=== PATIENT | female | born 1940 | race Caucasian/White ===

== ENCOUNTER 2019-02-03 13:54 | Outpatient (RCR) | payer OTHER, SELFPAY | END 2019-05-04 23:59 | disposition home or self-care (01) | LOC: ANHLAB 13:54 | PROVIDERS: PCP Family Medicine; Visit Provider Internal Medicine Hematology & Oncology | DX: C50.412 Malignant neoplasm of upper-outer quadrant of left female breast (principal); Z17.0 Estrogen receptor positive status [ER+]; E83.119 Hemochromatosis, unspecified | CPT/HCPCS: 99199 ==

== ENCOUNTER 2019-04-26 08:05 | Outpatient (CLI) | payer OTHER, SELFPAY ==
[2019-04-26 09:12] LABS: Basophils Percent Auto 0.5 % (0.2-1.2); Eosinophils Absolute Auto 0.2 K/mm3 (0-0.3); Hematocrit 37.1 % (37.0-47.0); Hemoglobin 12.3 g/dL (12.0-15.0); Immature Granulocyte Absolute 0.03 K/mm3 (0.00-0.031); Immature Granulocyte Percent A 0.5 % (0-0.5); Lymphocytes Absolute Auto 1.18 K/mm3 (0.9-3.2); Lymphocytes Percent Auto 19.7 % (18.3-44.2); Mean Corpuscular HGB Conc 33.2 g/dl (32-36); Mean Corpuscular Hemoglobin 31.5 pg (26-34); Mean Corpuscular Volume 95.1 fl (80-100); Monocytes Absolute Auto 0.6 K/mm3 (0.1-0.6); Neutrophils Percent Auto 66.3 % (45.5-73.1); Platelet Count Result 202 k/mm3 (150-375); Red Cell Distribution Width 12.5 % (11.5-14.5)
[2019-04-26 09:19] LABS: Add Urine Microscopic? YES; Appearance Urine Cloudy (Clear); Bacteria Urine Trace /hpf; Bilirubin Urine Negative (Negative); Blood Urine 1+ (Negative); Color Urine Yellow (Yellow); Glucose Urine UA Negative (Negative); Ketones Urine Negative (Negative); Leukocyte Esterase Ur 3+ LEU/UL (NEGATIVE); Mucus Urine Rare /lpf; Nitrate Urine Negative (Negative); Protein Urine 1+ mg/dL (Negative); Specific Grav Ur 1.015 (1.001-1.035); Squamous Epithelial Cell Urine Few /hpf (Few); Urobilinogen Urine Negative mg/dL (<2.0); WBC Urine 31-50 /hpf (0-3)
[2019-04-26 09:30] LABS: Alanine Aminotransferase 18 U/L (4-35); Albumin Level 3.9 g/dL (3.5-5.1); Alkaline Phosphatase 76 U/L (38-126); Aspartate Amino Transferase 25 U/L (14-36); Bilirubin,Total 0.2 mg/dL (0.2-1.3); Blood Urea Nitrogen 31 mg/dL (7-17); Calcium 9.4 mg/dL (8.4-10.2); Carbon Dioxide 26 mmol/L (22-30); Chloride 106 mmol/L (98-107); Estimated Glomerular Filt Rate 31; Glucose 100 mg/dL (65-105); Phosphorus 3.3 mg/dL (2.5-4.5); Potassium 4.2 mmol/L (3.4-5.0); Sodium 140 mmol/L (137-145); Uric Acid 7.5 mg/dL (2.5-7.5)
[2019-04-26 09:34] LABS: Creatinine Urine 106.2 mg/dL; Total Protein Urine Random 22 mg/dL
[2019-04-26 09:38] LABS: Parathyroid Intact 87.7 pg/mL (7.5-53.5)
[2019-04-26 10:09] LABS: Vitamin D 25 Hydroxy 40.6 ng/mL
== END 2019-04-26 08:06 | disposition home or self-care (01) ==
PROVIDERS: PCP Family Medicine; Visit Provider Internal Medicine Nephrology
DX: N18.3 Chronic kidney disease, stage 3 (moderate) (principal); N20.0 Calculus of kidney; I12.9 Hypertensive chronic kidney disease with stage 1 through stage 4 chronic kidney disease, or unspecified chronic kidney disease; M31.6 Other giant cell arteritis; M81.0 Age-related osteoporosis without current pathological fracture; E83.119 Hemochromatosis, unspecified
CPT/HCPCS: 36415; 80053; 81001; 82306; 82570; 83970; 84100; 84156; 84550; 85025; 87086; 87088

== ENCOUNTER 2019-07-23 08:25 | Outpatient (CLI) | payer OTHER, SELFPAY ==
[2019-07-23 09:08] LABS: Add Urine Microscopic? YES; Appearance Urine Clear (Clear); Bilirubin Urine Negative (Negative); Blood Urine Negative (Negative); Color Urine Yellow (Yellow); Glucose Urine UA Negative (Negative); Ketones Urine Negative (Negative); Leukocyte Esterase Ur 2+ LEU/UL (NEGATIVE); Mucus Urine Rare /lpf; Nitrate Urine Negative (Negative); Protein Urine Negative (Negative); Specific Grav Ur 1.013 (1.001-1.035); Squamous Epithelial Cell Urine Few /hpf (Few); Urobilinogen Urine Negative mg/dL (<2.0)
== END 2019-07-23 08:26 | disposition home or self-care (01) ==
PROVIDERS: PCP Family Medicine; Visit Provider Internal Medicine Nephrology
DX: N18.3 Chronic kidney disease, stage 3 (moderate) (principal); N20.0 Calculus of kidney; M31.6 Other giant cell arteritis; E83.119 Hemochromatosis, unspecified; I10 Essential (primary) hypertension; M81.0 Age-related osteoporosis without current pathological fracture; N25.81 Secondary hyperparathyroidism of renal origin
CPT/HCPCS: 81001; 88108

== ENCOUNTER 2019-08-03 07:53 | Outpatient (CLI) | payer OTHER, SELFPAY ==
--- NOTE | ~2019-08-03 | MM_ITS ---
EXAMINATION: MM screening litzy BI w waqas HISTORY: Screening mammogram, history of left breast cancer TECHNIQUE: Craniocaudal and mediolateral oblique 3-D tomosynthesis images were obtained and synthetic 2-D images were generated. CAD analysis was submitted and interpreted. COMPARISON: 07/31/2018, 07/28/2017, 07/25/2016 BREAST PARENCHYMAL COMPOSITION: There are scattered areas of fibroglandular density. FINDINGS: There are stable lumpectomy changes of the left breast. There is no evidence of suspicious mass, calcification, or architectural distortion to suggest malignancy in either breast. There has be en no suspicious interval change. IMPRESSION: 1. No mammographic evidence of malignancy. 2. Recommend routine screening mammography in one year. BI-RADS Category 2: Benign finding(s). Reviewed, dictated and finalized at location A.
--- NOTE | ~2019-08-03 | DEXA_ITS ---
Bone Density Report Name: Pippa Mota Age: 79 Sex: Female Ethnicity: White Date of : 1940 Indication: osteopenia; height loss; cancer; Referring Provider: Payton Ferguson Study: Bone densitometry was performed. Exam Date: August 03, 2019 Accession number: [id number] Bone Density: Region BMD T-score Z-score Classification AP Spine (L1-L4) 0.989 -0.5 2.2 Normal Femoral Neck (Left) 0.493 -3.2 -0.9 Osteoporosis Total Hip (Left) 0.745 -1.6 0.4 Osteopenia Total Hip Bilateral Avg 0.776 -1.4 0.7 Osteopenia Femoral Neck (Right) 0.570 -2.5 -0.2 Osteoporosis Total Hip (Right) 0.807 -1.1 1.0 Osteopenia World Health Organization criteria for BMD impression classify patients as: Normal (T-score at or above -1.0), Osteopenia (T-score between -1.0 and -2.5), or Osteoporosis (T-score at or below -2.5). 10-year Fracture Risk: FRAX not reported because: Some T-score for Spine Total or Hip Total or Femoral Neck at or below -2.5 Previous Exams: Region Exam Age BMD T-score BMD Change BMD Change Date g/cm2 vs Baseline vs Previous AP Spine(L1-L4) 08/03/2019 79 0.989 -0.5 0.079(8.7%)# 0.029(3.0%)* 05/20/2017 76 0.960 -0.8 0.050(5.5%)# -0.026(-2.7%)* 05/18/2015 74 0.987 -0.5 0.077(8.4%)# 0.043(4.6%)# 05/03/2013 72 0.944 -0.9 0.034(3.7%)# 0.020(2.2%) 04/19/2011 70 0.923 -1.1 0.013(1.5%)# -0.024(-2.5%)# 03/01/2009 68 0.947 -0.9 0.037(4.1%)* 0.004(0.5%) 02/26/2007 66 0.943 -0.9 0.033(3.6%)* 0.033(3.6%)* 01/15/2005 64 0.910 -1.2 Total Hip(Left) 08/03/2019 79 0.745 -1.6 -0.114(-13.3%) -0.051(-6.4%)* 05/20/2017 76 0.796 -1.2 -0.063(-7.3%)# 0.037(4.9%)* 05/18/2015 74 0.759 -1.5 -0.100(-11.7%) -0.040(-5.0%)# 05/03/2013 72 0.799 -1.2 -0.060(-7.0%)# 0.011(1.4%) 04/19/2011 70 0.788 -1.3 -0.072(-8.3%)# 0.002(0.3%)# 03/01/2009 68 0.786 -1.3 -0.074(-8.6%)* -0.033(-4.0%)* 02/26/2007 66 0.819 -1.0 -0.041(-4.7%)* -0.041(-4.7%)* 01/15/2005 64 0.860 -0.7 Total Hip(Right) 08/03/2019 79 0.807 -1.1 -0.019(-2.3%)# 0.020(2.5%) 05/20/2017 76 0.788 -1.3 -0.039(-4.7%)# -0.061(-7.2%)* 05/18/2015 74 0.849 -0.8 0.022(2.7%)# -0.021(-2.4%)# 05/03/2013 72 0.870 -0.6 0.043(5.2%)# 0.016(1.9%) 04/19/2011 70 0.853 -0.7 0.027(3.2%)# 0.038(4.7%)# 03/01/2009 68 0.815 -1.0 -0.012(-1.4%) -0.035(-4.1%)* 02/26/2007 66 0.850 -0.8 0.023(2.8%) 0.023(2.8%) 01/15/2005 64 0.827 -0.9 *Denotes significance at 95% confidence level,
== END 2019-08-03 07:54 | disposition home or self-care (01) ==
PROVIDERS: Visit Provider Family Medicine
DX: Z12.31 Encounter for screening mammogram for malignant neoplasm of breast (principal); Z78.0 Asymptomatic menopausal state; M85.89 Other specified disorders of bone density and structure, multiple sites; M81.0 Age-related osteoporosis without current pathological fracture
CPT/HCPCS: 36415; 77063; 77067; 77080; 80053; 82728; 83540; 83550; 85025; 86300

== ENCOUNTER 2019-08-03 09:02 | Outpatient (CLI) | payer OTHER, SELFPAY ==
[2019-08-03 09:20] LABS: Basophils Percent Auto 0.6 % (0.2-1.2); Eosinophils Absolute Auto 0.2 K/mm3 (0-0.3); Eosinophils Percent Auto 2.5 % (0-4.4); Hematocrit 36.6 % (37.0-47.0); Hemoglobin 11.9 g/dL (12.0-15.0); Immature Granulocyte Absolute 0.03 K/mm3 (0.00-0.031); Immature Granulocyte Percent A 0.4 % (0-0.5); Lymphocytes Absolute Auto 1.09 K/mm3 (0.9-3.2); Lymphocytes Percent Auto 15.4 % (18.3-44.2); Mean Corpuscular HGB Conc 32.5 g/dl (32-36); Mean Corpuscular Hemoglobin 30.9 pg (26-34); Mean Corpuscular Volume 95.1 fl (80-100); Mean Platelet Volume 10.1 fl (7.4-10.4); Monocytes Absolute Auto 0.7 K/mm3 (0.1-0.6); Monocytes Percent Auto 9.2 % (2.6-8.5); Neutrophils Absolute Auto 5.1 K/mm3 (1.3-6.7); Neutrophils Percent Auto 71.9 % (45.5-73.1); Platelet Count Result 200 k/mm3 (150-375); Red Blood Count 3.85 M/mm3 (4.2-5.4); White Blood Count 7.1 K/mm3 (4.5-10.0)
[2019-08-03 10:14] LABS: Iron 157 ug/dL (37-170)
[2019-08-03 10:19] LABS: Alanine Aminotransferase 13 U/L (4-35); Alkaline Phosphatase 84 U/L (38-126); Aspartate Amino Transferase 21 U/L (14-36); Bilirubin,Total 0.6 mg/dL (0.2-1.3); Blood Urea Nitrogen 45 mg/dL (7-17); Calcium 9.1 mg/dL (8.4-10.2); Carbon Dioxide 24 mmol/L (22-30); Chloride 107 mmol/L (98-107); Estimated Glomerular Filt Rate 29; Glucose 104 mg/dL (65-105); Potassium 4.7 mmol/L (3.4-5.0); Sodium 141 mmol/L (137-145)
[2019-08-03 10:57] LABS: Percent Iron Saturation 56 % (20-50)
[2019-08-05 05:18] LABS: CA 27.29 17 U/mL (<38)
== END 2019-08-03 09:03 | disposition home or self-care (01) ==
LOC: ANHLAB 09:05
PROVIDERS: Visit Provider Internal Medicine Hematology & Oncology
DX: E83.119 Hemochromatosis, unspecified (principal); C50.412 Malignant neoplasm of upper-outer quadrant of left female breast; Z17.0 Estrogen receptor positive status [ER+]
CPT/HCPCS: 36415; 80053; 82728; 83540; 83550; 85025; 86300

== ENCOUNTER 2019-09-07 07:24 | Outpatient (CLI) | payer OTHER, SELFPAY ==
[2019-09-07 08:51] LABS: Cholesterol 151 mg/dL (0-200); HDL Direct 43 mg/dL; Triglycerides 130 mg/dL (<150)
[2019-09-07 09:02] LABS: LDL Cholesterol Direct 80 mg/dL
[2019-09-07 09:04] LABS: Hemoglobin A1C 5.4 % (<5.7)
== END 2019-09-07 07:25 | disposition home or self-care (01) ==
PROVIDERS: Visit Provider Family Medicine
DX: I10 Essential (primary) hypertension (principal); Z13.1 Encounter for screening for diabetes mellitus
CPT/HCPCS: 36415; 80061; 83036

== ENCOUNTER 2019-10-26 07:43 | Outpatient (CLI) | payer OTHER, SELFPAY ==
[2019-10-26 08:35] LABS: Basophils Percent Auto 0.5 % (0.2-1.2); Eosinophils Absolute Auto 0.2 K/mm3 (0-0.3); Eosinophils Percent Auto 3.1 % (0-4.4); Hemoglobin 11.5 g/dL (12.0-15.0); Immature Granulocyte Absolute 0.03 K/mm3 (0.00-0.031); Immature Granulocyte Percent A 0.5 % (0-0.5); Lymphocytes Absolute Auto 1.01 K/mm3 (0.9-3.2); Lymphocytes Percent Auto 17.6 % (18.3-44.2); Mean Corpuscular HGB Conc 32.9 g/dl (32-36); Mean Corpuscular Hemoglobin 31.3 pg (26-34); Mean Corpuscular Volume 95.4 fl (80-100); Mean Platelet Volume 10.5 fl (7.4-10.4); Monocytes Absolute Auto 0.6 K/mm3 (0.1-0.6); Monocytes Percent Auto 10.4 % (2.6-8.5); Neutrophils Absolute Auto 3.9 K/mm3 (1.3-6.7); Neutrophils Percent Auto 67.9 % (45.5-73.1); Platelet Count Result 183 k/mm3 (150-375); Red Blood Count 3.67 M/mm3 (4.2-5.4); Red Cell Distribution Width 12.5 % (11.5-14.5); White Blood Count 5.8 K/mm3 (4.5-10.0)
[2019-10-26 08:42] LABS: Creatinine Urine 84.3 mg/dL; Total Protein Urine Random 64 mg/dL
[2019-10-26 08:49] LABS: Alanine Aminotransferase 19 U/L (4-35); Albumin Level 3.6 g/dL (3.5-5.1); Alkaline Phosphatase 74 U/L (38-126); Anion Gap 10.2 mmol/L (7-16); Aspartate Amino Transferase 23 U/L (14-36); Bilirubin,Total 0.6 mg/dL (0.2-1.3); Blood Urea Nitrogen 27 mg/dL (7-17); Carbon Dioxide 27 mmol/L (22-30); Chloride 105 mmol/L (98-107); Estimated Glomerular Filt Rate 31; Glucose 92 mg/dL (65-105); Phosphorus 3.4 mg/dL (2.5-4.5); Potassium 4.2 mmol/L (3.4-5.0); Sodium 138 mmol/L (137-145); Uric Acid 7.7 mg/dL (2.5-7.5)
[2019-10-26 08:59] LABS: Add Urine Microscopic? YES; Appearance Urine Clear (Clear); Bilirubin Urine Negative (Negative); Blood Urine Negative (Negative); Color Urine Straw (Yellow); Glucose Urine UA Negative (Negative); Ketones Urine Negative (Negative); Leukocyte Esterase Ur Negative LEU/UL (Negative); Mucus Urine Rare /lpf; Nitrate Urine Negative (Negative); Protein Urine 2+ mg/dL (Negative); RBC Urine 0-2 /hpf (0-2); Specific Grav Ur 1.013 (1.001-1.035); Squamous Epithelial Cell Urine Rare /hpf (Few); Urobilinogen Urine Negative mg/dL (<2.0); WBC Urine 0-3 /hpf
[2019-10-26 09:00] LABS: Parathyroid Intact 85.6 pg/mL (7.5-53.5)
[2019-10-26 10:48] LABS: Vitamin D 25 Hydroxy 42.2 ng/mL
== END 2019-10-26 07:44 | disposition home or self-care (01) ==
LOC: ANHLAB 07:47
PROVIDERS: PCP Family Medicine; Visit Provider Internal Medicine Nephrology
DX: I12.9 Hypertensive chronic kidney disease with stage 1 through stage 4 chronic kidney disease, or unspecified chronic kidney disease (principal); N18.3 Chronic kidney disease, stage 3 (moderate); N20.0 Calculus of kidney; M31.6 Other giant cell arteritis; E83.119 Hemochromatosis, unspecified; M81.0 Age-related osteoporosis without current pathological fracture; N25.81 Secondary hyperparathyroidism of renal origin
CPT/HCPCS: 36415; 80053; 81001; 82306; 82570; 83970; 84100; 84156; 84550; 85025

== ENCOUNTER 2019-11-13 12:52 | Inpatient (IN) | payer OTHER, SELFPAY ==
[2019-11-13] VITALS (10 sets, daily range): BP systolic 148–204; BP diastolic 52–87; PULSE 62–84; RESP 14–22; TEMP 36.3–37.2; O2SAT 93–100; BMI 34.2
--- NOTE | ~2019-11-13 | XR_ITS ---
EXAMINATION: XR chest 1V portable INDICATION: Chest pain and irregular heartbeat TECHNIQUE: Portable AP chest at 1344 hours COMPARISON: 02/02/2016 FINDINGS: The lungs are free of acute opacities. There is no pleural effusion or pneumothorax. The ca rdiomediastinal silhouette is normal for technique. Changes of left partial mastectomy and left axill julieth lymph node dissection are noted. IMPRESSION: 1. No acute cardiopulmonary abnormality. Reviewed, dictated and finalized at location A.
--- NOTE | ~2019-11-13 | US_ITS ---
EXAMINATION: US venous doppler [facility] DATE: 11/14/2019 10:15 INDICATION: Lower limb pain TECHNIQUE: Coley scale images without and with compression and Doppler images of the bilateral lower e xtremity veins were obtained. COMPARISON: None FINDINGS: The right common femoral vein, profunda femoral vein, femoral vein, popliteal vein, peroneal trunk, p osterior tibial veins, and greater saphenous vein are patent. The left common femoral vein, profunda femoral vein, femoral vein, popliteal vein, peroneal trunk, po sterior tibial veins, and greater saphenous vein are patent. IMPRESSION: 1. Patent bilateral lower extremity veins. No evidence of deep venous thrombosis. Reviewed, dictated and finalized at location A. IMPRESSION: 1. Patent bilateral lower extremity veins. No evidence of deep venous thrombosi s.
--- NOTE | 2019-11-13 13:02 | ECG_ITS ---
Measurements Intervals [place] Rate: 83 P: 35 VA: 123 QRS: 27 QRSD: 86 T: 30 QT: 332 QTc: 392 Interpretive Statements SINUS RHYTHM ATRIAL TRIPLETS AND ATRIAL PREMATURE COMPLEX BASELINE ARTIFACT- III ABNORMAL ECG Electronically Signed On 11-13-2019 16:53:45 CDT by Yosvany Aguilera D.O.
[2019-11-13 13:53] LABS: Basophils Percent Auto 0.5 % (0.2-1.2); Eosinophils Absolute Auto 0.2 K/mm3 (0-0.3); Eosinophils Percent Auto 2.6 % (0-4.4); Hematocrit 33.6 % (37.0-47.0); Hemoglobin 11.3 g/dL (12.0-15.0); Immature Granulocyte Absolute 0.03 K/mm3 (0.00-0.031); Immature Granulocyte Percent A 0.5 % (0-0.5); Lymphocytes Absolute Auto 1.09 K/mm3 (0.9-3.2); Lymphocytes Percent Auto 17.6 % (18.3-44.2); Mean Corpuscular HGB Conc 33.6 g/dl (32-36); Mean Corpuscular Hemoglobin 31.7 pg (26-34); Mean Corpuscular Volume 94.4 fl (80-100); Mean Platelet Volume 10.9 fl (7.4-10.4); Monocytes Absolute Auto 0.6 K/mm3 (0.1-0.6); Monocytes Percent Auto 9.5 % (2.6-8.5); Neutrophils Absolute Auto 4.3 K/mm3 (1.3-6.7); Neutrophils Percent Auto 69.3 % (45.5-73.1); Platelet Count Result 203 k/mm3 (150-375); Red Blood Count 3.56 M/mm3 (4.2-5.4); Red Cell Distribution Width 12.4 % (11.5-14.5); White Blood Count 6.2 K/mm3 (4.5-10.0)
[2019-11-13 14:06] LABS: INR 1.1; Prothrombin Time 13.8 Seconds (11.1-14.7)
[2019-11-13 14:08] LABS: Alanine Aminotransferase 16 U/L (4-35); Albumin Level 3.5 g/dL (3.5-5.1); Alkaline Phosphatase 77 U/L (38-126); Anion Gap 7 mmol/L (8-16); Aspartate Amino Transferase 23 U/L (14-36); Bilirubin,Total 0.2 mg/dL (0.2-1.3); Blood Urea Nitrogen 29 mg/dL (7-17); Calcium 9.1 mg/dL (8.4-10.2); Carbon Dioxide 24 mmol/L (22-30); Chloride 110 mmol/L (98-107); Estimated CRCL calculation 27 ml/min; Estimated Glomerular Filt Rate 33; Glucose 132 mg/dL (65-105); Potassium 3.9 mmol/L (3.4-5.0); Sodium 141 mmol/L (137-145)
[2019-11-13 14:17] LABS: NT Pro B Type Natriuretic Pept 2750 PG/ML (5-100)
[2019-11-13] MEDS: hydrALAZINE HCL 20 MG/ML VIAL 10 MG IV PUSH (14:23)
[2019-11-13 14:35] LABS: Troponin I < 0.012 ng/mL (0.000-0.034)
--- NOTE | 2019-11-13 16:11 | ED.ARRPALP ---
HPI - Arrhythmia/Palpitations General Chief Complaint: Arrhythmia/Palpitations Stated Complaint: irregular heartbeat , high bp Time Seen by Provider: 11/13/19 12:56 Source: patient Mode of arrival: ambulatory Limitations: no limitations History of Present Illness HPI narrative: 79-year-old with a history of hypertension, CKD, here with complaints of having palpitations since last 2 weeks. Patient states since this morning she has been having more symptoms also felt lightheaded and dizzy. She denies any chest pain but has some chest discomfort. She denies any nausea vomiting. She states her primary doctor moved out of town and she is presently scheduled to see Dr. Pizarro next month. complaint: skipped beats and palpitations Duration: constant Severity: moderate Associated symptoms: denies other symptoms Related Data Allergies Allergy/AdvReac Type Severity Reaction Status Date / Time povidone Allergy Mild Unknown Verified 11/13/19 13:03 alendronate sodium Allergy Unknown Heartburn Verified 11/13/19 13:03 epinephrine Allergy Unknown tachycardia Verified 11/13/19 13:03 iodine Allergy Unknown Unknown Verified 11/13/19 13:03 prednisone Allergy Unknown Unknown Verified 11/13/19 13:03 Review of Systems Review of Systems: All systems reviewed & are unremarkable except as noted in HPI and below Constitutional: Constitutional: Reports no additional constitutional complaints Eyes: Eyes: Reports as per HPI ENT: Reports system reviewed and no additional complaints, except as documented Cardiovascular: Cardiovascular: Reports as per HPI Respiratory: Respiratory: Reports no additional respiratory complaints Gastrointestinal: Gastrointestinal: Reports as per HPI Musculoskeletal: Musculoskeletal: Reports no additional musculoskeletal complaints [facility] Past Medical History Medical History Anemia Breast cancer (~2007) HTN (hypertension) (~1991) IBS (irritable bowel syndrome) Osteoporosis Stage 3 chronic kidney disease Temporal arteritis syndrome (~2000) Vitamin D deficiency Family History Family History Mother Family history of dementia Father Family history of congestive heart failure Social History Social History Smoking status: Former smoker Smoking end date: 03/24/88 Alcohol intake: current Gender identity (if verbalized by the patient): Female Exam Narrative: Exam Narrative: GENERAL: Well-appearing, well-nourished, and in no acute distress. HEAD: Normocephalic, atraumatic. EYES: PERRLA and EOMI. ENT: Nares clear, no rhinorrhea or epistaxis. Mucous membranes moist. NECK: Supple. CHEST: Clear to auscultation. No respiratory distress. HEART: Regular rate and rhythm. No murmur heard. Normal peripheral pulses. ABDOMEN: Soft, nontender, nondistended, normal active bowel sounds. EXTREMITIES: Normal range of motion. No edema. SKIN: Warm, dry, no rash. NEURO: No focal deficits. Alert and oriented x3. PSYCH: Normal mood and affect. Course Vital Signs Vital signs: Vital Signs Temperature 37.2 C 11/13/19 12:57 Pulse Rate 72 11/13/19 12:57 Respiratory Rate 19 11/13/19 12:57 Blood Pressure 200/87 H 11/13/19 12:57 Pulse Oximetry 96 11/13/19 12:57 Temperature 37.2 C 11/13/19 12:57 Pulse Rate 68 11/13/19 15:46 Respiratory Rate 22 H 11/13/19 15:46 Blood Pressure 153/53 H 11/13/19 15:46 Pulse Oximetry 100 11/13/19 15:46 MDM - Arrhythmia/Palpitations MDM Narrative Medical decision making narrative: With a history of palpitations and ordered a CBC chemistry EKG. The EKG shows multiple PVCs but no evidence of A. fib or SVT. Also noticed to have high blood pressure have given 10 of hydralazine soon after patient became more anxious I did give her 0.25 Ativan she felt much comfortable. I informed her about her lab wo
--- NOTE | 2019-11-13 17:41 | ADMGEN ---
This patient, Pippa Mota, was admitted to IMU Room 201-01 on 11/13/2019 at 1729. Patient/family oriented to hospital policies and general routines including ID bracelet, bed and alarms, visiting hours, pain management, procedures, bathroom and other care routines, personal items, smoking policy, room service/diet, and visiting hours. Valuables list has been completed. Information on how to activate the Rapid Response Team has been discussed. Patient/Family are encouraged to report perceived risks to care and to ask questions if they do not understand what they are told or what they should do.
[2019-11-13 19:37] LABS: Magnesium 1.7 mg/dL (1.6-2.3)
[2019-11-13 19:48] LABS: Troponin I < 0.012 ng/mL (0.000-0.034)
--- NOTE | 2019-11-13 20:00 | PM.IMHP ---
H&P: HPI History of Present Illness Date/Time: 11/13/19 20:00 Chief complaint: Palpitations. Narrative: Pippa Mota is an 79-year-old female with hypertension, chronic kidney disease stage 3, hemochromatosis, and history of breast cancer who presented to the emergency department earlier today from home for evaluation of palpitations. on October 24 she began feeling extremely fatigued and around that same time she began having frequent palpitations. The palpitations made her anxious, which in turn seems to have made her blood pressure higher than what it typically runs. At night, typically if she is lying on her right side, her heart will feel like it is beating hard, and more recently she has been feeling the pulse on her wrist and noticed that it was irregular and thus she came in for evaluation. She has not had chest pain with the palpitations, and denies lightheadedness and dizziness however reported those symptoms to the emergency department physician. She also denies pleuritic pain, shortness of breath, nausea, and sweats. She has no history of sleep apnea however she has been told that she snores, has daytime somnolence on occasion, and a friend has told her that she suspect she may have sleep apnea after seeing her sleep in the emergency department. She denies orthopnea, PND, and lower extremity edema however she does mention some calf discomfort bilaterally, right greater than left. She has no known history of thyroid disease, atrial fibrillation, and denies any significant caffeine or alcohol intake. Review of Systems Review of Systems: Narrative: Twelve systems were reviewed with pertinent positives and negatives as per HPI. No fever, chills, or sweats. No recent cold or flu symptoms. She denies nausea, vomiting, diarrhea. No dysuria. She has not required therapeutic phlebotomy for some time as she is now anemic. Except as documented, all other systems were reviewed and are negative. [facility]LY [facility], [facility] Past Medical History Medical History Anemia Cancer of left breast (~2007) Status post lumpectomy, chemotherapy, and radiation. Chronic kidney disease, stage 3 She is a patient of Dr. Devi Kohli. Elevated parathyroid hormone Being monitored by her thread grinder, Dr. Kohli. Essential hypertension Hemochromatosis Diagnosed in 1991. She is a patient of Dr. Samson. No recent therapeutic phlebotomy due to presence of anemia. Irritable bowel syndrome Osteoporosis Temporal arteritis syndrome (~2000) Vitamin D deficiency Surgical History Surgical History (Updated 11/13/19 @ 22:01 by Skye Felix PA-C) History of liver biopsy History of lumpectomy of both breasts Including left breast lumpectomy for breast cancer in 2007. History of tonsillectomy Family History Family History (Updated 11/13/19 @ 22:03 by Skye Felix PA-C) Mother Family history of dementia Father Family history of congestive heart failure Other Adopted Social History Social History (Updated 11/13/19 @ 22:02 by Skye Felix PA-C) Social History: Surrogate decision maker: Hollie Costello, friend. Code status: Full code. Smoking packs per day: 1.5 Smoking cigarettes per day: 30.0 Years smoked: 30 Smoking pack-years: 45.00 Smoking status: Former smoker Tobacco type: cigarettes Smoking end date: 03/24/88 Alcohol intake: never Substance use: never Additional living arrangements comments: Lives in [place] with her 2 toy poodles. She never and has no children. 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 She studied for 2 years at [employer]. Gender identity (if verbalized by the patient): Female Spiritual care concerns: No Meds Home Medications and Allergies Home Medications Medication Instructions Recorded Confirmed Type chlorthalidone 25 mg tablet 12.5 mg PO 3XW 90 Days tablet 08/30/19
--- NOTE | 2019-11-13 20:01 | PM.CNCAR ---
Assessment and Plan Assessment and plan (1) Palpitations: Code(s): R00.2 - Palpitations Status: Acute Assessment and Plan: Monitor on telemetry. Could be related to undiagnosed sleep apnea. Will need formal sleep study as an outpatient. Check TSH and Mag. Will need echo. Increase Atenolol 100 mg daily. (2) Stage 4 chronic kidney disease due to benign hypertension: Code(s): I12.9 - Hypertensive chronic kidney disease with stage 1 through stage 4 chronic kidney disease, or unspecified chronic kidney disease; N18.4 - Chronic kidney disease, stage 4 (severe) Status: Acute (3) HTN (hypertension): Onset Date: ~1991 Code(s): I10 - Essential (primary) hypertension Status: Chronic Assessment and Plan: High. Increase Atenolol 100 mg daily. (4) Hypersomnia: Code(s): G47.10 - Hypersomnia, unspecified Status: Acute Assessment and Plan: Sleep study as outpatient. History of Present Illness History of Present Illness Consult date/time: 11/13/19 20:01 Reason for consult: Palpitations 79 yr old woman who presented to ED for evaluation of palpitations. She has a history of hypertension and CKD stage III-IV, history of hemachromatosis, parathyroid abnormality that is being assessed. Reports that she noted palpitations about 3 weeks ago and it has become more frequent especially while lying down. No associated symptoms. She can walk at least 1 block or around [employer] without any problems. Admits to snoring, waking up a twice a night and daytime sleepiness/fatigue. Denies chest pain, sob, orthopnea, PND, edema. On Telemetry she has significant number of PAC's and PVC's. EKG shows sinus rhythm with atrial triplets and PAC. Hb 11.3. Cr 1.5 with CrCl 27. NTproBNP 2,750. CXR is normal. Reason For Visit: chf,palpitations Review of Systems Review of Systems: All systems reviewed & are unremarkable except as noted in HPI and below Constitutional: Constitutional: Reports as per HPI, Denies chills and Reports fatigue Cardiovascular: Cardiovascular: Reports as per HPI, Denies chest pain and Reports palpitations Respiratory: Respiratory: Reports as per HPI and Denies dyspnea Gastrointestinal: Gastrointestinal: Reports as per HPI and Denies abdominal pain Genitourinary: Genitourinary: Reports as per HPI and Denies dysuria Musculoskeletal: Musculoskeletal: Reports as per HPI Neurologic: Reports as per HPI, Denies Abnormal speech present and Denies confusion [facility] Past Medical History Medical History Anemia Breast cancer (~2007) HTN (hypertension) (~1991) IBS (irritable bowel syndrome) Osteoporosis Stage 3 chronic kidney disease Temporal arteritis syndrome (~2000) Vitamin D deficiency Family History Family History Mother Family history of dementia Father Family history of congestive heart failure Social History Social History Smoking packs per day: 1.5 Smoking cigarettes per day: 30.0 Years smoked: 30 Smoking pack-years: 45.00 Smoking status: Former smoker Tobacco type: cigarettes Smoking end date: 03/24/88 Alcohol intake: never Substance use: never Gender identity (if verbalized by the patient): Female Spiritual care concerns: No Meds Home Medications and Allergies Home Medications Medication Instructions Recorded Confirmed Type chlorthalidone 25 mg tablet 12.5 mg PO 3XW 90 Days tablet 08/30/19 11/13/19 Rx losartan 50 mg tablet 50 mg PO DAILY #90 tablet 08/30/19 11/13/19 Rx atenolol 50 mg PO HS 11/13/19 11/13/19 History Allergies Allergy/AdvReac Type Severity Reaction Status Date / Time povidone Allergy Mild Unknown Verified 11/13/19 13:03 alendronate sodium Allergy Unknown Heartburn Verified 11/13/19 13:03 epinephrine Allergy Unknown tach
[2019-11-13 20:30] LABS: Thyroid Stimulating Hormone Reflex 0.806 uIU/mL (0.465-4.68)
[2019-11-13] MEDS: atenoloL 50 MG TABLET 100 MG PO (21:51)
[2019-11-13] MEDS: FUROSEMIDE INJ 40 MG/4 ML VIAL IV PUSH (21:52)
[2019-11-13] MEDS: MAGNESIUM SULF 2 GM/WATER 50ML 2 GM/50 ML BAG IVPB (21:53)
[2019-11-13 22:55] LABS: Troponin I 0.018 ng/mL (0.000-0.034)
[2019-11-14] VITALS (17 sets, daily range): BP systolic 107–183; BP diastolic 49–67; PULSE 43–62; RESP 12–20; TEMP 36.1–36.4; O2SAT 94–100
[2019-11-14] MEDS: ACETAMINOPHEN 325 MG TABLET 650 MG PO (02:30)
[2019-11-14 06:56] LABS: Hematocrit 36.8 % (37.0-47.0); Hemoglobin 12.3 g/dL (12.0-15.0); Mean Corpuscular HGB Conc 33.4 g/dl (32-36); Mean Corpuscular Hemoglobin 31.1 pg (26-34); Mean Corpuscular Volume 92.9 fl (80-100); Mean Platelet Volume 10.7 fl (7.4-10.4); Platelet Count Result 219 k/mm3 (150-375); Red Blood Count 3.96 M/mm3 (4.2-5.4); Red Cell Distribution Width 12.3 % (11.5-14.5); White Blood Count 6.6 K/mm3 (4.5-10.0)
[2019-11-14 07:19] LABS: Anion Gap 8 mmol/L (8-16); Blood Urea Nitrogen 27 mg/dL (7-17); Calcium 9.5 mg/dL (8.4-10.2); Carbon Dioxide 27 mmol/L (22-30); Chloride 103 mmol/L (98-107); Estimated CRCL calculation 26 ml/min; Estimated Glomerular Filt Rate 33; Glucose 120 mg/dL (65-105); Magnesium 2.1 mg/dL (1.6-2.3); Phosphorus 3.8 mg/dL (2.5-4.5); Potassium 3.8 mmol/L (3.4-5.0); Sodium 138 mmol/L (137-145)
[2019-11-14 07:26] LABS: Parathyroid Intact 63.1 pg/mL (7.5-53.5)
--- NOTE | 2019-11-14 08:27 | ECG_ITS ---
Measurements Intervals [place] Rate: 50 P: -47 RI: 108 QRS: 18 QRSD: 96 T: 26 QT: 430 QTc: 393 Interpretive Statements SINUS BRADYCARDIA WITH SHORT RI INTERVAL ATRIAL PREMATURE COMPLEX BASELINE ARTIFACT- V1 BORDERLINE ECG Electronically Signed On 11-14-2019 13:37:11 CDT by Yosvany Aguilera D.O.
--- NOTE | 2019-11-14 08:29 | PM.PNCARD ---
Progress Note: A&P Assessment and Plan (1) Essential hypertension: Code(s): I10 - Essential (primary) hypertension Status: Acute Assessment and Plan: High. Was going to change Atenolol to Coreg given that Atenolol is renally cleared. However, will not start Coreg since will start Sotalol for arrhythmia. Start Clonidine 0.1 mg BID. Stop Lasix. (2) Suspected sleep apnea: Code(s): R29.818 - Other symptoms and signs involving the nervous system Status: Acute Assessment and Plan: Will need formal sleep study as outpatient. In meantime would benefit from auto- CPAP? (3) Palpitations: Code(s): R00.2 - Palpitations Status: Acute Assessment and Plan: Frequent PAC's and some PVC's. Probably due to undiagnosed/untreated AVANI. Had 2 bouts of atrial tachycardia lassting 10-15 beats last night. Obtain echo tomorrow. (4) Stage 4 chronic kidney disease due to benign hypertension: Code(s): I12.9 - Hypertensive chronic kidney disease with stage 1 through stage 4 chronic kidney disease, or unspecified chronic kidney disease; N18.4 - Chronic kidney disease, stage 4 (severe) Status: Acute (5) PAT (paroxysmal atrial tachycardia): Code(s): I47.1 - Supraventricular tachycardia Status: Acute Assessment and Plan: Start Sotalol 80 mg BID. Check EKG 1-2 hours post dose to check QT interval. May have breakthrough arrhythmia with untreated underlying problem such as AVANI. Subjective Date/time seen: 11/14/19 08:29 Reports having frequent palpitations. Apnea link shows severe sleep apnea. Exam Const: General: comfortable and no acute distress Neck: Neck: no JVD Carotids: no bruits Resp: Auscultation: clear to auscultation bilaterally, no crackles, no rales, no rhonchi and no wheezes Cardio: Rate: regular rate Rhythm: abnormal rhythm GI: Inspection: non-distended Neuro: Speech: normal speech Extrem: Right lower extremity: no edema Left lower extremity: no edema Objective Data Vital Signs Vital Signs: Vital Signs - 24 hr 11/13/19 12:57 11/13/19 14:26 11/13/19 15:46 Temperature 99.0 F Pulse Rate 72 62 68 Respiratory Rate 19 14 22 H Blood Pressure 200/87 H 204/52 H 153/53 H Pulse Oximetry 96 97 100 11/13/19 17:19 11/13/19 17:38 11/13/19 18:00 Temperature 97.6 F Pulse Rate 73 72 79 Respiratory Rate 17 16 Blood Pressure 162/76 H 163/63 H Pulse Oximetry 97 98 11/13/19 20:00 11/13/19 21:51 11/13/19 22:00 Temperature 97.6 F Pulse Rate 84 82 82 Respiratory Rate 16 Blood Pressure 165/75 H Pulse Oximetry 93 11/13/19 23:39 11/14/19 00:00 11/14/19 02:00 Temperature 97.4 F L Pulse Rate 62 62 56 L Respiratory Rate 15 15 Blood Pressure 148/56 H Pulse Oximetry 97 97 11/14/19 04:00 11/14/19 06:00 11/14/19 07:46 Temperature 97.1 F L 97.6 F Pulse Rate 54 L 56 L 62 Respiratory Rate 20 12 Blood Pressure 147/57 H 165/67 H Pulse Oximetry 98 98 Intake/Output Intake/Output: Intake & Output 11/11/19 11/12/19 11/13/19 11/14/19 23:59 23:59 23:59 23:59 Intake Total 50 550 Output Total 1700 1700 Balance -1650 -1150 Meds/Results Medications: Active Medications Generic Name Dose Route Start Last Admin Trade Name Freq PRN Reason Stop Dose Admin Acetaminophen 650 mg 11/13/19 16:19 11/14/19 02:30 Tylenol Tablet PO 650 mg Q4H PRN Administration Mild Pain (1-3) or Fever Aspirin 81 mg 11/14/19 08:00 Aspirin Chewable PO DAILY@0800 [facility] Chlorthalidone 12.5 mg 11/15/19 09:00 [place] PO MoWeFr@0900 [facility] Clonidine HCl 0.1 mg 11/14/19 09:00 Catapres PO Q12HR [facility] Enoxaparin Sodium 40 mg 11/14/19 09:00 Lovenox SUB-Q DAILY [facility] Losartan Potassium 50 mg 11/14/19 09:00 Cozaar PO DAILY [facility] Sotalol HCl 80 mg 11/14/19 09:00 Betapace PO Q12HR [facility] Radiology Results: ITS Impressions Chest X-Ray 11/13/19 13:46
[2019-11-14] MEDS: SOTALOL HCL 80 MG TABLET PO ×2 (09:16→20:33)
[2019-11-14] MEDS: cloNIDine HCL 0.1 MG TABLET PO (09:17)
[2019-11-14] MEDS: ENOXAPARIN 40 MG/0.4 ML SYRINGE SUB-Q (09:18)
[2019-11-14] MEDS: ASPIRIN 81 MG CHEWABLE TABLET PO (09:18)
[2019-11-14] MEDS: LOSARTAN POTASSIUM 50 MG TABLET PO (09:18)
[2019-11-14 09:43] LABS: Vitamin D 25 Hydroxy 37.7 ng/mL
--- NOTE | 2019-11-14 10:16 | PM.IMPN ---
Progress Note: A&P Assessment and Plan (1) Palpitations: Code(s): R00.2 - Palpitations Status: Acute Assessment and Plan: -----telemetry demonstrates multiple PACs and some SVTs. Dr. parrish saw her this morning it appears that he is going to start sotalol. We will keep from the IMU and monitor her telemetry. Echo planned for tomorrow. Atenolol stopped (2) Suspected sleep apnea: Code(s): R29.818 - Other symptoms and signs involving the nervous system Status: Acute Assessment and Plan: -----apnea link demonstrates significant risk for sleep apnea. She will need to follow-up with sleep study. She understands that this can affect her lungs and her heart (3) Essential hypertension: Code(s): I10 - Essential (primary) hypertension Status: Acute Assessment and Plan: -----last blood pressure 165/67. Continue losartan, sotalol and clonidine. Consider changing clonidine to a patch as there is less risk for rebound hypertension. Pts bp was 200/87 on admission. We don't want her to drop too low. Consider assessing for SILVIO with u/s d/t kidney disease. (4) Chronic kidney disease, stage 3: Code(s): N18.3 - Chronic kidney disease, stage 3 (moderate) Status: Acute Assessment and Plan: -----Kidney function at baseline. She sees Dr. Devi Kohli, and was recently told that her parathyroid hormone was elevated and this was confirmed today. This could be playing a factor with regards to fatigue and perhaps even the palpitations. Calcium level and vit d normal. From kidney disease? f/u with manager lpn (5) Muscle cramp: Code(s): R25.2 - Cramp and spasm Status: Acute Assessment and Plan: -----acute on chronic. The patient does not want anything that will make her more tired but let her know if she changes her mind. We could do a muscle relaxer or Valium but these may cause her to become tired. She says at home she drinks pickle juice and this helps it immensely. I have called down to dietary and they're bringing her some. I told her to let me know if it does not improve. Time Spent With Patient Time with patient: 25 - 35 minutes Subjective Date/time seen: 11/14/19 10:16 Interval history: Pt is a 79-year-old female here for heart palpitations and was seen today. Patient states that her heart palpitations have improved but they typically do during the day. She mostly notices them at night when she is laying on her right side. She has no chest pain, dizziness, weakness, or shortness of breath with this. She has not noticed any swelling in her legs. She understands that she has severe sleep apnea and needs to have an official sleep study and that this can affect her heart. Her main concern today is muscle cramp in her left thigh. She says she has these couple times every 6 months. She does not want a muscle relaxer as she gets very tired with these. She request pickle juice. She denies nausea, vomiting, fevers, chills, diarrhea or constipation. Review of Systems Review of Systems: All systems reviewed & are unremarkable except as noted in HPI and below Exam Narrative: Exam Narrative: General: Well developed well nourished patient resting comfortably in bed in no acute distress HEENT: normocephalic Neck: supple Neuro: Alert and oriented x4 CV: Regular at baseline with multiple PACs. Telemetry reviewed which showed some SVT and multiple PACs. Resp:CTA Abd: Soft, non distended. No pain to palpation. Positive bowel sounds Extremities: No swelling, erythema, or pain to palpation. Pain To the left thigh, no abnormality noted Objective Data Vital Signs Vital Signs: Vital Signs - 24 hr 11/13/19 12:57 11/13/19 14:26 11/13/19 15:46 Temperature 99.0 F Pulse Rate 72 62 68 Respiratory Rate 19 14 22 H Blood Pressure 200/87 H 204/52 H 153/53 H Pulse Oximetry 96 97 100 11/13/19 17:19 11/13/19 17:38 11/13/19
[2019-11-15] VITALS (11 sets, daily range): BP systolic 150–178; BP diastolic 41–56; PULSE 43–68; RESP 16; TEMP 36.1–36.3; O2SAT 94–98
--- NOTE | 2019-11-15 | ECHO_ITS ---
Patient Info Name: Pippa Mota Age: 79 years : 1940 Gender: Female Ht: 61 in Wt: 181 lbs BSA: 1.92 m2 HR: 43 bpm BP: 158 / 45 mmHg Technical Quality: Good Exam Date: 11/15/2019 8:27 AM Exam Location: [facility] Patient Status: Inpatient Admit Date: 11/14/2019 Staff Ordering Physician: Skye Felix PA-C Inspector Air Carrier: Alexandra Wise RDCS Attending Provider: Maricruz العلي PA-C Referring Physician: Elvira IGLESIAS; Exam Type: CA echo doppler color flow Study Info Indications R00.2 - Palpitations I27.0 - Primary pulmonary hypertension Complete two-dimensional, color flow and Doppler transthoracic echocardiogram is performed. Summary 1. Left ventricular chamber dimension is normal. 2. Left ventricular systolic function is normal, estimated at 60-65%. 3. The left ventricular diastolic function is grade III diastolic dysfunction. 4. E/e' 19 is elevated. 5. Global longitudinal strain is normal at -19.8%. 6. Left atrial chamber dimension is moderately enlarged. 7. There is mild aortic valve sclerosis. 8. The mitral valve has mildly thickened leaflets. 9. There is mild mitral valve regurgitation. 10. There is mild tricuspid valve regurgitation. 11. Mild pulmonary hypertension, estimated pulmonary arterial systolic pressure is 44 mmHg. 12. There is trace pulmonic regurgitation. Left Ventricle E/e' 19 is elevated. Global longitudinal strain is normal at -19.8%. Left ventricular chamber dimension is normal. Left ventricular systolic function is normal, estimated at 60-65%. The left ventricular diastolic function is grade III diastolic dysfunction. Right Ventricle Right ventricular chamber dimension is normal. Right ventricular systolic function is normal. Left Atria Left atrial chamber dimension is moderately enlarged. Right Atria Right atrial chamber dimension is normal. Aortic Valve The aortic valve is trileaflet. There is mild aortic valve sclerosis. There is no aortic valve stenosis. There is no aortic valve regurgitation. Pulmonic Valve There is trace pulmonic regurgitation. Mitral Valve The mitral valve has mildly thickened leaflets. There is no mitral valve stenosis. There is mild mitral valve regurgitation. Tricuspid Valve There is mild tricuspid valve regurgitation. Mild pulmonary hypertension, estimated pulmonary arterial systolic pressure is 44 mmHg. Pericardium/Pleural There is no pericardial effusion. Inferior Vena Cava Normal inferior vena cava with >50% collapse upon inspiration consistent with normal right atrial pressure, 10 mmHg. Aorta The aortic root size at the sinus of Valsalva is normal. Left Ventricular Outflow Tract Name Value Normal LVOT 2D LVOT Diameter 1.9 cm LVOT Doppler LVOT Peak Gradient 4 mmHg LVOT Mean Gradient 2 mmHg LVOT VTI 29 cm LVOT VTI/AV VTI Ratio 0.7 LVOT Stroke Volume 79 ml LVOT CO 3.7 l/min LVOT
--- NOTE | 2019-11-15 06:11 | ECG_ITS ---
Measurements Intervals [place] Rate: 46 P: 32 RI: 133 QRS: 25 QRSD: 85 T: 17 QT: 455 QTc: 402 Interpretive Statements SINUS BRADYCARDIA DELAYED PRECORDIAL R/S TRANSITION BASELINE ARTIFACT- I, II, III, AVR, AVL, AVF ABNORMAL ECG Electronically Signed On 11-15-2019 10:46:42 CDT by Yosvany Aguilera D.O.
--- NOTE | 2019-11-15 06:51 | PM.PNCARD ---
Progress Note: A&P Assessment and Plan (1) Essential hypertension: Code(s): I10 - Essential (primary) hypertension Status: Acute Assessment and Plan: High. Was going to change Atenolol to Coreg given that Atenolol is renally cleared. However, will not start Coreg since will start Sotalol for arrhythmia. Start Amlodipine 5 mg daily. (2) Suspected sleep apnea: Code(s): R29.818 - Other symptoms and signs involving the nervous system Status: Acute Assessment and Plan: Will need formal sleep study as outpatient. In meantime would benefit from auto- CPAP? (3) Palpitations: Code(s): R00.2 - Palpitations Status: Acute Assessment and Plan: Frequent PAC's and some PVC's that signifiantly improved on 2 doses of Sotalol. Probably due to undiagnosed/untreated AVANI. Had 2 bouts of atrial tachycardia lassting 8-15 beats last night. Obtain echo. (4) Stage 4 chronic kidney disease due to benign hypertension: Code(s): I12.9 - Hypertensive chronic kidney disease with stage 1 through stage 4 chronic kidney disease, or unspecified chronic kidney disease; N18.4 - Chronic kidney disease, stage 4 (severe) Status: Acute (5) PAT (paroxysmal atrial tachycardia): Code(s): I47.1 - Supraventricular tachycardia Status: Acute Assessment and Plan: On Sotalol 80 mg BID. Check EKG 1-2 hours post dose to check QT interval. May have breakthrough arrhythmia with untreated underlying problem such as AVANI. If EKG is OK, may d/c home from cardiology standpoint and f/u with me in 1 week. Subjective Date/time seen: 11/15/19 06:51 Reports very minimal palpitations now. Denies chest pain or sob. Exam Const: General: comfortable and no acute distress Neck: Neck: no JVD Carotids: no bruits Resp: Auscultation: clear to auscultation bilaterally, no crackles, no rales, no rhonchi and no wheezes Cardio: Rate: bradycardic Rhythm: regular rhythm Heart sounds: no murmurs GI: Inspection: non-distended Neuro: Speech: normal speech Extrem: Right lower extremity: no edema Left lower extremity: no edema Objective Data Vital Signs Vital Signs: Vital Signs - 24 hr 11/14/19 07:46 11/14/19 08:00 11/14/19 09:16 Temperature 97.6 F Pulse Rate 62 57 L 58 L Respiratory Rate 12 Blood Pressure 165/67 H Pulse Oximetry 98 11/14/19 10:00 11/14/19 11:50 11/14/19 12:00 Temperature 97.0 F L Pulse Rate 59 L 47 L 43 L Respiratory Rate 16 Blood Pressure 107/59 L Pulse Oximetry 97 11/14/19 14:00 11/14/19 16:00 11/14/19 18:00 Temperature 97.3 F L Pulse Rate 56 L 48 L 50 L Respiratory Rate 16 Blood Pressure 183/49 H Pulse Oximetry 100 11/14/19 20:00 11/14/19 20:33 11/14/19 22:00 Temperature 97 F L Pulse Rate 44 L 54 L 58 L Respiratory Rate 16 Blood Pressure 156/52 H Pulse Oximetry 100 11/14/19 23:44 11/15/19 00:00 11/15/19 02:00 Temperature 97.6 F Pulse Rate 49 L 47 L 54 L Respiratory Rate 16 16 Blood Pressure 149/49 H Pulse Oximetry 94 94 11/15/19 04:00 11/15/19 06:00 Temperature 97.3 F L Pulse Rate 68 43 L Respiratory Rate 16 Blood Pressure 158/45 H Pulse Oximetry 98 Intake/Output Intake/Output: Intake & Output 11/12/19 11/13/19 11/14/19 11/15/19 23:59 23:59 23:59 23:59 Intake Total 50 1670 Output Total 1700 2250 400 Balance -1650 -580 -400 Meds/Results Medications: Active Medications Generic Name Dose Route Start Last Admin Trade Name Freq PRN Reason Stop Dose Admin Acetaminophen 650 mg 11/13/19 16:19 11/14/19 02:30 Tylenol Tablet PO 650 mg Q4H PRN Administration Mild Pain (1-3) or Fever Amlodipine Besylate 5 mg 11/15/19 09:00 Norvasc PO QAM [facility] Aspirin 81 mg 11/14/19 08:00 11/14/19 09:18 Aspirin Chewable PO 81 mg DAILY@0800 [facility] Administration Capsaicin 1 applic 11/14/19 10:27 Zostrix TOPICAL Q6H PRN Muscle/Joint Pain
--- NOTE | 2019-11-15 09:23 | PM.DS ---
DS: Admitting Diagnosis Admitting Diagnosis Admitting Diagnosis: Palpitations. DS: Discharge Diagnosis Discharge Diagnosis (1) Palpitations: Code(s): R00.2 - Palpitations Status: Acute Assessment and Plan: -----telemetry demonstrates multiple PACs and some SVTs. She saw Dr. Aguilera and was started on sotolol. This has improved her palpitations and pt was feeling much better day of discharge. Echo reviewed, normal EF with grade 3 diastolic dysfunction. No significant valve abnormalities. She has mild pulmonary htn. (2) Suspected sleep apnea: Code(s): R29.818 - Other symptoms and signs involving the nervous system Status: Acute Assessment and Plan: -----apnea link demonstrates significant risk for sleep apnea. She will need to follow-up with sleep study. She understands that this can affect her lungs and her heart (3) Essential hypertension: Code(s): I10 - Essential (primary) hypertension Status: Acute Assessment and Plan: -----blood pressure runs high. Continue losartan, chlorthalidone, and amlodipine started. Likely will need to increase these outpatient. She is to follow-up with . If she continues to be high, may benefit from renal ultrasound to assess for SILVIO outpatient (4) Chronic kidney disease, stage 3: Code(s): N18.3 - Chronic kidney disease, stage 3 (moderate) Status: Acute Assessment and Plan: -----Kidney function at baseline. She sees Dr. Devi Kohli, and was recently told that her parathyroid hormone was elevated and this was confirmed today. This could be playing a factor with regards to fatigue and perhaps even the palpitations. Calcium level and vit d normal. From kidney disease? f/u with analytical technician (5) Muscle cramp: Code(s): R25.2 - Cramp and spasm Status: Acute Assessment and Plan: -----acute on chronic. Improved pickle juice DS: Summary Hospital Course Reason for hospitalization: Palpitations Hospital Course: A 79-year-old female who presented emergency room for palpitations for the last couple weeks. She states these palpitations occur mostly at night and occasionally she feels lightheaded and dizzy. She has no chest pain with this. In the ER her temperature was 37.2? C, pulse 72, respiratory rate 19, blood pressure 200/87, pulse ox 96 on room air. Initial white blood cell count 6.2, hemoglobin 11.3, hematocrit 33.6, platelets 203. Sodium 141, potassium 3.9, chloride 110, carbon dioxide 24, BUN 29, creatinine 1.5, platelets 132. Chest x-ray was normal. EKG revealed a normal sinus rhythm with nonspecific ST changes, no concern for ACS. On review of telemetry, the patient had multiple PACs. She was admitted to the hospitalist service and observed. She saw Cardiology who started sotalol. She did have some bradycardia in the sotalol was decreased. Telemetry continued to show PACs with occasional SVT. This decreased in frequency with the sotalol. She had no chest pain throughout her stay. Please see above for occult findings. Overall, the patient has improved. She struggled with high blood pressure and Norvasc was added. She will likely need further adjustments outpatient. She is to follow-up with cardiology for this. She was educated about the worrisome signs and symptoms come back to emergency room for and was discharged stable condition. Of note, she does not have a PCP currently but has an appointment with on November 24. Status at Discharge Functional status at discharge: independent ambulation Overall status at discharge: patient is back to baseline Time Spent with Patient Time attestation: Total time spent providing and/or coordinating discharge services:36 min Time spent: Greater than 30 minutes Exam Narrative: Exam Narrative: General: Well developed well nourished patient resting comfortably in bed in no acute distress HEENT: normocephalic Neck: s
[2019-11-15] MEDS: amLODIPine BESYLATE 5 MG TABLET PO (09:29)
[2019-11-15] MEDS: ASPIRIN 81 MG CHEWABLE TABLET PO (09:29)
[2019-11-15] MEDS: LOSARTAN POTASSIUM 50 MG TABLET PO (09:30)
[2019-11-15] MEDS: CHLORTHALIDONE 12.5 MG TAB PO (09:30)
[2019-11-15] MEDS: ENOXAPARIN 40 MG/0.4 ML SYRINGE SUB-Q (09:30)
[2019-11-15] MEDS: SOTALOL HCL 40 MG TABLET PO (09:57)
== END 2019-11-15 13:30 | disposition home or self-care (01) | DRG 309 ==
LOC: ANHED 16:19 → ANHIMU 16:43
PROVIDERS: Internal Medicine Cardiovascular Disease; Physician Assistant; Admitting Provider Family Medicine; Emergency Provider Family Medicine; PCP Family Medicine; Visit Provider Family Medicine
DX: I47.1 Supraventricular tachycardia (principal); N18.4 Chronic kidney disease, stage 4 (severe); I12.9 Hypertensive chronic kidney disease with stage 1 through stage 4 chronic kidney disease, or unspecified chronic kidney disease; G47.10 Hypersomnia, unspecified; G47.30 Sleep apnea, unspecified; R25.2 Cramp and spasm
CPT/HCPCS: 36415; 71045; 80048; 80053; 82306; 82607; 83519; 83735; 83880; 83970; 84100; 84443; 84484; 85025; 85027; 85610; 93005; 93306; 93970; 94762; 96365; 96372; 96375; 99285; A9270; G0378; J0360; J1650; J1940; J2060; J3475

== ENCOUNTER 2019-12-30 08:39 | Outpatient (CLI) | payer OTHER, SELFPAY ==
--- NOTE | 2020-01-12 21:00 | SLEEP_ITS ---
HOME SLEEP TEST DATE OF STUDY: 12/30/2019 ORDERING PHYSICIAN: Yosvany Aguilera D.O. REASON FOR THE STUDY: Occasional fatigue and palpitations. HISTORY: This patient is an 79-year-old, 5 feet 1 inch tall, weighing 177 pounds with a body mass index of 33.4. She has complaints of fatigue and palpitations, which started in September of this year. She noticed an irregular heart beat on waking. This was followed by extreme fatigue. She had fatigue when she was diagnosed with a blood disorder in February of 1992. Her ferritin was normal and she had anemia attributed to chronic kidney disease stage 3. She went to the emergency department and was admitted to the hospital. Her medications were changed. She was tested for sleep apnea in the hospital when she received a diagnosis of congestive heart failure. She does not awaken from sleep feeling short of breath and she does not awaken at night with heartburn, belching, or coughing. She does not think she snores. She lives alone. She does not have trouble sleeping with a cold, does not gasp for breath at night, does not have breathing problems at night observed by others, and she does not sweat excessively at night. She rarely notices her heart beating irregularly at night, occasionally falls asleep during the day, occasionally involuntarily, but never while driving. She does not fall asleep during physical effort, does not have loss of muscle tone with strong emotion, and does not have daytime difficulties due to excessive sleepiness. She does not feel paralyzed on waking or falling asleep, does not have vivid dreamlike scenes upon awakening or falling asleep, and is not afraid to go to sleep. She does not have nightmares. She rarely remembers her dreams. She does not have racing thoughts, feelings of sadness, depression, anxiety, does not have muscular tension or notices parts of her body jerking. She does not kick at night. She does not have crawly achy sensations in her legs or leg pain at night. She does not have morning jaw pain, does not grind her teeth during sleep, is not bothered by pain during the day or awakened by pain at night. She does not wake up feeling stiff in the morning with sore achy muscles or pain in her neck and spine. Normal bedtime is between 10:00 and 11:00 p.m., falling asleep in 5 minutes, rarely waking at night and on average if she does wake, it is only for 5 or 10 minutes. She will go to the bathroom and return to sleep. She usually awakens at 6:00 a.m. She does not usually take naps. She feels good most of the time in the morning. She feels better in the morning than other times a day. MEDICAL COMORBIDITIES: 1. Paroxysmal atrial tachycardia. 2. Stage 4 chronic kidney disease due to benign hypertension. 3. Hypersomnia. 4. Diastolic dysfunction. 5. Anemia. MEDICATIONS: 1. Amlodipine 5 mg a day. 2. Chlorthalidone 12.5 mg Friday, Friday, Friday. 3. Losartan 50 mg a day. 4. Sotalol 40 mg daily. 5. Baby aspirin 81 mg a day. 6. Vitamin B12 of 500 mcg daily. 7. Vitamin D3 of 2000 units daily. HABITS: Tobacco, one and half packs per day, quit 31 years ago. Caffeine, 1 per day. No alcohol or recreational drugs. DESCRIPTION OF THE STUDY: On the [place] Sleepiness Scale, the score is 4. This was conducted as an unattended type 3 portable home sleep test using 4-channel monitoring including respiratory effort channel, snoring channel, oxygen saturation channel, and heart rate channel. The study was scored using CMS guidelines. Duration of the study was 6 hours 45 minutes. The apnea-hypopnea index is 3. Oxygen desaturation index is 2. Lowest desaturation is 72%. Average saturation is 95%. She had 10 apneas. An 80% or 8 apneas were obstructive, 1 apnea, 10% was central and 1
== END 2019-12-30 08:40 | disposition home or self-care (01) ==
LOC: ANHCSM 08:40
PROVIDERS: PCP Family Medicine; Visit Provider Internal Medicine Cardiovascular Disease
DX: G47.10 Hypersomnia, unspecified (principal)
CPT/HCPCS: 95806

== ENCOUNTER 2020-02-07 02:14 | Outpatient (CLI) | payer OTHER, SELFPAY ==
[2020-02-07 21:22] LABS: SARS-CoV-2 RNA PCR Negative
== END 2020-02-07 02:15 | disposition home or self-care (01) ==
LOC: ANHCOVIDDT 02:14
PROVIDERS: Visit Provider Internal Medicine Critical Care Medicine
DX: U07.1 COVID-19 (principal)
CPT/HCPCS: 87635; C9803; U0003

== ENCOUNTER 2020-02-09 07:43 | Outpatient (CLI) | payer OTHER, SELFPAY ==
--- NOTE | 2020-03-08 12:51 | P.SLEEP_ITS ---
Sleep Study Date of Study: 02/09/20 Ordering Provider: Interpreting Physician: Sleep Study Type: Split Polysomnogram Height: 1.55 m Weight: 78.018 kg Body Mass Index: 32.5 Neck Circumference: 38.1 cm Stephen: 3 PMFSH Past Medical History Medical History Anemia Cancer of left breast (~2007) Status post lumpectomy, chemotherapy, and radiation. Chronic kidney disease, stage 3 She is a patient of Dr. Devi Kohli. Elevated parathyroid hormone Being monitored by her woodworker helper, Dr. Kohli. Essential hypertension Hemochromatosis Diagnosed in 1991. She is a patient of Dr. Samson. No recent therapeutic phlebotomy due to presence of anemia. Irritable bowel syndrome Osteoporosis Temporal arteritis syndrome (~2000) Vitamin D deficiency Surgical History Surgical History History of liver biopsy History of lumpectomy of both breasts Including left breast lumpectomy for breast cancer in 2007. History of tonsillectomy Family History Family History Mother Family history of dementia Father Family history of congestive heart failure Other Adopted Social History Social History Social History: Surrogate decision maker: Hollie Costello, friend. Code status: Full code. Smoking packs per day: 1.5 Smoking cigarettes per day: 30.0 Years smoked: 30 Smoking pack-years: 45.00 Smoking status: Never smoker Tobacco type: cigarettes Smoking end date: 03/24/88 Alcohol intake: never Substance use: never Additional living arrangements comments: Lives in [place] with her 2 toy poodles. She never and has no children. 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 Gender identity (if verbalized by the patient): Female Spiritual care concerns: No Medications Home Medications Medication Instructions Recorded Confirmed Type aspirin [Children's Aspirin] 81 mg PO DAILY@0800 #30 tablet 11/15/19 01/17/20 Rx losartan 50 mg tablet 50 mg PO DAILY #90 tablet 11/25/19 01/17/20 Rx sotalol 80 mg tablet 40 mg PO BID #30 tablet 12/01/19 01/17/20 Rx amlodipine 5 mg tablet 5 mg PO QAM #30 tablet 01/05/20 01/17/20 Rx cholecalciferol (vitamin D3) 10 10 mcg PO DAILY 01/17/20 01/17/20 History mcg (400 unit) capsule vitamin B complex 1 tablet PO DAILY 01/17/20 01/17/20 History chlorthalidone 25 mg tablet 12.5 mg PO DAILY #15 tablet 01/25/20 Rx
--- NOTE | 2020-03-08 12:55 | WPDSLEEPSTUD ---
Sleep Study Height: 1.55 m Weight: 78.018 kg Body Mass Index: 32.5 Reason for Sleep Study prior home study showed mild AVANI but had significant desaturation.Patient has cardiac arrhythmias. Sleep History Lives alone.Does not endorse typical symptoms. [facility] Past Medical History Medical History Anemia Cancer of left breast (~2007) Status post lumpectomy, chemotherapy, and radiation. Chronic kidney disease, stage 3 She is a patient of Dr. Devi Kohli. Elevated parathyroid hormone Being monitored by her flexographic printing press operator, Dr. Kohli. Essential hypertension Hemochromatosis Diagnosed in 1991. She is a patient of Dr. Samson. No recent therapeutic phlebotomy due to presence of anemia. Irritable bowel syndrome Osteoporosis Temporal arteritis syndrome (~2000) Vitamin D deficiency Surgical History Surgical History History of liver biopsy History of lumpectomy of both breasts Including left breast lumpectomy for breast cancer in 2007. History of tonsillectomy Family History Family History Mother Family history of dementia Father Family history of congestive heart failure Other Adopted Social History Social History Social History: Surrogate decision maker: Hollie Costello, friend. Code status: Full code. Smoking packs per day: 1.5 Smoking cigarettes per day: 30.0 Years smoked: 30 Smoking pack-years: 45.00 Smoking status: Never smoker Tobacco type: cigarettes Smoking end date: 03/24/88 Alcohol intake: never Substance use: never Additional living arrangements comments: Lives in [place] with her 2 toy poodles. She never and has no children. 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 Gender identity (if verbalized by the patient): Female Spiritual care concerns: No Medications Home Medications Medication Instructions Recorded Confirmed Type aspirin [Children's Aspirin] 81 mg PO DAILY@0800 #30 tablet 11/15/19 01/17/20 Rx losartan 50 mg tablet 50 mg PO DAILY #90 tablet 11/25/19 01/17/20 Rx sotalol 80 mg tablet 40 mg PO BID #30 tablet 12/01/19 01/17/20 Rx amlodipine 5 mg tablet 5 mg PO QAM #30 tablet 01/05/20 01/17/20 Rx cholecalciferol (vitamin D3) 10 10 mcg PO DAILY 01/17/20 01/17/20 History mcg (400 unit) capsule vitamin B complex 1 tablet PO DAILY 01/17/20 01/17/20 History chlorthalidone 25 mg tablet 12.5 mg PO DAILY #15 tablet 01/25/20 Rx Sleep Procedure Split night study. Sleep Architecture Diagnostic study--Recording time-242 min,Sleep time-179 min,Sleep efficiency-74%.Supine sleep 0%. Sleep latency-41 min,R latency-110 min.WASO-22 min. Stage N1-3.9%,N2-80.2%,N3-0%,R-15.9%. Treatment study--Recording time-199 min,Sleep time-174 min,Sleep efficiency-63.8%,Supine sleep-0%. Sleep latency-25 min,R latency-104 min.WASO-47 min. StageN1-10.6%,N2-61.6%,N3-0%,R-27.8% Respiratory Analysis Diagnostic-no apneas,12 hypopneas,AHI-4.0, NREM index-0.4,REM index-23.2. Voynwngtz-[id number]-1 obstructive,1central.,3hypopneas.AHI-2.4, NREM index-1.3,REM index-5.1 All events non supine. Arousals Diagnostic-total arousals-34,index-8.4 Spontaneous-17(4.2),limb mov-13(3.2),snores-4(1.0). Treatment--total arousals-39 index-11.7,all spontaneous. . Periodic Limb Movements Diagnostic-187,index 62.7-No PLMs. Treatment-no limb movements. Oximetry Data Zejhnnfeeo-Cime-84,Min-85 SaO2<90-6min 0.8%, SaO2<88%-3.1min,0.3%. Treatment-Mean 92,Min-89 SaO2<90-0.7 min 0.3%. Snoring Profile Rare. Cardiac Profile Mean 60 beats/min,--?sinus pauses noted. EEG Profile unremarkable. Assessment and Plan Additional Plan Baseline study showed mild AVANI mostly RE
[2020-03-08 13:46] VITALS: BMI 32.5
== END 2020-02-09 07:44 | disposition home or self-care (01) ==
LOC: ANHCSM 07:43
PROVIDERS: Visit Provider Internal Medicine Cardiovascular Disease
DX: G47.10 Hypersomnia, unspecified (principal)
CPT/HCPCS: 95811

== ENCOUNTER 2020-02-28 11:09 | Outpatient (CLI) | payer OTHER, SELFPAY ==
--- NOTE | 2020-02-28 11:18 | ECG_ITS ---
Measurements Intervals [place] Rate: 46 P: [place]: 0 QRS: 23 QRSD: 93 T: 12 QT: 463 QTc: 408 Interpretive Statements SINUS BRADYCARDIA BASELINE ARTIFACT- I, II, III, AVR, AVL, AVF, V2-V4 ABNORMAL ECG Electronically Signed On 02-28-2020 11:33:25 [facility] by Yosvany Aguilera D.O.
== END 2020-02-28 11:10 | disposition home or self-care (01) ==
PROVIDERS: PCP Family Medicine; Visit Provider Internal Medicine Cardiovascular Disease
DX: I47.1 Supraventricular tachycardia (principal); I48.91 Unspecified atrial fibrillation; R00.1 Bradycardia, unspecified
CPT/HCPCS: 93005

== ENCOUNTER 2020-03-06 08:58 | Outpatient (CLI) | payer OTHER, SELFPAY ==
--- NOTE | ~2020-03-06 | NM_ITS ---
EXAMINATION: NM edward stress w perfusion DATE: 03/06/2020 12:32 SPRAY PAINTER INDICATION: Ventricular tachycardia TECHNIQUE: Rest images were obtained following intravenous administration of 9.2 mCi Tc99m tetrofosmi n (Myoview). The patient was infused intravenously with Lexiscan (regadenoson). Then, 27.2 mCi Tc99m tetrofosmin (Myoview) was administered intravenously, and stress images were obtained. Data was recon structed into short axis and horizontal and vertical long axis SPECT images. Gated SPECT images were also obtained. COMPARISON: None. FINDINGS: There is no definite reversible or fixed perfusion abnormality to suggest ischemia or infar ction. There is no segmental wall motion abnormality. Left ventricular ejection fraction measures 7 5%. IMPRESSION: 1. No definite ischemia or infarct. 2. Normal left ventricular ejection fraction measuring 75%. Reviewed, dictated and finalized at location A. Y PAINTER
--- NOTE | 2020-03-06 09:11 | EST_ITS ---
Patient Info Name: Pippa Mota Age: 79 years : 1940 Gender: Female Ht: 61 in Wt: 169 lbs BSA: 1.85 m2 Exam Date: 03/06/2020 10:28 AM Exam Location: [facility] Stress Patient Status: Outpatient Admit Date: 03/06/2020 Staff Ordering Physician: Yosvany Aguilera DO Attending Provider: Yosvany Aguilera DO Exercise Technologist: Alexandra Wise RDCS Exercise Physician: Yosvany Aguilera DO Exam Type: CA stress edward w NM Study Info Indications I47.2 - Ventricular tachycardia A regadenoson stress test was performed. Summary 1. 1. Negative lexiscan stress test for ischemic ST changes by ECG criteria. 2. 2. Baseline hypertension. 3. 3. Nuclear scan to follow and will be reported separately. Please correlate with it. 4. 4. Patient informed of the above results. Protocol: Lexiscan Stress ECG Details Stage: REST Duration (min): 7 min : 46 sec HR (bpm): 57 SBP (mmHg): 194 DBP (mmHg): 61 Stage: REST Duration (min): 13 min : 35 sec HR (bpm): 54 SBP (mmHg): 194 DBP (mmHg): 61 Stage: STAGE 1 Duration (min): 1 min : 0 sec HR (bpm): 91 SBP (mmHg): 194 DBP (mmHg): 61 Stage: RECOVERY Duration (min): 1 min : 0 sec HR (bpm): 95 SBP (mmHg): 160 DBP (mmHg): 58 Stage: RECOVERY Duration (min): 2 min : 0 sec HR (bpm): 84 SBP (mmHg): 159 DBP (mmHg): 60 Stage: RECOVERY Duration (min): 3 min : 0 sec HR (bpm): 84 SBP (mmHg): 161 DBP (mmHg): 63 Stage: RECOVERY Duration (min): 3 min : 42 sec HR (bpm): 83 SBP (mmHg): 161 DBP (mmHg): 63 Rest HR: 54 bpm Peak HR: 96 bpm Rest Sys BP: 194 mmHg Peak Sys BP: 161 mmHg Max Pred HR: 140 bpm % Max Pred HR: 69 % Target HR: 119 bpm Max RPP: 15,456 bpm*mmHg Termination Reason: Completed protocol Cardiac Symptoms: Shortness of breath, Indigestion Total Time: 1 min : 0 sec [place] BP: 61 mmHg [place] BP: 63 mmHg Total Dose: 0.4 mg Resting ECG Sinus or ectopic atrial bradycardia. Stress ECG No ST changes. Arrhythmias None. Report Signatures
== END 2020-03-06 08:59 | disposition home or self-care (01) ==
PROVIDERS: PCP Family Medicine; Visit Provider Internal Medicine Cardiovascular Disease
DX: I47.2 Ventricular tachycardia (principal)
CPT/HCPCS: 78452; 93017; A9502; J2785

== ENCOUNTER 2020-05-26 13:14 | Outpatient (CLI) | payer OTHER, SELFPAY | END 2020-05-26 13:15 | disposition home or self-care (01) | LOC: ANHCOVIDVC 13:14 | PROVIDERS: PCP Family Medicine | DX: Z23 Encounter for immunization (principal) | CPT/HCPCS: 0001A; 91300 ==

== ENCOUNTER 2020-06-16 13:10 | Outpatient (CLI) | payer OTHER, SELFPAY | END 2020-06-16 13:11 | disposition home or self-care (01) | LOC: ANHCOVIDVC 13:10 | PROVIDERS: PCP Family Medicine | DX: Z23 Encounter for immunization (principal) | CPT/HCPCS: 0002A; 91300 ==

== ENCOUNTER 2020-06-28 09:15 | Outpatient (CLI) | payer OTHER, SELFPAY ==
[2020-06-28 09:50] LABS: Basophils Absolute Auto 0.1 K/mm3 (0.0-0.1); Basophils Percent Auto 0.7 % (0.2-1.2); Eosinophils Absolute Auto 0.2 K/mm3 (0-0.3); Eosinophils Percent Auto 3.3 % (0-4.4); Hematocrit 33.6 % (37.0-47.0); Immature Granulocyte Absolute 0.02 K/mm3 (0.00-0.031); Immature Granulocyte Percent A 0.3 % (0-0.5); Lymphocytes Absolute Auto 1.29 K/mm3 (0.9-3.2); Lymphocytes Percent Auto 18.7 % (18.3-44.2); Mean Corpuscular HGB Conc 32.7 g/dl (32-36); Mean Corpuscular Hemoglobin 31.2 pg (26-34); Mean Corpuscular Volume 95.2 fl (80-100); Mean Platelet Volume 10.1 fl (7.4-10.4); Monocytes Absolute Auto 0.6 K/mm3 (0.1-0.6); Monocytes Percent Auto 8.4 % (2.6-8.5); Neutrophils Absolute Auto 4.7 K/mm3 (1.3-6.7); Neutrophils Percent Auto 68.6 % (45.5-73.1); Platelet Count Result 214 k/mm3 (150-375); Red Blood Count 3.53 M/mm3 (4.2-5.4); Red Cell Distribution Width 12.9 % (11.5-14.5); White Blood Count 6.9 K/mm3 (4.5-10.0)
[2020-06-28 09:55] LABS: Add Urine Microscopic? YES; Appearance Urine Clear (Clear); Bilirubin Urine Negative (Negative); Blood Urine Negative (Negative); Color Urine Yellow (Yellow); Glucose Urine UA Negative (Negative); Ketones Urine Negative (Negative); Leukocyte Esterase Ur 1+ LEU/UL (Negative); Mucus Urine Rare /lpf; Nitrate Urine Negative (Negative); Protein Urine Negative (Negative); Specific Grav Ur 1.015 (1.001-1.035); Squamous Epithelial Cell Urine Rare /hpf (Few); Urobilinogen Urine Negative mg/dL (<2.0)
[2020-06-28 10:01] LABS: Alanine Aminotransferase 15 U/L (4-35); Albumin Level 3.8 g/dL (3.5-5.1); Alkaline Phosphatase 75 U/L (38-126); Anion Gap 8 mmol/L (8-16); Aspartate Amino Transferase 21 U/L (14-36); Bilirubin,Total 0.4 mg/dL (0.2-1.3); Blood Urea Nitrogen 41 mg/dL (7-17); Calcium 9.1 mg/dL (8.4-10.2); Carbon Dioxide 24 mmol/L (22-30); Chloride 110 mmol/L (98-107); Estimated Glomerular Filt Rate 31; Glucose 94 mg/dL (65-105); Potassium 4.3 mmol/L (3.4-5.0); Sodium 142 mmol/L (137-145); Uric Acid 7.4 mg/dL (2.5-7.5)
[2020-06-28 10:12] LABS: Parathyroid Intact 68.5 pg/mL (7.5-53.5)
[2020-06-28 10:18] LABS: Vitamin D 25 Hydroxy 45.3 ng/mL
[2020-06-28 12:21] LABS: Creatinine Urine 84.6 mg/dL; Total Protein Urine Random 15 mg/dL; Ur Ttl Prot Creatinine Ratio 0.18 mg/mg (0-0.20)
== END 2020-06-28 09:16 | disposition home or self-care (01) ==
PROVIDERS: PCP Family Medicine; Visit Provider Internal Medicine Nephrology
DX: N18.30 Chronic kidney disease, stage 3 unspecified (principal); N20.0 Calculus of kidney; M31.6 Other giant cell arteritis; E83.119 Hemochromatosis, unspecified; I12.9 Hypertensive chronic kidney disease with stage 1 through stage 4 chronic kidney disease, or unspecified chronic kidney disease; M81.0 Age-related osteoporosis without current pathological fracture
CPT/HCPCS: 36415; 80053; 81001; 82306; 82570; 83970; 84100; 84156; 84550; 85025; 87086

== ENCOUNTER 2020-08-10 09:15 | Outpatient (CLI) | payer OTHER, SELFPAY ==
--- NOTE | ~2020-08-10 | MM_ITS ---
EXAMINATION: MM screening litzy BI w waqas HISTORY: Screening TECHNIQUE: Craniocaudal and mediolateral oblique 3-D tomosynthesis images were obtained and synthetic 2-D images were generated. CAD analysis was submitted and interpreted. COMPARISON: Comparison to multiple prior studies sequentially, with oldest reviewed study dated 06/2016. BREAST PARENCHYMAL COMPOSITION: There are scattered areas of fibroglandular density. FINDINGS: There are surgical changes in the left breast, consistent with previous lumpectomy. There a re developing clustered indeterminate calcifications in the upper outer quadrant of the right breast, middle third. IMPRESSION: 1. Developing right breast calcifications. 2. Magnification views are recommended. BI-RADS Category 0: Incomplete: Needs additional imaging evaluation. Reviewed, dictated and finalized at location A.
== END 2020-08-10 09:16 | disposition home or self-care (01) ==
PROVIDERS: PCP Family Medicine; Visit Provider Internal Medicine Hematology & Oncology
DX: Z12.31 Encounter for screening mammogram for malignant neoplasm of breast (principal); R92.8 Other abnormal and inconclusive findings on diagnostic imaging of breast
CPT/HCPCS: 77063; 77067

== ENCOUNTER 2020-08-30 21:15 | Inpatient (IN) | payer OTHER, SELFPAY ==
[2020-08-30 21:13] VITALS: BP 201/92; PULSE 76; RESP 13; TEMP 36.9; O2SAT 99
[2020-08-30 21:24] VITALS: PULSE 68
--- NOTE | 2020-08-30 21:24 | ECG_ITS ---
Measurements Intervals [place] Rate: 71 P: 112 AL: 122 QRS: 30 QRSD: 90 T: 31 QT: 390 QTc: 426 Interpretive Statements SINUS RHYTHM ATRIAL PREMATURE COMPLEX INFERIOR ST ELEVATION MYOCARDIAL INFARCT- ACUTE BASELINE ARTIFACT- I, II, III, AVR, AVL, AVF, V1-V6 ABNORMAL ECG Electronically Signed On 08-31-2020 6:25:19 CDT by Yosvany Aguilera D.O.
--- NOTE | 2020-08-30 21:26 | ED.CHESTPAIN ---
HPI - Chest Pain General Chief Complaint: Chest Pain Stated Complaint: stemi-cp 24 hours Time Seen by Provider: 08/30/20 21:15 Source: patient, EMS and RN notes reviewed Mode of arrival: EMS Limitations: no limitations History of Present Illness HPI narrative: This is an 80 year old female with history of hypertension, chronic renal disease who presents via EMS for evaluation of a STEMI. EMS states patient has been having intermittent chest pain since 5 pm yesterday. Her pain has gradually worsened through out the day so patient stopped with family to fire station. EMS performed an EKG that shows ST elevation in inferior leads, so they gave her aspirin 324 mg PO and placed 1 inch nitro paste. PAtient on arrival states this episode of pain started 45 minutes ago. She describes midsternal pressure that radiates to her shoulder and left back. She denies associated nausea, vomiting, sob, dizziness or diaphoresis. On arrival to ER, she states her pain was 8/10. Within a couple minutes of being in ED she states her pain has resolved. She denies any bleeding issues. She denies history of CAD or stents. She follows with DR. Aguilera for evaluation of possible arrhythmia. Dr. Rosales, cardiology interventionalist, was informed of patient presenting with stemi at 2100. He is on his way. MD complaint: chest pain Related Data Home Medications Medication Instructions Recorded Confirmed cholecalciferol (vitamin D3) 10 25 mcg PO DAILY cap 05/29/20 08/30/20 mcg (400 unit) capsule amlodipine 5 mg PO DAILY 08/30/20 08/30/20 chlorthalidone 12.5 mg PO DAILY 08/30/20 08/30/20 losartan 50 mg PO DAILY 08/30/20 08/30/20 vitamins [id number] 1 tablet PO DAILY 08/30/20 08/30/20 [B-Complex With B-12] Allergies Allergy/AdvReac Type Severity Reaction Status Date / Time povidone Allergy Mild Unknown Verified 08/30/20 21:41 alendronate sodium Allergy Unknown Heartburn Verified 08/30/20 21:41 epinephrine Allergy Unknown tachycardia Verified 08/30/20 21:41 iodine Allergy Unknown Unknown Verified 08/30/20 21:41 prednisone Allergy Unknown Unknown Verified 08/30/20 21:41 Review of Systems Review of Systems: All systems reviewed & are unremarkable except as noted in HPI and below PMFSH Past Medical History Medical History (Updated 08/31/20 @ 07:48 by Ynes Padron MD) Anemia Cancer of left breast (~2007) Status post lumpectomy, chemotherapy, and radiation. Chronic kidney disease, stage 3 She is a patient of Dr. Devi Kohli. Elevated parathyroid hormone Being monitored by her airbrush artist, Dr. Kohli. Essential hypertension Hemochromatosis Diagnosed in 1991. She is a patient of Dr. Samson. No recent therapeutic phlebotomy due to presence of anemia. Irritable bowel syndrome Osteoporosis Temporal arteritis syndrome (~2000) Vitamin D deficiency Surgical History Surgical History History of liver biopsy History of lumpectomy of both breasts Including left breast lumpectomy for breast cancer in 2007. History of tonsillectomy Family History Family History Mother Family history of dementia Father Family history of congestive heart failure Other Adopted Social History Social History Social History: Surrogate decision maker: Hollie Costello, friend. Code status: Full code. Smoking packs per day: 1.5 Smoking cigarettes per day: 30.0 Years smoked: 30 Smoking pack-years: 45.00 Smoking status: Former smoker Tobacco type: cigarettes Smoking end date: 03/24/88 Alcohol intake: never Substance use: never Additional living arrangements comments: Lives in [place] with her 2 toy poodles. She never and has no children. 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 She studie
--- NOTE | 2020-08-30 21:37 | PC.NURSE ---
2129 25 mg metoprolol administered po VORB ERP Padron 2131 4000 units heparin administered IVP VORB ERP Padron verified by ANGELA Patiño and ANGELA Castellano
[2020-08-30 21:40] VITALS: BP 169/68; PULSE 75; RESP 21; O2SAT 98
[2020-08-30 21:50] LABS: Basophils Percent Auto 0.6 % (0.2-1.2); Eosinophils Absolute Auto 0.2 K/mm3 (0-0.3); Eosinophils Percent Auto 2.6 % (0-4.4); Hematocrit 36.5 % (37.0-47.0); Hemoglobin 12.1 g/dL (12.0-15.0); Immature Granulocyte Absolute 0.02 K/mm3 (0.00-0.031); Immature Granulocyte Percent A 0.3 % (0-0.5); Lymphocytes Absolute Auto 1.55 K/mm3 (0.9-3.2); Lymphocytes Percent Auto 21.3 % (18.3-44.2); Mean Corpuscular HGB Conc 33.2 g/dl (32-36); Mean Corpuscular Hemoglobin 31.3 pg (26-34); Mean Corpuscular Volume 94.3 fl (80-100); Mean Platelet Volume 10.7 fl (7.4-10.4); Monocytes Absolute Auto 0.8 K/mm3 (0.1-0.6); Monocytes Percent Auto 11.6 % (2.6-8.5); Neutrophils Absolute Auto 4.6 K/mm3 (1.3-6.7); Neutrophils Percent Auto 63.6 % (45.5-73.1); Platelet Count Result 196 k/mm3 (150-375); Red Blood Count 3.87 M/mm3 (4.2-5.4); Red Cell Distribution Width 12.5 % (11.5-14.5); White Blood Count 7.3 K/mm3 (4.5-10.0)
[2020-08-30 22:00] LABS: Prothrombin Time 13.8 Seconds (11.1-14.7)
[2020-08-30 22:01] LABS: Alanine Aminotransferase 13 U/L (4-35); Alkaline Phosphatase 85 U/L (38-126); Anion Gap 11 mmol/L (8-16); Aspartate Amino Transferase 27 U/L (14-36); Bilirubin,Total 0.4 mg/dL (0.2-1.3); Blood Urea Nitrogen 37 mg/dL (7-17); Calcium 10.1 mg/dL (8.4-10.2); Carbon Dioxide 21 mmol/L (22-30); Chloride 110 mmol/L (98-107); Cholesterol 163 mg/dL (0-200); Estimated CRCL calculation 29 ml/min; Estimated Glomerular Filt Rate 39; Glucose 131 mg/dL (65-105); HDL Direct 65 mg/dL; Potassium 4.3 mmol/L (3.4-5.0); Sodium 142 mmol/L (137-145); Triglycerides 81 mg/dL (<150)
--- NOTE | 2020-08-30 22:01 | PM.CNCAR ---
Assessment and Plan Additional Plan INF wall STEMI, plan emergency LHC, heparin, DAPT , TTE, statin History of Present Illness History of Present Illness Consult date/time: 08/30/20 22:01 Consult reason: chest pain Reason For Visit: stemi-cp 24 hours Narrative: Patient presented with acute chest pain started yesterday at 5 PM and was intermittent and today has been persistent and sever since 8 PM, Pain is pressure like in middle of chest and radiates to shoulders and back. No prior similar episodes and no precipitating or relieving factors. Review of Systems Review of Systems: All systems reviewed & are unremarkable except as noted in HPI and below PMFSH Past Medical History Medical History Anemia Cancer of left breast (~2007) Status post lumpectomy, chemotherapy, and radiation. Chronic kidney disease, stage 3 She is a patient of Dr. Devi Kohli. Elevated parathyroid hormone Being monitored by her train starter, Dr. Kohli. Essential hypertension Hemochromatosis Diagnosed in 1991. She is a patient of Dr. Samson. No recent therapeutic phlebotomy due to presence of anemia. Irritable bowel syndrome Osteoporosis Temporal arteritis syndrome (~2000) Vitamin D deficiency Surgical History Surgical History History of liver biopsy History of lumpectomy of both breasts Including left breast lumpectomy for breast cancer in 2007. History of tonsillectomy Family History Family History Mother Family history of dementia Father Family history of congestive heart failure Other Adopted Social History Social History Social History: Surrogate decision maker: Hollie Pravin, friend. Code status: Full code. Smoking packs per day: 1.5 Smoking cigarettes per day: 30.0 Years smoked: 30 Smoking pack-years: 45.00 Smoking status: Former smoker Tobacco type: cigarettes Smoking end date: 03/24/88 Alcohol intake: never Substance use: never Additional living arrangements comments: Lives in [place] with her 2 toy poodles. She never and has no children. 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 Gender identity (if verbalized by the patient): Female Spiritual care concerns: No Meds Home Medications and Allergies Home Medications Medication Instructions Recorded Confirmed Type aspirin [Children's Aspirin] 81 mg PO DAILY@0800 #30 tablet 11/15/19 05/29/20 Rx sotalol 80 mg tablet 40 mg PO BID #30 tablet 12/01/19 05/29/20 Rx vitamin B complex 1 tablet PO DAILY 01/17/20 05/29/20 History losartan 50 mg tablet See Rx Instructions .ROUTE 05/24/20 05/29/20 Rx .COMPLEX #90 tablet cholecalciferol (vitamin D3) 10 25 mcg PO DAILY cap 05/29/20 05/29/20 History mcg (400 unit) capsule chlorthalidone 25 mg tablet See Rx Instructions .ROUTE 07/14/20 Rx .COMPLEX #45 tablet amlodipine 5 mg tablet See Rx Instructions .ROUTE 08/20/20 Rx .COMPLEX #90 tablet Allergies Allergy/AdvReac Type Severity Reaction Status Date / Time povidone Allergy Mild Unknown Verified 08/30/20 21:41 alendronate sodium Allergy Unknown Heartburn Verified 08/30/20 21:41 epinephrine Allergy Unknown tachycardia Verified 08/30/20 21:41 iodine Allergy Unknown Unknown Verified 08/30/20 21:41 prednisone Allergy Unknown Unknown Verified 08/30/20 21:41 Vital Signs Vital Signs - 24 hr 08/30/20 21:13 08/30/20 21:24 08/30/20 21:40 Temperature 36.9 C Pulse Rate 76 68 75 Respiratory Rate 13 21 H Blood Pressure 201/92 H 169/68 H Pulse Oximetry 99 98 Exam Const: General: comfortable and no acute distress Other: Able to lie flat HENMT: General nose exam: Normal nares present and no epistaxis Mouth
[2020-08-30 22:12] LABS: LDL Cholesterol Direct 72 mg/dL
[2020-08-30 22:16] LABS: Partial Thromboplastin Time > 200.0 SECONDS (22.3-36.8)
--- NOTE | 2020-08-30 22:38 | PM.CNCAR ---
Assessment and Plan Additional Plan INF wall STEMI, Iodine allergy, plan Solumedrol 100 mg now LHC, Heparin, DAPT, TTE S/P PCI to RCA * 2 Distal RCA XIENCE Cyndee 2.5 * 15 and proximal RCA with Xience Cyndee 3.0 * 15 History of Present Illness History of Present Illness Consult date/time: 08/30/20 22:38 Consult reason: chest pain Reason For Visit: stemi-cp 24 hours Narrative: acute chest pain that started yesterday at 5 PM, intermittent, until today at 8 PM when became persistent and severe 12/31. Pain is retrosternal, pressure like, radiates to shoulder, no prior similar episodes and no precipitating or relieving factors. Review of Systems Review of Systems: All systems reviewed & are unremarkable except as noted in HPI and below PMFSH Past Medical History Medical History Anemia Cancer of left breast (~2007) Status post lumpectomy, chemotherapy, and radiation. Chronic kidney disease, stage 3 She is a patient of Dr. Devi Kohli. Elevated parathyroid hormone Being monitored by her supervisor prep, Dr. Kohli. Essential hypertension Hemochromatosis Diagnosed in 1991. She is a patient of Dr. Samson. No recent therapeutic phlebotomy due to presence of anemia. Irritable bowel syndrome Osteoporosis Temporal arteritis syndrome (~2000) Vitamin D deficiency Surgical History Surgical History History of liver biopsy History of lumpectomy of both breasts Including left breast lumpectomy for breast cancer in 2007. History of tonsillectomy Family History Family History Mother Family history of dementia Father Family history of congestive heart failure Other Adopted Social History Social History Social History: Surrogate decision maker: Hollie Costello, friend. Code status: Full code. Smoking packs per day: 1.5 Smoking cigarettes per day: 30.0 Years smoked: 30 Smoking pack-years: 45.00 Smoking status: Former smoker Tobacco type: cigarettes Smoking end date: 03/24/88 Alcohol intake: never Substance use: never Additional living arrangements comments: Lives in [place] with her 2 toy poodles. She never and has no children. 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 Gender identity (if verbalized by the patient): Female Spiritual care concerns: No Meds Home Medications and Allergies Home Medications Medication Instructions Recorded Confirmed Type aspirin [Children's Aspirin] 81 mg PO DAILY@0800 #30 tablet 11/15/19 05/29/20 Rx sotalol 80 mg tablet 40 mg PO BID #30 tablet 12/01/19 05/29/20 Rx vitamin B complex 1 tablet PO DAILY 01/17/20 05/29/20 History losartan 50 mg tablet See Rx Instructions .ROUTE 05/24/20 05/29/20 Rx .COMPLEX #90 tablet cholecalciferol (vitamin D3) 10 25 mcg PO DAILY cap 05/29/20 05/29/20 History mcg (400 unit) capsule chlorthalidone 25 mg tablet See Rx Instructions .ROUTE 07/14/20 Rx .COMPLEX #45 tablet amlodipine 5 mg tablet See Rx Instructions .ROUTE 08/20/20 Rx .COMPLEX #90 tablet Allergies Allergy/AdvReac Type Severity Reaction Status Date / Time povidone Allergy Mild Unknown Verified 08/30/20 21:41 alendronate sodium Allergy Unknown Heartburn Verified 08/30/20 21:41 epinephrine Allergy Unknown tachycardia Verified 08/30/20 21:41 iodine Allergy Unknown Unknown Verified 08/30/20 21:41 prednisone Allergy Unknown Unknown Verified 08/30/20 21:41 Vital Signs Vital Signs - 24 hr 08/30/20 21:13 08/30/20 21:24 08/30/20 21:40 Temperature 36.9 C Pulse Rate 76 68 75 Respiratory Rate 13 21 H Blood Pressure 201/92 H 169/68 H Pulse Oximetry 99 98 Exam Const: General: comfortable and no acute distress Other: Able
--- NOTE | 2020-08-30 22:41 | WPDCARDPROC ---
Cardiac Cath Procedure Note Date of procedure:: 08/30/20 Performing physician:: Dioni Rosales MD Assessment and Plan Additional Plan PROCEDURES 1. LHC and Coronary angiogram 2. PCI to Culprit vessel of STEMI - INf wall, PCI to Proximal and distal RCA with ANGIE INDICATION STEMI inf wall HISTORY 80 Yrs old female presented with acute chest pain and found to have STEMI, She has Hx of HTN and iodine allergy. Solumedrol given before start of procedure. PROCEDURE DETAILS Sedation: Moderate sedation was given under my supervision and RN, 1 mg of versed and 50 mcg of fentanyl. Patient tolerated procedure well and was awake at end of procedure. Start 22:00 and end 22:34 Access site: Rt VALIDATION TECHNICIAN access with modified Seldinger technique under fluoroscopy guidance and 6 F sheath was inserted Coronary angiogram was done with JL4 and JR4 and AV crossed with JR4 HEMODYNAMIC FINDINSG Aorta: 180/100 LV 180/30 ANGIOGRAPHIC FINDINGS 1. Left main: normal and gives LAD and LCX 2. LAD: Normal anatomy, large vessel and no significant disease, gives large D1 that has ostial 60% stenosis 3. LCX: large non dominant vessel gives large OM2 and OM3 and no significant disease. 4. RCA: Large dominant vessel that gives intermediate size PDA and rPL, proximal RCA with 99% occlusion and CHRISTIAN 2 flow culprit lesion of STEMI and distal RCA has 80% stenosis before bifurcation PCI DETAILS Guide catheter: JR4 Anticoagulation with heparin Antiplatelet Ticagrelor 180 mg and ASA 325 mg Guide wire: Samurai wire Balloon angioplasty was done with Emerge 2.5 * 12 mm balloon Stent: proximal RCA XIENCE Cyndee 3.0 * 15 in proximal RCA and 2.5 * 15 in distal RCA Pre-intervention: class A lesion, 99% stenosis, culprit lesion of STEMI, not previously treated, CHRISTIAN 2 flow Post-intervention: 0% residual stenosis, CHRISTIAN 3 flow COMPLICATIONS None At end of procedure catheter wires removed and angiogram revealed normal VALIDATION TECHNICIAN and closure done with angiseal with adequate hemostasis and intact distal pulses. CONCLUSION Successful PCI to Proximal RCA subtotal occlusion with one ANGIE XIENCE Cyndee 3.0 * 15 mm Successful PCI to distal RCA with one ANGIE XIENCE Cyndee 2.5 * 15 mm RECOMMENDATIONS DAPT TTE BP control with B-tanya and ACEI Cardiac rehab
[2020-08-30 23:05] VITALS: BP 161/64; PULSE 100; RESP 16; TEMP 36.4; O2SAT 96
--- NOTE | 2020-08-30 23:05 | ADMGEN ---
This patient, Pippa Mota, was admitted to Intensive Care Unit-7. Patient/family oriented to hospital policies and general routines including ID bracelet, bed and alarms, visiting hours, pain management, procedures, bathroom and other care routines, personal items, smoking policy, room service/diet, and visiting hours. Information on how to activate the Rapid Response Team has been discussed. Patient/Family are encouraged to report perceived risks to care and to ask questions if they do not understand what they are told or what they should do.
--- NOTE | 2020-08-30 23:10 | ECG_ITS ---
Measurements Intervals [place] Rate: 95 P: 33 NM: 110 QRS: 51 QRSD: 85 T: 32 QT: 356 QTc: 448 Interpretive Statements SINUS RHYTHM WITH SINUS ARRHYTHMIA WITH SHORT NM INTERVAL ATRIAL PREMATURE COMPLEXES INFERIOR ST ELEVATION MYOCARDIAL INFARCT- ACUTE BASELINE ARTIFACT- I, II, III, AVR, AVL, AVF, V1 ABNORMAL ECG Electronically Signed On 08-31-2020 9:42:00 CDT by Yosvany DUQUE
[2020-08-30 23:26] VITALS: BMI 33.6
[2020-08-31] VITALS (25 sets, daily range): BP systolic 113–170; BP diastolic 53–100; PULSE 59–92; RESP 12–21; TEMP 36.6–36.9; O2SAT 93–100
--- NOTE | 2020-08-31 | ECHO_ITS ---
Patient Info Name: Pippa Mota Age: 80 years : 1940 Gender: Female Ht: 61 in Wt: 179 lbs BSA: 1.91 m2 HR: 77 bpm BP: 135 / 82 mmHg Heart Rhythm: Sinus Rhythm Technical Quality: Good Exam Date: 08/31/2020 7:37 AM Exam Location: [facility] Patient Status: Inpatient Admit Date: 08/30/2020 Staff Ordering Physician: Dioni Rosales MD Metal Riveter: Hiram Grey, TRISH, RT Attending Provider: Dioni Rosales MD Exam Type: CA echo doppler color flow Study Info Indications I50.9 - Heart failure, unspecified Complete two-dimensional, color flow and Doppler transthoracic echocardiogram is performed. Strain analysis performed. Summary 1. Complete two-dimensional, color flow and Doppler transthoracic echocardiogram is performed. 2. Technically difficult study with limited views. Regional wall motion assessment limited due to poor endomyocardial border definition. 3. Left ventricular systolic function is normal, estimated at 55-60%. 4. Left ventricular chamber dimension is normal. 5. There is mild aortic valve stenosis with a peak velocity of 160 cm/s, mean gradient of 6 mmHg, and aortic valve area of 1.9 cm2. 6. There is trace mitral valve regurgitation. 7. Unable to estimate PA systolic pressure due to poor spectral resolution of tricuspid regurgitant jet velocity. Left Ventricle Left ventricular chamber dimension is normal. Left ventricular systolic function is normal, estimated at 55-60%. There is no increased left ventricular wall thickness. The left ventricular diastolic function is grade I diastolic dysfunction. Global longitudinal strain is mildly elevated at -14 %. Technically difficult study with limited views. Regional wall motion assessment limited due to poor endomyocardial border definition. Right Ventricle Right ventricular chamber dimension is normal. Right ventricular systolic function is normal. Left Atria Left atrial chamber dimension is normal. Right Atria Right atrial chamber dimension is normal. Aortic Valve The aortic valve is not well visualized. There is mild aortic valve sclerosis. There is mild aortic valve stenosis with a peak velocity of 160 cm/s, mean gradient of 6 mmHg, and aortic valve area of 1.9 cm2. There is no aortic valve regurgitation. Pulmonic Valve The pulmonic valve is not well visualized. There is mild pulmonic regurgitation. Mitral Valve The mitral valve has normal leaflets. There is trace mitral valve regurgitation. The mitral valve annulus is mildly calcified. Tricuspid Valve The tricuspid valve leaflets are normal. There is trace tricuspid valve regurgitation. Unable to estimate PA systolic pressure due to poor spectral resolution of tricuspid regurgitant jet velocity. Pericardium/Pleural The pericardium appears epicardial fat pad. There is small pericardial effusion. Inferior Vena Cava Normal inferior vena cava with >50% collapse upon inspiration consistent with normal right atrial pressure, 5 mmHg. Aorta The aortic root size at the sinus of Valsalva is normal. There is mild aortic atherosclerosis. Left Ventricular Outflow Tract Name Value Normal LVOT 2D LVOT Diameter 1.9 cm LVOT Dop
[2020-08-31 01:30] LABS: Troponin I 0.867 ng/mL (0.000-0.034)
--- NOTE | 2020-08-31 07:00 | ECG_ITS ---
SINUS RHYTHM VENTRICULAR PREMATURE COMPLEX BORDERLINE T WAVE ABNORMALITY- ANT/INF LEADS BORDERLINE ECG Electronically Signed On 09-19-2020 8:40:50 CDT by Yosvany DUQUE
--- NOTE | 2020-08-31 08:36 | PC.NURSE ---
Cardiopulmonary Rehab Services flyer was given to patient in her cardiac admissions folder.
--- NOTE | 2020-08-31 08:48 | WPDCNINT ---
Assessment and Plan Assessment and plan (1) ST elevation (STEMI) myocardial infarction: Code(s): I21.3 - ST elevation (STEMI) myocardial infarction of unspecified site Status: Acute Assessment and Plan: Status post PCI and drug-eluting stent placement in RCA Hemodynamically stable and asymptomatic at this time Echo today Continue dual platelet therapy in the form of aspirin and Brilinta Beta-tanya statin and ARB (2) Obstructive sleep apnea: Code(s): G47.33 - Obstructive sleep apnea (adult) (pediatric) Status: Acute Assessment and Plan: CPAP at night (3) PAT (paroxysmal atrial tachycardia): Code(s): I47.1 - Supraventricular tachycardia Status: Acute Assessment and Plan: Continue sotalol (4) Chronic kidney disease, stage 3: Code(s): N18.3 - Chronic kidney disease, stage 3 (moderate) Status: Acute Assessment and Plan: Creatinine appears to be at baseline Continue IV fluids for another 12 hours (5) Essential hypertension: Code(s): I10 - Essential (primary) hypertension Status: Acute Assessment and Plan: Continue amlodipine, chlorthalidone, p.r.n. hydralazine, sotalol and losartan Additional Plan DVT prophylaxis -Lovenox subcu Nutrition -heart healthy diet Code Status - Full Code Transfer out of ICU today Nuclear Reactor Operator Consult Note Consult date: 08/31/20 Time Seen: 08:00 HPI: Pippa Mota is a 80 year old female female with history of hypertension, CKD, AVANI who presented yesterday via EMS for evaluation chest pain. Patient started having some pain in her shoulders the day before which was intermittent. Yesterday pain returned and she stated that pain was in her shoulders and in her anterior chest and radiated to her left arm. Pain was 5 to 6/10 severe, achy and dull, no other radiation, no aggravating or relieving factor. She had no other associated symptoms in the form of shortness of breath palpitations dizziness or lightheadedness. Patient continued to have pain until she call EMS. EMS performed an EKG that shows ST elevation in inferior leads, so they gave her aspirin 324 mg PO and placed 1 inch nitro paste and brought to ER. Code STEMI was called and patient was urgently taken to cardiac warehouse general laborer where she had a PCI and drug eluting stents x 2 placed in RCA. Patient's pain resolved after procedure and she has been asymptomatic since then. This morning patient denies any complaints and feels better she denies any pain shortness of breath nausea vomiting lightheadedness or dizziness. All the systems were reviewed and were negative Review of Systems Review of Systems: All systems reviewed & are unremarkable except as noted in HPI and below (HPI) [facility] Past Medical History Medical History Anemia Cancer of left breast (~2007) Status post lumpectomy, chemotherapy, and radiation. Chronic kidney disease, stage 3 She is a patient of Dr. Devi Kohli. Elevated parathyroid hormone Being monitored by her fiber optic central office installer, Dr. Kohli. Essential hypertension Hemochromatosis Diagnosed in 1991. She is a patient of Dr. Samson. No recent therapeutic phlebotomy due to presence of anemia. Irritable bowel syndrome Osteoporosis Temporal arteritis syndrome (~2000) Vitamin D deficiency Surgical History Surgical History History of liver biopsy History of lumpectomy of both breasts Including left breast lumpectomy for breast cancer in 2007. History of tonsillectomy Family History Family History Mother Family history of dementia Father Family history of congestive heart failure Other Adopted Social History Social History Social History: Surrogate decision maker: Hollie Costello, friend. Code status: Ful
--- NOTE | 2020-08-31 09:46 | PM.PNCARD ---
Progress Note: A&P Additional Plan 1-acute inferior STEMI status post 2 drug-eluting stents 3 x 15 to proximal RCA and 2.5 x 15 to distal RCA. 2-history of hypertension. 3-history of ventricular tachycardia on sotalol. 4-CKD stage 3. Continue aspirin and Brilinta. Reduce chlorthalidone from 25 mg daily to 12.5 mg daily because she takes at home 12.5 mg daily. Reduce losartan from 100 mg daily to 50 mg daily because at home she takes 50 mg daily. Continue sotalol at 40 mg b.i.d.. Follow-up on the echocardiogram. Subjective Date/time seen: Date of service 08/31/20 09:46 She feels well today. No episodes of chest pain. She had some episodes of atrial tachycardia noticed on telemetry. Denies shortness of breath Review of Systems Constitutional: Constitutional: Denies chills, Denies fever(s) and Denies poor appetite Eyes: Eyes: Denies eye discharge, Denies loss of vision, Denies eye pain and Denies photophobia ENT: Denies dizziness, Denies epistaxis, Denies nasal congestion and Denies sore throat Cardiovascular: Cardiovascular: Denies chest pain, Denies syncope, Denies pedal edema, Denies leg edema, Denies palpitations, Denies dyspnea, Denies dyspnea on exertion and Denies orthopnea Respiratory: Respiratory: Denies cough, Denies dyspnea, Denies dyspnea on exertion and Denies wheezing Gastrointestinal: Gastrointestinal: Denies abdominal pain, Denies diarrhea, Denies nausea and Denies vomiting Genitourinary: Genitourinary: Denies hematuria, Denies genital lesions and Denies dysuria Musculoskeletal: Musculoskeletal: Denies arthralgias, Denies joint swelling and Denies numbness Integumentary/Breasts: Skin/Breast: Denies pruritus and Denies rash Neurologic: Denies dizziness, Denies syncope, Denies loss of vision and Denies numbness Psychiatric: Psychiatric: Denies anxiety and Denies depression Endocrine: Endocrine: Denies cold intolerance, Denies heat intolerance and Denies palpitations Hematologic/Lymphatic: Hematologic/Lymphatic: Denies easy bleeding and Denies easy bruising Allergic/Immunologic: Allergic/Immunologic: Denies urticaria and Denies wheezing Exam Const: General: cooperative, comfortable, no acute distress, alert and awake Nutritional Appearance: well nourished Orientation/consciousness: patient oriented x3 HENMT: Head: normal to inspection, normocephalic and atraumatic Ears: hearing grossly normal bilaterally General nose exam: Normal external nose present, Normal nares present and no nasal discharge noted Face and sinus: normal facial exam and no erythema Mouth: No drooling and No restricted motion Throat: uvula midline Eyes: General: appearance normal, both eyes and all related structures Alignment and Position: position normal Conjunctivae: conjunctivae normal Sclera: sclerae normal Direct Ophthalmoscopy: No photophobia Neck: Neck: normal visual inspection and no JVD Thyroid: thyroid normal Carotids: no bruits Lymphatic: lymphedema not noted Chest: Chest palpation & inspection: normal inspection of the chest and no tenderness Resp: Effort & Inspection: normal respiratory effort and no nasal flaring Auscultation: clear to auscultation bilaterally, no crackles, no rales and no wheezes Cardio: Jugular venous distension: no JVD Rate: regular rate Rhythm: regular rhythm Heart sounds: S1 normal heart sound present, S2 normal heart sound present, no gallops, no murmurs and no rubs GI: Inspection: non-distended GI Palp: No abdominal tenderness and No Soft to palpation Auscultation: normal bowel sounds Rectal Exam: deferred : General: No no CVA tenderness Back/Spine/Pelvis: Back: No no CVA tenderness Cervical Spine: cervical ROM normal Skin: General skin exam: normal color and rashes and/or lesions noted Neuro: General: patient oriented x3 Cranial nerves: No CN's II-XII intact bilaterally Speech: normal speech Motor exam (neuro): no tremors Extrem: General: normal to inspection and pedal
[2020-08-31] MEDS: SOTALOL HCL 40 MG TABLET PO ×2 (10:02→20:32)
[2020-08-31] MEDS: ASPIRIN 81 MG ENTERIC TABLET PO (10:03)
[2020-08-31] MEDS: ATORVASTATIN 40 MG TABLET 80 MG PO (10:03)
[2020-08-31] MEDS: TICAGRELOR 90 MG TABLET PO ×2 (10:03→20:32)
[2020-08-31] MEDS: amLODIPine BESYLATE 5 MG TABLET PO (10:03)
[2020-08-31] MEDS: ENOXAPARIN 30 MG/0.3 ML SYRINGE SUB-Q (10:06)
[2020-08-31] MEDS: CHLORTHALIDONE 12.5 MG TAB PO (10:25)
[2020-08-31] MEDS: LOSARTAN POTASSIUM 50 MG TABLET PO (10:25)
[2020-09-01] VITALS (15 sets, daily range): BP systolic 111–133; BP diastolic 42–97; PULSE 53–76; RESP 15–27; TEMP 36.1–36.6; O2SAT 97–99
[2020-09-01 04:39] LABS: Hematocrit 27.8 % (37.0-47.0); Hemoglobin 9.3 g/dL (12.0-15.0); Mean Corpuscular HGB Conc 33.5 g/dl (32-36); Mean Corpuscular Hemoglobin 31.3 pg (26-34); Mean Corpuscular Volume 93.6 fl (80-100); Mean Platelet Volume 10.9 fl (7.4-10.4); Platelet Count Result 185 k/mm3 (150-375); Red Blood Count 2.97 M/mm3 (4.2-5.4); Red Cell Distribution Width 12.7 % (11.5-14.5)
[2020-09-01 04:55] LABS: Anion Gap 7 mmol/L (8-16); Blood Urea Nitrogen 40 mg/dL (7-17); Calcium 8.6 mg/dL (8.4-10.2); Carbon Dioxide 23 mmol/L (22-30); Chloride 109 mmol/L (98-107); Estimated CRCL calculation 24 ml/min; Estimated Glomerular Filt Rate 31; Glucose 104 mg/dL (65-105); Magnesium 1.6 mg/dL (1.6-2.3); Potassium 3.8 mmol/L (3.4-5.0); Sodium 139 mmol/L (137-145)
--- NOTE | 2020-09-01 07:58 | PM.DS ---
DS: Admitting Diagnosis Admitting Diagnosis Admitting Diagnosis: Chest pain <ANITA Zepeda - Last Filed: 09/01/20 15:18> DS: Discharge Diagnosis Discharge Diagnosis (1) ST elevation (STEMI) myocardial infarction: Code(s): I21.3 - ST elevation (STEMI) myocardial infarction of unspecified site <ANITA Zepeda - Last Filed: 09/01/20 15:18> Status: Acute <ANITA Zepeda - Last Filed: 09/01/20 15:18> Assessment and Plan: Acute inferior STEMI s/p 2 drug eluting stents to the RCA with mandaeism of flow. She has been started on: -ASA -Brilinta Continue: -Atorvastatin -Sotalol -Losartan -Chlorthalidone She will follow up with her reactor technician, Dr. Aguilera in 2 weeks. <ANITA Zepeda - Last Filed: 09/01/20 15:18> DS: Summary Hospital Course Reason for hospitalization: Chest pain <ANITA Zepeda - Last Filed: 09/01/20 15:18> Hospital Course: 08/30/20: Presented to emergency department via EMS with chest pain that had been persisting intermittently for 24 hours. EKG in the field showed ST elevation in inferior leads. She was taken to the mine laborer emergently for left heart catheterization and coronary angiogram. The RCA was found to be 99% occluded and was intervened upon. Proximal RCA stented with 3.0 x 15mm drug eluting stent and 2.5 x 15mm drug eluting stent to distal RCA. Confucianist of flow was achieved. 08/31/20: s/p PCI x2 to the RCA. She remained in the ICU in stable condition. She had no post-procedural complications. ASA and Brilinta were continued and her home medications of losartan, sotalol, and chlorthalidone were adjusted to her home doses. 09/01/20: Remains in stable condition free from complications s/p PCI x2. She is free from chest pain. Echocardiogram was performed and unremarkable. EF normal 55-60%. She is appropriate for discharge home today and will follow up with Dr. Aguilera. <ANITA Zepeda - Last Filed: 09/01/20 15:18> Attending addendum: Due to documentation of hematoma, declining hemoglobin patient was observed overnight to trend CBC, monitor status if hematoma prior to discharge. <Joel Emerson MD - Last Filed: 09/16/20 11:28> Status at Discharge Cognitive/behavioral status at discharge: Competent <Joel Emerson MD - Last Filed: 09/16/20 11:28> Functional status at discharge: independent ambulation <ANITA Zepeda - Last Filed: 09/01/20 15:18> Overall status at discharge: patient is back to baseline <ANITA Zepeda - Last Filed: 09/01/20 15:18> Time Spent with Patient Time attestation: Total time spent providing and/or coordinating discharge services: <ANITA Zepeda - Last Filed: 09/01/20 15:18> Time spent: Greater than 30 minutes <ANITA Zepeda - Last Filed: 09/01/20 15:18> Exam Const: General: comfortable and no acute distress <ANITA Zepeda - Last Filed: 09/01/20 15:18> HENMT: Head: normal to inspection <ANITA Zepeda - Last Filed: 09/01/20 15:18> Eyes: General: appearance normal, both eyes and all related structures <ANITA Zepeda - Last Filed: 09/01/20 15:18> Neck: Neck: supple and no JVD <ANITA Zepeda - Last Filed: 09/01/20 15:18> Carotids: no bruits <ANITA Zepeda - Last Filed: 09/01/20 15:18> Resp: Effort & Inspection: normal respiratory effort <ANITA Zepeda - Last Filed: 09/01/20 15:18> Auscultation: clear to auscultation bilaterally, no crackles, no rales and no wheezes <ANITA Zepeda - Last Filed: 09/01/20 15:18> Cardio: Rate: regular rate <ANITA Zepeda - Last Filed: 09/01/20 15:18> Rhythm: regular rhythm <ANITA Zepeda - Last Filed: 09/01/20 15:18> Heart sounds: no murmurs <ANITA Zepeda - Last Filed: 09/01/20 15:18> GI: GI Palp: Yes Soft to palpation <ANITA Zepeda - Last Filed: 09/01/20 15:18> Ski
[2020-09-01] MEDS: CHLORTHALIDONE 12.5 MG TAB PO (09:05)
[2020-09-01] MEDS: TICAGRELOR 90 MG TABLET PO ×2 (09:05→20:25)
[2020-09-01] MEDS: ATORVASTATIN 40 MG TABLET 80 MG PO (09:05)
[2020-09-01] MEDS: ENOXAPARIN 30 MG/0.3 ML SYRINGE SUB-Q (09:05)
[2020-09-01] MEDS: ASPIRIN 81 MG ENTERIC TABLET PO (09:05)
[2020-09-01] MEDS: LOSARTAN POTASSIUM 50 MG TABLET PO (09:05)
[2020-09-01] MEDS: SOTALOL HCL 40 MG TABLET PO ×2 (09:05→20:25)
[2020-09-01] MEDS: amLODIPine BESYLATE 5 MG TABLET PO (09:06)
--- NOTE | 2020-09-01 15:26 | PM.PNCARD ---
Progress Note: A&P Assessment and Plan (1) ST elevation (STEMI) myocardial infarction: Code(s): I21.3 - ST elevation (STEMI) myocardial infarction of unspecified site Status: Acute Assessment and Plan: Acute inferior STEMI s/p 2 drug eluting stents to the RCA with confucianism of flow. She has been started on: -ASA -Brilinta Continue: -Atorvastatin -Sotalol -Losartan -Chlorthalidone She will follow up with her email engineer, Dr. Aguilera in 2 weeks. No anginal symptoms, hemodynamically stable. EF stable by echo 55-60% technically difficult study. (2) Hematoma following percutaneous transluminal coronary angioplasty: Code(s): I97.638 - Postprocedural hematoma of a circulatory system organ or structure following other circulatory system procedure Status: Acute Assessment and Plan: Right groin hematoma 1st noted on my exam this afternoon. However, hemoglobin dropped to 9 g this morning from 12 at presentation suggesting bleeding onset prior to today. Therefore, patient should be kept overnight for observation and repeat CBC in a.m.. Frequent/routine groin checks to ensure hematoma stable without further progression. As this is reportedly new I would keep patient in bed for the next 2 hours. If any enlargement pressure for least 30 minutes necessary. Discussed risks for complications stemming from hematoma complicating management general but not able to stop antiplatelet therapy. Review precautions with regards to post catheterization status and intervention. Patient verbalized understanding. Patient agreeable to stay overnight for observation to ensure safety. No bruit on exam to suggest pseudoaneurysm. 35 minutes spent at bedside with patient in care, chart review, and decision making. (3) Anemia: Code(s): D64.9 - Anemia, unspecified Status: Acute Assessment and Plan: As above, hemoglobin has dropped 3 g since admission from 12 to 9. Keep in house tonight, repeat CBC in a.m.. Monitor closely for evidence of bleeding. Must continue dual antiplatelet therapy however. (4) Chronic kidney disease, stage 3: Code(s): N18.3 - Chronic kidney disease, stage 3 (moderate) Status: Acute Assessment and Plan: Creatinine 1.3 presentation 1.6 this morning. Patient states current renal function closer to her baseline. Repeat in a.m.. (5) Essential hypertension: Code(s): I10 - Essential (primary) hypertension Status: Acute Assessment and Plan: Stable. Continue medical therapy. Subjective Date/time seen: Date of service: 09/01/20 15:26 Follow-up for ST-elevation SD Patient denies chest pain or shortness of breath. Denies new issues overnight. No mention of hematoma or right groin pain. Patient states she was having some discomfort due to the bandage and taping which resolved with removal. Patient denies bright red blood per rectum. No palpitations or dizziness. Patient ambulating without difficulty or pain. Review of Systems Review of Systems: All systems reviewed & are unremarkable except as noted in HPI and below Constitutional: Constitutional: Denies chills, Denies fever(s) and Denies poor appetite Eyes: Eyes: Denies eye discharge, Denies loss of vision, Denies eye pain and Denies photophobia ENT: Denies dizziness, Denies epistaxis, Denies nasal congestion and Denies sore throat Cardiovascular: Cardiovascular: Denies chest pain, Denies syncope, Denies pedal edema, Denies leg edema, Denies palpitations, Denies dyspnea, Denies dyspnea on exertion and Denies orthopnea Respiratory: Respiratory: Denies cough, Denies dyspnea, Denies dyspnea on exertion and Denies wheezing Gastrointestinal: Gastrointestinal: Denies abdominal pain, Denies diarrhea, Denies nausea and Denies vomiting Genitourinary: Genitourinary: Denies hematuria, Denies genital lesions and Denies dysuria Musculoskeletal: Musculoskeletal: Denies arthralgias, Denies joint
[2020-09-01 16:29] LABS: Hematocrit 32.4 % (37.0-47.0); Hemoglobin 10.7 g/dL (12.0-15.0); Mean Corpuscular Hemoglobin 31.4 pg (26-34); Mean Platelet Volume 10.7 fl (7.4-10.4); Platelet Count Result 186 k/mm3 (150-375); Red Blood Count 3.41 M/mm3 (4.2-5.4); Red Cell Distribution Width 12.7 % (11.5-14.5); White Blood Count 13.4 K/mm3 (4.5-10.0)
[2020-09-02] VITALS (10 sets, daily range): BP systolic 110–130; BP diastolic 38–64; PULSE 53–80; RESP 15–18; TEMP 36.3–36.7; O2SAT 95–98
[2020-09-02 05:12] LABS: Anion Gap 5 mmol/L (8-16); Blood Urea Nitrogen 46 mg/dL (7-17); Calcium 8.7 mg/dL (8.4-10.2); Carbon Dioxide 23 mmol/L (22-30); Chloride 110 mmol/L (98-107); Estimated CRCL calculation 28 ml/min; Estimated Glomerular Filt Rate 36; Glucose 112 mg/dL (65-105); Magnesium 1.6 mg/dL (1.6-2.3); Sodium 138 mmol/L (137-145)
[2020-09-02 05:14] LABS: Hematocrit 28.2 % (37.0-47.0); Hemoglobin 9.2 g/dL (12.0-15.0); Mean Corpuscular HGB Conc 32.6 g/dl (32-36); Mean Corpuscular Hemoglobin 31.6 pg (26-34); Mean Corpuscular Volume 96.9 fl (80-100); Mean Platelet Volume 11.5 fl (7.4-10.4); Platelet Count Result 158 k/mm3 (150-375); Red Blood Count 2.91 M/mm3 (4.2-5.4); Red Cell Distribution Width 12.7 % (11.5-14.5); White Blood Count 9.5 K/mm3 (4.5-10.0)
[2020-09-02] MEDS: LOSARTAN POTASSIUM 50 MG TABLET PO (08:14)
[2020-09-02] MEDS: ATORVASTATIN 40 MG TABLET 80 MG PO (08:14)
[2020-09-02] MEDS: ASPIRIN 81 MG ENTERIC TABLET PO (08:14)
[2020-09-02] MEDS: SOTALOL HCL 40 MG TABLET PO (08:14)
[2020-09-02] MEDS: amLODIPine BESYLATE 5 MG TABLET PO (08:14)
[2020-09-02] MEDS: CHLORTHALIDONE 12.5 MG TAB PO (08:16)
[2020-09-02] MEDS: TICAGRELOR 90 MG TABLET PO (08:16)
[2020-09-02] MEDS: ENOXAPARIN 30 MG/0.3 ML SYRINGE SUB-Q (08:16)
--- NOTE | 2020-09-02 15:00 | PM.DS ---
DS: Admitting Diagnosis Admitting Diagnosis Admitting Diagnosis: Chest pain DS: Discharge Diagnosis Discharge Diagnosis (1) HTN (hypertension): Onset Date: ~1991 Code(s): I10 - Essential (primary) hypertension Status: Chronic (2) Essential hypertension: Code(s): I10 - Essential (primary) hypertension Status: Acute Assessment and Plan: Stable. Continue medical therapy. (3) ST elevation (STEMI) myocardial infarction: Code(s): I21.3 - ST elevation (STEMI) myocardial infarction of unspecified site Status: Acute Assessment and Plan: Acute inferior STEMI s/p 2 drug eluting stents to the RCA with yazidism of flow. She has been started on: -ASA -Brilinta Continue: -Atorvastatin -Sotalol -Losartan -Chlorthalidone She will follow up with her animal trainer supervisor, Dr. Aguilera in 2 weeks. No anginal symptoms, hemodynamically stable. EF stable by echo 55-60% technically difficult study. (4) Blood loss anemia: Code(s): D50.0 - Iron deficiency anemia secondary to blood loss (chronic) Status: Acute (5) Hematoma following percutaneous transluminal coronary angioplasty: Code(s): I97.638 - Postprocedural hematoma of a circulatory system organ or structure following other circulatory system procedure Status: Acute Assessment and Plan: Right groin hematoma 1st noted on my exam this afternoon. However, hemoglobin dropped to 9 g this morning from 12 at presentation suggesting bleeding onset prior to today. Therefore, patient should be kept overnight for observation and repeat CBC in a.m.. Frequent/routine groin checks to ensure hematoma stable without further progression. As this is reportedly new I would keep patient in bed for the next 2 hours. If any enlargement pressure for least 30 minutes necessary. Discussed risks for complications stemming from hematoma complicating management general but not able to stop antiplatelet therapy. Review precautions with regards to post catheterization status and intervention. Patient verbalized understanding. Patient agreeable to stay overnight for observation to ensure safety. No bruit on exam to suggest pseudoaneurysm. 35 minutes spent at bedside with patient in care, chart review, and decision making. (6) Anemia: Code(s): D64.9 - Anemia, unspecified Status: Acute Assessment and Plan: As above, hemoglobin has dropped 3 g since admission from 12 to 9. Keep in house tonight, repeat CBC in a.m.. Monitor closely for evidence of bleeding. Must continue dual antiplatelet therapy however. (7) Chronic kidney disease, stage 3: Code(s): N18.3 - Chronic kidney disease, stage 3 (moderate) Status: Acute Assessment and Plan: Creatinine 1.3 presentation 1.6 this morning. Patient states current renal function closer to her baseline. Repeat in a.m.. DS: Summary Hospital Course Reason for hospitalization: Stent Hospital Course: Chest pain <ANITA Zepeda - Last Filed: 09/01/20 15:18> Hospital Course: 08/30/20: Presented to emergency department via EMS with chest pain that had been persisting intermittently for 24 hours. EKG in the field showed ST elevation in inferior leads. She was taken to the cath lab nurse emergently for left heart catheterization and coronary angiogram. The RCA was found to be 99% occluded and was intervened upon. Proximal RCA stented with 3.0 x 15mm drug eluting stent and 2.5 x 15mm drug eluting stent to distal RCA. Bahai of flow was achieved. 08/31/20: s/p PCI x2 to the RCA. She remained in the ICU in stable condition. She had no post-procedural complications. ASA and Brilinta were continued and her home medications of losartan, sotalol, and chlorthalidone were adjusted to her home doses. 09/01/20: Remains in stable condition free from complications s/p PCI x2. She is free from chest pain. Echocardiogram was performed and unremarkable. EF normal 55
== END 2020-09-02 16:15 | disposition home or self-care (01) | DRG 247 ==
LOC: ANHED 21:51 → ANHICU 08-31 00:20
PROVIDERS: Internal Medicine; Internal Medicine Cardiovascular Disease; Admitting Provider Internal Medicine Interventional Cardiology; Emergency Provider General Practice; PCP Family Medicine; Visit Provider Internal Medicine Cardiovascular Disease
PROC: 4A023N7 Measurement of Cardiac Sampling and Pressure, Left Heart, Percutaneous Approach (ICD-10-PCS; CPT 93452; principal; 2020-08-30 09:35)
PROC: 027035Z Dilation of Coronary Artery, One Artery with Two Drug-eluting Intraluminal Devices, Percutaneous Approach (ICD-10-PCS; 2020-08-30 09:35)
PROC: 027035Z Dilation of Coronary Artery, One Artery with Two Drug-eluting Intraluminal Devices, Percutaneous Approach (ICD-10-PCS; 2020-08-30 09:35)
DX: I21.19 ST elevation (STEMI) myocardial infarction involving other coronary artery of inferior wall (principal); I97.638 Postprocedural hematoma of a circulatory system organ or structure following other circulatory system procedure; I47.1 Supraventricular tachycardia; I12.9 Hypertensive chronic kidney disease with stage 1 through stage 4 chronic kidney disease, or unspecified chronic kidney disease; N18.30 Chronic kidney disease, stage 3 unspecified; I25.10 Atherosclerotic heart disease of native coronary artery without angina pectoris; D50.0 Iron deficiency anemia secondary to blood loss (chronic); G47.33 Obstructive sleep apnea (adult) (pediatric); Z79.82 Long term (current) use of aspirin; Z79.899 Other long term (current) drug therapy; Z85.3 Personal history of malignant neoplasm of breast; Z87.891 Personal history of nicotine dependence
CPT/HCPCS: 36415; 80048; 80053; 80061; 83735; 84484; 85025; 85027; 85610; 85730; 86850; 86900; 86901; 93005; 93306; 93458; 99285; A9270; C1725; C1760; C1769; C1874; C1887; C1894; C9606; G0269; J1644; J1650; J2930; J7040

== ENCOUNTER 2020-09-14 12:14 | Outpatient (CLI) | payer OTHER, SELFPAY ==
--- NOTE | ~2020-09-14 | MM_ITS ---
EXAMINATION: MM diagnostic mammo unilat RT HISTORY: Developing right calcifications reported on 08/10/2020 screening mammogram TECHNIQUE: Additional 3-D ML tomosynthesis images of the right breast were performed and synthetic 2- D images were generated. Magnification views of the right breast in 3 projections. CAD analysis was s ubmitted and interpreted. COMPARISON: 08/10/2020 bilateral digital screening mammogram FINDINGS: Multiple benign appearing microcalcifications are noted scattered in the right breast. No m alignant calcifications are evident. IMPRESSION: 1. Benign calcifications 2. Routine mammographic screening is recommended BI-RADS Category 2: Benign finding(s). Reviewed, dictated and finalized at location A.
== END 2020-09-14 12:15 | disposition home or self-care (01) ==
LOC: ANHIMG 12:16
PROVIDERS: PCP Family Medicine; Visit Provider Internal Medicine Hematology & Oncology
DX: R92.8 Other abnormal and inconclusive findings on diagnostic imaging of breast (principal); R92.1 Mammographic calcification found on diagnostic imaging of breast
CPT/HCPCS: 77065

== ENCOUNTER 2020-10-31 10:14 | Outpatient (CLI) | payer OTHER, SELFPAY ==
[2020-10-31 10:37] LABS: Hematocrit 31.6 % (37.0-47.0); Mean Corpuscular HGB Conc 31.6 g/dl (32-36); Mean Corpuscular Hemoglobin 31.5 pg (26-34); Mean Corpuscular Volume 99.7 fl (80-100); Mean Platelet Volume 10.7 fl (7.4-10.4); Platelet Count Result 207 k/mm3 (150-375); Red Blood Count 3.17 M/mm3 (4.2-5.4); Red Cell Distribution Width 13.1 % (11.5-14.5); White Blood Count 6.9 K/mm3 (4.5-10.0)
[2020-10-31 10:52] LABS: Alanine Aminotransferase 25 U/L (4-35); Albumin Level 3.9 g/dL (3.5-5.1); Alkaline Phosphatase 119 U/L (38-126); Anion Gap 7 mmol/L (8-16); Aspartate Amino Transferase 36 U/L (14-36); Bilirubin,Total 0.6 mg/dL (0.2-1.3); Blood Urea Nitrogen 44 mg/dL (7-17); Carbon Dioxide 22 mmol/L (22-30); Chloride 112 mmol/L (98-107); Estimated Glomerular Filt Rate 23; Glucose 91 mg/dL (65-110); Potassium 4.4 mmol/L (3.4-5.0); Sodium 141 mmol/L (137-145)
[2020-10-31 10:57] LABS: Hemoglobin A1C 5.2 % (<5.7)
[2020-10-31 11:33] LABS: Iron 151 ug/dL (37-170)
[2020-10-31 11:42] LABS: Percent Iron Saturation 60 % (20-50)
== END 2020-10-31 10:15 | disposition home or self-care (01) ==
LOC: ANHLAB 10:16
PROVIDERS: PCP Family Medicine; Visit Provider Family Medicine
DX: D64.9 Anemia, unspecified (principal); E83.119 Hemochromatosis, unspecified; I25.10 Atherosclerotic heart disease of native coronary artery without angina pectoris; E11.9 Type 2 diabetes mellitus without complications
CPT/HCPCS: 36415; 80053; 82728; 83036; 83540; 83550; 85027

== ENCOUNTER 2020-11-10 09:10 | Outpatient (CLI) | payer OTHER, SELFPAY ==
[2020-11-10 10:03] LABS: Hematocrit 31.1 % (37.0-47.0); Immature Reticulocyte Fraction 12.5 % (3.0-15.9); Mean Corpuscular HGB Conc 32.2 g/dl (32-36); Mean Corpuscular Hemoglobin 31.9 pg (26-34); Mean Corpuscular Volume 99.4 fl (80-100); Mean Platelet Volume 10.7 fl (7.4-10.4); Platelet Count Result 193 k/mm3 (150-375); Red Blood Count 3.13 M/mm3 (4.2-5.4); Reticulocyte Hemoglobin Conten 36.8 pg (28.2-35.7); Reticulocyte Percent 2.08 % (0.7-4.3); Reticulocytes Absolute 0.07 B/L (32.2-175.7); White Blood Count 8.8 K/mm3 (4.5-10.0)
[2020-11-10 10:16] LABS: Add Urine Microscopic? YES; Appearance Urine Cloudy (Clear); Bacteria Urine Trace /hpf; Bilirubin Urine Negative (Negative); Blood Urine Negative (Negative); Color Urine Yellow (Yellow); Glucose Urine UA Negative (Negative); Ketones Urine Negative (Negative); Leukocyte Esterase Ur 3+ LEU/UL (NEGATIVE); Nitrate Urine Negative (Negative); Protein Urine 1+ mg/dL (Negative); Specific Grav Ur 1.013 (1.001-1.035); Urobilinogen Urine Negative mg/dL (<2.0); WBC Urine >75 /hpf (0-3)
[2020-11-10 10:23] LABS: Anion Gap 9 mmol/L (8-16); Blood Urea Nitrogen 43 mg/dL (7-17); Calcium 9.8 mg/dL (8.4-10.2); Carbon Dioxide 22 mmol/L (22-30); Chloride 109 mmol/L (98-107); Estimated Glomerular Filt Rate 27; Glucose 96 mg/dL (65-110); Potassium 4.5 mmol/L (3.4-5.0); Sodium 140 mmol/L (137-145)
== END 2020-11-10 09:11 | disposition home or self-care (01) ==
LOC: ANHLAB 09:12
PROVIDERS: PCP Family Medicine; Visit Provider Family Medicine
DX: D64.9 Anemia, unspecified (principal); E87.5 Hyperkalemia; N18.30 Chronic kidney disease, stage 3 unspecified
CPT/HCPCS: 36415; 80048; 81001; 85027; 85046

== ENCOUNTER 2020-11-13 13:21 | Outpatient (CLI) | payer OTHER, SELFPAY ==
--- NOTE | ~2020-11-13 | XR_ITS ---
XR thoracic spine 3V DATE: 11/13/2020 13:53 INDICATION: Back pain. History he AP, lateral and swimmer views TECHNIQUE: AP, lateral, swimmer views COMPARISON: None FINDINGS: Mild anterolisthesis at C2-3, C4-5, C5-6 and C6-7. Osteopenia. Mild levoscoliosis of the thoracic spine. Degenerative spurring of the thoracic spine. No fracture or dislocation or bone destruction of the thoracic spine is evident. No paraspinal soft t issue thickening. IMPRESSION: Diffuse osteopenia Mild levoscoliosis of the thoracic spine Degenerative spurring of the thoracic spine Reviewed, dictated and finalized at location A.
--- NOTE | ~2020-11-13 | XR_ITS ---
XR lumbar spine min 4V DATE: 11/13/2020 13:53 INDICATION: Low back pain TECHNIQUE: AP, lateral, coned lateral lumbosacral and bilateral oblique views COMPARISON: None FINDINGS: Diffuse osteopenia. There is mild rotatory dextroscoliosis of the lumbar spine. There is prominent degenerative change at the apophyseal joints, especially at L4-5 and L5-S1, with a ssociated grade 1 anterolisthesis at L4-5. There is moderate degenerative disc disease. No fracture or bone destruction or spondylolisthesis. The lumbar pedicles are intact. The sacroiliac joints are intact. There is extensive abdominal aortic and iliac arterial calcification. IMPRESSION: Diffuse osteopenia Mild rotatory dextroscoliosis Multilevel degenerative disc disease Degenerative changes apophyseal joints with associated grade 1 anterolisthesis at L4-5 Reviewed, dictated and finalized at location A.
== END 2020-11-13 13:22 | disposition home or self-care (01) ==
PROVIDERS: PCP Family Medicine; Visit Provider Family Medicine
DX: M85.88 Other specified disorders of bone density and structure, other site (principal); M51.36 Other intervertebral disc degeneration, lumbar region
CPT/HCPCS: 72072; 72110

== ENCOUNTER 2020-11-24 09:20 | Outpatient (CLI) | payer OTHER, SELFPAY ==
[2020-11-24 10:14] LABS: Anion Gap 8 mmol/L (8-16); Blood Urea Nitrogen 42 mg/dL (7-17); Calcium 9.6 mg/dL (8.4-10.2); Carbon Dioxide 22 mmol/L (22-30); Chloride 111 mmol/L (98-107); Estimated Glomerular Filt Rate 29; Glucose 98 mg/dL (65-110); Potassium 4.7 mmol/L (3.4-5.0); Sodium 141 mmol/L (137-145)
== END 2020-11-24 09:21 | disposition home or self-care (01) ==
PROVIDERS: PCP Family Medicine; Visit Provider Family Medicine
DX: N18.30 Chronic kidney disease, stage 3 unspecified (principal)
CPT/HCPCS: 36415; 80048

== ENCOUNTER 2020-12-25 08:53 | Outpatient (CLI) | payer OTHER, SELFPAY ==
[2020-12-25 09:27] LABS: Basophils Percent Auto 0.6 % (0.2-1.2); Eosinophils Absolute Auto 0.4 K/mm3 (0-0.3); Eosinophils Percent Auto 5.5 % (0-4.4); Hematocrit 30.1 % (37.0-47.0); Hemoglobin 9.6 g/dL (12.0-15.0); Immature Granulocyte Absolute 0.03 K/mm3 (0.00-0.031); Immature Granulocyte Percent A 0.4 % (0-0.5); Lymphocytes Absolute Auto 1.03 K/mm3 (0.9-3.2); Lymphocytes Percent Auto 15.2 % (18.3-44.2); Mean Corpuscular HGB Conc 31.9 g/dl (32-36); Mean Corpuscular Hemoglobin 32.2 pg (26-34); Mean Platelet Volume 10.6 fl (7.4-10.4); Monocytes Absolute Auto 0.7 K/mm3 (0.1-0.6); Monocytes Percent Auto 9.6 % (2.6-8.5); Neutrophils Absolute Auto 4.7 K/mm3 (1.3-6.7); Neutrophils Percent Auto 68.7 % (45.5-73.1); Platelet Count Result 188 k/mm3 (150-375); Red Blood Count 2.98 M/mm3 (4.2-5.4); Red Cell Distribution Width 12.6 % (11.5-14.5); White Blood Count 6.8 K/mm3 (4.5-10.0)
[2020-12-25 09:35] LABS: Alanine Aminotransferase 13 U/L (4-35); Alkaline Phosphatase 86 U/L (38-126); Anion Gap 9 mmol/L (8-16); Aspartate Amino Transferase 29 U/L (14-36); Bilirubin,Total 0.3 mg/dL (0.2-1.3); Blood Urea Nitrogen 36 mg/dL (7-17); Calcium 9.5 mg/dL (8.4-10.2); Carbon Dioxide 26 mmol/L (22-30); Chloride 110 mmol/L (98-107); Estimated Glomerular Filt Rate 29; Glucose 94 mg/dL (65-110); Potassium 4.4 mmol/L (3.4-5.0); Sodium 145 mmol/L (137-145); Uric Acid 6.9 mg/dL (2.5-7.5)
[2020-12-25 09:36] LABS: Anion Gap 8 mmol/L (8-16); Blood Urea Nitrogen 35 mg/dL (7-17); Calcium 9.4 mg/dL (8.4-10.2); Carbon Dioxide 26 mmol/L (22-30); Chloride 110 mmol/L (98-107); Estimated Glomerular Filt Rate 27; Glucose 93 mg/dL (65-110); Potassium 4.4 mmol/L (3.4-5.0); Sodium 144 mmol/L (137-145)
[2020-12-25 09:39] LABS: Creatinine Urine 95.7 mg/dL; Total Protein Urine Random 18 mg/dL; Ur Ttl Prot Creatinine Ratio 0.19 mg/mg (0-0.20)
[2020-12-25 09:47] LABS: Parathyroid Intact 84.2 pg/mL (7.5-53.5)
[2020-12-25 10:15] LABS: Vitamin D 25 Hydroxy 44.6 ng/mL
[2020-12-29 03:05] LABS: Albumin 3.4 g/dL (3.8-4.8); Alpha 1 Globulin 0.3 g/dL (0.2-0.3); Alpha 2 Globulin 0.9 g/dL (0.5-0.9); Beta 1 Globulin 0.4 g/dL (0.4-0.6); Gamma Globulin 0.7 g/dL (0.8-1.7); Interpretation Consistent with; Protein, Total 6.1 g/dL (6.1-8.1)
== END 2020-12-25 08:54 | disposition home or self-care (01) ==
PROVIDERS: PCP Family Medicine; Referring Provider Internal Medicine Nephrology; Visit Provider Family Medicine
DX: N25.81 Secondary hyperparathyroidism of renal origin (principal); I49.3 Ventricular premature depolarization; G47.33 Obstructive sleep apnea (adult) (pediatric); I12.9 Hypertensive chronic kidney disease with stage 1 through stage 4 chronic kidney disease, or unspecified chronic kidney disease; N18.4 Chronic kidney disease, stage 4 (severe); N20.0 Calculus of kidney; M31.6 Other giant cell arteritis; E83.119 Hemochromatosis, unspecified
CPT/HCPCS: 36415; 80048; 80053; 82306; 82570; 83970; 84100; 84155; 84156; 84165; 84550; 85025; 86334

== ENCOUNTER 2021-06-28 09:07 | Outpatient (CLI) | payer OTHER, SELFPAY ==
[2021-06-28 09:29] LABS: Alanine Aminotransferase 12 U/L (4-35); Alkaline Phosphatase 89 U/L (38-126); Anion Gap 7 mmol/L (8-16); Aspartate Amino Transferase 25 U/L (14-36); Bilirubin,Total 0.5 mg/dL (0.2-1.3); Blood Urea Nitrogen 43 mg/dL (7-17); Calcium 9.6 mg/dL (8.4-10.2); Carbon Dioxide 27 mmol/L (22-30); Chloride 108 mmol/L (98-107); Cholesterol 87 mg/dL (0-200); Estimated Glomerular Filt Rate 29; Glucose 91 mg/dL (65-110); HDL Direct 43 mg/dL; Potassium 4.6 mmol/L (3.4-5.0); Sodium 142 mmol/L (137-145); Triglycerides 77 mg/dL (<150)
[2021-06-28 09:47] LABS: LDL Cholesterol Direct < 30 mg/dL
== END 2021-06-28 09:08 | disposition home or self-care (01) ==
PROVIDERS: PCP Family Medicine; Visit Provider Family Medicine
DX: E11.9 Type 2 diabetes mellitus without complications (principal); E03.9 Hypothyroidism, unspecified; E78.2 Mixed hyperlipidemia
CPT/HCPCS: 36415; 80053; 80061; 84443

== ENCOUNTER 2021-08-16 13:01 | Outpatient (CLI) | payer OTHER, SELFPAY ==
--- NOTE | ~2021-08-16 | CT_ITS ---
EXAMINATION: CT brain & sinus wo con DATE: 08/16/2021 13:30 INDICATION: Status post recent fall. Numbness and tingling in the face. TECHNIQUE: Computed tomography (CT) of the brain and sinuses was performed without intravenous contra st. The dose-length product was 605.33 mGy-cm. Automated exposure control and iterative reconstructio n technique were employed. COMPARISON: CT dated 10/26/2017 FINDINGS: Brain parenchymal volume is normal for age. Normal martin-white differentiation. There are sc attered mild periventricular and subcortical white matter changes, most likely related to small vesse l ischemic disease (microangiopathy). There is intracranial atherosclerosis. Paranasal sinuses and ma stoids are pneumatized. No depressed skull fractures. There is rightward nasal septal deviation. Osti omeatal units are patent. IMPRESSION: 1. No acute intracranial abnormality. 2: No significant paranasal sinus disease. 3: Chronic age-related findings. Reviewed, dictated and finalized at location A.
== END 2021-08-16 13:02 | disposition home or self-care (01) ==
LOC: ANHIMG 13:02
PROVIDERS: PCP Family Medicine; Visit Provider Physician Assistant Medical
DX: S09.90XA Unspecified injury of head, initial encounter (principal); I67.2 Cerebral atherosclerosis
CPT/HCPCS: 70450; 70486

== ENCOUNTER 2021-09-17 09:31 | Outpatient (CLI) | payer OTHER, SELFPAY ==
--- NOTE | ~2021-09-17 | MM_ITS ---
EXAMINATION: MM screening litzy BI w waqas HISTORY: Screening TECHNIQUE: Craniocaudal and mediolateral oblique 3-D tomosynthesis images were obtained and synthetic 2-D images were generated. CAD analysis was submitted and interpreted. COMPARISON: Comparison to multiple prior studies sequentially, with oldest reviewed study dated 09/2017. BREAST PARENCHYMAL COMPOSITION: The breasts are heterogenously dense, which may obscure small masses FINDINGS: There is no evidence of suspicious mass, calcification, or architectural distortion to sugg est malignancy in either breast. There has been no suspicious interval change. IMPRESSION: 1. No mammographic evidence of malignancy. 2. Recommend routine screening mammography in one year. BI-RADS Category 1: Negative Reviewed, dictated and finalized at location A.
== END 2021-09-17 09:32 | disposition home or self-care (01) ==
LOC: ANHIMG 09:33
PROVIDERS: PCP Family Medicine; Visit Provider Internal Medicine Hematology & Oncology
DX: Z12.31 Encounter for screening mammogram for malignant neoplasm of breast (principal)
CPT/HCPCS: 77063; 77067

== ENCOUNTER 2021-10-31 09:03 | Outpatient (CLI) | payer OTHER, SELFPAY ==
[2021-10-31 10:04] LABS: Cholesterol 85 mg/dL (0-200); HDL Direct 46 mg/dL; Triglycerides 67 mg/dL (<150)
[2021-10-31 15:38] LABS: LDL Cholesterol Direct < 30 mg/dL
== END 2021-10-31 09:04 | disposition home or self-care (01) ==
LOC: ANHLAB 09:06
PROVIDERS: PCP Family Medicine; Visit Provider Family Medicine
DX: E78.2 Mixed hyperlipidemia (principal)
CPT/HCPCS: 36415; 80061

== ENCOUNTER 2021-12-07 09:02 | Outpatient (CLI) | payer OTHER, SELFPAY ==
[2021-12-07 09:27] LABS: Appearance Urine Clear (Clear); Bilirubin Urine Negative (Negative); Blood Urine Negative (Negative); Color Urine Yellow (Yellow); Glucose Urine UA Negative (Negative); Ketones Urine Negative (Negative); Leukocyte Esterase Ur Trace LEU/UL (Negative); Nitrate Urine Negative (Negative); Protein Urine 2+ mg/dL (Negative); Specific Grav Ur 1.015 (1.001-1.035); Urobilinogen Urine 0.2 mg/dL (<2.0); pH Urine 5.5 (5.0-9.0)
[2021-12-07 09:44] LABS: Alanine Aminotransferase 13 U/L (6-35); Albumin Level 3.8 g/dL (3.5-5.1); Alkaline Phosphatase 75 U/L (38-126); Anion Gap 12 mmol/L (8-16); Aspartate Amino Transferase 23 U/L (14-36); Bilirubin,Total 0.4 mg/dL (0.2-1.3); Blood Urea Nitrogen 47 mg/dL (7-17); Calcium 9.4 mg/dL (8.4-10.2); Carbon Dioxide 25 mmol/L (22-30); Chloride 106 mmol/L (98-107); Estimated Glomerular Filt Rate 31; Glucose 95 mg/dL (65-110); Potassium 4.7 mmol/L (3.4-5.0); Sodium 143 mmol/L (137-145)
[2021-12-07 09:52] LABS: Parathyroid Intact 51.6 pg/mL (7.5-53.5)
[2021-12-07 10:06] LABS: Bacteria Urine Trace /hpf; Mucus Urine Rare /lpf; RBC Urine 0-2 /hpf (0-2); Squamous Epithelial Cell Urine Rare /hpf (Few); Transitional Epi Cells Urine Rare /hpf (None Seen)
[2021-12-07 10:21] LABS: Add Urine Microscopic? YES
== END 2021-12-07 09:03 | disposition home or self-care (01) ==
LOC: ANHLAB 09:03
PROVIDERS: PCP Family Medicine; Visit Provider Family Medicine
DX: I12.9 Hypertensive chronic kidney disease with stage 1 through stage 4 chronic kidney disease, or unspecified chronic kidney disease (principal); N18.4 Chronic kidney disease, stage 4 (severe)
CPT/HCPCS: 36415; 80053; 81001; 83970

== ENCOUNTER 2021-12-13 08:59 | Outpatient (CLI) | payer OTHER, SELFPAY | END 2021-12-13 09:00 | disposition home or self-care (01) | LOC: ANHLAB 09:02 | PROVIDERS: PCP Family Medicine; Visit Provider Physician Assistant | DX: R30.0 Dysuria (principal) | CPT/HCPCS: 87086 ==

== ENCOUNTER 2022-01-25 14:14 | Outpatient (CLI) | payer OTHER, SELFPAY ==
--- NOTE | ~2022-01-25 | DEXA_ITS ---
Bone Density Report Name: WING MCCRACKEN Age: 81 Sex: Female Ethnicity: White Date of : 1940 Indication: osteopenia; height loss; cancer; end stage renal disease; postmenopausal Referring Provider: BAILEY NOLAN Study: Bone densitometry was performed. Exam Date: January 25, 2022 Accession number: [id number] Bone Density: Region BMD T-score Z-score Classification AP Spine(L1-L4) 1.035 -0.1 2.7 Normal Femoral Neck (Left) 0.521 -3.0 -0.5 Osteoporosis Total Hip (Left) 0.626 -2.6 -0.4 Osteoporosis Femoral Neck (Right) 0.562 -2.6 -0.2 Osteoporosis Total Hip (Right) 0.686 -2.1 0.1 Osteopenia Total Hip Mean 0.656 -2.4 -0.2 Osteopenia World Health Organization criteria for BMD impression classify patients as: Normal (T-score at or above -1.0), Osteopenia (T-score between -1.0 and -2.5), or Osteoporosis (T-score at or below -2.5). 10-year Fracture Risk: FRAX not reported because: Some T-score for Spine Total or Hip Total or Femoral Neck at or below -2.5 Previous Exams: Region Exam Age BMD T-score BMD Change BMD Change Date g/cm2 vs Baseline vs Previous Total Hip(Left) 01/25/2022 81 0.626 -2.6 -0.173 (-21.7% -0.119 (-16.0% 08/03/2019 79 0.745 -1.6 -0.054 (-6.8%) -0.051 (-6.4%) 05/20/2017 76 0.796 -1.2 -0.003 (-0.3%) 0.037 (4.9%)* 05/18/2015 74 0.759 -1.5 -0.040 (-5.0%) -0.040 (-5.0%) 05/03/2013 72 0.799 -1.2 Total Hip(Right) 01/25/2022 81 0.686 -2.1 -0.184 (-21.1% -0.121 (-15.0% 08/03/2019 79 0.807 -1.1 -0.063 (-7.2%) 0.020 (2.5%) 05/20/2017 76 0.788 -1.3 -0.082 (-9.4%) -0.061 (-7.2%) 05/18/2015 74 0.849 -0.8 -0.021 (-2.4%) -0.021 (-2.4%) 05/03/2013 72 0.870 -0.6 *Denotes significance at 95% confidence level, LSC for Total Hip = 0.027 g/cm2 # Denotes dissimilar scan types or analysis methods Clinical Information Provided by Patient: Has used the following medications: Vitamin D Has the following medical conditions: Cancer, End stage renal disease Patient maximum height was 62 Drinks caffeinated beverages Onset of menses at age 10 Number of children 0 Impression: The patient has osteoporosis, based on the Left Femoral Neck T-score. The BMD for the Total Hip(Left) decreased, changing by -16.0% since the last DXA exam. The BMD for the Total Hip(Right) decreased, changing by -15.0% since the last DXA exam. Discussion: INCREASED RISK OF FRACTURE. BONE DENSITY IS UNDESIRABLY LOW AT ONE OR MORE SKELETAL SITES,
== END 2022-01-25 14:15 | disposition home or self-care (01) ==
LOC: ANHIMG 14:15
PROVIDERS: PCP Family Medicine; Visit Provider Physician Assistant Medical
DX: N95.1 Menopausal and female climacteric states (principal); M81.0 Age-related osteoporosis without current pathological fracture; M85.851 Other specified disorders of bone density and structure, right thigh
CPT/HCPCS: 77080

== ENCOUNTER 2022-02-12 10:00 | Outpatient (CLI) | payer OTHER, SELFPAY ==
[2022-02-12 10:56] LABS: Appearance Urine Clear (Clear); Bilirubin Urine Negative (Negative); Blood Urine Negative (Negative); Color Urine Yellow (Yellow); Glucose Urine UA Negative (Negative); Ketones Urine Negative (Negative); Leukocyte Esterase Ur Negative LEU/UL (Negative); Nitrate Urine Negative (Negative); Protein Urine 2+ mg/dL (Negative); Urobilinogen Urine 0.2 mg/dL (<2.0)
[2022-02-12 11:04] LABS: Alanine Aminotransferase 13 U/L (6-35); Albumin Level 3.8 g/dL (3.5-5.1); Alkaline Phosphatase 74 U/L (38-126); Anion Gap 12 mmol/L (8-16); Aspartate Amino Transferase 22 U/L (14-36); Bilirubin,Total 0.3 mg/dL (0.2-1.3); Blood Urea Nitrogen 39 mg/dL (7-17); CRP < 0.5 mg/dL (<1.0); Calcium 9.3 mg/dL (8.4-10.2); Carbon Dioxide 27 mmol/L (22-30); Chloride 105 mmol/L (98-107); Cholesterol 85 mg/dL (0-200); Estimated Glomerular Filt Rate 31; Glucose 92 mg/dL (65-110); HDL Direct 46 mg/dL; Potassium 4.4 mmol/L (3.4-5.0); Sodium 144 mmol/L (137-145); Triglycerides 81 mg/dL (<150)
[2022-02-12 11:24] LABS: Mucus Urine Rare /lpf; RBC Urine 0-2 /hpf (0-2); Squamous Epithelial Cell Urine Rare /hpf (Few); WBC Urine 0-3 /hpf
[2022-02-12 11:25] LABS: Erythrocyte Sedimentation Rate 55 mm/hr (0-20)
[2022-02-12 11:26] LABS: Add Urine Microscopic? YES
[2022-02-12 12:36] LABS: LDL Cholesterol Direct < 30 mg/dL
== END 2022-02-12 10:01 | disposition home or self-care (01) ==
LOC: ANHLAB 10:00
PROVIDERS: PCP Family Medicine; Visit Provider Family Medicine
DX: I12.9 Hypertensive chronic kidney disease with stage 1 through stage 4 chronic kidney disease, or unspecified chronic kidney disease (principal); N18.4 Chronic kidney disease, stage 4 (severe); M25.50 Pain in unspecified joint; E78.2 Mixed hyperlipidemia; E83.119 Hemochromatosis, unspecified
CPT/HCPCS: 36415; 80053; 80061; 81001; 85652; 86140

== ENCOUNTER 2022-04-09 11:57 | Outpatient (CLI) | payer OTHER, SELFPAY ==
--- NOTE | ~2022-04-09 | XR_ITS ---
XR hip LT min 3V w AP pelvis DATE: 04/09/2022 12:20 INDICATION: Left hip pain. No known injury. TECHNIQUE: AP pelvis. AP, lateral and crosstable lateral views of left hip. COMPARISON: None FINDINGS: Abdominal aortic and bilateral common iliac arterial calcifications are noted. Degenerative disc disease at L4-5 and L5-S1. Normal alignment at the pubic symphysis and sacroiliac joints. No pelvic fracture or bone destruction is detected. No fracture, dislocation, avascular necrosis or bone destruction of the left hip. Hip joint spaces ar e symmetric and relatively preserved. IMPRESSION: Lumbar degenerative disc disease Reviewed, dictated and finalized at location L. AR MAKER
--- NOTE | ~2022-04-09 | XR_ITS ---
XR sacroiliac joints min 3V DATE: 04/09/2022 12:20 INDICATION: Sacrococcygeal disorder. Left hip pain. TECHNIQUE: AP and bilateral oblique views COMPARISON: None FINDINGS: The sacroiliac joints are intact, without evidence of fracture or dislocation, erosive clay ge or ankylosis. There is mild degenerative change. Abdominal aortic and iliac arterial calcifications. 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 Reviewed, dictated and finalized at location L. 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
== END 2022-04-09 11:58 | disposition home or self-care (01) ==
LOC: ANHIMG 12:00
PROVIDERS: PCP Family Medicine; Visit Provider Family Medicine
DX: M25.559 Pain in unspecified hip (principal); M53.3 Sacrococcygeal disorders, not elsewhere classified; M47.898 Other spondylosis, sacral and sacrococcygeal region; M51.36 Other intervertebral disc degeneration, lumbar region
CPT/HCPCS: 72202; 73502

== ENCOUNTER 2022-04-30 09:46 | Outpatient (CLI) | payer OTHER, SELFPAY ==
[2022-04-30 10:56] LABS: Alanine Aminotransferase 13 U/L (6-35); Albumin Level 3.4 g/dL (3.5-5.1); Alkaline Phosphatase 69 U/L (38-126); Anion Gap 3 mmol/L (8-16); Aspartate Amino Transferase 18 U/L (14-36); Bilirubin,Total 0.6 mg/dL (0.2-1.3); Blood Urea Nitrogen 37 mg/dL (7-17); Carbon Dioxide 27 mmol/L (22-30); Chloride 110 mmol/L (98-107); Cholesterol 81 mg/dL (0-200); Estimated Glomerular Filt Rate 31; Glucose 90 mg/dL (65-110); HDL Direct 42 mg/dL; Potassium 4.4 mmol/L (3.4-5.0); Sodium 140 mmol/L (137-145); Triglycerides 88 mg/dL (<150)
[2022-04-30 11:58] LABS: LDL Cholesterol Direct < 30 mg/dL
== END 2022-04-30 09:47 | disposition home or self-care (01) ==
LOC: ANHLAB 09:47
PROVIDERS: PCP Family Medicine; Visit Provider Family Medicine
DX: N18.30 Chronic kidney disease, stage 3 unspecified (principal); E78.2 Mixed hyperlipidemia
CPT/HCPCS: 36415; 80053; 80061

== ENCOUNTER 2022-06-24 10:46 | Outpatient (CLI) | payer OTHER, SELFPAY ==
[2022-06-24 11:31] LABS: Creatinine Urine 59.2 mg/dL; Total Protein Urine Random 106 mg/dL; Ur Ttl Prot Creatinine Ratio 1.79 mg/mg (0-0.20)
[2022-06-24 11:35] LABS: Albumin Level 3.7 g/dL (3.5-5.1); Anion Gap 5 mmol/L (8-16); Blood Urea Nitrogen 41 mg/dL (7-17); Calcium 8.9 mg/dL (8.4-10.2); Carbon Dioxide 28 mmol/L (22-30); Chloride 105 mmol/L (98-107); Estimated Glomerular Filt Rate 33; Glucose 83 mg/dL (65-110); Phosphorus 3.7 mg/dL (2.5-4.5); Potassium 4.3 mmol/L (3.4-5.0); Sodium 138 mmol/L (137-145)
[2022-06-24 11:46] LABS: Parathyroid Intact 95.1 pg/mL (7.5-53.5)
[2022-06-24 12:34] LABS: Vitamin D 25 Hydroxy 52.4 ng/mL
== END 2022-06-24 10:47 | disposition home or self-care (01) ==
PROVIDERS: PCP Family Medicine; Visit Provider Internal Medicine Nephrology
DX: E55.9 Vitamin D deficiency, unspecified (principal); I12.9 Hypertensive chronic kidney disease with stage 1 through stage 4 chronic kidney disease, or unspecified chronic kidney disease; N18.32 Chronic kidney disease, stage 3b; N25.81 Secondary hyperparathyroidism of renal origin
CPT/HCPCS: 36415; 80069; 82306; 82570; 83970; 84156

== ENCOUNTER 2022-08-25 23:05 | Observation (INO) | payer OTHER, SELFPAY ==
--- NOTE | ~2022-08-25 | XR_ITS ---
AP and lateral views of the neck CLINICAL HISTORY: Food bolus, painful swallowing FINDINGS: Visualized osseous structures and intervertebral disc spaces are well preserved. No prevert ebral soft tissue swelling. Epiglottis unremarkable. Visualized aerodigestive tract appears unremarka ble. No radiopaque foreign body seen. IMPRESSION: No significant abnormality identified. Consider CT or esophagram for further evaluation as indicated. Reviewed, dictated and finalized at [facility]. IMPRESSION: No significant abnormality identified. Consider CT or esophagram for further ev aluation as indicated.
--- NOTE | ~2022-08-25 | XR_ITS ---
Clinical Indication: Food bolus, painful swallowing PA view of the chest: Comparison: 11/13/2019 Findings: The lungs are clear, without evidence of focal consolidation or pleural effusion. Cardiome diastinal silhouette is within normal limits. Bones and soft tissues are unremarkable. Impression: Normal chest. Reviewed, dictated and finalized at [facility]. Impression: Normal chest.
[2022-08-25 23:05] VITALS: BP 191/84; PULSE 63; RESP 18; TEMP 36.7; O2SAT 100
[2022-08-25 23:10] VITALS: O2SAT 100
[2022-08-26] VITALS (20 sets, daily range): BP systolic 139–190; BP diastolic 48–87; PULSE 60–95; RESP 14–22; TEMP 36.1–36.9; O2SAT 96–100
--- NOTE | 2022-08-26 00:02 | ED.GENADULT ---
HPI - General Adult General Chief complaint: Skin/Abscess/Foreign Body Stated complaint: food in throat Time Seen by Provider: 08/25/22 23:34 Source: patient Mode of arrival: ambulatory Limitations: no limitations History of Present Illness HPI narrative: This is a 82-year-old female who presents to the ED via EMS for chief complaint of a food bolus impaction in her throat. Patient states she was eating a beef sandwich around 7 PM. States she took 1 last small bite and felt that she had trouble swallowing it. As I interview her she still feels that something is stuck in there. Reports she has been spitting up clear saliva. Denies any pain. Denies any troubles breathing. Related Data Home Medications Medication Instructions Recorded Confirmed vitamins B1 2.5 mg-B2 2.5 1 tablet PO DAILY 08/30/20 07/03/22 mg-niacin 5 mg-B12 100 mcg-protease tablet (B-Complex With B-12) cholecalciferol (vitamin D3) 25 2,000 unit PO DAILY 08/10/21 07/03/22 mcg (1,000 unit) capsule Allergies Allergy/AdvReac Type Severity Reaction Status Date / Time povidone Allergy Mild Unknown Verified 07/03/22 10:13 alendronate sodium Allergy Unknown Heartburn Verified 07/03/22 10:13 epinephrine Allergy Unknown tachycardia Verified 07/03/22 10:13 iodine Allergy Unknown Unknown Verified 07/03/22 10:13 prednisone Allergy Unknown Unknown Verified 07/03/22 10:13 Review of Systems Review of Systems: CONSTITUTIONAL: Denies fever, chills, or sweats. EYES: Denies visual changes, redness, or discharge. ENT: Denies rhinorrhea, congestion, sore throat, or otalgia. CARDIOVASCULAR: Denies chest pain, palpitations, or edema. RESPIRATORY: Denies cough or dyspnea. GASTROINTESTINAL: See HPI GENITOURINARY: Denies dysuria or hematuria. SKIN: Denies rash or itching. MUSCULOSKELETAL: Denies back pain, joint pain, or myalgia. NEUROLOGIC: Denies headache, numbness, dizziness, or weakness. PSYCHIATRIC: Denies anxiety or depression. [facility] Past Medical History Medical History (Updated 08/26/22 @ 02:34 by Chente Spencer PA-C) Anemia Cancer of left breast (~2007) Status post lumpectomy, chemotherapy, and radiation. Chronic kidney disease, stage 3 Elevated parathyroid hormone Being monitored by her teacher physically impaired, Dr. Kohli. Essential hypertension Fall against object Hemochromatosis Diagnosed in 1991. She is a patient of Dr. Samson. No recent therapeutic phlebotomy due to presence of anemia. Hyperlipidemia Irritable bowel syndrome Lumbar disc disease Osteoporosis Temporal arteritis syndrome (~2000) Vitamin D deficiency Surgical History Surgical History History of liver biopsy History of lumpectomy of both breasts Including left breast lumpectomy for breast cancer in 2007. History of tonsillectomy Family History Family History Mother Family history of dementia Father Family history of congestive heart failure Other Adopted Social History Social History (Updated 07/03/22 @ 10:21 by Lynda Galvez MA) Social History: Surrogate decision maker: Hollie Costello, friend. Code status: Full code. Smoking packs per day: 1.5 Smoking cigarettes per day: 30.0 Years smoked: 30 Smoking pack-years: 45.00 Smoking status: Never smoker Tobacco type: cigarettes Smoking end date: 03/24/88 Alcohol intake: never Substance use: never Lack of Transportation: No Lack of Food: Never True Current Housing: I Have Housing Concerned About Future Housing: No Difficulty Paying Gas/Electric Bills: No Difficulty Paying for Meds: No Currently Unemployed: No Education: Master's Degree or Higher Living arrangements: with family Additional living arrangements comments: Lives in [place] with her 2 toy poodles. She never and has no children. 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
[2022-08-26] MEDS: NITROGLYCERIN SL 0.4 MG TABLET SUBLINGUAL (00:03)
[2022-08-26] MEDS: GLUCAGON FOR INJ 1 MG VIAL IV PUSH (00:04)
[2022-08-26 00:19] LABS: Basophils Percent Auto 0.6 % (0.2-1.2); Eosinophils Absolute Auto 0.2 K/mm3 (0-0.3); Eosinophils Percent Auto 3.3 % (0-4.4); Hemoglobin 11.6 g/dL (12.0-15.0); Immature Granulocyte Absolute 0.02 K/mm3 (0.00-0.031); Immature Granulocyte Percent A 0.3 % (0-0.5); Lymphocytes Absolute Auto 1.15 K/mm3 (0.9-3.2); Lymphocytes Percent Auto 16.7 % (18.3-44.2); Mean Corpuscular HGB Conc 33.1 g/dl (32-36); Mean Corpuscular Hemoglobin 31.6 pg (26-34); Mean Corpuscular Volume 95.4 fl (80-100); Mean Platelet Volume 10.6 fl (7.4-10.4); Monocytes Absolute Auto 0.6 K/mm3 (0.1-0.6); Monocytes Percent Auto 8.7 % (2.6-8.5); Neutrophils Absolute Auto 4.9 K/mm3 (1.3-6.7); Neutrophils Percent Auto 70.4 % (45.5-73.1); Platelet Count Result 218 k/mm3 (150-375); Red Blood Count 3.67 M/mm3 (4.2-5.4); Red Cell Distribution Width 12.5 % (11.5-14.5); White Blood Count 6.9 K/mm3 (4.5-10.0)
[2022-08-26 00:43] LABS: Alanine Aminotransferase 21 U/L (6-35); Albumin Level 4.4 g/dL (3.5-5.1); Alkaline Phosphatase 111 U/L (38-126); Anion Gap 8 mmol/L (8-16); Aspartate Amino Transferase 30 U/L (14-36); Bilirubin,Total 0.5 mg/dL (0.2-1.3); Blood Urea Nitrogen 32 mg/dL (7-17); Calcium 9.4 mg/dL (8.4-10.2); Carbon Dioxide 28 mmol/L (22-30); Chloride 105 mmol/L (98-107); Estimated Glomerular Filt Rate 36; Glucose 113 mg/dL (65-110); Potassium 3.8 mmol/L (3.4-5.0); Sodium 141 mmol/L (137-145)
--- NOTE | 2022-08-26 02:29 | PM.IMHP ---
H&P: HPI History of Present Illness Date/Time: 08/26/22 02:29 Chief Complaint: Dysphagia Narrative: 82-year-old female with past medical history significant for osteoporosis, hypertension, dyslipidemia, breast cancer, chronic kidney disease. Patient presents to the emergency room after she had difficulty swallowing food got stuck in her throat has not been able to swallow her saliva for the last several hours. In emergency room after various treatments which were unsuccessful decision has been made to place the patient in observation for further evaluation management and treatment. Review of Systems Review of Systems: Dysphagia Constitutional: Constitutional: Denies chills, Denies fatigue, Denies fever(s), Denies malaise, Denies night sweats and Denies weakness Eyes: Eyes: Denies change in vision ENT: Reports dysphagia and Reports odynophagia Cardiovascular: Cardiovascular: Denies chest pain, Denies leg edema, Denies radiating jaw, neck or arm pain and Denies palpitations Respiratory: Respiratory: Denies cough, Denies excessive phlegm production and Denies dyspnea Gastrointestinal: Gastrointestinal: Denies abdominal pain, Denies dyspepsia, Denies heartburn, Denies diarrhea, Denies nausea and Denies vomiting Genitourinary: Genitourinary: Denies dysuria Musculoskeletal: Musculoskeletal: Denies myalgias Integumentary/Breasts: Skin/Breast: Denies rash Neurologic: Denies focal weakness and Denies Sensory deficit (Neuro) Psychiatric: Psychiatric: Reports no additional psychiatric complaints and Reports as per HPI Endocrine: Endocrine: Denies cold intolerance, Denies flushing, Denies heat intolerance, Denies polyphagia, Denies polydipsia and Denies palpitations Hematologic/Lymphatic: Hematologic/Lymphatic: Reports no additional hematologic/lymphatic complaints and Reports as per HPI Allergic/Immunologic: Allergic/Immunologic: Reports no additional allergic/immunologic complaints and Reports as per HPI [facility] Past Medical History Medical History (Updated 08/26/22 @ 02:34 by Chente Spencer PA-C) Anemia Cancer of left breast (~2007) Status post lumpectomy, chemotherapy, and radiation. Chronic kidney disease, stage 3 Elevated parathyroid hormone Being monitored by her alterations expert, Dr. Kohli. Essential hypertension Fall against object Hemochromatosis Diagnosed in 1991. She is a patient of Dr. Samson. No recent therapeutic phlebotomy due to presence of anemia. Hyperlipidemia Irritable bowel syndrome Lumbar disc disease Osteoporosis Temporal arteritis syndrome (~2000) Vitamin D deficiency Surgical History Surgical History History of liver biopsy History of lumpectomy of both breasts Including left breast lumpectomy for breast cancer in 2007. History of tonsillectomy Family History Family History Mother Family history of dementia Father Family history of congestive heart failure Other Adopted Social History Social History (Updated 07/03/22 @ 10:21 by Lynda Galvez MA) Social History: Surrogate decision maker: Hollie Costello, friend. Code status: Full code. Smoking packs per day: 1.5 Smoking cigarettes per day: 30.0 Years smoked: 30 Smoking pack-years: 45.00 Smoking status: Never smoker Tobacco type: cigarettes Smoking end date: 03/24/88 Alcohol intake: never Substance use: never Lack of Transportation: No Lack of Food: Never True Current Housing: I Have Housing Concerned About Future Housing: No Difficulty Paying Gas/Electric Bills: No Difficulty Paying for Meds: No Currently Unemployed: No Education: Master's Degree or Higher Living arrangements: with family Additional living arrangements comments: Lives in [place] with her 2 toy poodles. She never and has no children. Additional occupation/education comments:
[2022-08-26] MEDS: METOPROLOL TARTRATE INJ 5 MG/5 ML VIAL IV PUSH (02:46)
--- NOTE | 2022-08-26 03:41 | ADMGEN ---
This patient, Pippa Mota, was admitted to Medical Room 243-. Patient/family oriented to hospital policies and general routines including ID bracelet, bed and alarms, visiting hours, pain management, procedures, bathroom and other care routines, personal items, smoking policy, room service/diet, and visiting hours. Information on how to activate the Rapid Response Team has been discussed. Patient/Family are encouraged to report perceived risks to care and to ask questions if they do not understand what they are told or what they should do.
--- NOTE | 2022-08-26 07:40 | PC.NURSE ---
Verbal report given to [facility] and patient taken to GI Lab via wheelchair.
[2022-08-26] MEDS: LACTATED RINGERS 1,000 ML 150 ML IV CONT (07:59)
--- NOTE | 2022-08-26 08:10 | WPDANESEPPF ---
Anes - Initial Pre Proc Eval Procedure: Operation Date: 08/26/22 09:00 Proposed Procedures p Esophagogastroduodenoscopy - Tai Daigle MD Date/Time: 08/26/22 08:10 Surgeon: Yanira Espino MD Pre Op Diagnosis: Food Bolus Impaction Patient Data Age: 82 Gender: F Height: 1.5 m Weight: 63.6 kg Last Vital Signs Temp 36.6 C 08/26/22 07:55 Pulse 95 08/26/22 07:55 Resp 16 08/26/22 07:55 BP 162/61 H 08/26/22 07:55 Pulse Ox 98 08/26/22 07:55 O2 Del Method Room Air 08/26/22 07:55 Allergies Allergy/AdvReac Type Severity Reaction Status Date / Time povidone Allergy Mild Unknown Verified 08/26/22 02:50 alendronate sodium Allergy Unknown Heartburn Verified 08/26/22 02:50 epinephrine Allergy Unknown tachycardia Verified 08/26/22 02:50 iodine Allergy Unknown Unknown Verified 08/26/22 02:50 prednisone Allergy Unknown Unknown Verified 08/26/22 02:50 Home Medications Medication Instructions Recorded Confirmed Type aspirin 81 mg chewable tablet 81 mg PO DAILY@0800 #30 tabs 11/15/19 08/26/22 Rx ([facility]'s Aspirin) vitamins B1 2.5 mg-B2 2.5 1 tablet PO DAILY 08/30/20 08/26/22 History mg-niacin 5 mg-B12 100 mcg-protease tablet (B-Complex With B-12) cholecalciferol (vitamin D3) 25 2,000 unit PO DAILY 08/10/21 08/26/22 History mcg (1,000 unit) capsule chlorthalidone 25 mg tablet 12.5 mg PO DAILY #45 tabs 01/03/22 08/26/22 Rx atorvastatin 20 mg tablet 20 mg PO DAILY #90 tabs 05/06/22 08/26/22 Rx losartan 50 mg tablet 50 mg PO DAILY #90 tabs 07/22/22 08/26/22 Rx amlodipine 10 mg tablet 10 mg PO DAILY 08/26/22 08/26/22 History calcium carbonate 600 mg-vitamin 1 tablet PO DAILY 08/26/22 08/26/22 History D3 20 mcg (800 unit) chewable tablet (Caltrate 600 plus D) sotalol 80 mg tablet 40 mg PO BID 08/26/22 08/26/22 History Laboratory Tests 08/26/22 00:08 WBC 6.9 K/mm3 (4.5-10.0) RBC 3.67 L M/mm3 (4.2-5.4) Hgb 11.6 L g/dL (12.0-15.0) Hct 35.0 L % (37.0-47.0) MCV 95.4 fl (80-100) MCH 31.6 pg (26-34) MCHC 33.1 g/dl (32-36) RDW 12.5 % (11.5-14.5) Plt Count 218 k/mm3 (150-375) MPV 10.6 H fl (7.4-10.4) Immature Gran % (Auto) 0.3 % (0-0.5) Neut % (Auto) 70.4 % (45.5-73.1) Lymph % (Auto) 16.7 L % (18.3-44.2) [place] % (Auto) 8.7 H % (2.6-8.5) Eos % (Auto) 3.3 % (0-4.4) Baso % (Auto) 0.6 % (0.2-1.2) Lymph # (Auto) 1.15 K/mm3 (0.9-3.2) [place] # (Auto) 0.6 K/mm3 (0.1-0.6) Eos # (Auto) 0.2 K/mm3 (0-0.3) Baso # (Auto) 0.0 K/mm3 (0.0-0.1) Abs Immat Gran (auto) 0.02 K/mm3 (0.00-0.031) Absolute Neuts (auto) 4.9 K/mm3 (1.3-6.7) Absolute Nucleated RBC 0.0 K/mm3 (0.0-0.012) Nucleated RBC % 0.0 % (0.0-0.2) Sodium 141 mmol/L (137-145) Potassium 3.8 mmol/L (3.4-5.0) Chloride 105 mmol/L (98-107) Carbon Dioxide 28 mmol/L (22-30) Anion Gap 8 mmol/L (8-16) BUN 32 H mg/dL (7-17) Creatinine 1.40 H mg/dL (0.7-1.0) Estim Creat Clear Calc Not Reportable Estimated GFR 36 L (59 - ) Glucose 113 H mg/dL (65-110) Calcium 9.4 mg/dL (8.4-10.2) Total Bilirubin 0.5 mg/dL (0.2-1.3) AST 30 U/L (14-36) ALT 21 U/L (6-35) Alkaline Phosphatase 111 U/L (38-126) Total Protein 8.0 g/dL (6.3-8.2) Albumin 4.4 g/dL (3.5-5.1) Patient hx anesthesia problems: none Family hx anesthesia problems: none Results Review: All pre-operative results and documents have been reviewed as part of the pre-operative evaluation. [facility] Past Medical History Medical History Anemia Cancer of left breast (~2007) Status post lumpectomy, chemotherapy, and radiation. Chronic kidney disease, stage 3 Elevated parathyroid hormone Being monitored by her respiratory therapy director, Dr. Kohli. Essential hypertension Fall against object Hemoc
--- NOTE | 2022-08-26 08:34 | WPDGICN ---
Assessment and Plan Assessment and plan (1) Impacted esophageal foreign body: Code(s): T18.108A - Unspecified foreign body in esophagus causing other injury, initial encounter Status: Acute Assessment and Plan: will proceed with egd more recommendations after egd (2) Stage 3b chronic kidney disease: Code(s): N18.32 - Chronic kidney disease, stage 3b Status: Acute (3) Essential hypertension: Code(s): I10 - Essential (primary) hypertension Status: Acute Assessment and Plan: on meds (4) CAD (coronary artery disease): Code(s): I25.10 - Atherosclerotic heart disease of [place] coronary artery without angina pectoris Status: Acute Assessment and Plan: no acute issue GI Consult Note Consult date/time: 08/26/22 08:34 Reason for consult: food bolus HPI: Pippa Mota is a 82 year old female with history of osteoporosis, hypertension, dyslipidemia, breast cancer, chronic kidney disease.?She came to the emergency room after having roast beef sandwich for dinner and since unable to keep liquids down, never had similar problem, no GERD and never had EGD. Medical treatment did not work in the ER, admitted earlier this morning to the hospital, still spitting up and now will proceed with urgent EGD. No weight loss or abdominal pain. Review of Systems Constitutional: Constitutional: Denies chills Eyes: Eyes: Denies blurry vision ENT: Reports Normal hearing present Cardiovascular: Cardiovascular: Denies chest pain Respiratory: Respiratory: Denies cough Gastrointestinal: Comments: food bolus Genitourinary: Genitourinary: Denies hematuria Musculoskeletal: Musculoskeletal: Denies back pain Integumentary/Breasts: Skin/Breast: Denies rash Neurologic: Denies Abnormal speech present Psychiatric: Psychiatric: Denies behavioral changes [facility] Past Medical History Medical History Anemia Cancer of left breast (~2007) Status post lumpectomy, chemotherapy, and radiation. Chronic kidney disease, stage 3 Elevated parathyroid hormone Being monitored by her culinary internship, Dr. Kohli. Essential hypertension Fall against object Hemochromatosis Diagnosed in 1991. She is a patient of Dr. Samson. No recent therapeutic phlebotomy due to presence of anemia. Hyperlipidemia Irritable bowel syndrome Lumbar disc disease Osteoporosis Temporal arteritis syndrome (~2000) Vitamin D deficiency Surgical History Surgical History History of liver biopsy History of lumpectomy of both breasts Including left breast lumpectomy for breast cancer in 2007. History of tonsillectomy Family History Family History Mother Family history of dementia Father Family history of congestive heart failure Other Adopted Social History Social History Social History: Surrogate decision maker: Hollie Pravin, friend. Code status: Full code. Smoking packs per day: 1.5 Smoking cigarettes per day: 30.0 Years smoked: 30 Smoking pack-years: 45.00 Smoking status: Former smoker Tobacco type: cigarettes Smoking end date: 03/24/88 Alcohol intake: never Substance use: never Lack of Transportation: No Lack of Food: Never True Current Housing: I Have Housing Concerned About Future Housing: No Difficulty Paying Gas/Electric Bills: No Difficulty Paying for Meds: No Currently Unemployed: No Education: Master's Degree or Higher Difficulty w/ Childcare or Family Care: No Living arrangements: with family Additional living arrangements comments: Lives in [place] with her 2 toy poodles. She never and has no children. 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
[2022-08-26] MEDS: PANTOPRAZOLE 40 MG TABLET PO (10:12)
[2022-08-26] MEDS: hydrALAZINE HCL 20 MG/ML VIAL 10 MG IV PUSH (12:41)
--- NOTE | 2022-08-26 13:21 | PM.IMPN ---
Progress Note: A&P Assessment and Plan (1) Impacted esophageal foreign body: Code(s): T18.108A - Unspecified foreign body in esophagus causing other injury, initial encounter Status: Acute Assessment and Plan: EGD performed 08/26/2022 and foreign body removed Patient started on soft bite size diet. Home medications restarted as appropriate. Can be discharged once cleared by GI. (2) Benign hypertension with chronic kidney disease: Code(s): I12.9 - Hypertensive chronic kidney disease with stage 1 through stage 4 chronic kidney disease, or unspecified chronic kidney disease Status: Acute Assessment and Plan: Home medications restarted Hydralazine p.r.n. (3) Obstructive sleep apnea: Code(s): G47.33 - Obstructive sleep apnea (adult) (pediatric) Status: Acute Assessment and Plan: CPAP at nighttime (4) PAT (paroxysmal atrial tachycardia): Code(s): I47.1 - Supraventricular tachycardia Status: Acute Assessment and Plan: Home medications restarted (5) Chronic kidney disease, stage 3: Code(s): N18.3 - Chronic kidney disease, stage 3 (moderate) Status: Acute Assessment and Plan: Unchanged Subjective Date/time seen: 08/26/22 13:21 Interval history: Patient doing well and states that her symptoms have resolved. she denies nausea, vomiting, regurgitation, and dysphagia. patient can be discharged once GI has cleared her. Review of Systems Review of Systems: All systems reviewed & are unremarkable except as noted in HPI and below Exam Narrative: GENERAL: Comfortable, no acute distress HENMT: moist mucous membranes EYES: EOM intact b/l NECK: no lymphadenopathy RESPIRATORY: clear to auscultation CARDIO: RRR GI: soft, nontender, bowel sounds present SKIN: no rashes EXTREMITIES: no edema, redness or tenderness Objective Data Vital Signs Vital Signs: Vital Signs - 24 hr 08/25/22 23:05 08/25/22 23:10 08/26/22 00:36 Temperature 98.1 F Pulse Rate 63 95 Respiratory Rate 18 20 Blood Pressure 191/84 H 184/70 H Pulse Oximetry 100 100 100 Oxygen Delivery Room Air Room Air 08/26/22 01:40 08/26/22 02:03 08/26/22 02:40 Temperature Pulse Rate 83 76 Respiratory Rate 15 20 Blood Pressure 177/56 H 165/54 H 148/87 H Pulse Oximetry 98 96 Oxygen Delivery 08/26/22 02:46 08/26/22 03:25 08/26/22 03:51 Temperature Pulse Rate 90 85 Respiratory Rate 20 Blood Pressure 166/52 H Pulse Oximetry 97 Oxygen Delivery Room Air 08/26/22 04:04 08/26/22 07:30 08/26/22 07:55 Temperature 97.7 F 98 F Pulse Rate 90 95 Respiratory Rate 14 16 16 Blood Pressure 188/58 H 162/61 H Pulse Oximetry 99 98 98 Oxygen Delivery Room Air Room Air 08/26/22 08:58 08/26/22 09:08 08/26/22 09:18 Temperature Pulse Rate 80 70 65 Respiratory Rate 21 H 22 H 17 Blood Pressure 139/61 152/60 H 170/68 H Pulse Oximetry 99 96 97 Oxygen Delivery Room Air Room Air Room Air 08/26/22 09:31 08/26/22 09:34 08/26/22 12:38 Temperature 98.2 F 96.9 F L Pulse Rate 69 94 Respiratory Rate 18 18 18 Blood Pressure 160/48 H 181/75 H Pulse Oximetry 97 97 97 Oxygen Delivery Room Air 08/26/22 12:39 Temperature Pulse Rate Respiratory Rate Blood Pressure 190/75 H Pulse Oximetry Oxygen Delivery Intake/Output Intake/Output: Intake & Output 08/23/22 08/24/22 08/25/22 08/26/22 23:59 23:59 23:59 23:59 Intake Total 240 Output Total 700 Balance -460 Meds/Results Medications: Active Medications Generic Name Dose Route Start Last Admin Trade Name Freq PRN Reason Stop Dose Admin Hydralazine HCl 10 mg 08/26/22 07:17 08/26/22 12:41 Hydralazine Hcl 20 Mg/Ml Vial IV PUSH 10 mg Q8H PRN Administration Blood Pressure - High Pantoprazole Sodium 40 mg 08/26/22 09:21 08/26/22 10:12 Pantoprazole 40 Mg Tablet PO 40 mg QAM VICKY Administration Radiolog
[2022-08-26] MEDS: SOTALOL HCL 40 MG TABLET PO (20:55)
[2022-08-27 06:00] VITALS: BP 140/42; PULSE 62; RESP 18; TEMP 36.1; O2SAT 97
[2022-08-27 06:09] LABS: Basophils Percent Auto 0.4 % (0.2-1.2); Eosinophils Absolute Auto 0.1 K/mm3 (0-0.3); Eosinophils Percent Auto 1.8 % (0-4.4); Hematocrit 29.1 % (37.0-47.0); Hemoglobin 9.6 g/dL (12.0-15.0); Immature Granulocyte Absolute 0.03 K/mm3 (0.00-0.031); Immature Granulocyte Percent A 0.4 % (0-0.5); Lymphocytes Absolute Auto 1.28 K/mm3 (0.9-3.2); Lymphocytes Percent Auto 18.9 % (18.3-44.2); Mean Corpuscular Hemoglobin 31.9 pg (26-34); Mean Corpuscular Volume 96.7 fl (80-100); Mean Platelet Volume 10.8 fl (7.4-10.4); Monocytes Absolute Auto 0.7 K/mm3 (0.1-0.6); Monocytes Percent Auto 10.3 % (2.6-8.5); Neutrophils Absolute Auto 4.6 K/mm3 (1.3-6.7); Neutrophils Percent Auto 68.2 % (45.5-73.1); Platelet Count Result 187 k/mm3 (150-375); Red Blood Count 3.01 M/mm3 (4.2-5.4); Red Cell Distribution Width 12.8 % (11.5-14.5); White Blood Count 6.8 K/mm3 (4.5-10.0)
[2022-08-27 06:26] LABS: Alanine Aminotransferase 16 U/L (6-35); Alkaline Phosphatase 64 U/L (38-126); Anion Gap 2 mmol/L (8-16); Aspartate Amino Transferase 22 U/L (14-36); Bilirubin,Total 0.5 mg/dL (0.2-1.3); Blood Urea Nitrogen 26 mg/dL (7-17); Calcium 8.3 mg/dL (8.4-10.2); Carbon Dioxide 31 mmol/L (22-30); Chloride 104 mmol/L (98-107); Estimated Glomerular Filt Rate 33; Glucose 89 mg/dL (65-110); Potassium 3.6 mmol/L (3.4-5.0); Sodium 137 mmol/L (137-145)
[2022-08-27] MEDS: amLODIPine BESYLATE 5 MG TABLET 10 MG PO (08:53)
[2022-08-27] MEDS: CHLORTHALIDONE 12.5 MG TAB PO (08:53)
[2022-08-27 08:54] VITALS: PULSE 72
[2022-08-27] MEDS: ASPIRIN 81 MG CHEWABLE TABLET PO (08:54)
[2022-08-27] MEDS: LOSARTAN POTASSIUM 50 MG TABLET PO (08:54)
[2022-08-27] MEDS: PANTOPRAZOLE 40 MG TABLET PO (08:54)
[2022-08-27] MEDS: SOTALOL HCL 40 MG TABLET PO (08:54)
--- NOTE | 2022-08-27 10:33 | PM.DS ---
DS: Admitting Diagnosis Discharge Date 08/27/22 Admitting Diagnosis esophageal stricture DS: Discharge Diagnosis Discharge Diagnosis (1) Impacted esophageal foreign body: Code(s): T18.108A - Unspecified foreign body in esophagus causing other injury, initial encounter Status: Acute Assessment and Plan: EGD performed 08/26/2022 and foreign body removed Patient started on soft bite size diet. Home medications restarted as appropriate. Can be discharged once cleared by GI. (2) Benign hypertension with chronic kidney disease: Code(s): I12.9 - Hypertensive chronic kidney disease with stage 1 through stage 4 chronic kidney disease, or unspecified chronic kidney disease Status: Acute Assessment and Plan: Home medications restarted Hydralazine p.r.n. (3) Obstructive sleep apnea: Code(s): G47.33 - Obstructive sleep apnea (adult) (pediatric) Status: Acute Assessment and Plan: CPAP at nighttime (4) PAT (paroxysmal atrial tachycardia): Code(s): I47.1 - Supraventricular tachycardia Status: Acute Assessment and Plan: Home medications restarted (5) Chronic kidney disease, stage 3: Code(s): N18.3 - Chronic kidney disease, stage 3 (moderate) Status: Acute Assessment and Plan: Unchanged DS: Summary Hospital Course Hospital Course: This is an 82 over the past medical history of osteoporosis, hypertension, dyslipidemia, breast cancer and chronic kidney disease that presents to the ED on 08/26/2022 for evaluation of difficulty swallowing and food getting stuck in her throat. Patient did not have any weight loss or abdominal pain. GI was consulted and patient underwent EGD foreign body removal on 08/26/2022. Patient observed overnight to see if she could tolerate p.o. intake. patient did well with this and all of her symptoms resolved after EGD was performed. Is advised that patient continue pantoprazole as an outpatient. EGD revealed gastritis and is advised that patient follow-up in 6 weeks to reassess and possible dilation. Patient's labs and vital signs are stable and she is medically cleared for discharge. Time Spent with Patient Time attestation: Total time spent providing and/or coordinating discharge services: Exam Narrative: GENERAL: Comfortable, no acute distress HENMT: moist mucous membranes EYES: EOM intact b/l NECK: no lymphadenopathy RESPIRATORY: clear to auscultation CARDIO: RRR GI: soft, nontender, bowel sounds present SKIN: no rashes EXTREMITIES: no edema, redness or tenderness DS: Data Data Completed and Pending Pending studies at discharge: Pending at discharge 08/26/22 08:52 Surgical [PTH] Routine Labs on day of discharge: Labs from last 24 hours 08/27/22 05:22 WBC 6.8 RBC 3.01 L Hgb 9.6 L Hct 29.1 L MCV 96.7 MCH 31.9 MCHC 33.0 RDW 12.8 Plt Count 187 MPV 10.8 H Immature Gran % (Auto) 0.4 Neut % (Auto) 68.2 Lymph % (Auto) 18.9 [place] % (Auto) 10.3 H Eos % (Auto) 1.8 Baso % (Auto) 0.4 Lymph # (Auto) 1.28 [place] # (Auto) 0.7 H Eos # (Auto) 0.1 Baso # (Auto) 0.0 Abs Immat Gran (auto) 0.03 Absolute Neuts (auto) 4.6 Absolute Nucleated RBC 0.0 Nucleated RBC % 0.0 Sodium 137 Potassium 3.6 Chloride 104 Carbon Dioxide 31 H Anion Gap 2 L BUN 26 H Creatinine 1.50 H Estim Creat Clear Calc Not Reportable Estimated GFR 33 L Glucose 89 Calcium 8.3 L Total Bilirubin 0.5 AST 22 ALT 16 Alkaline Phosphatase 64 Total Protein 6.0 L Albumin 3.0 L Discharge Plan Discharge Attending physician on discharge: Brad Aguiar Consulting providers: Tai Daigle Discharging Clinician: Carol Horvath Patient Disposition: Home, Self-Care Activity: as tolerated Diet: regular and other - see discharge instructions Discharge Instructions: Medications: Pantoprazole 40 mg daily Take your medicin
== END 2022-08-27 12:20 | disposition home or self-care (01) ==
LOC: ANHED 08-26 02:34 → ANH2MED 08-26 07:52
PROVIDERS: Emergency Medicine; Internal Medicine Critical Care Medicine; Internal Medicine Gastroenterology; Admitting Provider Internal Medicine; Emergency Provider Physician Assistant; PCP Family Medicine; Visit Provider Internal Medicine
PROC: 0DJ08ZZ Inspection of Upper Intestinal Tract, Via Natural or Artificial Opening Endoscopic (ICD-10-PCS; CPT 43235; principal; 2022-08-26 09:00)
DX: T18.108A Unspecified foreign body in esophagus causing other injury, initial encounter (principal); K20.90 Esophagitis, unspecified without bleeding; K29.70 Gastritis, unspecified, without bleeding; I12.9 Hypertensive chronic kidney disease with stage 1 through stage 4 chronic kidney disease, or unspecified chronic kidney disease; N18.30 Chronic kidney disease, stage 3 unspecified; D63.1 Anemia in chronic kidney disease; E21.3 Hyperparathyroidism, unspecified; E78.5 Hyperlipidemia, unspecified; K58.9 Irritable bowel syndrome, unspecified; M81.0 Age-related osteoporosis without current pathological fracture; E55.9 Vitamin D deficiency, unspecified; Z79.899 Other long term (current) drug therapy
CPT/HCPCS: 43247; 43239; 36415; 70360; 71045; 80053; 85025; 88305; 96361; 96374; 96375; 99285; A9270; G0378; J0360; J1610; J2704; J7120

== ENCOUNTER 2022-09-19 08:02 | Outpatient (CLI) | payer OTHER, SELFPAY ==
--- NOTE | ~2022-09-19 | MM_ITS ---
EXAMINATION: MM screening litzy BI w waqas HISTORY: Screening mammogram TECHNIQUE: Craniocaudal and mediolateral oblique 3-D tomosynthesis images were obtained and synthetic 2-D images were generated. CAD analysis was submitted and interpreted. COMPARISON: 09/17/2021 bilateral screening mammogram 09/14/2020 diagnostic right mammogram 08/10/2020, 08/03/2019 bilateral screening mammogram examinations BREAST PARENCHYMAL COMPOSITION: The breasts are heterogeneously dense, which may obscure small masses . FINDINGS: Again noted is post evidence of interval change from right partial mastectomy. Bilateral benign calcifications are again noted. There is no evidence of suspicious mass, calcification, or architectural distortion to suggest malig priscila in either breast. There has been no suspicious interval change. IMPRESSION: 1. No mammographic evidence of malignancy. 2. Recommend routine screening mammography in one year. BI-RADS Category 2: Benign finding(s). Reviewed, dictated and finalized at location A.
== END 2022-09-19 08:03 | disposition home or self-care (01) ==
PROVIDERS: PCP Family Medicine; Visit Provider Internal Medicine Hematology & Oncology
DX: Z12.31 Encounter for screening mammogram for malignant neoplasm of breast (principal)
CPT/HCPCS: 77063; 77067

== ENCOUNTER 2022-10-11 00:07 | Day surgery (SDC) | payer OTHER, SELFPAY ==
[2022-09-30 13:01] VITALS: BMI 26.2
--- NOTE | 2022-10-11 08:08 | WPDANESEPPF ---
Anes - Initial Pre Proc Eval Procedure: Operation Date: 10/11/22 10:00 Proposed Procedures p Esophagogastroduodenoscopy - Tai Daigle MD Date/Time: 10/11/22 08:08 Surgeon: Tai Daigle MD Pre Op Diagnosis: esophageal stricture Patient Data Age: 82 Gender: F Height: 1.5 m Weight: 59 kg Allergies Allergy/AdvReac Type Severity Reaction Status Date / Time povidone Allergy Mild Unknown Verified 10/11/22 08:55 alendronate sodium Allergy Unknown Heartburn Verified 10/11/22 08:55 epinephrine Allergy Unknown tachycardia Verified 10/11/22 08:55 iodine Allergy Unknown Unknown Verified 10/11/22 08:55 prednisone Allergy Unknown Unknown Verified 10/11/22 08:55 Home Medications Medication Instructions Recorded Confirmed Type aspirin 81 mg chewable tablet 81 mg PO DAILY@0800 #30 tabs 11/15/19 10/01/22 Rx (Children's Aspirin) vitamins B1 2.5 mg-B2 2.5 1 tablet PO DAILY 08/30/20 10/01/22 History mg-niacin 5 mg-B12 100 mcg-protease tablet (B-Complex With B-12) cholecalciferol (vitamin D3) 25 2,000 unit PO DAILY 08/10/21 10/01/22 History mcg (1,000 unit) capsule chlorthalidone 25 mg tablet 12.5 mg PO DAILY #45 tabs 01/03/22 10/01/22 Rx atorvastatin 20 mg tablet 20 mg PO DAILY #90 tabs 05/06/22 10/01/22 Rx losartan 50 mg tablet 50 mg PO DAILY #90 tabs 07/22/22 10/01/22 Rx amlodipine 10 mg tablet 10 mg PO DAILY 08/26/22 10/01/22 History calcium carbonate 600 mg-vitamin 1 tablet PO DAILY 08/26/22 10/01/22 History D3 20 mcg (800 unit) chewable tablet (Caltrate 600 plus D) sotalol 80 mg tablet 40 mg PO BID 08/26/22 10/01/22 History pantoprazole 40 mg tablet,delayed 40 mg PO DAILY 09/30/22 10/01/22 History release Other studies: Exam Date: ? ? 08/31/2020 7:37 AM Summary ? 1. Complete two-dimensional, color flow and Doppler transthoracic echocardiogram is performed. ? 2. Technically difficult study with limited views.? Regional wall motion assessment limited due to poor endomyocardial border definition. ? 3. Left ventricular systolic function is normal, estimated at 55-60%. ? 4. Left ventricular chamber dimension is normal. ? 5. There is mild aortic valve stenosis with a peak velocity of 160 cm/s, mean gradient of 6 mmHg, and aortic valve area of 1.9 cm2. ? 6. There is trace mitral valve regurgitation. ? 7. Unable to estimate PA systolic pressure due to poor spectral resolution of tricuspid regurgitant jet velocity. Patient hx anesthesia problems: none Family hx anesthesia problems: none Results Review: All pre-operative results and documents have been reviewed as part of the pre-operative evaluation. [facility] Past Medical History Medical History (Updated 10/11/22 @ 08:09 by Jose Adkins MD) Anemia CAD (coronary artery disease) Cancer of left breast (~2007) Status post lumpectomy, chemotherapy, and radiation. CHF (congestive heart failure) Chronic kidney disease, stage 3 Diastolic dysfunction Elevated parathyroid hormone Being monitored by her bullet casting operator, Dr. Kohli. Essential hypertension Fall against object Hemochromatosis Diagnosed in 1991. She is a patient of Dr. Samson. No recent therapeutic phlebotomy due to presence of anemia. Hemochromatosis, unspecified (~1991) HTN (hypertension) (~1991) Hyperlipidemia Irritable bowel syndrome Lumbar disc disease Obstructive sleep apnea Osteoporosis PAT (paroxysmal atrial tachycardia) Stage 4 chronic kidney disease due to benign hypertension SVT (supraventricular tachycardia) Temporal arteritis syndrome (~2000) Vitamin D deficiency Surgical History Surgical History (Updated 10/01/22 @ 11:25 by Ana Luisa Magaña CMA) History of liver biopsy History of lumpectomy of both breasts Including left breast lumpectomy for breast cancer in 2007. History of throat surgery august 11, 2022 History of tonsillectomy Family History Family History Mot
[2022-10-11 09:01] VITALS: BP 177/59; PULSE 50; RESP 18; TEMP 36.2; O2SAT 100; BMI 27.3
[2022-10-11 09:03] LABS: Glucose Point of Care 81 mg/dl (65-105)
[2022-10-11] MEDS: LACTATED RINGERS 1,000 ML 150 ML IV CONT (09:15)
--- NOTE | 2022-10-11 09:16 | SUR.PREOP ---
Bilateral lower extremity pitting edema. Pt stated size of lower legs and ankles are at baseline. Dr. Adkins made aware.
--- NOTE | 2022-10-11 09:30 | PM.HPGS ---
History of Present Illness History of Present Illness Consent: Risks, benefits, and alternatives have been discussed and questions answered. Patient agrees to proceed with procedure. Chief complaint: esophageal stricture Narrative: Pippa Mota is a 82 year old female with food bolus last month that required urgent egd, now using pantoprazole and better Review of Systems Constitutional: Constitutional: Denies headache(s) and Denies weakness Eyes: Eyes: Denies blurry vision ENT: Reports Normal hearing present, Denies headache(s) and Denies neck pain Cardiovascular: Cardiovascular: Denies chest pain and Denies dyspnea Respiratory: Respiratory: Denies dyspnea Gastrointestinal: Gastrointestinal: Reports no additional gastrointestinal complaints Genitourinary: Genitourinary: Denies dysuria Musculoskeletal: Musculoskeletal: Denies neck pain Integumentary/Breasts: Skin/Breast: Denies dry skin Neurologic: Reports Normal hearing present, Denies headache(s) and Denies weakness Psychiatric: Psychiatric: Denies anxiety Endocrine: Endocrine: Denies change in body appearance Hematologic/Lymphatic: Hematologic/Lymphatic: Denies easy bleeding Allergic/Immunologic: Allergic/Immunologic: Denies urticaria PMFSH Past Medical History Medical History (Updated 10/11/22 @ 09:31 by Tai Daigle MD) Anemia CAD (coronary artery disease) Cancer of left breast (~2007) Status post lumpectomy, chemotherapy, and radiation. CHF (congestive heart failure) Chronic kidney disease, stage 3 Diastolic dysfunction Elevated parathyroid hormone Being monitored by her inspector open die, Dr. Kohli. Essential hypertension Fall against object GERD (gastroesophageal reflux disease) Hemochromatosis Diagnosed in 1991. She is a patient of Dr. Samson. No recent therapeutic phlebotomy due to presence of anemia. Hemochromatosis, unspecified (~1991) HTN (hypertension) (~1991) Hyperlipidemia Irritable bowel syndrome Lumbar disc disease Obstructive sleep apnea Osteoporosis PAT (paroxysmal atrial tachycardia) Stage 4 chronic kidney disease due to benign hypertension SVT (supraventricular tachycardia) Temporal arteritis syndrome (~2000) Vitamin D deficiency Surgical History Surgical History (Updated 10/01/22 @ 11:25 by Ana Luisa Magaña [facility]) History of liver biopsy History of lumpectomy of both breasts Including left breast lumpectomy for breast cancer in 2007. History of throat surgery august 11, 2022 History of tonsillectomy Family History Family History Mother Family history of dementia Father Family history of congestive heart failure Other Adopted Social History Social History Social History: Surrogate decision maker: Hollie Costello, friend. Code status: Full code. Smoking packs per day: 1.5 Smoking cigarettes per day: 30.0 Years smoked: 30 Smoking pack-years: 45.00 Smoking status: Former smoker Tobacco type: cigarettes Smoking end date: 03/24/88 Alcohol intake: current Alcohol use details: rarely Substance use: never Substance use type: does not use Lack of Transportation: No Lack of Food: Never True Current Housing: I Have Housing Concerned About Future Housing: No Difficulty Paying Gas/Electric Bills: No Difficulty Paying for Meds: No Currently Unemployed: No Education: Master's Degree or Higher Difficulty w/ Childcare or Family Care: No Living arrangements: alone Additional living arrangements comments: Lives in [place] with her 2 toy poodles. She never and has no children. 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 Gender identity (if verbalized by the patient): Female Spiritual care concerns: No Meds Home Medications and Allergies Home Medications Medicat
[2022-10-11 09:42] VITALS: BP 107/46; PULSE 54; RESP 14; O2SAT 100
[2022-10-11 09:52] VITALS: BP 112/51; PULSE 60; RESP 12; O2SAT 100
[2022-10-11 10:02] VITALS: BP 124/57; PULSE 56; RESP 14; O2SAT 99
== END 2022-10-11 10:14 | disposition home or self-care (01) ==
PROVIDERS: PCP Family Medicine; Visit Provider Internal Medicine Gastroenterology
PROC: 0DJ08ZZ Inspection of Upper Intestinal Tract, Via Natural or Artificial Opening Endoscopic (ICD-10-PCS; CPT 43235; principal; 2022-10-11 10:00)
DX: K22.2 Esophageal obstruction (principal); I13.0 Hypertensive heart and chronic kidney disease with heart failure and stage 1 through stage 4 chronic kidney disease, or unspecified chronic kidney disease; I50.9 Heart failure, unspecified; N18.4 Chronic kidney disease, stage 4 (severe); I25.10 Atherosclerotic heart disease of native coronary artery without angina pectoris; D64.9 Anemia, unspecified; E83.119 Hemochromatosis, unspecified; E78.5 Hyperlipidemia, unspecified; G47.33 Obstructive sleep apnea (adult) (pediatric); I47.1 Supraventricular tachycardia; M81.0 Age-related osteoporosis without current pathological fracture; Z79.82 Long term (current) use of aspirin; Z85.3 Personal history of malignant neoplasm of breast; Z92.21 Personal history of antineoplastic chemotherapy; Z92.3 Personal history of irradiation; Z87.891 Personal history of nicotine dependence
CPT/HCPCS: 43249; 82948; C1726; J2704; J7120

== ENCOUNTER 2022-10-28 08:49 | Outpatient (CLI) | payer OTHER, SELFPAY ==
[2022-10-28 09:30] LABS: Creatinine Urine 72.1 mg/dL
[2022-10-28 09:32] LABS: Hemoglobin A1C 5.1 % (<5.7)
[2022-10-28 09:33] LABS: Alanine Aminotransferase 13 U/L (6-35); Albumin Level 3.5 g/dL (3.5-5.1); Albumin Level 3.6 g/dL (3.5-5.1); Alkaline Phosphatase 81 U/L (38-126); Anion Gap 6 mmol/L (8-16); Aspartate Amino Transferase 21 U/L (14-36); Bilirubin,Total 0.5 mg/dL (0.2-1.3); Blood Urea Nitrogen 35 mg/dL (7-17); Calcium 8.7 mg/dL (8.4-10.2); Carbon Dioxide 24 mmol/L (22-30); Chloride 109 mmol/L (98-107); Cholesterol 108 mg/dL (0-200); Estimated Glomerular Filt Rate 31; Glucose 98 mg/dL (65-110); HDL Direct 67 mg/dL; Phosphorus 4.3 mg/dL (2.5-4.5); Potassium 3.7 mmol/L (3.4-5.0); Sodium 139 mmol/L (137-145); Triglycerides 56 mg/dL (<150)
[2022-10-28 09:37] LABS: Total Protein Urine Random 268 mg/dL; Ur Ttl Prot Creatinine Ratio 3.72 mg/mg (0-0.20)
[2022-10-28 09:55] LABS: LDL Cholesterol Direct < 30 mg/dL
== END 2022-10-28 08:50 | disposition home or self-care (01) ==
LOC: ANHLAB 08:51
PROVIDERS: PCP Family Medicine; Referring Provider Internal Medicine Nephrology; Visit Provider Family Medicine
DX: E78.2 Mixed hyperlipidemia (principal); R53.83 Other fatigue; R73.9 Hyperglycemia, unspecified; I12.9 Hypertensive chronic kidney disease with stage 1 through stage 4 chronic kidney disease, or unspecified chronic kidney disease; N18.32 Chronic kidney disease, stage 3b; Z79.899 Other long term (current) drug therapy
CPT/HCPCS: 36415; 80061; 80069; 80076; 82570; 83036; 84156; 84443

== ENCOUNTER 2023-02-26 08:10 | Outpatient (CLI) | payer OTHER, SELFPAY ==
[2023-02-26 10:02] LABS: Albumin Level 3.4 g/dL (3.5-5.1); Anion Gap 6 mmol/L (8-16); Blood Urea Nitrogen 34 mg/dL (7-17); Calcium 9.3 mg/dL (8.4-10.2); Carbon Dioxide 22 mmol/L (22-30); Chloride 108 mmol/L (98-107); Estimated Glomerular Filt Rate 24; Glucose 81 mg/dL (65-110); Phosphorus 3.7 mg/dL (2.5-4.5); Potassium 3.9 mmol/L (3.4-5.0); Sodium 136 mmol/L (137-145)
[2023-02-26 10:08] LABS: Total Protein Urine Random 143 mg/dL; Ur Ttl Prot Creatinine Ratio 1.81 mg/mg (0-0.20)
[2023-02-26 10:15] LABS: Parathyroid Intact 89.9 pg/mL (7.5-53.5)
[2023-02-26 10:42] LABS: Vitamin D 25 Hydroxy 19.1 ng/mL
== END 2023-02-26 08:11 | disposition home or self-care (01) ==
LOC: ANHLAB 08:12
PROVIDERS: PCP Family Medicine; Visit Provider Internal Medicine Nephrology
DX: E55.9 Vitamin D deficiency, unspecified (principal); I12.9 Hypertensive chronic kidney disease with stage 1 through stage 4 chronic kidney disease, or unspecified chronic kidney disease; N18.32 Chronic kidney disease, stage 3b; N25.81 Secondary hyperparathyroidism of renal origin
CPT/HCPCS: 36415; 80069; 82306; 82570; 83970; 84156

== ENCOUNTER 2023-03-28 08:35 | Outpatient (CLI) | payer OTHER, SELFPAY ==
[2023-03-28 08:50] LABS: Basophils Percent Auto 0.5 % (0.2-1.2); Eosinophils Absolute Auto 0.2 K/mm3 (0-0.3); Eosinophils Percent Auto 3.5 % (0-4.4); Hematocrit 32.7 % (37.0-47.0); Hemoglobin 10.5 g/dL (12.0-15.0); Immature Granulocyte Absolute 0.02 K/mm3 (0.00-0.031); Immature Granulocyte Percent A 0.3 % (0-0.5); Lymphocytes Absolute Auto 0.91 K/mm3 (0.9-3.2); Lymphocytes Percent Auto 15.2 % (18.3-44.2); Mean Corpuscular HGB Conc 32.1 g/dl (32-36); Mean Corpuscular Hemoglobin 31.1 pg (26-34); Mean Corpuscular Volume 96.7 fl (80-100); Mean Platelet Volume 9.5 fl (7.4-10.4); Monocytes Absolute Auto 0.5 K/mm3 (0.1-0.6); Monocytes Percent Auto 8.7 % (2.6-8.5); Neutrophils Absolute Auto 4.3 K/mm3 (1.3-6.7); Neutrophils Percent Auto 71.8 % (45.5-73.1); Platelet Count Result 189 k/mm3 (150-375); Red Blood Count 3.38 M/mm3 (4.2-5.4); Red Cell Distribution Width 12.8 % (11.5-14.5)
[2023-03-28 10:00] LABS: Alanine Aminotransferase 9 U/L (6-35); Albumin Level 3.6 g/dL (3.5-5.1); Alkaline Phosphatase 91 U/L (38-126); Anion Gap 8 mmol/L (8-16); Aspartate Amino Transferase 19 U/L (14-36); Bilirubin,Total 0.7 mg/dL (0.2-1.3); Blood Urea Nitrogen 23 mg/dL (7-17); Calcium 9.2 mg/dL (8.4-10.2); Carbon Dioxide 27 mmol/L (22-30); Chloride 109 mmol/L (98-107); Estimated Glomerular Filt Rate 31; Glucose 91 mg/dL (65-110); Potassium 3.9 mmol/L (3.4-5.0); Sodium 144 mmol/L (137-145)
[2023-03-31 20:16] LABS: CA 15-3 15 U/mL (<32)
== END 2023-03-28 08:36 | disposition home or self-care (01) ==
PROVIDERS: PCP Family Medicine; Visit Provider Internal Medicine Hematology & Oncology
DX: C50.912 Malignant neoplasm of unspecified site of left female breast (principal); Z17.0 Estrogen receptor positive status [ER+]
CPT/HCPCS: 36415; 80053; 85025; 86300

== ENCOUNTER 2023-04-04 08:22 | Outpatient (CLI) | payer OTHER, SELFPAY ==
[2023-04-04 08:59] LABS: Alanine Aminotransferase 9 U/L (6-35); Albumin Level 3.5 g/dL (3.5-5.1); Alkaline Phosphatase 84 U/L (38-126); Anion Gap 7 mmol/L (8-16); Aspartate Amino Transferase 20 U/L (14-36); Bilirubin,Total 0.6 mg/dL (0.2-1.3); Blood Urea Nitrogen 42 mg/dL (7-17); Calcium 8.8 mg/dL (8.4-10.2); Carbon Dioxide 26 mmol/L (22-30); Chloride 109 mmol/L (98-107); Cholesterol 115 mg/dL (0-200); Estimated Glomerular Filt Rate 31; Glucose 98 mg/dL (65-110); HDL Direct 57 mg/dL; Potassium 3.9 mmol/L (3.4-5.0); Sodium 142 mmol/L (137-145); Triglycerides 83 mg/dL (<150)
[2023-04-04 09:09] LABS: LDL Cholesterol Direct 43 mg/dL
[2023-04-04 09:16] LABS: Vitamin D 25 Hydroxy 33.3 ng/mL
== END 2023-04-04 08:23 | disposition home or self-care (01) ==
LOC: ANHLAB 08:25
PROVIDERS: PCP Family Medicine; Visit Provider Family Medicine
DX: I12.9 Hypertensive chronic kidney disease with stage 1 through stage 4 chronic kidney disease, or unspecified chronic kidney disease (principal); N18.32 Chronic kidney disease, stage 3b; E78.2 Mixed hyperlipidemia; E55.9 Vitamin D deficiency, unspecified
CPT/HCPCS: 36415; 80053; 80061; 82306

== ENCOUNTER 2023-05-16 09:53 | Outpatient (CLI) | payer OTHER, SELFPAY ==
--- NOTE | 2023-05-16 10:04 | ECHO_ITS ---
Patient Info Name: Pippa Mota Age: 82 years : 1940 Gender: Female Ht: 59 in Wt: 138 lbs BSA: 1.64 m2 HR: 58 bpm BP: 179 / 70 mmHg Technical Quality: Fair Exam Date: 05/16/2023 11:05 AM Exam Location: Echo Lab Patient Status: Outpatient Admit Date: 05/16/2023 Staff Ordering Physician: Yosvany Aguilera DO Public Policy Manager: Etelvina Esparza RDCS Attending Provider: Yosvany Aguilera DO Referring Physician: Willy RAMOS; Exam Type: CA echo doppler color flow Study Info Indications I35.0 - Nonrheumatic aortic (valve) stenosis Complete two-dimensional, color flow and Doppler transthoracic echocardiogram is performed. Summary 1. Complete two-dimensional, color flow and Doppler transthoracic echocardiogram is performed. 2. Left ventricular chamber dimension is normal. 3. Left ventricular systolic function is normal, estimated at 60-65%. 4. The left ventricular diastolic function is abnormal. 5. E/e' 15 is elevated. 6. Left atrial chamber dimension is moderately enlarged. 7. Right atrial chamber dimension is mildly enlarged. 8. There is mild aortic valve sclerosis. 9. There is trace mitral valve regurgitation. 10. There is mild tricuspid valve regurgitation. 11. Moderate pulmonary hypertension, estimated pulmonary arterial systolic pressure is 53 mmHg. Left Ventricle E/e' 15 is elevated. Left ventricular chamber dimension is normal. Left ventricular systolic function is normal, estimated at 60-65%. The left ventricular diastolic function is abnormal. Right Ventricle Right ventricular chamber dimension is normal. Right ventricular systolic function is normal. Left Atria Left atrial chamber dimension is moderately enlarged. Right Atria Right atrial chamber dimension is mildly enlarged. Aortic Valve The aortic valve is trileaflet. There is mild aortic valve sclerosis. There is no aortic valve stenosis. There is no aortic valve regurgitation. Pulmonic Valve There is no pulmonic regurgitation. Mitral Valve There is no mitral valve stenosis. There is trace mitral valve regurgitation. Tricuspid Valve There is mild tricuspid valve regurgitation. Moderate pulmonary hypertension, estimated pulmonary arterial systolic pressure is 53 mmHg. Pericardium/Pleural There is no pericardial effusion. Inferior Vena Cava Normal inferior vena cava with >50% collapse upon inspiration consistent with normal right atrial pressure, 5 mmHg. Aorta The aortic root size at the sinus of Valsalva is normal. Left Ventricular Outflow Tract Name Value Normal LVOT 2D LVOT Diameter 2.0 cm LVOT Doppler LVOT Peak Gradient 7 mmHg LVOT Mean Gradient 4 mmHg LVOT VTI 35 cm LVOT VTI/AV VTI Ratio 0.8 LVOT Stroke Volume 106 ml LVOT CO 17.6 l/min LVOT CI 10.7 l/min/m2 Pulmonic Valve Name Value Normal PV Doppler
== END 2023-05-16 09:54 | disposition home or self-care (01) ==
LOC: ANHCARD 09:53
PROVIDERS: PCP Family Medicine; Visit Provider Internal Medicine Cardiovascular Disease
DX: I35.0 Nonrheumatic aortic (valve) stenosis (principal); R93.1 Abnormal findings on diagnostic imaging of heart and coronary circulation; I35.8 Other nonrheumatic aortic valve disorders; I34.0 Nonrheumatic mitral (valve) insufficiency; I07.1 Rheumatic tricuspid insufficiency; I27.20 Pulmonary hypertension, unspecified
CPT/HCPCS: 93306

== ENCOUNTER 2023-06-20 10:01 | Outpatient (CLI) | payer OTHER, SELFPAY ==
[2023-06-20 10:49] LABS: Creatinine Urine 60.3 mg/dL; Total Protein Urine Random 193 mg/dL
[2023-06-20 11:09] LABS: Albumin Level 3.9 g/dL (3.5-5.1); Anion Gap 7 mmol/L (4-12); Blood Urea Nitrogen 36 mg/dL (7-17); Calcium 9.5 mg/dL (8.4-10.2); Carbon Dioxide 23 mmol/L (22-30); Chloride 109 mmol/L (98-107); Estimated Glomerular Filt Rate 29; Glucose 102 mg/dL (65-110); Phosphorus 3.8 mg/dL (2.5-4.5); Potassium 3.8 mmol/L (3.4-5.0); Sodium 139 mmol/L (137-145)
[2023-06-20 11:59] LABS: Vitamin D 25 Hydroxy 37.8 ng/mL
== END 2023-06-20 10:02 | disposition home or self-care (01) ==
LOC: ANHLAB 10:02
PROVIDERS: PCP Family Medicine; Visit Provider Internal Medicine Nephrology
DX: E55.9 Vitamin D deficiency, unspecified (principal); I12.9 Hypertensive chronic kidney disease with stage 1 through stage 4 chronic kidney disease, or unspecified chronic kidney disease; N18.32 Chronic kidney disease, stage 3b
CPT/HCPCS: 36415; 80069; 82306; 82570; 84156

== ENCOUNTER 2023-10-24 09:59 | Outpatient (CLI) | payer OTHER, SELFPAY ==
[2023-10-24 10:45] LABS: Anion Gap 7 mmol/L (4-12); Blood Urea Nitrogen 26 mg/dL (7-17); Calcium 9.2 mg/dL (8.4-10.2); Carbon Dioxide 23 mmol/L (22-30); Chloride 110 mmol/L (98-107); Estimated Glomerular Filt Rate 27; Glucose 87 mg/dL (65-110); Phosphorus 3.8 mg/dL (2.5-4.5); Potassium 3.9 mmol/L (3.4-5.0); Sodium 140 mmol/L (137-145)
[2023-10-24 11:12] LABS: Creatinine Urine 125.5 mg/dL
[2023-10-24 11:41] LABS: Total Protein Urine Random 582 mg/dL; Ur Ttl Prot Creatinine Ratio 4.64 mg/mg (0-0.20)
[2023-10-24 22:27] LABS: Vitamin D 25 Hydroxy 28.8 ng/mL
[2023-10-25 14:01] LABS: Parathyroid Intact 92.8 pg/mL (7.5-53.5)
== END 2023-10-24 10:00 | disposition home or self-care (01) ==
LOC: ANHLAB 10:00
PROVIDERS: PCP Family Medicine; Visit Provider Internal Medicine Nephrology
DX: I12.9 Hypertensive chronic kidney disease with stage 1 through stage 4 chronic kidney disease, or unspecified chronic kidney disease (principal); N18.32 Chronic kidney disease, stage 3b; N25.81 Secondary hyperparathyroidism of renal origin; E55.9 Vitamin D deficiency, unspecified
CPT/HCPCS: 36415; 80069; 82306; 82570; 83970; 84156

== ENCOUNTER 2023-11-06 08:19 | Outpatient (CLI) | payer OTHER, SELFPAY ==
--- NOTE | ~2023-11-06 | MM_ITS ---
EXAMINATION: MM screening litzy BI w waqas HISTORY: Screening TECHNIQUE: Craniocaudal and mediolateral oblique 3-D tomosynthesis images were obtained and synthetic 2-D images were generated. CAD analysis was submitted and interpreted. COMPARISON: Comparison to multiple prior studies sequentially, with oldest reviewed study dated 07/31. BREAST PARENCHYMAL COMPOSITION: Not dense: There are scattered areas of fibroglandular density. FINDINGS: There are developing nodular asymmetries in the upper central aspect of the left breast the right breast is stable without evidence for malignancy. IMPRESSION: 1. Developing nodular asymmetries of the left breast. 2. Additional mammographic views and possible breast ultrasound are recommended. BI-RADS Category 0: Incomplete: Needs additional imaging evaluation. Reviewed, dictated and finalized at location B. IMPRESSION: 1. Developing nodular asymmetries of the left breast. 2. Additional mammographic views and possible breast ultrasound are recommended . BI-RADS Category 0: Incomplete: Needs additional imaging evaluation.
== END 2023-11-06 08:20 | disposition home or self-care (01) ==
PROVIDERS: PCP Family Medicine; Visit Provider Internal Medicine Hematology & Oncology
DX: Z12.31 Encounter for screening mammogram for malignant neoplasm of breast (principal); R92.8 Other abnormal and inconclusive findings on diagnostic imaging of breast
CPT/HCPCS: 77063; 77067

== ENCOUNTER 2023-11-26 10:04 | Outpatient (CLI) | payer OTHER, SELFPAY ==
[2023-11-26 10:25] LABS: Basophils Percent Auto 0.6 % (0.2-1.2); Eosinophils Absolute Auto 0.2 K/mm3 (0-0.3); Hematocrit 31.2 % (37.0-47.0); Hemoglobin 9.7 g/dL (12.0-15.0); Immature Granulocyte Absolute 0.03 K/mm3 (0.00-0.031); Immature Granulocyte Percent A 0.4 % (0-0.5); Lymphocytes Absolute Auto 1.11 K/mm3 (0.9-3.2); Lymphocytes Percent Auto 16.5 % (18.3-44.2); Mean Corpuscular HGB Conc 31.1 g/dl (32-36); Mean Corpuscular Hemoglobin 30.8 pg (26-34); Mean Platelet Volume 9.8 fl (7.4-10.4); Monocytes Absolute Auto 0.6 K/mm3 (0.1-0.6); Monocytes Percent Auto 8.8 % (2.6-8.5); Neutrophils Absolute Auto 4.8 K/mm3 (1.3-6.7); Neutrophils Percent Auto 70.7 % (45.5-73.1); Platelet Count Result 196 k/mm3 (150-375); Red Blood Count 3.15 M/mm3 (4.2-5.4); Red Cell Distribution Width 12.4 % (11.5-14.5); White Blood Count 6.7 K/mm3 (4.5-10.0)
[2023-11-26 13:03] LABS: Alanine Aminotransferase 10 U/L (6-35); Albumin Level 3.6 g/dL (3.5-5.1); Alkaline Phosphatase 84 U/L (38-126); Anion Gap 7 mmol/L (4-12); Aspartate Amino Transferase 23 U/L (14-36); Bilirubin,Total 0.4 mg/dL (0.2-1.3); Blood Urea Nitrogen 24 mg/dL (7-17); Calcium 9.6 mg/dL (8.4-10.2); Carbon Dioxide 26 mmol/L (22-30); Chloride 107 mmol/L (98-107); Estimated Glomerular Filt Rate 25; Glucose 91 mg/dL (65-110); Potassium 5.4 mmol/L (3.4-5.0); Sodium 140 mmol/L (137-145)
[2023-11-29 08:09] LABS: CA 15-3 13 U/mL (<32)
== END 2023-11-26 10:05 | disposition home or self-care (01) ==
LOC: ANHLAB 10:12
PROVIDERS: PCP Family Medicine; Visit Provider Internal Medicine Hematology & Oncology
DX: C50.912 Malignant neoplasm of unspecified site of left female breast (principal); Z17.0 Estrogen receptor positive status [ER+]
CPT/HCPCS: 36415; 80053; 85025; 86300

== ENCOUNTER 2023-11-26 10:42 | Outpatient (CLI) | payer OTHER, SELFPAY ==
--- NOTE | ~2023-11-26 | MMUS_ITS ---
EXAMINATION: MM diagnostic litzy LT w waqas, US breast LT complete HISTORY: Follow-up left breast asymmetries TECHNIQUE: Additional 3-D tomosynthesis images of the left breast were performed and synthetic 2-D im ages were generated. CAD analysis was submitted and interpreted. High resolution complete left breast ultrasound was performed. COMPARISON: Comparison to multiple prior studies sequentially, with oldest reviewed study dated 08/02. BREAST PARENCHYMAL COMPOSITION: Not dense: There are scattered areas of fibroglandular density. FINDINGS: MAMMOGRAPHIC FINDINGS: There is a radiolucent mass in the upper aspect of the left breast on mediolateral view adjacent to s urgical clips from prior left breast lumpectomy for breast cancer. There are no new masses, calcifica tions or architectural distortion. ULTRASOUND: Complete US of all 4 quadrants of the left breast/s and retroareolar region was reviewed. At 12:00, 5 cm from the nipple there is an elongated fluid collection with thick hypoechoic rim, parallel orient ation, posterior acoustic enhancement measuring 3.4 x 3.2 x 0.7 cm, likely postsurgical seroma. No ot her masses are identified. IMPRESSION: 1. Thick rimmed fluid collection at 12:00, 5 cm from the nipple in the left breast, likely postsurgic al seroma. This is not significantly changed compared with prior mammograms. No evidence for malignan cy. 2. Routine yearly screening mammogram and regular clinical breast examination are recommended. BI-RADS Category 2: Benign finding(s). Reviewed, dictated and finalized at location B. IMPRESSION: 1. Thick rimmed fluid collection at 12:00, 5 cm from the nipple in the left cody ast, likely postsurgical seroma. This is not significantly changed compared wit h prior mammograms. No evidence for malignancy. 2. Routine yearly screening mammogram and regular clinical breast examination a re recommended. BI-RADS Category 2: Benign finding(s).
== END 2023-11-26 10:43 | disposition home or self-care (01) ==
LOC: ANHIMG 10:47
PROVIDERS: PCP Family Medicine; Visit Provider Internal Medicine Hematology & Oncology
DX: R92.8 Other abnormal and inconclusive findings on diagnostic imaging of breast (principal)
CPT/HCPCS: 76641; 77061; 77065; G0279

== ENCOUNTER 2024-01-02 23:49 | Emergency (ER) | payer OTHER, SELFPAY ==
--- NOTE | ~2024-01-02 | NM_ITS ---
EXAMINATION: NM lung vent and perfusion DATE: 01/03/2024 10:55 INDICATION: Shoulder pain. TECHNIQUE: 13.5 mCi Xenon-133 was given for ventilation images. 5.1 mCi Tc-99m MAA was administered i ntravenously for perfusion images. Scintigraphic images of the chest were obtained. COMPARISON: Chest single view 01/03/2024 FINDINGS: The ventilation images demonstrate small defects. There is diffuse retention bilaterally. The perfusi on images demonstrate small defects in the lower lobes. IMPRESSION: 1. Low probability for pulmonary embolism. Reviewed, dictated and finalized at location A.
--- NOTE | ~2024-01-02 | XR_ITS ---
EXAMINATION: XR chest 1V portable DATE: 01/03/2024 04:40 INDICATION: Shoulder pain. TECHNIQUE: A single frontal view of the chest was obtained. COMPARISON: Chest single view 08/26/2022 FINDINGS: There is no pneumonia, pleural effusion, or pneumothorax. The heart size is normal. There a re surgical clips in left axilla. IMPRESSION: 1. No acute cardiopulmonary disease. Reviewed, dictated and finalized at location A.
--- NOTE | ~2024-01-02 | XR_ITS ---
EXAMINATION: XR shoulder RT min 2V DATE: 01/03/2024 04:40 INDICATION: Right shoulder pain. TECHNIQUE: 3 views of right shoulder were obtained. COMPARISON: None. FINDINGS: Alignment is normal. No fracture. Glenohumeral joint is normal. There is severe acromioclav icular joint osteoarthritis. IMPRESSION: 1. Severe acromioclavicular joint osteoarthritis. Reviewed, dictated and finalized at location A.
--- NOTE | 2024-01-02 23:59 | ECG_ITS ---
Test Date: 2024-01-03 06:55:23 Measurements Intervals [place] Rate: 70 P: 81 MN: 124 QRS: 26 QRSD: 90 T: 32 QT: 370 QTc: 400 Interpretive Statements SINUS RHYTHM WITH OCCASIONAL SUPRAVENTRICULAR PREMATURE COMPLEXES Compared to ECG 01/03/2024 04:25:04 Short MN interval no longer present Electronically Signed On 01-03-2024 08:35:51 CDT by Edouard Pierce M.D.
[2024-01-03] VITALS (37 sets, daily range): BP systolic 143–186; BP diastolic 46–153; PULSE 61–94; RESP 14–23; TEMP 36.6–37.3; O2SAT 93–100
--- NOTE | 2024-01-03 03:46 | ECG_ITS ---
Test Date: 2024-01-03 00:02:56 Measurements Intervals [place] Rate: 89 P: 0 WI: 0 QRS: 24 QRSD: 77 T: 36 QT: 334 QTc: 408 Interpretive Statements ATRIAL FIBRILLATION No previous ECG available for comparison Electronically Signed On 01-03-2024 08:33:36 CDT by Edouard Pierce M.D.
--- NOTE | 2024-01-03 03:56 | ED.UPPEXIN ---
HPI - Extremity Injury (Upper) General Chief Complaint: Extremity Injury, Upper <Pasquale Garcia MD - Last Filed: 01/03/24 07:48> Stated Complaint: R shoulder pain <Pasquale Garcia MD - Last Filed: 01/03/24 07:48> Time Seen by Provider: 01/03/24 03:45 <Pasquale Garcia MD - Last Filed: 01/03/24 07:48> History of Present Illness HPI narrative: 83-year-old female with extensive cardiac history including coronary disease status post stents, paroxysmal AFib, SVT/VT, CKD, hypertension, CHF. Patient presents to the emergency department today with a complaint of right-sided shoulder pain. It was not traumatic in nature she states that resembles last time she had a heart attack. She states that the pain has since subsided and has been several hours since he came back. Endorses no left-sided chest discomfort, nausea, vomiting, shortness of breath, back pain. Did not have any trauma and she has full range of motion of the shoulder. Was otherwise in her normal state of health. No recent injuries or illnesses. No history of DVT or PE. <Pasquale Garcia MD - Last Filed: 01/03/24 07:48> Related Data Home Medications: Home Medications Medication Instructions Recorded Confirmed vitamins B1 2.5 mg-B2 2.5 1 tablet PO DAILY 08/30/20 10/31/23 mg-niacin 5 mg-B12 100 mcg-protease tablet (B-Complex With B-12) cholecalciferol (vitamin D3) 25 2,000 unit PO DAILY 08/10/21 10/31/23 mcg (1,000 unit) capsule calcium 600 mg (as carbonate)-vit 1 tablet PO DAILY 08/26/22 10/31/23 D3 20 mcg (800 unit) chewable tablet (Caltrate plus D) <Pasquale Garcia MD - Last Filed: 01/03/24 07:48> Allergies/Adverse Reactions: Allergies Allergy/AdvReac Type Severity Reaction Status Date / Time povidone Allergy Mild Unknown Verified 10/31/23 10:11 alendronate sodium Allergy Unknown Heartburn Verified 10/31/23 10:11 epinephrine Allergy Unknown tachycardia Verified 10/31/23 10:11 iodine Allergy Unknown Unknown Verified 10/31/23 10:11 prednisone Allergy Unknown Unknown Verified 10/31/23 10:11 <Pasquale Garcia MD - Last Filed: 01/03/24 07:48> Review of Systems Review of Systems: As reviewed above in HPI <Pasquale Garcia MD - Last Filed: 01/03/24 07:48> [facility] Past Medical History Medical History: Medical History Anemia CAD (coronary artery disease) Cancer of left breast (~2007) Status post lumpectomy, chemotherapy, and radiation. CHF (congestive heart failure) Chronic kidney disease, stage 3 Diastolic dysfunction Elevated parathyroid hormone Being monitored by her customer service supervisor, Dr. Kohli. Essential hypertension Fall against object GERD (gastroesophageal reflux disease) Hemochromatosis Diagnosed in 1991. She is a patient of Dr. Samson. No recent therapeutic phlebotomy due to presence of anemia. Hemochromatosis, unspecified (~1991) HTN (hypertension) (~1991) Hyperlipidemia Irritable bowel syndrome Lumbar disc disease Obstructive sleep apnea Osteoporosis PAT (paroxysmal atrial tachycardia) Stage 4 chronic kidney disease due to benign hypertension SVT (supraventricular tachycardia) Temporal arteritis syndrome (~2000) Vitamin D deficiency <Pasquale Garcia MD - Last Filed: 01/03/24 07:48> Surgical History Surgical History: Surgical History History of liver biopsy History of lumpectomy of both breasts Including left breast lumpectomy for breast cancer in 2007. History of throat surgery august 11, 2022 History of tonsillectomy <Pasquale Garcia MD - Last Filed: 01/03/24 07:48> Family History Family History: Family History Mother Family history of dementia Father Family history of congestive heart failure Other Ad
[2024-01-03 05:07] LABS: Basophils Percent Auto 0.4 % (0.2-1.2); Eosinophils Percent Auto 0.5 % (0-4.4); Hematocrit 30.1 % (37.0-47.0); Hemoglobin 9.7 g/dL (12.0-15.0); Immature Granulocyte Absolute 0.02 K/mm3 (0.00-0.031); Immature Granulocyte Percent A 0.3 % (0-0.5); Lymphocytes Absolute Auto 0.31 K/mm3 (0.9-3.2); Lymphocytes Percent Auto 4.2 % (18.3-44.2); Mean Corpuscular HGB Conc 32.2 g/dl (32-36); Mean Corpuscular Volume 96.2 fl (80-100); Mean Platelet Volume 11.1 fl (7.4-10.4); Monocytes Absolute Auto 0.3 K/mm3 (0.1-0.6); Monocytes Percent Auto 4.4 % (2.6-8.5); Neutrophils Absolute Auto 6.7 K/mm3 (1.3-6.7); Neutrophils Percent Auto 90.2 % (45.5-73.1); Platelet Count Result 192 k/mm3 (150-375); Red Blood Count 3.13 M/mm3 (4.2-5.4); Red Cell Distribution Width 12.7 % (11.5-14.5); White Blood Count 7.5 K/mm3 (4.5-10.0)
[2024-01-03 05:17] LABS: Alanine Aminotransferase 9 U/L (6-35); Albumin Level 3.7 g/dL (3.5-5.1); Alkaline Phosphatase 85 U/L (38-126); Anion Gap 9 mmol/L (4-12); Aspartate Amino Transferase 19 U/L (14-36); Bilirubin,Total 0.4 mg/dL (0.2-1.3); Blood Urea Nitrogen 27 mg/dL (7-17); Calcium 9.1 mg/dL (8.4-10.2); Carbon Dioxide 23 mmol/L (22-30); Chloride 108 mmol/L (98-107); Estimated Glomerular Filt Rate 22; Glucose 151 mg/dL (65-110); Lipase 136 U/L (23-300); Potassium 4.2 mmol/L (3.4-5.0); Sodium 140 mmol/L (137-145)
[2024-01-03 05:21] LABS: INR 1.1; Prothrombin Time 15.1 Seconds (11.1-14.7)
[2024-01-03 05:22] LABS: Partial Thromboplastin Time 27.5 Seconds (22.3-36.8)
[2024-01-03 05:29] LABS: NT Pro B Type Natriuretic Pept 2630 pg/mL (19.9-100); Troponin I < 0.012 ng/mL (0.000-0.034)
--- NOTE | 2024-01-03 06:49 | ECG_ITS ---
Test Date: 2024-01-03 04:25:04 Measurements Intervals [place] Rate: 74 P: 73 KS: 101 QRS: 27 QRSD: 86 T: 37 QT: 375 QTc: 416 Interpretive Statements SINUS RHYTHM WITH SHORT [place] INTERVAL WITH FREQUENT SUPRAVENTRICULAR PREMATURE COMPLEXES ABNORMAL RHYTHM ECG Compared to ECG 01/03/2024 00:02:56 Short KS interval now present Atrial fibrillation no longer present Electronically Signed On 01-03-2024 08:34:40 CDT by Edouard Pierce M.D.
[2024-01-03 07:23] LABS: Troponin I < 0.012 ng/mL (0.000-0.034)
== END 2024-01-03 12:09 | disposition home or self-care (01) ==
PROVIDERS: Emergency Provider Student in an Organized Health Care Education/Training Program; PCP Family Medicine
DX: R07.9 Chest pain, unspecified (principal); M25.511 Pain in right shoulder; I48.0 Paroxysmal atrial fibrillation; I50.9 Heart failure, unspecified; I13.0 Hypertensive heart and chronic kidney disease with heart failure and stage 1 through stage 4 chronic kidney disease, or unspecified chronic kidney disease; I25.10 Atherosclerotic heart disease of native coronary artery without angina pectoris; Z85.3 Personal history of malignant neoplasm of breast; K21.9 Gastro-esophageal reflux disease without esophagitis; E78.5 Hyperlipidemia, unspecified; N18.4 Chronic kidney disease, stage 4 (severe); E55.9 Vitamin D deficiency, unspecified; Z87.891 Personal history of nicotine dependence
CPT/HCPCS: 36415; 71045; 73030; 78582; 80053; 83690; 83880; 84484; 85025; 85380; 85610; 85730; 93005; 99284; A9540; A9558

== ENCOUNTER 2024-01-16 08:14 | Outpatient (CLI) | payer OTHER, SELFPAY ==
--- NOTE | ~2024-01-16 | NM_ITS ---
EXAMINATION: NM edward stress w perfusion DATE: 01/16/2024 10:53 CDT INDICATION: Chest pain TECHNIQUE: Rest images were obtained following intravenous administration of 10.4 mCi Tc99m tetrofosm in (Myoview). The patient was infused intravenously with Lexiscan (regadenoson). Then, 34.6 mCi Tc99m tetrofosmin (Myoview) was administered intravenously, and stress images were obtained. Data was luke nstructed into short axis and horizontal and vertical long axis SPECT images. Gated SPECT images were also obtained. COMPARISON: 03/06/2020. FINDINGS: There is no definite reversible or fixed perfusion abnormality to suggest ischemia or infar ction. There is no segmental wall motion abnormality. Left ventricular ejection fraction measures 7 3%. IMPRESSION: 1. No definite ischemia or infarct. 2. Normal left ventricular ejection fraction measuring 73%. Reviewed, dictated and finalized at location B.
--- NOTE | 2024-01-16 08:18 | EST_ITS ---
Patient Info Name: Pippa Mota Age: 83 years : 1940 Gender: Female Ht: 59 in Wt: 145 lbs BSA: 1.68 m2 HR: 56 bpm BP: 152 / 57 mmHg Exam Date: 01/16/2024 9:26 AM Exam Location: Echo Lab Patient Status: Outpatient Admit Date: 01/16/2024 Staff Ordering Physician: Yosvany Aguilera DO Attending Provider: Yosvany Aguilera DO Exercise Technologist: [facility] Exercise Physician: Yosvany Aguilera DO Exam Type: CA stress edward w NM Study Info A regadenoson stress test was performed. Summary 1. 1. Negative lexiscan stress test for ischemic ST changes by ECG criteria. 2. 2. Baseline hypertension. 3. 3. Nuclear scan to follow and will be reported separately. Please correlate with it. 4. 4. Patient informed of the above results. Protocol: Lexiscan Stress ECG Details Stage: REST Duration (min): 5 min : 31 sec HR (bpm): 58 SBP (mmHg): 152 DBP (mmHg): 57 Stage: REST Duration (min): 10 min : 23 sec HR (bpm): 65 SBP (mmHg): 152 DBP (mmHg): 57 Stage: STAGE 1 Duration (min): 1 min : 0 sec HR (bpm): 82 SBP (mmHg): 139 DBP (mmHg): 56 Stage: RECOVERY Duration (min): 1 min : 0 sec HR (bpm): 82 SBP (mmHg): 139 DBP (mmHg): 56 Stage: RECOVERY Duration (min): 2 min : 0 sec HR (bpm): 80 SBP (mmHg): 139 DBP (mmHg): 56 Stage: RECOVERY Duration (min): 3 min : 0 sec HR (bpm): 76 SBP (mmHg): 160 DBP (mmHg): 59 Stage: RECOVERY Duration (min): 4 min : 0 sec HR (bpm): 82 SBP (mmHg): 160 DBP (mmHg): 59 Stage: RECOVERY Duration (min): 5 min : 0 sec HR (bpm): 76 SBP (mmHg): 153 DBP (mmHg): 60 Stage: RECOVERY Duration (min): 5 min : 6 sec HR (bpm): 76 SBP (mmHg): 153 DBP (mmHg): 60 Rest HR: 65 bpm Peak HR: 94 bpm Rest Sys BP: 152 mmHg Peak Sys BP: 160 mmHg Max Pred HR: 136 bpm % Max Pred HR: 69 % Target HR: 116 bpm Max RPP: 15,040 bpm*mmHg Termination Reason: Completed protocol Cardiac Symptoms: Shortness of breath, Stomach discomfort Total Time: 1 min : 0 sec [place] BP: 57 mmHg [place] BP: 59 mmHg Total Dose: 0.4 mg Resting ECG Sinus rhythm. Stress ECG No ST changes. Arrhythmias None. Report Signatures
== END 2024-01-16 08:15 | disposition home or self-care (01) ==
PROVIDERS: PCP Family Medicine; Visit Provider Internal Medicine Cardiovascular Disease
DX: R07.9 Chest pain, unspecified (principal)
CPT/HCPCS: 78452; 93017; A9502; J2785

== ENCOUNTER 2024-02-16 09:32 | Outpatient (CLI) | payer OTHER, SELFPAY ==
[2024-02-16 10:08] LABS: Albumin Level 3.6 g/dL (3.5-5.1); Anion Gap 6 mmol/L (4-12); Blood Urea Nitrogen 32 mg/dL (7-17); Calcium 9.1 mg/dL (8.4-10.2); Carbon Dioxide 25 mmol/L (22-30); Chloride 110 mmol/L (98-107); Estimated Glomerular Filt Rate 22; Glucose 97 mg/dL (65-110); Phosphorus 4.5 mg/dL (2.5-4.5); Potassium 4.3 mmol/L (3.4-5.0); Sodium 141 mmol/L (137-145)
[2024-02-16 10:29] LABS: Creatinine Urine 152.4 mg/dL
[2024-02-16 10:42] LABS: Total Protein Urine Random 312 mg/dL; Ur Ttl Prot Creatinine Ratio 2.05 mg/mg (0-0.20)
== END 2024-02-16 09:33 | disposition home or self-care (01) ==
PROVIDERS: PCP Family Medicine; Visit Provider Internal Medicine Nephrology
DX: I12.9 Hypertensive chronic kidney disease with stage 1 through stage 4 chronic kidney disease, or unspecified chronic kidney disease (principal); N18.4 Chronic kidney disease, stage 4 (severe)
CPT/HCPCS: 36415; 80069; 82570; 84156

== ENCOUNTER 2024-04-05 09:34 | Outpatient (CLI) | payer OTHER, SELFPAY ==
[2024-04-05 09:47] LABS: Hemoglobin 9.9 g/dL (12.0-15.0); Mean Corpuscular HGB Conc 31.9 g/dl (32-36); Mean Corpuscular Hemoglobin 31.1 pg (26-34); Mean Corpuscular Volume 97.5 fl (80-100); Mean Platelet Volume 10.4 fl (7.4-10.4); Platelet Count Result 217 k/mm3 (150-375); Red Blood Count 3.18 M/mm3 (4.2-5.4); Red Cell Distribution Width 12.7 % (11.5-14.5); White Blood Count 8.8 K/mm3 (4.5-10.0)
[2024-04-05 11:41] LABS: Alanine Aminotransferase 7 U/L (6-35); Albumin Level 3.6 g/dL (3.5-5.1); Alkaline Phosphatase 93 U/L (38-126); Anion Gap 8 mmol/L (4-12); Aspartate Amino Transferase 16 U/L (14-36); Bilirubin,Total 0.5 mg/dL (0.2-1.3); Blood Urea Nitrogen 29 mg/dL (7-17); Calcium 8.8 mg/dL (8.4-10.2); Carbon Dioxide 25 mmol/L (22-30); Chloride 107 mmol/L (98-107); Estimated Glomerular Filt Rate 25; Glucose 96 mg/dL (65-110); Potassium 4.9 mmol/L (3.4-5.0); Sodium 140 mmol/L (137-145)
[2024-04-07 05:29] LABS: CA 15-3 13 U/mL (<32)
== END 2024-04-05 09:35 | disposition home or self-care (01) ==
PROVIDERS: PCP Family Medicine; Visit Provider Internal Medicine Hematology & Oncology
DX: C50.912 Malignant neoplasm of unspecified site of left female breast (principal); Z17.0 Estrogen receptor positive status [ER+]
CPT/HCPCS: 36415; 80053; 85027; 86300

== ENCOUNTER 2024-05-31 09:46 | Outpatient (CLI) | payer OTHER, SELFPAY ==
--- NOTE | ~2024-05-31 | DEXA_ITS ---
Bone Density Report Name: WING MCCRACKEN Age: 83 Sex: Female Ethnicity: White Date of : 1940 Indication: postmenopausal osteoporosis; parental hip fracture; height loss; cancer; end stage renal disease; Referring Provider: WILLY COTTON Study: Bone densitometry was performed. Exam Date: May 31, 2024 Accession number: [id number] Bone Density: Region BMD T-score Z-score Classification AP Spine(L1-L4) 0.984 -0.6 2.3 Normal Femoral Neck (Left) 0.554 -2.7 -0.1 Osteoporosis Total Hip (Left) 0.614 -2.7 -0.4 Osteoporosis Femoral Neck (Right) 0.456 -3.5 -1.0 Osteoporosis Total Hip (Right) 0.638 -2.5 -0.2 Osteoporosis Total Hip Mean 0.626 -2.6 -0.3 Osteoporosis World Health Organization criteria for BMD impression classify patients as: Normal (T-score at or above -1.0), Osteopenia (T-score between -1.0 and -2.5), or Osteoporosis (T-score at or below -2.5). 10-year Fracture Risk: FRAX not reported because: Some T-score for Spine Total or Hip Total or Femoral Neck at or below -2.5 Previous Exams: Region Exam Age BMD T-score BMD Change BMD Change Date g/cm2 vs Baseline vs Previous AP Spine (L1-L4) 05/31/2024 83 0.984 -0.6 0.040 (4.3%)# -0.050 (-4.9%) 01/25/2022 81 1.035 -0.1 0.091 (9.6%)# 0.045 (4.6%)* 08/03/2019 79 0.989 -0.5 0.046 (4.8%)# 0.029 (3.0%)* 05/20/2017 76 0.960 -0.8 0.017 (1.8%)# -0.026 (-2.7%) 05/18/2015 74 0.987 -0.5 0.043 (4.6%)# 0.043 (4.6%)# 05/03/2013 72 0.944 -0.9 Total Hip(Left) 05/31/2024 83 0.614 -2.7 -0.185 (-23.2% -0.012 (-1.9%) 01/25/2022 81 0.626 -2.6 -0.173 (-21.7% -0.119 (-16.0% 08/03/2019 79 0.745 -1.6 -0.054 (-6.8%) -0.051 (-6.4%) 05/20/2017 76 0.796 -1.2 -0.003 (-0.3%) 0.037 (4.9%)* 05/18/2015 74 0.759 -1.5 -0.040 (-5.0%) -0.040 (-5.0%) 05/03/2013 72 0.799 -1.2 Total Hip(Right) 05/31/2024 83 0.638 -2.5 -0.232 (-26.7% -0.049 (-7.1%) 01/25/2022 81 0.686 -2.1 -0.184 (-21.1% -0.121 (-15.0% 08/03/2019 79 0.807 -1.1 -0.063 (-7.2%) 0.020 (2.5%) 05/20/2017 76 0.788 -1.3 -0.082 (-9.4%) -0.061 (-7.2%) 05/18/2015 74 0.849 -0.8 -0.021 (-2.4%) -0.021 (-2.4%) 05/03/2013 72 0.870 -0.6 *Denotes significance at 95% confidence level, LSC for AP Spine = 0.022 g/cm2, LSC for Total Hip = 0.027 g/cm2 # Denotes dissimilar scan types or analysis methods Clinical Information Provided by Patient: Parent has had a hip fracture Has used the following medications: Vitamin D Has the following medical conditions: Cancer, End stage renal disease Patient maximum height was 62 Menopause Age: 54 Drinks caffeinated beverages Onset of menses at age 10 Number of children 0 Impression: The patient has osteoporosis, based on the Right Femoral Neck T-score. The patient has risk factors, including: parental hip fracture. The BMD for the AP Spine (L1-L4) decreased, changing by -4.9% since the last DXA exam. The BMD for the Total Hip(Right) decreased, changing by -7.1% since the last DXA exam. Discussion: INCREASED RISK OF FRACTURE. BONE DENSITY IS UNDESIRABLY LOW AT ONE OR MORE SKELETAL SITES, CONSISTENT WITH POSTMENOPAUSAL OSTEOPOROSIS. This patient's lowest T-score meets the World Health Organization's (WHO) criteria for osteoporosis at one or more sites (T-score -2.5 or below). In untreated patients, the risk of osteoporotic fracture increases approximately two-fold for each 1.0 SD decrease in T-score. Low bone density is not the only risk factor for fracture; also consider factors such as patient's age, frailty or poor health, risk of falling, risk of injury, previous osteoporotic fracture, family history of osteoporosis, cigarette smoking, low body weight, etc. Not everyone with low bone mineral density has osteoporosis; osteomalacia and other metabolic bone disorders should also be considered. Patients who have osteoporosis should be evaluated for specific diseases and conditions (secondary causes) that may cause or contribute to bone loss. The [place] Association of Clinical Endocrinologists (AACE) and National Osteoporosis Foundation (NOF) recommend pharmacologic intervention for all postmenopausal women whose T-score is in this range. The patient should follow a healthful lifestyle (good nutrition with adequate calcium and vitamin D, and appropriate weight-bearing exercise). Follow-Up: Consider a repeat BMD and Vertebral Fracture Assessment (VFA) exam in 2 years or sooner if medically necessary, to reassess this patient's status. Reported by: ROSETTA on 05/31/2024 10:21:00 AM. Reviewed, dictated and finalized at location A.
--- OUTSIDE RECORDS SUMMARY | 2024-05-31 11:14 | XMS_ITS | Continuity of Care Document ---
Author Organization [facility] Address [id number] [place] [address] [place] [address] Phone Care Team Providers Care Remelt Sugar Boiler Name Role Phone [facility] Unavailable Unavail able Teresa Saunders Unavailable Unavailable Advance Directives Directive Yes / No Effective Date File Name No Information Encounters Encounter Description Practice Location Reason(s) For Visit Diagnoses Date Provider Providers Copied on Encounter [facility], [address], [place], [place], [id number], [place] tel:[phone] [facility] No Information 5 [facility] [address] [facility], [address], [place], [place], [id number] , [place]. tel:[phone] Referring Provider: Merrill Chavez, [facility] , [place], [address]. tel:[phone] g Provider: Teresa Saunders, [address] [place] [address], [address]. tel:[phone] Family History Family Member Type Diagnosis Age At Onset No Information Payers Payer name Insurance type Covered constitution party ID Authoriza tion(s) [employer] Plan CI [id number] Social History Type Description Quantity Date Captured [...]
--- OUTSIDE RECORDS SUMMARY | 2024-05-31 11:14 | XMS_ITS | Clinical Summary ---
Author Organization [facility] Address [address] [place] [id number] Phone Care Team Providers Care Proofing Machine Operator Name Role Phone Georgette Alva MD Primary Care Provider [phone] Allergies Active Allergy Reactions Criticality Noted Date Comments Alendronate Other (see comments) High 07/02/2021 Other: heartburn Epinephrine Anaphylaxis,Palpitalianet ion s High 2009 Says it makes her heart go crazy . Says she is aware that epinephrine makes your heart rate increase. Says it is a problem for her at the dentist office Reaction: tachycardia, Says it makes her heart go crazy . Says she is aware that epinephrine makes your heart rate increase. Says it is a problem for her at the dentist office Reaction: tachycardia, Says it makes her heart go crazy . Says she is aware that epinephrine makes your heart rate increase. Says it is a problem for her at the dentist office Says it makes her heart go crazy . Says she is aware that epinephrine makes your heart rate increase. Says it is a problem for her at the dentist office Iodine Hives,Rash High 01/23/2009 Other reaction(s): Redness Other reaction(s): Hives, Redness Lisinopril 07/02/2021 Prednisone Rash Low 07/29/2014 Other reaction(s): Redness Other reaction(s): Other (See Comments), Redness Face flushed and ears red when given it for bursitis in 2013. 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 Says she would be willing to try a steroid if the temporal artery biopsy shows a condition that would benefit from steroids Face flushed and ears red when given it for bursitis in 2013. 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 Says she would be willing to try a steroid if the temporal artery biopsy shows a condition that would benefit from steroids Medications Medication Sig Dispensed Refills Start Date End Date Status chlorthalidone (HYGROTON) 25 MG tablet One half tablet daily 0 11/05/2017 Active Cholecalciferol (VITAMIN D3) 2000 units tablet One tab daily 0 11/05/2017 Active aspirin (ST RON) 81 MG EC tablet One tab daily 0 11/05/2017 Active amLODIPine (NORVASC) 10 MG tablet TAKE 1 TABLET BY MOUTH DAILY (INCREASE IN STRENGTH) 01/30/2022 Active atorvastatin (LIPITOR) 40 MG tablet Take 40 mg by mouth 1 (one) time each day 01/07/2022 Active losartan (COZAAR) 50 MG tablet Take 50 mg by mouth 1 (one) time each day 01/03/2022 Active sotalol (BETAPACE) 80 MG tablet Take 40 mg by mouth in the morning and 40 mg before bedtime. 02/13/2022 Active Active Problems Problem Noted Date Diagnosed Date History of colonoscopy 02/22/2022 Chronic kidney disease stage 3B 07/02/2021 Overview (02/22/2022): OCT 2017 RENAL U/S-R 9.4 L 10.3- SOME CORTICAL THINNING BOTH KIDNEYS. NO HYDRONEPHROSIS. SMALL NONOBSTRUCTING BILATERALY RENAL STONES./ SILVIO <60%- CREAT 1.5-1.7 Coronary arteriosclerosis 07/02/2021 Overview (02/22/2022): rca 80-90% prox per pt august 2020- 2 stents- also has 50% blockage of a 3rd artery/ Obstructive sleep apnea 07/02/2021 Osteoporosis 07/02/2021 Overview (02/22/2022): 2015 OSTEOPENIA X 1 - WORSE TO 2016 OSTEOPOROSIS -BILAT FEMURS/ 2020- L HIP WORSE PER PT -NEG 2.5 Secondary hyperparathyroidism of renal origin Stone in kidney 07/02/2021 Overview (02/22/2022): U/S OCTOBER 2017 SMALL NONOBSTRUCTING Giant cell arteritis 07/02/2021 Overview (02/22/2022): WAS TX'D WITH PREDNISONE. Ventricular premature complex 07/02/2021 Overview (02/22/2022): ATENOLOL CHANGED TO SOTALOL AFTER HAVING SEVERE FATIGUE AND SLOW HR 40'S Anemia co-occurrent and due to chronic kidney disease stage 3 02/07/2021 Premature atrial contraction 02/04/2020 Congestive heart failure 02/03/2020 History of osteoporosis 02/03/2020 Acute kidney failure 11/26/2017 Chronic kidney disease 11/26/2017 Atherosclerosis of renal artery 11/26/2017 Essential (primary) hypertension 11/05/2017 Hemochromatosis 11/05/2017 Headache 11/05/2017 Malignant neoplasm of breast (female), unspecifi ed 08/26/2007 Overview (02/22/2022): Left breast cancer s/p BCT August of 2007. It was a T2, node negative estrogen receptor positive tumor.- Stage 2a She had adjuvant chemotherapy by Dr. Guzman in [place], Completed adjuvant radiation in November [address] Peter Cordova. She is on Arimidex, Immunizations Name Administration Dates Next Due Influenza Split High Dose Preservative Free IM 1 Influenza, Injectable, Quadrivalent 01/08/2017 Social History Tobacco Use Types Packs/Day Years Used Date Smoking Tobacco: Former Cigarettes 1.5 30 0 03/24/1958 - 03/24/1988 Smokeless Tobacco: Never Tobacco Cessation:Counseling Given: Not Answered Alcohol Use Standard Drinks/Week Comments Yes 0 (1 standard drink = 0.6 oz pure alcohol) Alcoholic Drinks/day: occasionally Sex and Gender Information Value Date Recorded Sex Assigned at Not on file Gender Identity Not on file Sexual Orientation Not on file Last Filed Vital Signs Vital Sign Reading Time Taken Comments Blood Pressure 134/70 02/27/2022 9:42 AM WOOD CARVER HAND Pulse 65 11/26/2017 12:01 AM CDT Temperature 36.1 C (97 F) 02/27/2022 9:42 AM WOOD CARVER HAND Respiratory Rate 18 02/27/2022 9:42 AM WOOD CARVER HAND Oxygen Saturation - - Inhaled Oxygen Concentration - - Weight 64 kg (141 lb) 02/27/2022 9:42 AM WOOD CARVER HAND Height 162.6 cm (5' 4 ) 02/27/2022 9:42 AM WOOD CARVER HAND Body Mass Index 24.2 02/27/2022 9:42 AM WOOD CAR[employer] HAND Plan of Treatment Health Maintenance Due Date Last Done Comments Pneumococcal PPSV23/PCV13 65 + Years / High and Highest Risk (1 of 4 - PCV) 07/13/1946 Influenza Vaccine (#1) 2023 Care Teams Proofing Machine Operator Relationship Specialty Start Date End Date Georgette Alva MD [address] [place] [address] PCP - General Internal Medicine 02/22/22
--- OUTSIDE RECORDS SUMMARY | 2024-05-31 11:14 | XMS_ITS | Clinical Summary ---
Author Organization [facility] Facility Address [address] [address] Care Team Providers Care Sheet Metal Layout Mechanic Name Role Phone Georgette Alva MD Primary Care Provider [phone] Allergies Active Allergy Reactions Criticality Noted Date Comments Alendronate 07/02/2021 Iodine 07/02/2021 Lisinopril 07/02/2021 Medications amLODIPine (NORVASC) 5 MG tablet Take 5 mg by mouth 1 (one) time each day Active aspirin (ST RON) 81 MG EC tablet Take 81 mg by mouth 1 (one) time each day Active cyanocobalamin (VITAMIN B-12) 1000 MCG tablet Take 100 mcg by mouth 1 (one) time each day Active atorvastatin (LIPITOR) 80 MG tablet Take 80 mg by mouth 1 (one) time each day Active losartan (COZAAR) 50 MG tablet Take 50 mg by mouth 1 (one) time each day Active clopidogrel (PLAVIX) 75 MG tablet Take 75 mg by mouth 1 (one) time each day Active cetirizine (ZyrTEC) 10 MG tablet Take 10 mg by mouth 1 (one) time each day Active Cholecalciferol (Vitamin D3) 25 MCG (1000 UT) capsule Take by mouth Active chlorthalidone 25 MG tablet Take 0.5 tablets (12.5 mg total) by mouth 1 (one) time each day 07/26/2021 Active sotalol (BETAPACE) 80 MG tablet Take 0.5 tablets (40 mg total) by mouth in the morning and 0.5 tablets (40 mg total) in the evening. 60 tablet 11 07/26/2021 Active Active Problems Problem Noted Date Diagnosed Date Chronic kidney disease stage 3B 07/02/2021 Overview (07/02/2021): OCT 2017 RENAL U/S-R 9.4 L 10.3- SOME CORTICAL THINNING BOTH KIDNEYS. NO HYDRONEPHROSIS. SMALL NONOBSTRUCTING BILATERALY RENAL STONES./ SILVIO <60%- CREAT 1.5-1.7 Stone in kidney 07/02/2021 Overview (07/02/2021): U/S OCTOBER 2017 SMALL NONOBSTRUCTING Giant cell arteritis 07/02/2021 Overview (07/02/2021): WAS TX'D WITH PREDNISONE. Hemochromatosis 07/02/2021 Overview (07/02/2021): phlebotomy q 6 months- dr. HENRY- FERRITIN > 170 / HEMOGLOBIN 12 Benign essential hypertension 07/02/2021 Osteoporosis 07/02/2021 Overview (07/02/2021): 2014 OSTEOPENIA X 1 - WORSE TO 2016 OSTEOPOROSIS -BILAT FEMURS/ 2020- L HIP WORSE PER PT -NEG 2.5 Secondary hyperparathyroidism of renal origin Ventricular premature complex 07/02/2021 Overview (07/02/2021): ATENOLOL CHANGED TO SOTALOL AFTER HAVING SEVERE FATIGUE AND SLOW HR 40'S Obstructive sleep apnea 07/02/2021 Malignant neoplasm of breast (female), unspecifi ed 07/02/2021 Coronary arteriosclerosis 07/02/2021 Overview (07/02/2021): rca 80-90% prox per pt august 2020- 2 stents- also has 50% blockage of a 3rd artery/ Family History Medical History Relation Comments Cancer Father Heart disease Mother ANEURYSM OF HEAR T 89 Relation Status Comments Father Mother Social History Tobacco Use Types Packs/Day Years Used Date Smoking Tobacco: Former Cigarettes Q uit: 11/03/1988 Smokeless Tobacco: Never Alcohol Use Standard Drinks/Week Comments Yes 0 (1 standard drink = 0.6 oz pure alcohol) occ glass of wine for special holidays Comments Unknown Sex and Gender Information Value Date Recorded Sex Assigned at Not on file Legal Sex Female 2:50 PM EDT Gender Identity Not on file Sexual Orientation Not on file Plan of Treatment Health Maintenance Due Date Last Done Comments Pneumococcal Vaccine: 65+ Ye ars (1 of 2 - PCV) 07/13/1946 Influenza Vaccine (#1) 2023 Hepatitis B Vaccine Aged Out No longe r eligible based on patient's age to complete this topic Insurance [employer] Care Teams Sheet Metal Layout Mechanic Relationship Specialty Start Date End Date Georgette Alva MD [address] [place] [address] PCP - General Family Medicine 07/03/21
--- OUTSIDE RECORDS SUMMARY | 2024-05-31 11:14 | XMS_ITS | Clinical Summary ---
Author Organization [facility] Address [address] [place] [address] Care Team Providers Care Automotive Service Director Name Role Phone Geoff Martinez MD Primary Care Provider Bry Martin MD Unavailable [phone] Allergies Active Allergy Reactions Criticality Noted Date Comments Iodine Hives,Redness 11/10/2017 Epinephrine Anaphylaxis High 11/10/2017 Says it makes her heart go crazy . Says she is aware that epinephrine makes your heart rate increase. Says it is a problem for her at the dentist office Prednisone Redness 11/10/2017 Face flushed and ears red when given it for bursitis in 2013. 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 Says she would be willing to try a steroid if the temporal artery biopsy shows a condition that would benefit from steroids Medications losartan 25 MG tablet Take 25 mg by mouth daily. Active chlorthalidone 25 MG tablet Take 25 mg by mouth daily. Active atenolol 50 MG tablet Take 50 mg by mouth nightly. Active aspirin EC (ASPIRIN) 81 MG EC tablet Take 81 mg by mouth nightly. Active Cholecalciferol (VITAMIN D3) 2000 units Tab Activ e cetirizine 10 MG tablet Take 10 mg by mouth daily as needed for Allergies. Active acetaminophen 325 MG tablet Take 325 mg by mouth every 6 (six) hours as needed for Pain. Active Family History * Patient is adopted Relation Status Comments Father Other Mother Other Social History Tobacco Use Types Packs/Day Years Used Date Smoking Tobacco: Former Cigarettes 1 30 1 959 - 1988 Smokeless Tobacco: Never Alcohol Use Standard Drinks/Week Comments Yes 0 (1 standard drink = 0.6 oz pur e alcohol) drinks several drinks a year Comments No Sex and Gender Information Value Date Recorded Sex Assigned at Not on file Legal Sex Female 12:37 PM CDT Gender Identity Not on file Sexual Orientation Not on file Last Filed Vital Signs Vital Sign Reading Time Taken Comments Blood Pressure 167/52 11/13/2017 1:41 PM CDT Pulse 54 11/13/2017 1:30 PM CDT Temperature 36.5 C (97.7 F) 11/13/2017 1:30 PM CDT Respiratory Rate 18 11/13/2017 1:30 PM CDT Oxygen Saturation 100% 11/13/2017 1:30 PM CDT Inhaled Oxygen Concentration - - Weight 84.5 kg (186 lb 3 oz) 11/06/2017 12:01 AM CDT Height 156.2 cm (5' 1.5 ) 11/06/2017 12:01 AM CD T Body Mass Index 34.61 11/06/2017 12:01 AM CDT Plan of Treatment Health Maintenance Due Date Last Done Comments DTaP, Tdap and Td Vaccines ( 1 - Tdap) 07/13/1958 Zoster Vaccines (1 of 2) 07/13/1989 Dexa Scan (General) 07/13/2004 Pneumococcal Vaccine: 65+ Ye ars (1 of 1 - PCV) 07/13/2004 RSV Immunization or 60+ Years (1 - 1-dose 75+ series) 07/13/2014 COVID-19 Vaccine ( - 2023-2 5 season) 2023 Influenza Adult (#1) 2023 Meningococcal B Vaccine Aged Out No l onger eligible based on patient's age to complete this topic Meningococcal Vaccine Aged Out No jyoa yolanda eligible based on patient's age to complete this topic RSV Immunizations Under 20 Months Aged Out No longer eligible based on patient's age to complete this topic Insurance AETNA [facility] Advance Directives * Full Code (Latest Code Status on File) Date Activated Date Inactivated Comments 11/13/2017 1:11 PM 11/13/2017 3:44 PM Care Teams Automotive Service Director Relationship Specialty Start Date End Date Geoff Martinez MD [address] [place] [address] PCP - General FAMILY PRACTICE 11/10/17 Bry Martin MD [address] [place] [address] Referring Physician NEPHROLOGY 11/10/17
--- OUTSIDE RECORDS SUMMARY | 2024-05-31 11:14 | XMS_ITS | Encounter Summary ---
Author Organization [employer] [facility] Address [address] [place] [address] Phone Care Team Providers Care Sales Agent Marine Insurance Name Role Phone Georgette Alva MD Primary Care Provider [phone] Encounter Details Date Type Department Care Team (Late st Contact Info) Description 07/26/2021 Documentation Only [place] [email or web address] [address] [address] Devi Kohli MD [address] [place] [address]. [place] [address] Social History Tobacco Use Types Packs/Day Years [...] on file Sexual Orientation Not on file documented as of this encounter Plan of Treatment Scheduled Orders Name Type Priority Associated Diagnoses Orde r Schedule Renal function panel Lab Routine Secondary hyperparathyroidism of renal origin (HCC) Chronic kidney disease stage 3B (HCC) Stone in kidney Temporal arteritis (HCC) Hemochromatosis, not otherwise specified Benign essential hypertension Osteoporosis Ventricular premature beats Obstructive sleep apnea Malignant neoplasm of female breast <Unspecified side> (HCC) Coronary arteriosclerosis, not otherwise specified Expected: 07/26/2021, Expires: 10/26/2021 Vitamin D 25 hydroxy Lab Routine Secondary hyperparathyroidism of renal origin (HCC) Chronic kidney disease stage 3B (HCC) Stone in kidney Temporal arteritis (HCC) Hemochromatosis, not otherwise specified Benign essential hypertension Osteoporosis Ventricular premature beats Obstructive sleep apnea Malignant neoplasm of female breast <Unspecified side> (HCC) Coronary arteriosclerosis, not otherwise specified Expected: 07/26/2021, Expires: 10/26/2021 PTH, intact Lab Routine Secondary hyperparathyroidism of renal origin (HCC) Chronic kidney disease stage 3B (HCC) Stone in kidney Temporal arteritis (HCC) Hemochromatosis, not otherwise specified Benign essential hypertension Osteoporosis Ventricular premature beats Obstructive sleep apnea Malignant neoplasm of female breast <Unspecified side> (HCC) Coronary arteriosclerosis, not otherwise specified Expected: 07/26/2021, Expires: 10/26/2021 Urinalysis with microscopic Lab Routine Secondary hyperparathyroidism of renal origin (HCC) Chronic kidney disease stage 3B (HCC) Stone in kidney Temporal arteritis (HCC) Hemochromatosis, not otherwise specified Benign essential hypertension Osteoporosis Ventricular premature beats Obstructive sleep apnea Malignant neoplasm of female breast <Unspecified side> (HCC) Coronary arteriosclerosis, not otherwise specified Expected: 07/26/2021, Expires: 10/26/2021 documented as of this encounter Visit Diagnoses Diagnosis Secondary hyperparathyroidism of renal origin (HCC)- Primary Secondary hyperparathyroidism of renal origin Chronic kidney disease stage 3B (HCC) Stone in kidney Giant cell arteritis (HCC) Giant cell arteritis Hemochromatosis, not otherwise specified Benign essential hypertension Osteoporosis Ventricular premature beats Obstructive sleep apnea Malignant neoplasm of female breast <Unspecified side> Coronary arteriosclerosis, not otherwise specified Vitamin D deficiency, not otherwise specified documented in this encounter Care Teams Sales Agent Marine Insurance Relationship Specialty Start Date End Date Georgette Alva MD [address] [place] [address] PCP - General Family Medicine 07/03/21 documented as of this encounter
--- OUTSIDE RECORDS SUMMARY | 2024-05-31 11:14 | XMS_ITS | Clinical Summary ---
Author Organization [facility] Address [address] [place] [address] Phone Care Team Providers Care Director Of It Operations Name Role Phone Georgette Alva MD Primary Care Provider [phone] Allergies Active Allergy Reactions Criticality Noted Date Comments Epinephrine Palpitations,Anaphylaxis High 11/10/2017 Reaction: tachycardia, Says it makes her heart go crazy . Says she is aware that epinephrine makes your heart rate increase. Says it is a problem for her at the dentist office Epinephrine Hcl Palpitations Low 2009 Iodine Hives,Rash High 01/23/2009 Prednisone Other (See Comments),Rash Low 07/29/2014 Medications chlorthalidone (HYGROTON) 25 mg tabletIndicatio ns:pt taking 12.5 mg 12.5 mg daily. 8 Active FLUAD 9400-2489, 65 YR UP,,PF, 45 mcg (15 mcg x 3)/0.5 mL Syringe syringe PHARMACIST ADM 0.5ML IM UTD 0 8 Active dextromethorpha n-guaiFENesin (MUCINEX DM) 30-600 mg Tablet Sustained Release 12HR Take 1 Tablet by mouth every 12 hours as needed. Active vitamin B complex (B COMPLEX 1 ORAL) Take 1 Tablet by mouth. Active aspirin (ECOTRIN EC) 81 mg Tablet, Delayed Release (E.C.) Take 81 mg by mouth daily. Active losartan (COZAAR) 50 mg tablet Take 50 mg by mouth daily. Active sotalol (BETAPACE) 40 mg Tablet Take 20 mg by mouth 2 times daily. Active acetaminophen (TYLENOL) 500 mg tablet Take 500 mg by mouth. Active amLODIPine (NORVASC) 10 mg tablet TAKE 1 TABLET BY MOUTH DAILY (INCREASE IN STRENGTH) 2 Active cholecalciferol , Vitamin D3, 50 mcg (2,000 unit) Tablet Take 1 Tablet by mouth daily. Active atorvastatin 40 mg tablet Take 20 mg by mouth daily. Active Active Problems Patient Care Coordination No te Formatting of this note migh t be different from the original. Primary Care: Shadia Giron DO Referring Provider: Tita Toth MD [address] [facility] [address] [place] [address] Other: Problem Noted Date Diagnosed Date Anemia of chronic renal failure, stage 3 (modera te) 02/07/2021 PAC (premature atrial contraction) 02/04/2020 CHF (congestive heart failure) 02/03/2020 History of osteoporosis 02/03/2020 Malignant neoplasm of female breast 08/26/2007 Overview (07/24/2012): Left breast cancer s/p BCT August of 2007. It was a T2, node negative estrogen receptor positive tumor.- Stage 2a She had adjuvant chemotherapy by Dr. Guzman in [place], Completed adjuvant radiation in November [address] Peter Cordova. She is on Arimidex, Hemochromatosis Renal insufficiency Bronze diabetes Giant cell arteritis H/O colonoscopy Encounters Date Type Department Care Team Description 05/18/2024 External Device Data STL ABSTRACTION Provider, Abstract 04/21/2024 External Device Data STL ABSTRACTION Provider, Abstract 04/16/2024 9:00 AM LENS SILVERER Office Visit [facility] [place] [address] [place] [address] Allen Samson MD Malignant neoplasm of left breast in female, estrogen receptor positive, unspecified site of breast (CMS/HCC) (Primary Dx) 04/15/2024 External Device Data STL ABSTRACTION Provider, Abstract 04/07/2024 Orders Only [facility] - [place] [address] [place] [address] Allen Samson MD 04/06/2024 Orders Only [facility] - [place] [address] [place] [address] Allen Samson MD from Last 3 Months Immunizations Immunization Administration Dates Next Due INFLUENZA VACCINE HIGH DOSE QUADRIVALENT 65 YR UP PF IM 12/31/2022,12/31/2021 Family History * Patient is adopted Medical History Relation Name Comments No Known Problems Father No Known Problems Mother Relation Name Status Comments Father Mother Social History Tobacco Use Types Packs/Day Years Used Date Smoking Tobacco: Former Smokeless Tobacco: Never Tobacco Cessation:Counseling Given: Not Answered Comments:quit 1988 Alcohol Use Standard Drinks/Week Comments Yes 0 (1 standard drink = 0.6 oz pur e alcohol) rare Comments No Sex and Gender Information Value Date Recorded Sex Assigned at Not on file Legal Sex Female 5:42 AM LENS SILVERER Gender Identity Not on file Sexual Orientation Not on file Occupation Industry Job Start Date Job End Date Not on file Not on file Not on file Not on file Last Filed Vital Signs Vital Sign Reading Time Taken Comments Blood Pressure 149/78 04/16/2024 8:51 AM LENS SILVERER Pulse 66 04/16/2024 8:48 AM LENS SILVERER Temperature 36.5 C (97.7 F) 04/16/2024 8:48 AM LENS SILVERER Respiratory Rate 15 04/16/2024 8:48 AM LENS SILVERER Oxygen Saturation 98% 04/16/2024 8:48 AM LENS SILVERER Inhaled Oxygen Concentration - - Weight 66.9 kg (147 lb 6.4 oz) 04/16/2024 8:48 A M LENS SILVERER Height 154.9 cm (5' 1 ) 12/19/2021 9:56 AM CDT Body Mass Index 27.85 12/19/2021 9:56 AM CDT Plan of Treatment Upcoming Encounters Date Type Department Care Team (Late st Contact Info) Description 10/22/2024 9:00 AM CDT Office Visit [facility] - [place] [address] [facility] [address] [place] [address] Allen Samson MD [address] [facility] [address] [place] [address] Health Maintenance Due Date Last Done Comments DTAP/TDAP/TD VACCINES (1 - Tdap) 07/13/1958 ZOSTER VACCINE (1 of 2) 07/13/1989 OSTEOPOROSIS SCREENING 07/13/2004 RSV VACCINE (60+ or ) (1 - 1-dose 75+ series) 07/13/2014 INFLUENZA VACCINE (#1) 2023 3, 12/31/2021, 12/31/2021, Additional history exists Preventative Visit- Commercial 03/24/2024 COLORECTAL SCREENING Discontinued 11/02/2012 Colorectal Cancer Screening Discontinued PNEUMOCOCCAL VACCINE 50+ YEARS Completed 04/27/2015 , 02/21/2006 FIT-DNA Q 3 years Discontinued FIT/FOBT Q 1 year Discontinued Flex Sig/CT Colonography Q 5 years Discontinued Procedures Procedure Name Priority Date/Time Associated Diagnosis Comments CANCER ANTIGEN 15-3 Routine 04/07/2024 1 2:19 PM LENS SILVERER COMPREHENSIVE METABOLIC PANEL Routine 04/05/2024 1:22 PM LENS SILVERER CBC WITH DIFFERENTIAL Routine 04/05/2024 11:19 AM LENS SILVERER from Last 3 Months Results * CANCER ANTIGEN 15-3 (04/07/2024 12:19 PM LENS SILVERER) Blood Allen Samson MD CHEMISTRY ORDERABLES Final Resu lt * COMPREHENSIVE METABOLIC PANEL (04/05/2024 1:22 PM LENS SILVERER) Blood Allen Samson MD CHEMISTRY ORDERABLES Final Resu lt * CBC WITH DIFFERENTIAL (04/05/2024 11:19 AM LENS SILVERER) Blood us Allen Samson MD HEMATOLOGY ORDERABLES Final Res ult from Last 3 Months Insurance AETNA CHOICE POS II AETNA CHOICE POS II RX [facility] Advance Directives For more information, please contact: [phone] Documents on File Type Date Recorded Patient Rag Inspector Expl anation Advance Directive POA 07/24/2012 8:56 AM Ad cyr Directive POA Advance Directive Living Will 07/24/2012 8:56 AM Care Teams Director Of It Operations Relationship Specialty Start Date End Date Georgette Avla MD [address] [place] [address] PCP - General Family Practice 11/01/19
== END 2024-05-31 09:47 | disposition home or self-care (01) ==
LOC: ANHIMG 09:49
PROVIDERS: PCP Family Medicine; Visit Provider Family Medicine
DX: M81.0 Age-related osteoporosis without current pathological fracture (principal); M85.89 Other specified disorders of bone density and structure, multiple sites; Z78.0 Asymptomatic menopausal state
CPT/HCPCS: 77080

== ENCOUNTER 2024-06-14 08:39 | Outpatient (CLI) | payer OTHER, SELFPAY ==
--- OUTSIDE RECORDS SUMMARY | 2024-06-14 09:10 | XMS_ITS | Clinical Summary ---
Author Organization [facility] Facility Address [address] [address] Care Team Providers Care Insurance Job Titles Name Role Phone Georgette Alva MD Primary Care Provider Allergies Active Allergy Reactions Criticality Noted Date [...] complete this topic Insurance AETNA Care Teams Insurance Job Titles Relationship Specialty Start Date End Date Georgette Alva MD [address] [place] [address] PCP - General Family Medicine 07/03/21
--- OUTSIDE RECORDS SUMMARY | 2024-06-14 09:10 | XMS_ITS | Clinical Summary ---
Author Organization [facility] Address [address] [place] [address] Phone Care Team Providers Care Hot Stick Man Name Role Phone Georgette Alva MD Primary Care Provider [phone] Allergies Active Allergy Reactions Criticality Noted Date [...] had adjuvant chemotherapy by Dr. Guzman in [place], Completed adjuvant radiation in November 2007 by [...] Comments Blood Pressure 134/70 02/27/2022 9:42 AM MATRIX BATH OPERATOR Pulse 65 11/26/2017 12:01 AM CDT Temperature 36.1 C (97 F) 02/27/2022 9:42 AM MATRIX BATH OPERATOR Respiratory Rate 18 02/27/2022 9:42 AM MATRIX BATH OPERATOR Oxygen Saturation - - Inhaled Oxygen Concentration - - Weight 64 kg (141 lb) 02/27/2022 9:42 AM MATRIX BATH OPERATOR Height 162.6 cm (5' 4 ) 02/27/2022 9:42 AM MATRIX BATH OPERATOR Body Mass Index 24.2 02/27/2022 9:42 AM MATRIX BATH OPERATOR Plan of Treatment Health Maintenance Due Date Last Done Comments Pneumococcal PPSV23/PCV13 65 + Years / High and Highest Risk (1 of 4 - PCV) 07/13/1946 Influenza Vaccine (#1) 2023 Care Teams Hot Stick Man Relationship Specialty Start Date End Date Georgette Alva MD [address] [place] [address] PCP - General Internal Medicine 02/22/22
--- OUTSIDE RECORDS SUMMARY | 2024-06-14 09:10 | XMS_ITS | Continuity of Care Document ---
Author Organization [facility] Address [address] [place] [address] [place] [address] Phone Care Team Providers Care Chipping Machine Operator Name Role Phone [facility] Unavailable Unavail able Teresa Saunders Unavailable Unavailable Advance Directives Directive Yes / No Effective Date File Name No Information Encounters Encounter Description Practice Location Reason(s) For Visit Diagnoses Date Provider Providers Copied on Encounter [facility], [address], [place], [place], [id number], [place] tel:[phone] [facility] No Information 5 [facility] [address] [facility], [address], [place], [place], [id number] , [place]. tel:[phone] Referring Provider: Merrill Chavez, [facility] , [place], [address]. tel:[phone] g Provider: Teresa Saunders, [address] [place] [address], [address]. tel:[phone] Family History Family Member Type Diagnosis Age At Onset No Information Payers Payer name Insurance type Covered alliance party ID Authoriza tion(s) [employer] Plan CI [id number] Social History Type Description Quantity Date Captured [...]
--- OUTSIDE RECORDS SUMMARY | 2024-06-14 09:10 | XMS_ITS | Clinical Summary ---
Author Organization [facility] Address [address] [place] [address] Phone Care Team Providers Care Biofuels Production Manager Name Role Phone Georgette Alva MD Primary Care Provider [phone] Allergies Active Allergy Reactions Criticality Noted Date [...] mg 12.5 mg daily. 8 Active FLUAD [id number], 64 YR UP,,PF, 45 mcg (15 mcg [...] DO Referring Provider: Tita Toth MD [address] [facility] [address] [place] [address] Other: Problem Noted Date Diagnosed Date Anemia [...] had adjuvant chemotherapy by Dr. Guzman in [place], Completed adjuvant radiation in November [address] Peter Cordova. She is on Arimidex, Hemochromatosis Renal insufficiency Bronze diabetes Giant cell arteritis H/O colonoscopy Encounters Date Type Department Care Team Description 05/18/2024 External Device Data STL ABSTRACTION Provider, Abstract 04/21/2024 External Device Data STL ABSTRACTION Provider, Abstract 04/16/2024 9:00 AM FINANCIAL RESERVE CLERK Office Visit [facility] Oncology and H[facility]ology - [place] [address] [place] [phone] Allen Samson MD Malignant neoplasm of left breast in female, estrogen receptor positive, unspecified site of breast (CMS/HCC) (Primary Dx) 04/15/2024 External Device Data STL ABSTRACTION Provider, Abstract 04/07/2024 Orders Only [facility] Oncology [facility] - [place] [address] [place] [address] Allen Samson MD 04/06/2024 Orders Only [facility] Oncology [facility] H[facility]ology - [place] [address] [place] [address] Allen Samson MD from Last [...] on file Legal Sex Female 5:42 AM FINANCIAL RESERVE CLERK Gender Identity Not on file Sexual Orientation Not on file Occupation Industry Job Start Date Job End Date Not on file Not on file Not on file Not on file Last Filed Vital Signs Vital Sign Reading Time Taken Comments Blood Pressure 149/78 04/16/2024 8:51 AM FINANCIAL RESERVE CLERK Pulse 66 04/16/2024 8:48 AM FINANCIAL RESERVE CLERK Temperature 36.5 C (97.7 F) 04/16/2024 8:48 AM FINANCIAL RESERVE CLERK Respiratory Rate 15 04/16/2024 8:48 AM FINANCIAL RESERVE CLERK Oxygen Saturation 98% 04/16/2024 8:48 AM FINANCIAL RESERVE CLERK Inhaled Oxygen Concentration - - Weight 66.9 kg (147 lb 6.4 oz) 04/16/2024 8:48 A M FINANCIAL RESERVE CLERK Height 154.9 cm (5' 1 ) 12/19/2021 9:56 AM CDT Body Mass Index 27.85 12/19/2021 9:56 AM CDT Plan of Treatment Upcoming Encounters Date Type Department Care Team (Late st Contact Info) Description 10/22/2024 9:00 AM CDT Office Visit [facility] Oncology and Hematology - [place] [address] [facility] [address] [place] [address] Allen Samson MD [address] [facility] [address] [place] [address] Health Maintenance Due Date Last [...] ANTIGEN 15-3 Routine 04/07/2024 1 2:19 PM FINANCIAL RESERVE CLERK COMPREHENSIVE METABOLIC PANEL Routine 04/05/2024 1:22 PM FINANCIAL RESERVE CLERK CBC WITH DIFFERENTIAL Routine 04/05/2024 11:19 AM FINANCIAL RESERVE CLERK from Last 3 Months Results * CANCER ANTIGEN 15-3 (04/07/2024 12:19 PM FINANCIAL RESERVE CLERK) Blood Allen Samson MD CHEMISTRY ORDERABLES Final Resu lt * COMPREHENSIVE METABOLIC PANEL (04/05/2024 1:22 PM FINANCIAL RESERVE CLERK) Blood Allen Samson MD CHEMISTRY ORDERABLES Final Resu lt * CBC WITH DIFFERENTIAL (04/05/2024 11:19 AM FINANCIAL RESERVE CLERK) Blood us Allen Samson MD HEMATOLOGY ORDERABLES Final Res ult from Last 3 Months Insurance AETNA CHOICE POS II AETNA CHOICE POS II RX [facility] Advance Directives For more information, please contact: [phone] Documents on File Type Date Recorded Patient Senior Quality Assurance Analyst Expl anation Advance Directive POA 07/24/2012 8:56 AM Ad cyr Directive POA Advance Directive Living Will 07/24/2012 8:56 AM Care Teams Biofuels Production Manager Relationship Specialty Start Date End Date Georgette Alva MD [address] [place] [address] PCP - General Family Practice 11/01/19
--- OUTSIDE RECORDS SUMMARY | 2024-06-14 09:10 | XMS_ITS | Encounter Summary ---
Author Organization [employer] [facility] Address [address] [place] [address] Phone Care Team Providers Care Cost Consultant Name Role Phone Georgette Alva MD Primary Care Provider [phone] Encounter Details Date Type Department Care Team (Late st Contact Info) Description 07/26/2021 Documentation Only [place] [facility] [address] [address] Devi Kohli MD [address] [place] [address]. [place] [address] Social History Tobacco Use Types Packs/Day Years [...] specified documented in this encounter Care Teams Cost Consultant Relationship Specialty Start Date End Date Georgette Alva MD [address] [place] [address] PCP - General Family Medicine 07/03/21 documented as of this encounter
--- OUTSIDE RECORDS SUMMARY | 2024-06-14 09:10 | XMS_ITS | Clinical Summary ---
Author Organization [facility] Address [address] [place] [address] Care Team Providers Care Continuous Linter Drier Operator Name Role Phone Geoff Martinez MD Primary Care Provider Bry Martin MD Unavailable [phone] Allergies Active Allergy Reactions Criticality Noted Date [...] this topic Meningococcal Vaccine Aged Out No joya yolanda eligible based on patient's age to complete this topic RSV Immunizations Under 20 Months Aged Out No longer eligible based on patient's age to complete this topic Insurance AETNA [facility] Advance Directives * Full Code (Latest Code Status on File) Date Activated Date Inactivated Comments 11/13/2017 1:11 PM 11/13/2017 3:44 PM Care Teams Continuous Linter Drier Operator Relationship Specialty Start Date End Date Geoff Martinez MD [address] [place] [address] PCP - General FAMILY PRACTICE 11/10/17 Bry Martin MD [address] [facility] [place] [address] Referring Physician NEPHROLOGY 11/10/17
[2024-06-14 09:36] LABS: Albumin Level 3.6 g/dL (3.5-5.1); Anion Gap 9 mmol/L (4-12); Blood Urea Nitrogen 23 mg/dL (7-17); Calcium 9.2 mg/dL (8.4-10.2); Carbon Dioxide 23 mmol/L (22-30); Chloride 110 mmol/L (98-107); Estimated Glomerular Filt Rate 27; Glucose 94 mg/dL (65-110); Potassium 4.3 mmol/L (3.4-5.0); Sodium 142 mmol/L (137-145)
[2024-06-14 09:44] LABS: Parathyroid Intact 61.4 pg/mL (14.5-75.2)
[2024-06-14 10:02] LABS: Creatinine Urine 82.8 mg/dL; Total Protein Urine Random 167 mg/dL; Ur Ttl Prot Creatinine Ratio 2.02 mg/mg (0-0.20)
[2024-06-14 10:12] LABS: Vitamin D 25 Hydroxy 41.3 ng/mL
== END 2024-06-14 08:40 | disposition home or self-care (01) ==
LOC: ANHLAB 08:40
PROVIDERS: PCP Family Medicine; Visit Provider Internal Medicine Nephrology
DX: I12.9 Hypertensive chronic kidney disease with stage 1 through stage 4 chronic kidney disease, or unspecified chronic kidney disease (principal); N18.4 Chronic kidney disease, stage 4 (severe); N25.81 Secondary hyperparathyroidism of renal origin; E55.9 Vitamin D deficiency, unspecified
CPT/HCPCS: 36415; 80069; 82306; 82570; 83970; 84156

== ENCOUNTER 2024-08-02 09:35 | Outpatient (CLI) | payer OTHER, SELFPAY ==
--- OUTSIDE RECORDS SUMMARY | 2024-08-02 09:38 | XMS_ITS | Clinical Summary ---
Author Organization [facility] Address [address] [place] [address] Care Team Providers Care Loading Shovel Oiler Name Role Phone Geoff Martinez MD Primary Care Provider [phone] Bry Martin MD Unavailable [phone] Allergies Active Allergy Reactions Criticality Noted Date [...] Smoking Tobacco: Former Cigarettes 1 30 1 9 - 1988 Smokeless Tobacco: Never Alcohol Use [...] Td Vaccines ( 1 - Tdap) 07/13/1958 Pneumococcal Vaccine: 50+ Ye ars (1 of 1 - PCV) 07/13/1989 Zoster Vaccines (1 of 2) 07/13/1989 Dexa Scan (General) 07/13/2004 RSV Immunization or 60+ Years (1 - 1-dose 75+ series) 07/13/2014 COVID-19 Vaccine ( - 2023-2 5 season) 2023 Meningococcal B Vaccine Aged Out No l onger eligible based on patient's age to complete this topic Meningococcal Vaccine Aged Out No joya yolanda eligible based on patient's age to complete this topic RSV Immunizations Under 20 Months Aged Out No longer eligible based on patient's age to complete this topic Insurance [facility] Advance Directives * Full Code (Latest Code Status on File) Date Activated Date Inactivated Comments 11/13/2017 1:11 PM 11/13/2017 3:44 PM Care Teams Loading Shovel Oiler Relationship Specialty Start Date End Date Geoff Martinez MD [address] [place] [address] PCP - General FAMILY PRACTICE 11/10/17 Bry Martin MD [address] [place] [address] Referring Physician NEPHROLOGY 11/10/17
--- OUTSIDE RECORDS SUMMARY | 2024-08-02 09:38 | XMS_ITS | Continuity of Care Document ---
Author Organization [facility] Address [address] [place] [address] [place] [address] Phone Care Team Providers Care Retail Delivery Driver Name Role Phone [facility] Unavailable Unavail able Teresa Saudners Unavailable Unavailable Advance Directives Directive Yes / No Effective Date File Name No Information Encounters Encounter Description Practice Location Reason(s) For Visit Diagnoses Date Provider Providers Copied on Encounter [facility], [address], [place], [place], [id number], [place] tel:[phone] [facility] No Information 5 [facility] [address] [facility], [address], [place], [place], [id number] , [place]. [phone] Referring Provider: Merrill Chavez, [facility] , [place], [address]. tel:[phone] g Provider: Teresa Saunders, [address] [place] [address], [address]. tel:[phone] Family History Family Member Type Diagnosis Age At Onset No Information Payers Payer name Insurance type Covered alliance party ID Authoriza tion(s) [employer] Plan CI [id number] Social History Type Description Quantity Date Captured [...]
--- OUTSIDE RECORDS SUMMARY | 2024-08-02 09:38 | XMS_ITS | Clinical Summary ---
Author Organization [facility] Address [address] [address] Care Team Providers Care Report Manager Name Role Phone Georgette Alva MD Primary Care Provider [phone] Allergies Active Allergy Reactions Criticality Noted Date [...] Due Date Last Done Comments Pneumococcal Vaccine: 50+ Ye ars (1 of 2 - PCV) 07/13/1958 Influenza Vaccine (Season Ended) 2024 Hepatitis B Vaccine Aged Out No longe r eligible based on patient's age to complete this topic Insurance A[employer]na Commercial Care Teams Report Manager Relationship Specialty Start Date End Date Georgette Alva MD [address] [place] [address] PCP - General Family Medicine 07/03/21
--- OUTSIDE RECORDS SUMMARY | 2024-08-02 09:38 | XMS_ITS | Clinical Summary ---
Author Organization [facility] Address [address] [place] [address] Phone Care Team Providers Care Java Programmer Analyst Name Role Phone Georgette Alva MD Primary Care Provider [phone] Allergies Active Allergy Reactions Criticality Noted Date [...] condition that would benefit from steroids Medications chlorthalidone (HYGROTON) 25 MG tablet One half [...] sleep apnea 07/02/2021 Osteoporosis 07/02/2021 Overview (02/22/2022): 2014 OSTEOPENIA X 1 - WORSE TO [...] had adjuvant chemotherapy by Dr. Guzman in [place], Completed adjuvant radiation in November [address] Peter Cordova. She is on Arimidex, Immunizations Immunization Administration Dates Next Due Influenza Split High Dose Preservative Free IM 1 Influenza, Injectable, Quadrivalent 01/08/2017 Social History Tobacco Use Types Packs/Day Years Used Date Smoking Tobacco: Former Cigarettes 1.5 30 0 03/24/1958 - 03/24/1988 Smokeless Tobacco: Never Tobacco Cessation:Counseling Given: Not Answered Alcohol Use Standard Drinks/Week Comments Yes 0 (1 standard drink = 0.6 oz pure alcohol) Alcoholic Drinks/day: occasionally Comments Unknown Sex and Gender Information Value Date Recorded Sex Assigned at Not on file Legal Sex Female 8:15 AM MST Gender Identity Not on file Sexual Orientation Not on file Last Filed Vital Signs Vital Sign Reading Time Taken Comments Blood Pressure 134/70 02/27/2022 9:42 AM CAUSTIC LIQUOR MAKER Pulse 65 11/26/2017 12:01 AM CDT Temperature 36.1 C (97 F) 02/27/2022 9:42 AM CAUSTIC LIQUOR MAKER Respiratory Rate 18 02/27/2022 9:42 AM CAUSTIC LIQUOR MAKER Oxygen Saturation - - Inhaled Oxygen Concentration - - Weight 64 kg (141 lb) 02/27/2022 9:42 AM CAUSTIC LIQUOR MAKER Height 162.6 cm (5' 4 ) 02/27/2022 9:42 AM CAUSTIC LIQUOR MAKER Body Mass Index 24.2 02/27/2022 9:42 AM CAUSTIC LIQUOR MAKER Plan of Treatment Health Maintenance Due Date Last Done Comments Pneumococcal PPSV23/PCV13 65 + Years / Low and Medium Risk (1 of 4 - PCV) 07/13/1989 Influenza Vaccine (Season Ended) 2024 Insurance AETNA Care Teams Java Programmer Analyst Relationship Specialty Start Date End Date Georgette Alva MD [address] [place] [address] PCP - General Internal Medicine 02/22/22
--- OUTSIDE RECORDS SUMMARY | 2024-08-02 09:38 | XMS_ITS | Encounter Summary ---
Author Organization [facility] Address [address] [place] [address] Phone Care Team Providers Care Admissions Representative Name Role Phone Georgette Alva MD Primary Care Provider [phone] Encounter Details Date Type Department Care Team (Late st Contact Info) Description 07/26/2021 Documentation Only [email or web address] [address] [address] Devi Kohli MD [address] [place] [address]. [place] [address] Social History Tobacco Use Types Packs/Day Years [...] specified documented in this encounter Care Teams Admissions Representative Relationship Specialty Start Date End Date Georgette Alva MD [address] [place] [address] PCP - General Family Medicine 07/03/21 documented as of this encounter
--- OUTSIDE RECORDS SUMMARY | 2024-08-02 09:38 | XMS_ITS | Clinical Summary ---
Author Organization [facility] Address [address] [place] [address] Phone Care Team Providers Care Commercial Collections Driver Name Role Phone Georgette Alva MD Primary Care Provider [phone] Allergies Active Allergy Reactions Criticality Noted Date [...] mg 12.5 mg daily. 8 Active FLUAD [id number], 64 YR UP,,PF, 45 mcg (15 mcg [...] different from the original. Primary Care: Shadia Giron, Referring Provider: Tita Toth MD [address] [facility] [address] [place] [address] Other: Problem Noted Date Diagnosed Date Anemia [...] had adjuvant chemotherapy by Dr. Guzman in [place], Completed adjuvant radiation in [place] [address] Peter Cordova. She is on Arimidex, Hemochromatosis Renal insufficiency Bronze diabetes Giant cell arteritis H/O colonoscopy Encounters Date Type Department Care Team Description 05/18/2024 External Device Data STL ABSTRACTION Provider, Abstract from Last 3 Months Immunizations Immunization Administration [...] on file Legal Sex Female 5:42 AM HYDRATE THICKENER OPERATOR Gender Identity Not on file Sexual Orientation Not on file Occupation Industry Job Start Date Job End Date Not on file Not on file Not on file Not on file Last Filed Vital Signs Vital Sign Reading Time Taken Comments Blood Pressure 149/78 04/16/2024 8:51 AM HYDRATE THICKENER OPERATOR Pulse 66 04/16/2024 8:48 AM HYDRATE THICKENER OPERATOR Temperature 36.5 C (97.7 F) 04/16/2024 8:48 AM HYDRATE THICKENER OPERATOR Respiratory Rate 15 04/16/2024 8:48 AM HYDRATE THICKENER OPERATOR Oxygen Saturation 98% 04/16/2024 8:48 AM HYDRATE THICKENER OPERATOR Inhaled Oxygen Concentration - - Weight 66.9 kg (147 lb 6.4 oz) 04/16/2024 8:48 A M HYDRATE THICKENER OPERATOR Height 154.9 cm (5' 1 ) 12/19/2021 9:56 AM CDT Body Mass Index 27.85 12/19/2021 9:56 AM CDT Plan of Treatment Upcoming Encounters Date Type Department Care Team (Late st Contact Info) Description 10/22/2024 9:00 AM CDT Office Visit [facility] Oncology and Hematology - [place] [address] [facility] [address] [place] [address] Allen Samson MD [address] [facility] [address] [place] [address] Health Maintenance Due Date Last Done Comments DTAP/TDAP/TD VACCINES (1 - Tdap) 07/13/1958 ZOSTER VACCINE (1 of 2) 07/13/1989 OSTEOPOROSIS SCREENING 07/13/2004 RSV VACCINE (60+ or ) (1 - 1-dose 75+ series) 07/13/2014 INFLUENZA VACCINE (#1) 2023 3, 12/31/2021, 12/31/2021, Additional history exists COLORECTAL SCREENING Discontinued 11/02/2012 Colorectal Cancer Screening Discontinued PNEUMOCOCCAL VACCINE 50+ YEARS Completed 04/27/2015 , 02/21/2006 FIT-DNA Q 3 years Discontinued FIT/FOBT Q 1 year Discontinued Flex Sig/CT Colonography Q 5 years Discontinued Insurance AETNA CHOICE POS II AETNA CHOICE POS II RX [facility] Advance Directives For more information, please contact: [phone] Documents on File Type Date Recorded Patient Nursing Staff Development Coordinator Expl anation Advance Directive POA 07/24/2012 8:56 AM Ad cyr Directive POA Advance Directive Living Will 07/24/2012 8:56 AM Care Teams Commercial Collections Driver Relationship Specialty Start Date End Date Georgette Alva MD [address] [place] [address] PCP - General Family Practice 11/01/19
[2024-08-02 10:22] LABS: Alanine Aminotransferase 12 U/L (6-35); Albumin Level 3.6 g/dL (3.5-5.1); Alkaline Phosphatase 90 U/L (38-126); Anion Gap 9 mmol/L (4-12); Aspartate Amino Transferase 26 U/L (14-36); Bilirubin,Total 0.3 mg/dL (0.2-1.3); Blood Urea Nitrogen 24 mg/dL (7-17); Calcium 8.8 mg/dL (8.4-10.2); Carbon Dioxide 23 mmol/L (22-30); Chloride 110 mmol/L (98-107); Cholesterol 123 mg/dL (0-200); Estimated Glomerular Filt Rate 28; Glucose 83 mg/dL (65-110); HDL Direct 54 mg/dL; Potassium 4.1 mmol/L (3.4-5.0); Sodium 142 mmol/L (137-145); Triglycerides 105 mg/dL (<150)
[2024-08-02 10:33] LABS: LDL Cholesterol Direct 37 mg/dL
[2024-08-03 06:19] LABS: CA 15-3 12 U/mL (<32)
== END 2024-08-02 09:36 | disposition home or self-care (01) ==
LOC: ANHLAB 09:36
PROVIDERS: PCP Family Medicine; Visit Provider Family Medicine
DX: C50.919 Malignant neoplasm of unspecified site of unspecified female breast (principal); E78.2 Mixed hyperlipidemia; I12.9 Hypertensive chronic kidney disease with stage 1 through stage 4 chronic kidney disease, or unspecified chronic kidney disease; N18.9 Chronic kidney disease, unspecified
CPT/HCPCS: 36415; 80053; 80061; 86300

== ENCOUNTER 2024-10-15 10:38 | Outpatient (CLI) | payer OTHER, SELFPAY ==
--- OUTSIDE RECORDS SUMMARY | 2024-10-15 10:41 | XMS_ITS | Clinical Summary ---
Author Organization [facility] Address [address] [place] [address] Care Team Providers Care Rehabilitation Supervisor Name Role Phone Geoff Martinez MD Primary Care Provider [phone] Bry Martin MD Unavailable [phone] Allergies Active Allergy Reactions Criticality Noted Date Comments Iodine Hives,Redness 11/10/2017 Epinephrine Anaphylaxis High 11/10/2017 Says it makes her heart go crazy. Says she is aware that epinephrine makes [...] 12:01 AM CDT Height 156.2 cm (5' 1.5) 11/06/2017 12:01 AM CD T Body Mass Index 34.61 11/06/2017 12:01 AM CDT Plan of Treatment Health Maintenance Due Date Last Done Comments DTaP, Tdap and Td Vaccines ( 1 - Tdap) 07/13/1958 Pneumococcal Vaccine: 50+ Ye ars (1 of 1 - PCV) 07/13/1989 Zoster Vaccines (1 of 2) 07/13/1989 RSV Immunization or 60+ Years (1 - [...] patient's age to complete this topic Insurance [facility] Advance Directives * Full Code (Latest Code Status on File) Date Activated Date Inactivated Comments 11/13/2017 1:11 PM 11/13/2017 3:44 PM Care Teams Rehabilitation Supervisor Relationship Specialty Start Date End Date Geoff Martinez MD [address] [place] [address] PCP - General FAMILY PRACTICE 11/10/17 Bry Martin MD [address] [facility] [place] [address] Referring Physician NEPHROLOGY 11/10/17
--- OUTSIDE RECORDS SUMMARY | 2024-10-15 10:41 | XMS_ITS | Encounter Summary ---
Author Organization [facility] Address [address] [place] [address] Phone Care Team Providers Care Pacs Administrator Name Role Phone Georgette Alva MD Primary Care Provider [phone] Encounter Details Date Type Department Care Team (Late st Contact Info) Description 07/26/2021 Documentation Only [place] [facility] [address] [address] Devi Kohli MD [address] [place] [address]. [place] [address] Social History Tobacco Use Types Packs/Day Years [...] specified documented in this encounter Care Teams Pacs Administrator Relationship Specialty Start Date End Date Georgette Alva MD [address] [place] [address] PCP - General Family Medicine 07/03/21 documented as of this encounter
--- OUTSIDE RECORDS SUMMARY | 2024-10-15 10:41 | XMS_ITS | Clinical Summary ---
Author Organization [facility] Address [address] [place] [address] Phone Care Team Providers Care Grease Cup Filler Name Role Phone Georgette Alva MD Primary Care Provider [phone] Allergies Active Allergy Reactions Criticality Noted Date Comments Alendronate Other (see comments) High 07/02/2021 Other: heartburn Epinephrine Anaphylaxis,Palpitalianet ion s High 2009 Says it makes her heart go crazy. Says she is aware that epinephrine makes your heart rate increase. Says it is a problem for her at the dentist office Reaction: tachycardia, Says it makes her heart go crazy. Says she is aware that epinephrine makes your heart rate increase. Says it is a problem for her at the dentist office Reaction: tachycardia, Says it makes her heart go crazy. Says she is aware that epinephrine makes your heart rate increase. Says it is a problem for her at the dentist office Says it makes her heart go crazy. [...] had adjuvant chemotherapy by Dr. Guzman in [place], Completed adjuvant radiation in November 2007 by [...] Comments Blood Pressure 134/70 02/27/2022 9:42 AM MODEL AND DYE PERSON Pulse 65 11/26/2017 12:01 AM CDT Temperature 36.1 C (97 F) 02/27/2022 9:42 AM MODEL AND DYE PERSON Respiratory Rate 18 02/27/2022 9:42 AM MODEL AND DYE PERSON Oxygen Saturation - - Inhaled Oxygen Concentration - - Weight 64 kg (141 lb) 02/27/2022 9:42 AM MODEL AND DYE PERSON Height 162.6 cm (5' 4) 02/27/2022 9:42 AM MODEL AND DYE PERSON Body Mass Index 24.2 02/27/2022 9:42 AM MODEL AND DYE PERSON Plan of Treatment Health Maintenance Due Date Last Done Comments Pneumococcal PPSV23/PCV13 65 + Years / Low and Medium Risk (1 of 2 - PCV) 07/13/1989 Influenza Vaccine (#1) 2024 Insurance AETNA Care Teams Grease Cup Filler Relationship Specialty Start Date End Date Georgette Alva MD [address] [place] [address] PCP - General Internal Medicine 02/22/22
--- OUTSIDE RECORDS SUMMARY | 2024-10-15 10:41 | XMS_ITS | Clinical Summary ---
Author Organization [facility] Facility Address [address] [address] Care Team Providers Care Pet Care Attendant Name Role Phone Georgette Alva MD Primary Care Provider [phone] Allergies Active Allergy Reactions Criticality Noted Date [...] of 2 - PCV) 07/13/1959 Influenza Vaccine (#1) 2024 Hepatitis B Vaccine Aged Out No longe r eligible based on patient's age to complete this topic Insurance [employer] Commercial Care Teams Pet Care Attendant Relationship Specialty Start Date End Date Georgette Alva MD [address] [place] [address] PCP - General Family Medicine 07/03/21
--- OUTSIDE RECORDS SUMMARY | 2024-10-15 10:41 | XMS_ITS | Referral Summary ---
Author Organization [facility] Address [address] [place] [address] Care Team Providers Care Circuit Board Assembler Name Role Phone Georgette Alva MD Primary Care Provider [phone] Rivera Ryder MD Unavailable [phone] Encounters Date Type Department Care Team Description 10/13/2024 Telephone [facility] Medical Group Pulmonary at [address] [place] [phone] Archana Noguera LPN Sleep Study 10/13/2024 Telephone [facility] Oncology [address] [place] [address] Medical Office [address] [place] [phone] Rivera Ryder MD 10/11/2024 11:56 AM CDT - 10/11/2024 11:59 PM CDT Hospital Encounter [facility] [address] [place] [id number] Cough, unspecified type Discharge Disposition: Discharge to home or self care 10/11/2024 8:30 AM CDT Lab [address] [address] Malignant neoplasm of left breast in female, estrogen receptor positive, unspecified site of breast (HCC) 10/11/2024 11:00 AM CDT Office Visit [facility] Medical Group Pulmonary at [address] [place] [phone] Terence Catherine DO Cough, unspecified type (Primary Dx); Laryngopharyngeal reflux; AVANI (obstructive sleep apnea) 10/11/2024 9:30 AM CDT Office Visit [facility] [address] [place] [address] Medical [facility] [address] [place] [address] Rivera Ryder MD Malignant neoplasm of left breast in female, estrogen receptor positive, unspecified site of breast (HCC) (Primary Dx); Hemochromatosis, unspecified hemochromatosis type 09/17/2024 8:30 AM CDT - 09/17/2024 11:59 PM CDT Hospital Encounter [facility] [address] [place] [address] Malignant neoplasm of left breast in female, estrogen receptor positive, unspecified site of breast (HCC) Discharge Disposition: Discharge to home or self care 09/17/2024 7:40 AM CDT - 09/17/2024 11:59 PM CDT Hospital Encounter [address] [address] Malignant neoplasm of left breast in female, estrogen receptor positive, unspecified site of breast (HCC) Discharge Disposition: Discharge to home or self care 09/09/2024 2:00 PM CDT Lab [facility] [address] [facility] [place] [address] Hemochromatosis, unspecified hemochromatosis type; Malignant neoplasm of left breast in female, estrogen receptor positive, unspecified site of breast (HCC); History of hemochromatosis; Stage 3b chronic kidney disease (HCC) 09/09/2024 1:30 PM CDT Office Visit [facility] [address] [place] [address] [address] [place] [address] Rivera Ryder MD Hemochromatosis, unspecified hemochromatosis type (Primary Dx); History of hemochromatosis; Malignant neoplasm of left breast in female, estrogen receptor positive, unspecified site of breast (HCC); Stage 3b chronic kidney disease (HCC) 08/27/2024 Orders Only [facility] [address] [place] [address] Medical Office [facility] [address] [place] [address] Brit Plummer, LARA History of hemochromatosis (Primary Dx) from Last 3 Months Allergies Active Allergy Reactions Criticality Noted Date Comments Alendronate Other (See comments) High 07/02/2021 Other: heartburn Epinephrine Palpitations,Anaphyl axi s High 2009 Reaction: tachycardia, Says it makes her heart [...] for her at the dentist office Iodine Hives,Rash,Redness High 01/23/2009 Reaction: Hives, , Reaction: Hives, Other reaction(s): Hives, Redness Other reaction(s): Redness Other reaction(s): Hives, Redness Lisinopril Unknown 07/02/2021 Prednisone Rash,Redness Medium 07/29/2014 Other reaction(s): Other (See Comments), Redness Face flushed and ears red when given it for bursitis in 2013. 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 Says she would be willing to try a steroid if the temporal artery biopsy shows a condition that would benefit from steroids Face flushed and ears red when given it for bursitis in 2014. 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 Says she would be willing to try a steroid if the temporal artery biopsy shows a condition that would benefit from steroids Other reaction(s): Redness Other reaction(s): Other (See Comments), Redness Face flushed and ears red when given it for bursitis in 2014. 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 Says she would be willing to try a steroid if the temporal artery biopsy shows a condition that would benefit from steroids Face flushed and ears red when given it for bursitis in 2014. 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 Says she would be willing to try a steroid if the temporal artery biopsy shows a condition that would benefit from steroids Medications aspirin 81 mg tablet take 1 tablet by oral route every day 0 0 01/28/20 14 Active amlodipine-olm esartan (ROBSON) 10-20 mg per tablet Take 1 tablet by mouth daily Active atorvastatin (LIPITOR) 20 mg tablet Take 1 tablet (20 mg total) by mouth daily Active azilsartan med-chlorthali done 40-12.5 mg tablet Take by mouth Active hydrALAZINE (APRESOLINE) 10 mg tabletIndicati ons:hypertensi on Take 1 tablet (10 mg total) by mouth 3 (three) times a day Active sotaloL (BETAPACE) 80 mg tablet Take 1 tablet (80 mg total) by mouth 2 (two) times a day Active vitamin b complex tablet Take 1 tablet by mouth daily Active acetaminophen (TYLENOL) 500 mg tablet Take 1 tablet (500 mg total) by mouth as needed Active nitroglycerin (NITROSTAT) 0.[address] 1 tablet (0.4 mg total) under the tongue every 5 (five) minutes as needed for chest pain Active guaiFENesin ER (MUCINEX) 600 mg 12 hr tablet Take 2 tablets (1,200 mg total) by mouth 2 (two) times a day Active acetaminophen (TYLENOL) 500 mg tablet Take 1 tablet (500 mg total) by mouth as needed for pain Active cholecalcifero l (VITAMIN D-3) 1,000 unit capsule Take by mouth Active pantoprazole DR (PROTONIX) 40 mg EC tablet Take 1 tablet (40 mg total) by mouth 2 (two) times a day 60 tablet 10/12/[address] (PROTONIX) 40 mg EC tablet Take 1 tablet (40 mg total) by mouth daily 025 Discontinued(Re order) pantoprazole DR (PROTONIX) 40 mg EC tablet Take 1 tablet (40 mg total) by mouth daily 30 tablet 10/12/19 25 025 Discontinued Active Problems Problem Noted Date Diagnosed Date Laryngopharyngeal reflux 10/11/2024 Stage 3b chronic kidney disease 09/09/2024 Personal history of primary malignant neoplasm o f breast 04/27/2013 Overview (06/28/2016): History of breast cancer Hemochromatosis 04/27/2013 Overview (06/28/2016): Hemochromatosis Hypertension 04/27/2013 Overview (06/28/2016): Hypertension Immunizations Immunization Administration Dates Next Due Influenza, Quad, Adjuvantate d, Intramuscular 11/28/2020 Influenza, Quadrivalent, Hig h Dose, Preservative Free, Intrr 11/20/2019 Influenza, Quadrivalent, Spl it, Intramuscular 01/08/2017,01/22/2015 Influenza, Quadrivalent, Spl it, Preservative Free, Intramuscular 01/02/2014 Influenza, Trivalent, Adjuva nted, Intramuscular 12/20/2017 Influenza, Trivalent, High D ose, Split, Preservative Free, Intramuscular 01/02/2024,12/31/2021,11/26/2018 Influenza, Trivalent, IM (MDV) 12/23/2011 Influenza, Trivalent, Preser vative Free, Intramuscular 02/10/2016,01/03/2015 Pneumococcal Conjugate PCV 13 06/15/2016, 016 Pneumococcal Polysaccharide PPV23 02/21/2006 RSV, Bivalent, Protein Subun it Rsvpref, Diluent (Abrysvo) 04/16/2024 Rsv, Mrna Injectable, Pf - Mresvia 04/16/2024 ZOSTER Recombinant 02/02/2020 Social History Tobacco Use Types Packs/Day Years Used Date Smoking Tobacco: Former Cigarettes Q uit: 03/24/1988 Tobacco Cessation:Counseling Given: Not Answered Comments:Smoking History Packs/day: 1.5 Packs Alcohol Use Standard Drinks/Week Comments No 0 (1 standard drink = 0.6 oz pur e alcohol) AUDIT-C Answer Date Recorded Q1: How often do you have a drink containing alc ohol? Monthly or less 10/11/2024 Q2: How many drinks containi ng alcohol do you have on a typical day when you are drinking? 1 or 2 10/11/2024 Q3: How often do you have si x or more drinks on one occasion? 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 Gender Identity Not on file Sexual Orientation Not on file Last Filed Vital Signs Vital Sign Reading Time Taken Comments Blood Pressure 140/70 10/11/2024 10:50 AM CDT Pulse 59 10/11/2024 10:50 AM CDT Temperature 35.9 C (96.6 F) 10/11/2024 10:50 AM CDT Respiratory Rate 16 10/11/2024 10:50 AM CDT Oxygen Saturation 99% 10/11/2024 10:50 AM CDT Inhaled Oxygen Concentration - - Weight 64 kg (141 lb 1.6 oz) 10/11/2024 10:50 AM CDT Height 158.2 cm (5' 2.28) 10/11/2024 10:50 AM C DT Body Mass Index 25.57 10/11/2024 10:50 AM CDT Plan of Treatment Not on file Procedures Procedure Name Priority Date/Time Associated Diagnosis Comments DIFFERENTIAL AUTO Routine 10/11/2024 8:3 4 AM CDT Malignant neoplasm of left breast in female, estrogen receptor positive, unspecified site of breast (HCC) CBC WITH AUTO DIFFERENTIAL Routine 10/11/2024 8:34 AM CDT Malignant neoplasm of left breast in female, estrogen receptor positive, unspecified site of breast (HCC) US BREAST LEFT LIMITED Schedule MARQUEZ, Read MARQUEZ (Appt Today, Awaiting Results) 09/17/2024 9:14 AM CDT Malignant neoplasm of left breast in female, estrogen receptor positive, unspecified site of breast (HCC) DIAGNOSTIC MAMMOGRAM BILATERAL W BROWN Schedule MARQUEZ, Read MARQUEZ (Appt Today, Awaiting Results) 09/17/2024 8:16 AM CDT Malignant neoplasm of left breast in female, estrogen receptor positive, unspecified site of breast (HCC) EGFR Routine 09/09/2024 2:10 PM CDT History of hemochromatosis Malignant neoplasm of left breast in female, estrogen receptor positive, unspecified site of breast (HCC) Stage 3b chronic kidney disease (HCC) COMPREHENSIVE METABOLIC PANEL Routine 09/09/2024 2:10 PM CDT History of hemochromatosis Malignant neoplasm of left breast in female, estrogen receptor positive, unspecified site of breast (HCC) Stage 3b chronic kidney disease (HCC) DIFFERENTIAL AUTO Routine 09/09/2024 2:1 0 PM CDT Hemochromatosis, unspecified hemochromatosis type Malignant neoplasm of left breast in female, estrogen receptor positive, unspecified site of breast (HCC) CBC WITH AUTO DIFFERENTIAL Routine 09/09/2024 2:10 PM CDT Hemochromatosis, unspecified hemochromatosis type Malignant neoplasm of left breast in female, estrogen receptor positive, unspecified site of breast (HCC) ERYTHROPOIETIN Routine 09/09/2024 2:10 PM CDT Hemochromatosis, unspecified hemochromatosis type Malignant neoplasm of left breast in female, estrogen receptor positive, unspecified site of breast (HCC) FERRITIN Routine 09/09/2024 2:10 PM CDT Hemochromatosis, unspecified hemochromatosis type Malignant neoplasm of left breast in female, estrogen receptor positive, unspecified site of breast (HCC) IRON PROFILE W/ IBC Routine 09/09/2024 2 :10 PM CDT Hemochromatosis, unspecified hemochromatosis type Malignant neoplasm of left breast in female, estrogen receptor positive, unspecified site of breast (HCC) CANCER ANTIGEN 15-3 Routine 09/09/2024 2 :10 PM CDT Hemochromatosis, unspecified hemochromatosis type Malignant neoplasm of left breast in female, estrogen receptor positive, unspecified site of breast (HCC) from Last 3 Months Results * Differential, auto (10/11/2024 8:34 AM CDT) Neutrophil abs 3.75 1.50 - 6.50 K/cumm Imm gran abs 0.02 0.00 - 0.10 K/cumm [facility] ([place]) Lymphocyte abs 1.03 0.80 - 3.30 K/cumm [facility] ([place]) Monocyte abs 0.53 0.20 - 0.80 K/cumm [facility] ([place]) Eosinophil abs 0.28 0.00 - 0.50 K/cumm [facility] ([place]) Basophil abs 0.03 0.00 - 0.10 K/cumm [facility] ([place]) Neutrophil pct 66.4 % [facility] ([place]) Comment: Interpretive Data Percent cell count reference ranges are not reported, since discordance with absolute values may lead to misinterpretation of CBC data. Current Interpretive Data was last revised on 2017. Imm gran pct 0.4 % [facility] ([place]) Comment: Interpretive Data Percent cell count reference ranges are not reported, since discordance with absolute values may lead to misinterpretation of CBC data. Current Interpretive Data was last revised on 2017. Lymphocyte pct 18.3 % [facility] ([place]) Comment: Interpretive Data Percent cell count reference ranges are not reported, since discordance with absolute values may lead to misinterpretation of CBC data. Current Interpretive Data was last revised on 2017. Monocyte pct 9.4 % [facility] ([place]) Comment: Interpretive Data Percent cell count reference ranges are not reported, since discordance with absolute values may lead to misinterpretation of CBC data. Current Interpretive Data was last revised on 2017. Eosinophil pct 5.0 % [facility] ([place]) Comment: Interpretive Data Percent cell count reference ranges are not reported, since discordance with absolute values may lead to misinterpretation of CBC data. Current Interpretive Data was last revised on 2017. Basophil pct 0.5 % [facility] ([place]) Comment: Interpretive Data Percent cell count reference ranges are not reported, since discordance with absolute values may lead to misinterpretation of CBC data. Current Interpretive Data was last revised on 2017. Blood 10/11/2024 8:34 AM CDT 10/11/2024 8:40 AM CDT us Rivera Ryder MD LAB BLOOD ORDERABLES Janey ziegler Result [facility] ([place]) [address] [facility] [place] [address] * (ABNORMAL) CBC with auto differential (10/11/2024 8:34 AM CDT) WBC 5.64 3.80 - 9.90 K/cumm Hgb 9.2(L) 11.9 - 15.5 g/dL [facility] ([place]) Hct 28.9(L) 35.6 - 45.5 % [facility] ([place]) Plt 199 150 - 400 K/cumm [facility] ([place]) MPV 10.6 9.1 - 12.3 fL [facility] ([place]) RBC 2.98(L) 3.90 - 5.20 M/cumm [facility] ([place]) MCV 97.0(H) 81.3 - 96.4 fL [facility] ([place]) MCH 30.9 27.1 - 33.3 pg [facility] ([place]) MCHC 31.8(L) 32.3 - 35.7 g/dL [facility] ([place]) RDW CV 13.1 11.1 - 14.9 % [facility] ([place]) RDW SD 46.5 35.7 - 48.1 fL [facility] ([place]) NRBC abs 0.00 0.00 - 0.01 K/cumm [facility] ([place]) Blood 10/11/2024 8:34 AM CDT 10/11/2024 8:40 AM CDT us Rivera Ryder MD LAB BLOOD ORDERABLES Janey ziegler Result [facility] [place]) [address] [facility] Department of Laboratories [place], [place] [id number] * US Breast Left Limited (09/17/2024 9:14 AM CDT) Anatomical Region Laterality Modality Breast Left Ultrasound 09/17/2024 9:22 AM CDT Impressions 09/17/2024 9:22 AM CDT No mammographic or sonographic evidence of malignancy. Palpable area at the 12 o'clock position correlates with a stable postoperative seroma and is benign. OVERALL FINAL ASSESSMENT: BI-RADS Category 2: Benign. RECOMMENDATION: Palpable area at the 1 o'clock position should be managed clinically. Annual screening mammography. Electronically signed by: Rachell Hamilton M.D. Narrative 09/17/2024 9:22 AM CDT EXAMINATION: BILATERAL DIGITAL DIAGNOSTIC MAMMOGRAM INCLUDING CAD AND BILATERAL DIGITAL BREAST TOMOSYNTHESIS; LEFT BREAST SONOGRAM HISTORY: History of left lumpectomy and known seroma with palpable lesion upper outer left breast. Annual study. COMPARISON: 11/26/2023, 11/06/2023, 09/19/2022, 08/04/2015 TECHNIQUE: Full field digital mammographic views of BOTH breasts were performed, including computer aided detection (CAD) and BILATERAL digital breast tomosynthesis (DBT). Directed ultrasound evaluation of the LEFT breast was performed. BREAST PARENCHYMAL COMPOSITION: The breasts are heterogeneously dense, which may obscure small masses. MAMMOGRAM FINDINGS: Postoperative change is present in the left breast. There are benign bilateral microcalcifications. There is no new dominant density or suspicious microcalcification bilaterally. SONOGRAM FINDINGS: Targeted left breast ultrasound was performed in the regions of interest. Per the patient this correlates as the 1 o'clock position. No sonographic abnormality is appreciated. A portion of the palpable area correlates as the 12 o'clock position 4 cm from the nipple. There is an circumscribed fluid collection identified measuring 2.9 x 0.5 x 2.0 cm. This correlates with the known postoperative seroma. It has not significantly changed and is benign. Rivera Ryder MD [facility] MAMMO PROCEDURES Janey l Result * Diagnostic Mammogram Bilateral W Brown (09/17/2024 8:16 AM CDT) Anatomical Region Laterality Modality Breast Bilateral Mammography 09/17/2024 9:22 AM CDT Impressions 09/17/2024 9:22 AM CDT No mammographic or sonographic evidence of malignancy. Palpable area at the 12 o'clock position correlates with a stable postoperative seroma and is benign. OVERALL FINAL ASSESSMENT: BI-RADS Category 2: Benign. RECOMMENDATION: Palpable area at the 1 o'clock position should be managed clinically. Annual screening mammography. Electronically signed by: Rachell Hamilton M.D. Narrative 09/17/2024 9:22 AM CDT EXAMINATION: BILATERAL DIGITAL DIAGNOSTIC MAMMOGRAM INCLUDING CAD AND BILATERAL DIGITAL BREAST TOMOSYNTHESIS; LEFT BREAST SONOGRAM HISTORY: History of left lumpectomy and known seroma with palpable lesion upper outer left breast. Annual study. COMPARISON: 11/26/2023, 11/06/2023, 09/19/2022, 08/04/2015 TECHNIQUE: Full field digital mammographic views of BOTH breasts were performed, including computer aided detection (CAD) and BILATERAL digital breast tomosynthesis (DBT). Directed ultrasound evaluation of the LEFT breast was performed. BREAST PARENCHYMAL COMPOSITION: The breasts are heterogeneously dense, which may obscure small masses. MAMMOGRAM FINDINGS: Postoperative change is present in the left breast. There are benign bilateral microcalcifications. There is no new dominant density or suspicious microcalcification bilaterally. SONOGRAM FINDINGS: Targeted left breast ultrasound was performed in the regions of interest. Per the patient this correlates as the 1 o'clock position. No sonographic abnormality is appreciated. A portion of the palpable area correlates as the 12 o'clock position 4 cm from the nipple. There is an circumscribed fluid collection identified measuring 2.9 x 0.5 x 2.0 cm. This correlates with the known postoperative seroma. It has not significantly changed and is benign. Rivera Ryder MD [facility] MAMMO PROCEDURES Janey l Result * (ABNORMAL) eGFR (09/09/2024 2:10 PM CDT) eGFR 29(L) >=60 mL/min/1. 73 m2 Comment: Interpretive Data Reference Interval Normal >/= 90 mL/min/1.73m2 Mildly decreased* 60 - 89 mL/min/1.73m2 Mildly to moderately decreased 45 - 59 mL/min/1.73m2 Moderately to severely decreased 30 - 44 mL/min/1.73m2 Severely decreased 15 - 29 mL/min/1.73m2 Kidney Failure < 15 mL/min/1.73m2 *Relative to young adult level Estimated glomerular filtration rate is determined by the 2020 CKD-EPI equation recommended by the National Kid[employer] (A Unifying Approach to GFR Estimation: Recommendations of the NKF-ASK Task Force on Reassessing the Inclusion of Race in Diagnosing Kidney Disease, JASN 2020). The CKD-EPI equation should not be used for patients with unstable renal function and has not been validated in children and those over 70. Current interpretive data was last reviewed 2021. Testing performed by: [facility], [address], [place], [address] Blood 09/09/2024 2:10 PM CDT 09/09/2024 2:52 PM CDT us Rivera Ryder MD LAB BLOOD ORDERABLES Janey l Result [facility] ([place]) [address] [facility] [place] [address] * Differential, auto (09/09/2024 2:10 PM CDT) Neutrophil abs 3.65 1.50 - 6.50 K/cumm [facility] ([place]) Comment:Testing performed by : [facility] [place] [address], Medical [address], [place] [address] Imm gran abs 0.01 0.00 - 0.10 K/cumm [facility] ([place]) Comment:Testing performed by : [facility] [address], Medical [address], [place] [address] Lymphocyte abs 1.14 0.80 - 3.30 K/cumm [facility] ([place]) Comment:Testing performed by : [facility] [address], Medical Office [address], [place] [address] Monocyte abs 0.60 0.20 - 0.80 K/cumm [facility] ([place]) Comment:Testing performed by : [facility] [address], Medical Office [address], [place] [address] Eosinophil abs 0.24 0.00 - 0.50 K/cumm [facility] ([place]) Comment:Testing performed by : [facility] [address], Medical Office [address], [place] [address] Basophil abs 0.06 0.00 - 0.10 K/cumm [facility] ([place]) Comment:Testing performed by : [facility] [address], Medical Office [address], [place] [address] Neutrophil pct 64.0 % [facility] ([place]) Comment: Interpretive Data Percent cell count reference ranges are not reported, since discordance with absolute values may lead to misinterpretation of CBC data. Current Interpretive Data was last revised on 2022. Testing performed by: [facility] [address], Medical Office [facility] [address], [place] [address] Imm gran pct 0.2 % [facility] ([place]) Comment: Interpretive Data Percent cell count reference ranges are not reported, since discordance with absolute values may lead to misinterpretation of CBC data. Current Interpretive Data was last revised on 2022. Testing performed by: [facility] [address], Medical Office [address], [place] [address] Lymphocyte pct 20.0 % [facility] ([place]) Comment: Interpretive Data Percent cell count reference ranges are not reported, since discordance with absolute values may lead to misinterpretation of CBC data. Current Interpretive Data was last revised on 2022. Testing performed by: [facility] [address], Medical Office [address], [place] [address] Monocyte pct 10.5 % [facility] ([place]) Comment: Interpretive Data Percent cell count reference ranges are not reported, since discordance with absolute values may lead to misinterpretation of CBC data. Current Interpretive Data was last revised on 2022. Testing performed by: [facility] [address], Medical Office [facility] [address], [place] [address] Eosinophil pct 4.2 % [facility] ([place]) Comment: Interpretive Data Percent cell count reference ranges are not reported, since discordance with absolute values may lead to misinterpretation of CBC data. Current Interpretive Data was last revised on 2022. Testing performed by: [facility] [address], Medical Office [facility] [address], [place] [address] Basophil pct 1.1 % [facility] ([place]) Comment: Interpretive Data Percent cell count reference ranges are not reported, since discordance with absolute values may lead to misinterpretation of CBC data. Current Interpretive Data was last revised on 2022. Testing performed by: [facility] [address], Medical Office [facility] [address] [facility] [address], [place] [address] Blood 09/09/2024 2:10 PM CDT 09/09/2024 2:12 PM CDT us Rivera Ryder MD LAB BLOOD ORDERABLES Janey l Result [facility] ([place]) [address] [facility] [place] [address] * (ABNORMAL) Iron profile w/ IBC (09/09/2024 2:10 PM CDT) Iron 148(H) 35 - 145 mcg/dL Comment:Testing performed by : [facility], [facility], [place], [address] TIBC 210(L) 250 - 400 mcg/dL [facility] ([place]) Comment:Testing performed by : [place], [address] Transferrin saturation 70(H) 20 - 50 % [facility] ([place]) Comment:Testing performed by : [facility], [place], [address] Blood 09/09/2024 2:10 PM CDT 09/09/2024 2:28 PM CDT us Rivera Ryder MD LAB BLOOD ORDERABLES Janey ziegler Result [facility] ([place]) [address] [facility] [place] [address] * (ABNORMAL) CBC with auto differential (09/09/2024 2:10 PM CDT) WBC 5.70 3.80 - 9.90 K/cumm [facility] ([place]) Comment:Testing performed by : [facility] [address], [place] [address] Hgb 10.0(L) 11.9 - 15.5 g/dL [facility] ([place]) Comment:Testing performed by : [facility] [address], [address], [place] [address] Hct 30.9(L) 35.6 - 45.5 % [facility] ([place]) Comment:Testing performed by : [facility] [address], [address], [place] [address] Plt 189 150 - 400 K/cumm [facility] ([place]) Comment:Testing performed by : [facility] [address], Medical [address], [place] [address] MPV 10.3 9.1 - 12.3 fL [facility] ([place]) Comment:Testing performed by : [facility] [address], Medical [address], [place] [address] RBC 3.19(L) 3.90 - 5.20 M/cumm [facility] ([place]) Comment:Testing performed by : [facility] [address], [address], [place] [address] MCV 96.9(H) 81.3 - 96.4 fL [facility] ([place]) Comment:Testing performed by : [facility] [address], [address], [place] [address] MCH 31.3 27.1 - 33.3 pg [facility] ([place]) Comment:Testing performed by : [facility] [address], [address], [place] [address] MCHC 32.4 32.3 - 35.7 g/dL [facility] ([place]) Comment:Testing performed by : [facility] [address], [address], [place] [address] RDW CV 13.0 11.1 - 14.9 % [facility] ([place]) Comment:Testing performed by : [facility] [address], [address], [place] [address] RDW SD 45.9 35.7 - 48.1 fL [facility] ([place]) Comment:Testing performed by : [facility] [address], Medical Office [facility] [address], [place] [address] Blood 09/09/2024 2:10 PM CDT 09/09/2024 2:12 PM CDT us Rivera Ryder MD LAB BLOOD ORDERABLES Janey l Result [facility]EENA [facility] ([place]) [address] [facility] Department [employer] [address] * Erythropoietin (09/09/2024 2:10 PM CDT) [facility] Signature Erythropoietin 7.0 2.6 - 18.5 mIUnits/mL [facility] Comment: Test Performed by: [facility] [address] [place] [address] Rn Acls: Alida Delatorre Ph.D.; CLIA# [id number] Testing performed by: [facility], [address] [facility], [place], [address] Blood 09/09/2024 2:10 PM CDT 09/09/2024 2:28 PM CDT us Rivera Ryder MD LAB BLOOD ORDERABLES Janey l Result MARICHUYRAVEN JJ ([place] [facility] Department [place] [address] [facility] ref [facility] * Cancer antigen 15-3 (09/09/2024 2:10 PM CDT) Pathologist [facility] CA 15-3 ag 16.0 1.0 - 30.0 units/mL Comment: Interpretive Data The Agusto CA 15-3 assay procedure was used. Results from different manufacturers or methods may not be comparable. Serial testing should be performed using the same method. Testing performed by: [facility], [address] [place] [address], [address] Blood 09/09/2024 2:10 PM CDT 09/10/2024 9:25 AM CDT Rivera Ryder MD LAB BLOOD ORDERABLES Janey l Result [facility]EENA [facility] ([place]) [address] [place] [address] Department [place] [address] * (ABNORMAL) Ferritin (09/09/2024 2:10 PM CDT) [facility] Ferritin 190(H) 13 - 150 ng/mL Comment:Testing performed by : [place], [address] Blood 09/09/2024 2:10 PM CDT 09/09/2024 2:28 PM CDT Rivera Ryder MD LAB BLOOD ORDERABLES Janey l Result [facility]EE[facility] ([place] [address] [place] [address] Department [place] [address] * (ABNORMAL) Comprehensive metabolic panel (09/09/2024 2:10 PM CDT) Pathologist [facility] Sodium 142 135 - 145 mmol/L Comment:Testing performed by : [place], [address] Potassium, pl 5.1(H) 3.3 - 4.9 mmol/L [facility]EENA [facility] ([place]) Comment:Testing performed by : [place], [address] Chloride 109 97 - 110 mmol/L [facility] ([place]) Comment:Testing performed by : [facility], [facility], [place], [address] CO2 22 22 - 32 mmol/L [facility] ([place]) Comment:Testing performed by : [facility], [facility], [place], [address] Anion gap 11 2 - 15 mmol/L [facility] ([place]) Comment:Testing performed by : [facility], [place], [address] BUN 32(H) 6 - 25 mg/dL [facility] ([place]) Comment:Testing performed by : [facility], [place], [address] Creatinine 1.72(H) 0.60 - 1.10 mg/dL [facility] ([place]) Comment:Testing performed by : [facility], [place], [address] Glucose 112 70 - 199 mg/dL [facility] ([place]) Comment: Interpretive Data Fasting glucose >/= 126 mg/dl is diagnostic for diabetes. Fasting is defined as no caloric intake for at least 8 hours. Fasting glucose between 100 mg/dl to 125 mg/dl is diagnostic of prediabetes. In a patient with classic symptoms of hyperglycemia or hyperglycemic crisis, a random glucose >/= 200 mg/dl is diagnostic for diabetes. In the absence of unequivocal hyperglycemia, results should be confirmed by repeat testing. The classification and Diagnosis of Diabetes Diabetes Care 2021; 46: S19-S40. Current interpretive data was last revised 2022. Testing performed by: [facility], [place], [address] Calcium 8.9 8.5 - 10.3 mg/dL [facility] ([place]) Comment:Testing performed by : [facility], [place], [address] Bilirubin, total 0.2 0.1 - 1.2 mg/dL [facility] ([place]) Comment:Testing performed by : [facility], [place], [address] Protein, pl 6.2(L) 6.5 - 8.5 g/dL [facility] ([place]) Comment:Testing performed by : [facility], [place], [address] Albumin 3.5 3.5 - 5.0 g/dL [facility] ([place] Comment:Testing performed by : [facility], [facility], [place], [address] Alk phos 106 40 - 130 Units/L [facility] ([place]) Comment:Testing performed by : [facility], [facility], [place], [address] ALT 6(L) 7 - 45 Units/L [facility] ([place] Comment:Testing performed by : [facility], [facility], [place], [address] AST 14 10 - 45 Units/L [facility] ([place]) Comment:Testing performed by : [facility], [facility], [place], [address] Blood 09/09/2024 2:10 PM CDT 09/09/2024 2:52 PM CDT us Rivera Ryder MD LAB BLOOD ORDERABLES Janey l Result [facility] ([place] [address] [facility] Department [place] [address] from Last [address] [place] [address] [facility] Care Teams Circuit Board Assembler Relationship Specialty Start Date End Date Georgette Alva MD PCP - General Family Medicine 09/03/24 Rivera Ryder MD [address] [place] [address] [place] [address] [place] [address] Medical Oncologist/Lead Electrical Controls Engineer Medical Oncology 10/11/24
--- OUTSIDE RECORDS SUMMARY | 2024-10-15 10:41 | XMS_ITS | Clinical Summary ---
Author Organization [facility] Address [address] [place] [address] Phone Care Team Providers Care Finance Professional Name Role Phone Georgette Alva MD Primary Care Provider [phone] Allergies Active Allergy Reactions Criticality Noted Date [...] mg 12.5 mg daily. 8 Active FLUAD [id number], 65 YR UP,,PF, 45 mcg (15 mcg [...] different from the original. Primary Care: Shadia Giorn, Referring Provider: Tita Toth MD [address] [facility] [address] [place] [address] Other: Problem Noted Date Diagnosed Date Anemia [...] had adjuvant chemotherapy by Dr. Guzman in [place], Completed adjuvant radiation in November [address] Peter Cordova. She is on Arimidex, Hemochromatosis Renal insufficiency Bronze diabetes Giant cell arteritis H/O colonoscopy Encounters Date Type Department Care Team Description 10/06/2024 External Device Data [facility] Provider, Abstract 10/06/2024 External Device Data [facility] Provider, Abstract 09/07/2024 External Device Data [facility] Provider, Abstract 08/11/2024 External Device Data [facility] Provider, Abstract 08/10/2024 External Device Data [facility] Provider, Abstract 08/03/2024 Telephone [facility] Oncology and Hematology - [place] [address] [place] [address] Allen Samson MD Records Request from Last 3 Months Immunizations Immunization Administration [...] on file Legal Sex 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 Gender Identity Not on file Sexual Orientation Not on file Occupation Industry Job Start Date Job End Date Not on file Not on file Not on file Not on file Last Filed Vital Signs Vital Sign Reading Time Taken Comments Blood Pressure 149/78 04/16/2024 8:51 AM AUDIO/VISUAL OPERATOR Pulse 66 04/16/2024 8:48 AM AUDIO/VISUAL OPERATOR Temperature 36.5 C (97.7 F) 04/16/2024 8:48 AM AUDIO/VISUAL OPERATOR Respiratory Rate 15 04/16/2024 8:48 AM AUDIO/VISUAL OPERATOR Oxygen Saturation 98% 04/16/2024 8:48 AM AUDIO/VISUAL OPERATOR Inhaled Oxygen Concentration - - Weight 66.9 kg (147 lb 6.4 oz) 04/16/2024 8:48 A M AUDIO/VISUAL OPERATOR Height 154.9 cm (5' 1) 12/19/2021 9:56 AM CDT Body Mass Index 27.85 12/19/2021 9:56 AM CDT Plan of Treatment Health Maintenance Due Date Last Done Comments DTAP/TDAP/TD VACCINES (1 - Tdap) 07/13/1958 ZOSTER VACCINE (1 of 2) 07/13/1989 OSTEOPOROSIS SCREENING 07/13/2004 RSV VACCINE (60+ or ) (1 - 1-dose 75+ series) 07/13/2014 INFLUENZA VACCINE (#1) 2024 3, 12/31/2021, 12/31/2021, Additional history exists COLORECTAL SCREENING Discontinued 11/02/2012 Colorectal Cancer Screening Discontinued PNEUMOCOCCAL VACCINE 50+ YEARS Completed 04/27/2015 , 02/21/2006 FIT-DNA Q 3 years Discontinued FIT/FOBT Q 1 year Discontinued Flex Sig/CT Colonography Q 5 years Discontinued Insurance AETNA CHOICE POS II AETNA CHOICE POS II RX [facility] [employer] Advance Directives For more information, please contact: [phone] Documents on File Type Date Recorded 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
--- OUTSIDE RECORDS SUMMARY | 2024-10-15 10:41 | XMS_ITS | Clinical Summary ---
Author Organization [facility] Address [address] [place] [address] Care Team Providers Care Lpn Medical Assistant Name Role Phone Georgette Alva MD Primary Care Provider [phone] Rivera Ryder MD Unavailable [phone] Allergies Active Allergy Reactions Criticality Noted Date [...] 2 (two) times a day 60 tablet 11 10/12/[address] (PROTONIX) 40 mg EC tablet Take 1 tablet (40 mg total) by mouth daily 025 Discontinued(Re order) pantoprazole DR (PROTONIX) 40 mg EC tablet Take 1 tablet (40 mg total) by mouth daily 30 tablet 11 10/12/19 25 025 Discontinued Active Problems Problem Noted Date Diagnosed Date Laryngopharyngeal reflux 10/11/2024 Stage 3b chronic kidney disease 09/09/2024 Personal history of primary malignant neoplasm o f breast 04/27/2013 Overview (06/28/2016): History of breast cancer Hemochromatosis 04/27/2013 Overview (06/28/2016): Hemochromatosis Hypertension 04/27/2013 Overview (06/28/2016): Hypertension Encounters Date Type Department Care Team Description 10/13/2024 Telephone [facility] Pulmonary at [address] [place] [address] Archana Noguera LPN Sleep Study 10/13/2024 Telephone [facility] [address] [place] [address] Medical Office [facility] [address] [place] [address] Rivera Ryder MD 10/11/2024 11:56 AM CDT - 10/11/2024 11:59 PM CDT Hospital Encounter [address] [address] Cough, unspecified type Discharge Disposition: Discharge to home or self care 10/11/2024 11:00 AM CDT Office Visit [facility] Pulmonary at [address] [place] [address] Terence Catherine DO Cough, unspecified type (Primary Dx); Laryngopharyngeal reflux; AVANI (obstructive sleep apnea) 10/11/2024 9:30 AM CDT Office Visit [facility] [address] [place] [address] Medical Office [facility] [address] [place] [address] Rivera Ryder MD Malignant neoplasm of left breast in female, estrogen receptor positive, unspecified site of breast (HCC) (Primary Dx); Hemochromatosis, unspecified hemochromatosis type 10/11/2024 8:30 AM CDT Lab [address] [address] Malignant neoplasm of left breast in female, estrogen receptor positive, unspecified site of breast (HCC) 09/17/2024 8:30 AM CDT - 09/17/2024 11:59 PM CDT Hospital Encounter [address] [address] Malignant neoplasm of left breast in female, estrogen receptor positive, unspecified site of breast (HCC) Discharge Disposition: Discharge to home or self care 09/17/2024 7:40 AM CDT - 09/17/2024 11:59 PM CDT Hospital Encounter [address] [address] Malignant neoplasm of left breast in female, estrogen receptor positive, unspecified site of breast (HCC) Discharge Disposition: Discharge to home or self care 09/09/2024 2:[address] [facility] [address] [facility] [address] [place] [address] Hemochromatosis, unspecified hemochromatosis type; Malignant neoplasm of left breast in female, estrogen receptor positive, unspecified site of breast (HCC); History of hemochromatosis; Stage 3b chronic kidney disease (HCC) 09/09/2024 1:30 PM CDT Office Visit [facility] [address] [place] [address] Office [facility] [address] [place] [address] Rivera Ryder MD Hemochromatosis, unspecified hemochromatosis type (Primary Dx); History of hemochromatosis; Malignant neoplasm of left breast in female, estrogen receptor positive, unspecified site of breast (HCC); Stage 3b chronic kidney disease (HCC) 08/27/2024 Orders Only [facility] [address] [place] [address] Office [facility] [address] [place] [address] Brit Plummer, CLT History of hemochromatosis (Primary Dx) from Last 3 Months Immunizations Immunization Administration Dates Next Due Influenza, [...] Pf - Mresvia 04/16/2024 ZOSTER Recombinant 02/02/2020 Surgical History Surgery Date Site/Laterality Comments OTHER SURGICAL HISTORY 5 benignbreast biopsies OTHER SURGICAL HISTORY 2007 breast cancer/ lumpectomy LIVER BIOPSY 1991 liver biopsy OTHER SURGICAL HISTORY 2007 Cancer, breast: Lumpectomy, RTx, and chemo BREAST LUMPECTOMY Left 2007 Medical History Medical History Date Comments Malignant neoplasm of female breast (HCC) Cancer, breast Hx Other Medical temporal arteri tis Hx Other Medical Hemochromatosis Osteoporosis Osteoporosis History of multiple allergies Al lergies Hx Other Medical Peripheral neur opathy Osteoarthritis Osteoarthritis Hypertension Hypertension Kidney disorder Renal disease History of radiation therapy History of chemotherapy Social History Tobacco Use Types Packs/Day Years [...] on file 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 Gender Identity Not on file Sexual Orientation Not on file Obstetrics History Para Term AB IAB SAB Ectopic Multiple Livin g Live Births 0 0 0 0 0 0 0 0 0 0 0 Last Filed Vital Signs Vital Sign Reading [...] 10/11/2024 10:50 AM CDT Plan of Treatment Health Maintenance Due Date Last Done Comments Depression Screening 1940 Fall Risk Assessment 1940 Osteoporosis Screening-Bone Density Scan 1940 DTaP/Tdap/Td Vaccine (1 - Tdap) 07/13/1950 Hepatitis B Screening 07/13/1957 Well Visit 65+ 07/13/2004 Zoster Vaccine (2 of 2) 03/29/2020 02/02/2020 Covid-19 Vaccine (2023- 5 season) 2024 01/02/2024, 06/12/2023, 01/14/2023, Additional history exists Influenza Vaccine (#1) 2024 , 12/31/2021, 11/28/2020, Additional history exists Pneumococcal vaccine 65+ Completed 017, 04/27/2015, 02/21/2006 Procedures Procedure Name Priority Date/Time Associated Diagnosis [...] BLOOD ORDERABLES Janey ziegler Result BEENA JJ ([place]) [address] [facility] Department [place] [address] * (ABNORMAL) CBC with auto differential (10/11/2024 [...] Janey ziegler Result [facility] ([place]) [address] [facility] Department [place] [address] * US Breast Left Limited (09/17/2024 9:14 [...] changed and is benign. Rivera Ryder MD IMG MAMMO PROCEDURES Janey l Result * Diagnostic [...] has not significantly changed and is benign. us Rivera Ryder MD IMG MAMMO PROCEDURES Janey l Result * (ABNORMAL) [...] was last reviewed 2021. Testing performed by: [facility], [address] [facility], [place], [address] Blood 09/09/2024 2:10 PM CDT 09/09/2024 2:52 PM CDT us Rivera Ryder MD LAB BLOOD ORDERABLES Janey ziegler Result BEENA JJ ([place]) 1 [facility] Department [place] [address] * Differential, auto (09/09/2024 2:10 PM CDT) Neutrophil abs 3.65 1.50 - 6.50 K/cumm [facility] ([place]) Comment:Testing performed by : [facility] [address], Medical Office [facility] [address], [place] [address] Imm gran abs 0.01 0.00 - 0.10 K/cumm [facility] ([place]) Comment:Testing performed by : [facility] [address], Medical Office [facility] [address], [place] [address] Lymphocyte abs 1.14 0.80 - 3.30 K/cumm [facility] ([place]) Comment:Testing performed by : [facility] [address], Medical Office [facility] [address], [place] [address] Monocyte abs 0.60 0.20 - 0.80 K/cumm [facility] ([place]) Comment:Testing performed by : [facility] [address], Medical Office [facility] [address], [place] [address] Eosinophil abs 0.24 0.00 - 0.50 K/cumm [facility] ([place]) Comment:Testing performed by : [facility] [address], Medical Office [facility] [address], [place] [address] Basophil abs 0.06 0.00 - 0.10 K/cumm [facility] ([place]) Comment:Testing performed by : [facility] [address], Medical Office [address], [place] [address] Neutrophil pct 64.0 % [facility] ([place]) Comment: Interpretive Data Percent cell count reference ranges are not reported, since discordance with absolute values may lead to misinterpretation of CBC data. Current Interpretive Data was last revised on 2022. Testing performed by: [facility] [address], Medical Office [address], [place] [address] Imm gran pct 0.2 % [facility] ([place]) Comment: Interpretive Data Percent cell count reference ranges are not reported, since discordance with absolute values may lead to misinterpretation of CBC data. Current Interpretive Data was last revised on 2022. Testing performed by: [facility] [address], Medical Office [facility] [address], [place] [address] Lymphocyte pct 20.0 % [facility] ([place]) Comment: Interpretive Data Percent cell count reference ranges are not reported, since discordance with absolute values may lead to misinterpretation of CBC data. Current Interpretive Data was last revised on 2022. Testing performed by: [facility] [address], Medical Office [address], [place] [address] Monocyte pct 10.5 % [facility] ([place]) Comment: Interpretive Data Percent cell count reference ranges are not reported, since discordance with absolute values may lead to misinterpretation of CBC data. Current Interpretive Data was last revised on 2022. Testing performed by: [facility] [address], Medical Office [address], [place] [address] Eosinophil pct 4.2 % [facility] ([place]) Comment: Interpretive Data Percent cell count reference ranges are not reported, since discordance with absolute values may lead to misinterpretation of CBC data. Current Interpretive Data was last revised on 2022. Testing performed by: [facility] [address], Medical Office [address], [place] [address] Basophil pct 1.1 % [facility] ([place]) Comment: Interpretive Data Percent cell count reference ranges are not reported, since discordance with absolute values may lead to misinterpretation of CBC data. Current Interpretive Data was last revised on 2022. Testing performed by: [facility] [address], Medical Office [facility] [address], [place] [address] Blood 09/09/2024 2:10 PM CDT 09/09/2024 2:12 PM CDT Rivera Ryder MD LAB BLOOD ORDERABLES Janey l Result [facility] ([place]) 1 [facility] Department [place] [address] * (ABNORMAL) Iron profile w/ IBC (09/09/2024 2:10 PM CDT) Iron 148(H) 35 - 145 mcg/dL Comment:Testing performed by : [place], [address] TIBC 210(L) 250 - 400 mcg/dL [facility] ([place]) Comment:Testing performed by : [facility] [place] [place], [place], [address] Transferrin saturation 70(H) 20 - 50 % BEENA JJ (RYLEE) Comment:Testing performed by : [facility] [place] [place], [place], [address] Blood 09/09/2024 2:10 PM CDT 09/09/2024 2:28 PM CDT us Rivera Ryder MD LAB BLOOD ORDERABLES Janey l Result [facility] ([place]) 1 [facility] Department [place] [address] * (ABNORMAL) CBC with auto differential (09/09/2024 2:10 PM CDT) WBC 5.70 3.80 - 9.90 K/cumm BEENA JJ (RYLEE) Comment:Testing performed by : [facility] [address], Medical Office [facility] [address], [place] [address] Hgb 10.0(L) 11.9 - 15.5 g/dL [facility] ([place]) Comment:Testing performed by : [facility] [address], Medical Office [facility] [address], [place] [address] Hct 30.9(L) 35.6 - 45.5 % [facility] ([place]) Comment:Testing performed by : [facility] [address], Medical Office [address], [place] [address] Plt 189 150 - 400 K/cumm [facility] ([place]) Comment:Testing performed by : [facility] [address], Medical Office [facility] [address], [place] [address] MPV 10.3 9.1 - 12.3 fL [facility] ([place]) Comment:Testing performed by : [facility] [address], Medical Office [facility] [address], [place] [address] RBC 3.19(L) 3.90 - 5.20 M/cumm [facility] ([place]) Comment:Testing performed by : [facility] [address], Medical Office [facility] [address], [place] [address] MCV 96.9(H) 81.3 - 96.4 fL [facility] ([place]) Comment:Testing performed by : [facility] [address], Medical Office [facility] [address], [place] [address] MCH 31.3 27.1 - 33.3 pg [facility] ([place]) Comment:Testing performed by : [facility] [address], Medical Office [facility] [address], [place] [address] MCHC 32.4 32.3 - 35.7 g/dL [facility] ([place]) Comment:Testing performed by : [facility] [address], Medical Office [facility] [address], [place] [address] RDW CV 13.0 11.1 - 14.9 % [facility] ([place]) Comment:Testing performed by : [facility] [address], Medical Office [address], [place] [address] RDW SD 45.9 35.7 - 48.1 fL [facility] ([place]) Comment:Testing performed by : [facility] [place], [address] [facility], Medical Office [address], [place] [address] Blood 09/09/2024 2:10 PM CDT 09/09/2024 2:12 PM CDT Rivera Ryder MD LAB BLOOD ORDERABLES Janey l Result Performing Organization Address City/[facility]/ZIP Co de Phone Number [facility] ([place]) [address] [facility] Department [place] [address] * Erythropoietin (09/09/2024 2:10 PM CDT) Pathologist [facility] Erythropoietin 7.0 2.6 - 18.5 mIUnits/mL [facility] ref Lab Comment: Test Performed by: [facility] [address] [place] [address] Medical Services Manager: Alida Delatorre Ph.D.; CLIA# [id number] Testing performed by: [facility], [address] [facility], [place], [address] Blood 09/09/2024 2:10 PM CDT 09/09/2024 2:28 PM CDT Rivera Ryder MD LAB BLOOD ORDERABLES Janey l Result Performing Organization Address City/[facility]/ZIP Co de Phone Number [facility] ([place]) 1 [facility] [place] [address] [facility] ref [facility] * Cancer antigen 15-3 (09/09/2024 2:10 PM CDT) Pathologist [facility] CA 15-3 ag 16.0 1.0 - 30.0 units/mL Comment: Interpretive Data The Agusto CA 15-3 assay procedure was used. Results from different manufacturers or methods may not be comparable. Serial testing should be performed using the same method. Testing performed by: [facility], [address] [place] [address], [place]., [address] Blood 09/09/2024 2:10 PM CDT 09/10/2024 9:25 AM CDT us Rivera Ryder MD LAB BLOOD ORDERABLES Janey l Result BEENA JJ ([place]) 1 [facility] Department [place] [address] * (ABNORMAL) Ferritin (09/09/2024 2:10 PM CDT) Ferritin 190(H) 13 - 150 ng/mL Comment:Testing performed by : [place], [address] Blood 09/09/2024 2:10 PM CDT 09/09/2024 2:28 PM CDT Rivera Ryder MD LAB BLOOD ORDERABLES Janey l Result Performing Organization Address City/[facility]/ZIP Co de Phone Number BEENA JJ ([place]) [address] [place] [address] Department [place] [address] * (ABNORMAL) Comprehensive metabolic panel (09/09/2024 2:10 PM CDT) Sodium 142 135 - 145 mmol/L Comment:Testing performed by : [place], [address] Potassium, pl 5.1(H) 3.3 - 4.9 mmol/L [facility] ([place]) Comment:Testing performed by : [place], [address] Chloride 109 97 - 110 mmol/L [facility] ([place]) Comment:Testing performed by : [place], [address] CO2 22 22 - 32 mmol/L [facility] ([place]) Comment:Testing performed by : [place], [address] Anion gap 11 2 - 15 mmol/L [facility] ([place]) Comment:Testing performed by : [place], [address] BUN 32(H) 6 - 25 mg/dL [facility] ([place]) Comment:Testing performed by : [place], [address] Creatinine 1.72(H) 0.60 - 1.10 mg/dL [facility] ([place]) Comment:Testing performed by : [place], [address] Glucose 112 70 - 199 mg/dL [facility] ([place]) Comment: Interpretive Data Fasting glucose >/= 126 [...] was last revised 2022. Testing performed by: [facility] [place] [place], [place], [address] Calcium 8.9 8.5 - 10.3 mg/dL [facility] ([place]) Comment:Testing performed by : [place], [address] Bilirubin, total 0.2 0.1 - 1.2 mg/dL [facility] ([place]) Comment:Testing performed by : [facility] [place] [place], [place], [address] Protein, pl 6.2(L) 6.5 - 8.5 g/dL [facility] ([place]) Comment:Testing performed by : [facility] [place] [place], [place], [address] Albumin 3.5 3.5 - 5.0 g/dL [facility] ([place]) Comment:Testing performed by : [place], [address] Alk phos 106 40 - 130 Units/L [facility] ([place]) Comment:Testing performed by : [place], [address] ALT 6(L) 7 - 45 Units/L [facility] ([place]) Comment:Testing performed by : [facility] [place] [place], [place], [address] AST 14 10 - 45 Units/L [facility] ([place]) Comment:Testing performed by : [facility] [place], [place], [address] Blood 09/09/2024 2:10 PM CDT 09/09/2024 2:52 PM CDT us Rivera Ryder MD LAB BLOOD ORDERABLES Janey ziegler Result [facility] ([place]) [address] [facility] Department [place] [address] from Last 3 Months Insurance Care Teams Lpn Medical Assistant Relationship Specialty Start Date End Date Georgette Alva MD PCP - General Family Medicine 09/03/24 Rivera Ryder MD [address] [place] [address] [address] [place] [address] Medical Oncologist/[facility] Medical Oncology 10/11/24
[2024-10-15 12:31] LABS: Albumin Level 3.6 g/dL (3.5-5.1); Anion Gap 9 mmol/L (4-12); Blood Urea Nitrogen 28 mg/dL (7-17); Calcium 9.3 mg/dL (8.4-10.2); Carbon Dioxide 21 mmol/L (22-30); Chloride 111 mmol/L (98-107); Estimated Glomerular Filt Rate 28; Glucose 86 mg/dL (65-110); Potassium 5.0 mmol/L (3.4-5.0); Sodium 141 mmol/L (137-145)
[2024-10-15 17:18] LABS: Total Protein Urine Random 245 mg/dL; Ur Ttl Prot Creatinine Ratio 3.47 mg/mg (0-0.20)
== END 2024-10-15 10:39 | disposition home or self-care (01) ==
PROVIDERS: PCP Family Medicine; Visit Provider Internal Medicine Nephrology
DX: I12.9 Hypertensive chronic kidney disease with stage 1 through stage 4 chronic kidney disease, or unspecified chronic kidney disease (principal); N18.4 Chronic kidney disease, stage 4 (severe)
CPT/HCPCS: 36415; 80069; 82570; 84156

== ENCOUNTER 2024-11-19 07:58 | Outpatient (CLI) | payer OTHER, SELFPAY ==
--- OUTSIDE RECORDS SUMMARY | 2005-02-06 19:00 | XMS_ITS | Continuity of Care Document ---
Author Organization [facility] Address [id number] [place] [address] [place] [address] Phone Care Team Providers Care Wood Casket Assembler Name Role Phone [facility] Unavailable Unavail able Teresa Saunders Unavailable Unavailable Advance Directives Directive Yes / No Effective Date File Name No Information Encounters Encounter Description Practice Location Reason(s) For Visit Diagnoses Date Provider Providers Copied on Encounter [facility], [address], [place], [place], [address], [place] tel:[phone] [facility] No Information 5 [facility] [address] [facility], [address], [place], [place], [address] , [place]. tel:[phone] Referring Provider: Merrill Chavez, [facility] , [place], [address]. tel:[phone] g Provider: Teresa Saunders, [address] [place] [address], [address]. tel:[phone] Family History Family Member Type Diagnosis Age At Onset No Information Payers Payer name Insurance type Covered green party ID Authoriza tion(s) [employer] Plan CI [id number] Social History Type Description Quantity Date Captured [...]
--- OUTSIDE RECORDS SUMMARY | 2024-11-19 08:06 | XMS_ITS | Clinical Summary ---
Author Organization [facility] Address [address] [place] [address] Care Team Providers Care Director Of Safety And Security Name Role Phone Geoff Martinez MD Primary Care Provider [phone] Bry Martin MD Unavailable [phone] Allergies Active Allergy Reactions Criticality Noted Date [...] patient's age to complete this topic Insurance [facility] Advance Directives * Full Code (Latest Code Status on File) Date Activated Date Inactivated Comments 11/13/2017 1:11 PM 11/13/2017 3:44 PM Care Teams Director Of Safety And Security Relationship Specialty Start Date End Date Geoff Martinez MD [address] [place] [address] PCP - General FAMILY PRACTICE 11/10/17 Bry Martin MD [address] [facility] [address] [place] [address] Referring Physician NEPHROLOGY 11/10/17
--- OUTSIDE RECORDS SUMMARY | 2024-11-19 08:06 | XMS_ITS | Encounter Summary ---
Author Organization [facility] Healthcare Address [address] [place] [address] Care Team Providers Care Manager Recovery Name Role Phone Georgette Alva MD Primary Care Provider Rivera Ryder MD Unavailable [phone] Encounter Details Date Type Department Care Team (Late st Contact Info) Description 10/21/2024 Results Follow-Up [facility] Medical Group Pulmonary at [address] [place] [address] Terence Catherine, [address] [place] [address] X-ray chest 2 views Social History Tobacco Use Types Packs/Day Years Used Date Smoking Tobacco: Former Cigarettes Q uit: 03/24/1988 Comments:Smoking History Pac ks/day: 1.5 Packs Alcohol Use Standard Drinks/Week Comments [...] on file Legal 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
--- OUTSIDE RECORDS SUMMARY | 2024-11-19 08:06 | XMS_ITS | Clinical Summary ---
Author Organization [facility] Address [address] [place] [address] Phone Care Team Providers Care Tuck Pointer Name Role Phone Georgette Alva MD Primary Care Provider [phone] Allergies Active Allergy Reactions Criticality Noted Date [...] mg 12.5 mg daily. 8 Active FLUAD 2785-7197, 64 YR UP,,PF, 45 mcg (15 mcg [...] Giron, Referring Provider: Tita Toth MD [address] [facility] [address] [place] [address] Other: Problem Noted Date Diagnosed Date Anemia [...] had adjuvant chemotherapy by Dr. Guzman in [place], Completed adjuvant radiation in November [address] Peter Cordova. She is on Arimidex, Hemochromatosis Renal insufficiency Bronze diabetes Giant cell arteritis H/O colonoscopy Encounters Date Type Department Care Team Description 10/26/2024 External Device Data STL ABSTRACTION Provider, Abstract [...] on file Legal Sex Female 5:42 AM COCONUT JELLY ROLLER Gender Identity Not on file Sexual Orientation Not on file Occupation Industry Job Start Date Job End Date Not on file Not on file Not on file Not on file Last Filed Vital Signs Vital Sign Reading Time Taken Comments Blood Pressure 149/78 04/16/2024 8:51 AM COCONUT JELLY ROLLER Pulse 66 04/16/2024 8:48 AM COCONUT JELLY ROLLER Temperature 36.5 C (97.7 F) 04/16/2024 8:48 AM COCONUT JELLY ROLLER Respiratory Rate 15 04/16/2024 8:48 AM COCONUT JELLY ROLLER Oxygen Saturation 98% 04/16/2024 8:48 AM COCONUT JELLY ROLLER Inhaled Oxygen Concentration - - Weight 66.9 kg (147 lb 6.4 oz) 04/16/2024 8:48 A M COCONUT JELLY ROLLER Height 154.9 cm (5' 1) 12/19/2021 9:56 [...] Sig/CT Colonography Q 5 years Discontinued Insurance * Guarantor: Pippa Mota Account Type Relation to Patient Date of Phone Billing Address Personal/Family Self [address] [place] [id number] [employer] CHOICE POS II RX [facility] Advance Directives For more information, please contact: [phone] Documents on File Type Date Recorded Patient [facility] Home [facility] Expl anation Advance Directive POA 07/24/2012 8:56 AM Ad cyr Directive POA Care Teams Tuck Pointer Relationship Specialty Start Date End Date Georgette Alva MD [address] [place] [address] PCP - General Family Practice 11/01/19
--- OUTSIDE RECORDS SUMMARY | 2024-11-19 08:06 | XMS_ITS | Clinical Summary ---
Author Organization [facility] Facility Address [address] [address] Care Team Providers Care Founder President And Ceo Name Role Phone Georgette Alva MD Primary Care Provider [phone] Allergies Active Allergy Reactions Criticality Noted Date [...] this topic Insurance [employer] Care Teams Founder President And Ceo Relationship Specialty Start Date End Date Georgette Alva MD [address] [place] [address] PCP - General Family Medicine 07/03/21
--- OUTSIDE RECORDS SUMMARY | 2024-11-19 08:06 | XMS_ITS | Clinical Summary ---
Author Organization [facility] Address [address] [place] [id number] Phone Care Team Providers Care Commissary Assistant Name Role Phone Georgette Alva MD [...] had adjuvant chemotherapy by Dr. Guzman in [place], Completed adjuvant radiation in November 2007 by [...] Comments Blood Pressure 134/70 02/27/2022 9:42 AM [employer] OPERATOR MAINTAINER Pulse 65 11/26/2017 12:01 AM CDT Temperature 36.1 C (97 F) 02/27/2022 9:42 AM [employer]VANCED OPERATOR MAINTAINER Respiratory Rate 18 02/27/2022 9:42 AM [employer] ADVANCED OPERATOR MAINTAINER Oxygen Saturation - - Inhaled Oxygen Concentration - - Weight 64 kg (141 lb) 02/27/2022 9:42 AM [employer] ADVANCED OPERATOR MAINTAINER Height 162.6 cm (5' 4) 02/27/2022 9:42 AM [employer] ADVANCED OPERATOR MAINTAINER Body Mass Index 24.2 02/27/2022 9:42 AM [employer]ED OPERATOR MAINTAINER Plan of Treatment Health Maintenance Due Date Last Done Comments Pneumococcal PPSV23/PCV13 65 + Years / Low and Medium Risk (1 of 2 - PCV) 07/13/1989 Influenza Vaccine (#1) 2024 Insurance [employer] Care Teams Commissary Assistant Relationship Specialty Start Date End Date Georgette Alva MD [address] [place] [address] PCP - General Internal Medicine 02/22/22
--- OUTSIDE RECORDS SUMMARY | 2024-11-19 08:06 | XMS_ITS | Encounter Summary ---
Author Organization [employer] [facility] Address [address] [place] [id number] Phone Care Team Providers Care Student Admissions Clerk Name Role Phone Georgette Alva MD Primary Care Provider [phone] Encounter Details Date Type Department Care Team (Late st Contact Info) Description 07/26/2021 Documentation Only [email or web address] [facility] [address] [id number] Devi Kohli MD [address] [place] [address]. [place] [address] Social History Tobacco Use Types Packs/Day Years [...] specified documented in this encounter Care Teams Student Admissions Clerk Relationship Specialty Start Date End Date Georgette Alva MD [address] [place] [address] PCP - General Family Medicine 07/03/21 documented as of this encounter
--- OUTSIDE RECORDS SUMMARY | 2024-11-19 08:06 | XMS_ITS | Clinical Summary ---
Author Organization [facility] Address [address] [place] [address] Care Team Providers Care Mud Cleaner Operator Name Role Phone Georgette Alva MD Primary Care Provider [phone] Rivera Ryder MD Unavailable [phone] Allergies Active Allergy Reactions Criticality Noted Date [...] by oral route every day 0 0 01/27/2014 Active amlodipine-olme sartan (ROBSON) 10-20 mg per tablet Take 1 tablet by mouth daily Active atorvastatin (LIPITOR) 20 mg tablet Take 1 tablet (20 mg total) by mouth daily Active azilsartan med-chlorthalid one 40-12.5 mg tablet Take by mouth Active hydrALAZINE (APRESOLINE) 10 mg tabletIndicatio ns:hypertension Take 1 tablet (10 mg total) by [...] by mouth as needed for pain Active cholecalciferol (VITAMIN D-3) 1,000 unit capsule Take by mouth Active pantoprazole DR (PROTONIX) 40 mg EC tablet Take 1 tablet (40 mg total) by mouth 2 (two) times a day 60 tablet 11 10/11/2024 Active chlorthalidone 12.5 mg tablet Activ e Active Problems Problem Noted Date Diagnosed Date Malignant neoplasm of left b reast in female, estrogen receptor positive 10/21/2024 Assessment & Plan (10/21/2024 2:50 PM CDT): No concerning findings on mammogram or ultrasound. Although unusual I have seen seromas persist for extended durations of time especially if they do not fully resolve initially. My guess is if we had ultrasounds of the breasts prior to these past 2 years we would have seen it then. 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 I will discuss with Oncology if they have any concern. From my standpoint with her being asymptomatic and no findings new or concerning on mammogram I would not do anything differently. We could always aspirate it for cytology but given the longstanding duration and how the cavity looks my guess is that it would likely reform if we are doing this for resolution. The only way it would likely fully resolve would be to fully excise the cavity. I will call her back once I discuss with Oncology. Laryngopharyngeal reflux 10/11/2024 Stage 3b chronic kidney disease 09/09/2024 Personal history of primary malignant neoplasm o f breast 04/27/2013 Overview (06/28/2016): History of breast cancer Hemochromatosis 04/27/2013 Overview (06/28/2016): Hemochromatosis Hypertension 04/27/2013 Overview (06/28/2016): Hypertension Encounters Date Type Department Care Team Description 10/21/2024 10:50 AM CDT Office Visit [facility] [address] [place] [address] [address] [place] [address] Carlitos Dumont MD Malignant neoplasm of left breast in female, estrogen receptor positive, unspecified site of breast (HCC) 10/21/2024 Results Follow-Up [facility] Pulmonary at [address] [place] [address] Terence Catherine DO X-ray chest 2 views 10/13/2024 Telephone [facility] Pulmonary at [address] [place] [address] Archana Noguera LPN Sleep Study 10/13/2024 Telephone [facility] Oncology [address] [place] [address] Medical Office [address] [place] [address] Rivera Ryder MD 10/11/2024 11:56 AM CDT - 10/11/2024 11:59 PM CDT Hospital Encounter [facility] [address] [place] [address] Cough, unspecified type Discharge Disposition: Discharge to home or self care 10/11/2024 11:00 AM CDT Office Visit [facility] Pulmonary at [address] [place] [address] Terence Catherine DO Cough, unspecified type (Primary Dx); Laryngopharyngeal reflux; AVANI (obstructive sleep apnea) 10/11/2024 9:30 AM CDT Office Visit [facility] [address] [place] [address] Medical Office [address] [place] [address] Rivera Ryder MD Malignant neoplasm of left breast in female, estrogen receptor positive, unspecified site of breast (HCC) (Primary Dx); Hemochromatosis, unspecified hemochromatosis type 10/11/2024 8:30 AM CDT Lab [address] [address] Malignant neoplasm of left breast in female, estrogen receptor positive, unspecified site of breast (HCC) 09/17/2024 8:30 AM CDT - 09/17/2024 11:59 PM CDT Hospital Encounter [address] [address] Malignant neoplasm of left breast in female, estrogen receptor positive, unspecified site of breast (HCC) Discharge Disposition: Discharge to home or self care 09/17/2024 7:40 AM CDT - 09/17/2024 11:59 PM CDT Hospital Encounter [address] [address] Malignant neoplasm of left breast in female, estrogen receptor positive, unspecified site of breast (HCC) Discharge Disposition: Discharge to home or self care 09/09/2024 2:00 PM CDT Lab [facility] Cancer [address] [place] [address] Hemochromatosis, unspecified hemochromatosis type; Malignant neoplasm of left breast in female, estrogen receptor positive, unspecified site of breast (HCC); History of hemochromatosis; Stage 3b chronic kidney disease (HCC) 09/09/2024 1:30 PM CDT Office Visit [facility] [address] [place] [address] [address] [place] [address] Rivera Ryder MD Hemochromatosis, unspecified hemochromatosis type (Primary Dx); History of hemochromatosis; Malignant neoplasm of left breast in female, estrogen receptor positive, unspecified site of breast (HCC); Stage 3b chronic kidney disease (HCC) 08/27/[address] 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08 10/21/2024 10:27 AM CDT Plan of Treatment Health Maintenance Due Date Last Done Comments Depression Screening 1940 Fall Risk Assessment 1940 Osteoporosis Screening-Bone Density Scan 1940 DTaP/Tdap/Td Vaccine (1 - Tdap) 07/13/1950 Hepatitis B Screening 07/13/1957 Well Visit 65+ 07/13/2004 Zoster Vaccine (2 of 2) 03/29/2020 02/02/2020 Covid-19 Vaccine (2023-2 5 season) 2024 01/02/2024, 06/12/2023, 01/14/2023, Additional history exists Influenza Vaccine (#1) 2024 4, 12/31/2021, 11/28/2020, Additional history exists Pneumococcal vaccine 65+ Completed 017, 04/27/2015, 02/21/2006 Procedures Procedure Name Priority Date/Time Associated Diagnosis Comments XR CHEST PA LATERAL 2 VIEWS Schedule Routine, Read Routine (OP Routine) 10/11/2024 12:07 PM CDT Cough, unspecified type DIFFERENTIAL AUTO Routine 10/11/2024 8:3 4 AM [...] (HCC) from Last 3 Months Results * X-ray chest 2 views (10/11/2024 12:07 PM CDT) Anatomical Region Laterality Modality Body, Chest N/A Computed Radiogr aphy 10/17/2024 10:3 2 PM CDT Narrative 10/17/2024 10:32 PM CDT EXAM DESCRIPTION: XR CHEST PA LATERAL 2 VIEWS REASON FOR STUDY: Cough Cough Hx of left side breast cancer Former Smoker TECHNIQUE: 2 radiographic view(s) of the chest. COMPARISON: None FINDINGS: LUNGS: Chronic lung changes are noted. The lungs are hyperexpanded. This is suggestive of COPD. No consolidation, effusion or other acute process is seen. HEART/MEDIASTINUM: Cardiac silhouette normal in size. Mediastinal and hilar contours appear normal. LINES/TUBES: None. BONES: No acute osseous abnormality. IMPRESSION: No acute cardiopulmonary abnormality. Chronic lung changes are noted. THIS IS AN ELECTRONICALLY VERIFIED FINAL REPORT 10/17/2024 10:32 PM - Electronically signed by Edmond Macario M.D. KH: [place] Report ID: [id number] Reading Location: [id number] Procedure Note Edmond Macario MD - 10/17/2024 EXAM DESCRIPTION: XR CHEST PA LATERAL 2 VIEWS REASON FOR STUDY: Cough Cough Hx of left side breast cancer Former Smoker TECHNIQUE: 2 radiographic view(s) of the chest. COMPARISON: None FINDINGS: LUNGS: Chronic lung changes are noted. The lungs are hyperexpanded. Thisis suggestive of COPD. No consolidation, effusion or other acute process isseen. HEART/MEDIASTINUM: Cardiac silhouette normal in size. Mediastinal andhilar contours appear normal. LINES/TUBES: None. BONES: No acute osseous abnormality. IMPRESSION: No acute cardiopulmonary abnormality. Chronic lung changes are noted. THIS IS AN ELECTRONICALLY VERIFIED FINAL REPORT 10/17/2024 10:32 PM - Electronically signed by Edmond Macario M.D. KH: KIMBERLEY Report ID: [id number] Reading Location: [place] [address] Terence Catherine DO IMG XR PROCEDURES Final R esult * Differential, auto (10/11/2024 8:34 AM CDT) [...] revised on 2017. Basophil pct 0.5 % [facility] ([place]) Comment: Interpretive Data Percent cell count reference ranges are not reported, since discordance with absolute values may lead to misinterpretation of CBC data. Current Interpretive Data was last revised on 2017. Blood 10/11/2024 8:34 AM CDT 10/11/2024 8:40 AM CDT us Rivera Ryder MD LAB BLOOD ORDERABLES Janey ziegler Result [facility] ([place]) 1 [facility] Department [place] [address] * (ABNORMAL) CBC with auto differential (10/11/2024 8:34 AM CDT) WBC 5.64 3.80 - 9.90 K/cumm Hgb 9.2(L) 11.9 - 15.5 g/dL [facility] ([place]) Hct 28.9(L) 35.6 - 45.5 % [facility] ([place]) Plt 199 150 - 400 K/cumm [facility] ([place]) MPV 10.6 9.1 - 12.3 fL [facility] ([place]) RBC 2.98(L) 3.90 - 5.20 M/cumm [facility] ([place]) MCV 97.0(H) 81.3 - 96.4 fL [facility] ([place]) MCH 30.9 27.1 - 33.3 pg [facility] ([place]) MCHC 31.8(L) 32.3 - 35.7 g/dL [facility] ([place]) RDW CV 13.1 11.1 - 14.9 % [facility] ([place]) RDW SD 46.5 35.7 - 48.1 fL [facility] ([place]) NRBC abs 0.00 0.00 - 0.01 K/cumm [facility] ([place]) Blood 10/11/2024 8:34 AM CDT 10/11/2024 8:40 AM CDT us Rivera Ryder MD LAB BLOOD ORDERABLES Janey ziegler Result [facility] ([place]) 1 [facility] Department [place] [address] * US Breast Left Limited (09/17/2024 9:14 [...] was last reviewed 2021. Testing performed by: [facility], [facility], [place], [address] Blood 09/09/2024 2:10 PM CDT 09/09/2024 2:52 PM CDT us Rivera Ryder MD LAB BLOOD ORDERABLES Janey ziegler Result [facility] ([place]) 1 [facility] Department [place] [address] * Differential, auto (09/09/2024 2:10 PM CDT) Neutrophil abs 3.65 1.50 - 6.50 K/cumm [facility] ([place]) Comment:Testing performed by : [facility] [address], Medical Office [facility] [address], [place] [address] Imm gran abs 0.01 0.00 - 0.10 K/cumm [facility] ([place]) Comment:Testing performed by : [facility] [address], Medical Office [facility] [address], [place] [address] Lymphocyte abs 1.14 0.80 - 3.30 K/cumm [facility] ([place]) Comment:Testing performed by : [facility] [address], Medical Office [facility] [address], [place] [address] Monocyte abs 0.60 0.20 - 0.80 K/cumm [facility] ([place]) Comment:Testing performed by : [facility] [address], Medical Office [facility] [address], [place] [address] Eosinophil abs 0.24 0.00 - 0.50 K/cumm [facility] ([place]) Comment:Testing performed by : [facility] [address], Medical Office [facility] [address], [place] [address] Basophil abs 0.06 0.00 - 0.10 K/cumm [facility] ([place]) Comment:Testing performed by : [facility] [address], Medical Office [facility] [address], [place] [address] Neutrophil pct 64.0 % [facility] ([place]) Comment: Interpretive Data Percent cell count reference ranges are not reported, since discordance with absolute values may lead to misinterpretation of CBC data. Current Interpretive Data was last revised on 2022. Testing performed by: [facility] [address], Medical Office [facility] [address], [place] [address] Imm gran pct 0.2 % [facility] ([place]) Comment: Interpretive Data Percent cell count reference ranges are not reported, since discordance with absolute values may lead to misinterpretation of CBC data. Current Interpretive Data was last revised on 2022. Testing performed by: [facility] [address], Medical Office [address], [place] [address] Lymphocyte pct 20.0 % [facility] ([place]) Comment: Interpretive Data Percent cell count reference ranges are not reported, since discordance with absolute values may lead to misinterpretation of CBC data. Current Interpretive Data was last revised on 2022. Testing performed by: [facility] [address], Medical Office [address]g [address], [place] [address] Monocyte pct 10.5 % [facility] ([place]) Comment: Interpretive Data Percent cell count reference ranges are not reported, since discordance with absolute values may lead to misinterpretation of CBC data. Current Interpretive Data was last revised on 2022. Testing performed by: [facility] [address], Medical Office [address], [place] [address] Eosinophil pct 4.2 % [facility] ([place]) Comment: Interpretive Data Percent cell count reference ranges are not reported, since discordance with absolute values may lead to misinterpretation of CBC data. Current Interpretive Data was last revised on 2022. Testing performed by: [facility] [address], Medical Office [address], [place] [address] Basophil pct 1.1 % [facility] ([place]) Comment: Interpretive Data Percent cell count reference ranges are not reported, since discordance with absolute values may lead to misinterpretation of CBC data. Current Interpretive Data was last revised on 2022. Testing performed by: [facility] [address], Medical Office [address], [place] [address] Blood 09/09/2024 2:10 PM CDT 09/09/2024 2:12 PM CDT us Rivera Rdyer MD LAB BLOOD ORDERABLES Janey ziegler Result [facility] ([place]) 1 [facility] Department [place] [address] * (ABNORMAL) Iron profile w/ IBC (09/09/2024 2:10 PM CDT) Iron 148(H) 35 - 145 mcg/dL Comment:Testing performed by : [facility], [facility], [place], [address] TIBC 210(L) 250 - 400 mcg/dL [facility] ([place]) Comment:Testing performed by : [facility], [facility], [place], [address] Transferrin saturation 70(H) 20 - 50 % [facility] ([place]) Comment:Testing performed by : [facility], [place], [address] Blood 09/09/2024 2:10 PM CDT 09/09/2024 2:28 PM CDT Rivera Ryder MD LAB BLOOD ORDERABLES Janey l Result Performing Organization Address [facility]/ZIP Co de Phone Number [facility] ([place]) 1 [facility] Department [place] [address] * (ABNORMAL) CBC with auto differential (09/09/2024 2:10 PM CDT) WBC 5.70 3.80 - 9.90 K/cumm [facility] ([place]) Comment:Testing performed by : [facility] [address], Medical Office [facility] [address], [place] [address] Hgb 10.0(L) 11.9 - 15.5 g/dL [facility] ([place]) Comment:Testing performed by : [facility] [address], Medical Office [address], [place] [address] Hct 30.9(L) 35.6 - 45.5 % [facility] ([place]) Comment:Testing performed by : [facility] [address], Medical Office [address], [place] [address] Plt 189 150 - 400 K/cumm [facility] ([place]) Comment:Testing performed by : [facility] [address], Medical Office [facility] [address], [place] [address] MPV 10.3 9.1 - 12.3 fL [facility] ([place]) Comment:Testing performed by : [facility] [address], Medical Office [facility] [address], [place] [address] RBC 3.19(L) 3.90 - 5.20 M/cumm [facility] ([place]) Comment:Testing performed by : [facility] [address], Medical Office [facility] [address], [place] [address] MCV 96.9(H) 81.3 - 96.4 fL [facility] ([place]) Comment:Testing performed by : [facility] [address], Medical Office [facility] [address], [place] [address] MCH 31.3 27.1 - 33.3 pg [facility] ([place]) Comment:Testing performed by : [facility] [address], Medical Office [facility] [address], [place] [address] MCHC 32.4 32.3 - 35.7 g/dL [facility] ([place]) Comment:Testing performed by : [facility] [address], Medical Office [facility] [address], [place] [address] RDW CV 13.0 11.1 - 14.9 % [facility] ([place]) Comment:Testing performed by : [facility] [address], Medical Office [facility] [address], [place] [address] RDW SD 45.9 35.7 - 48.1 fL [facility] ([place]) Comment:Testing performed by : [facility] [address], Medical Office [facility] [address], [place] [address] Blood 09/09/2024 2:10 PM CDT 09/09/2024 2:12 PM CDT us Rivera Ryder MD LAB BLOOD ORDERABLES Janey ziegler Result [facility] ([place]) 1 [facility] Department [place] [address] * Erythropoietin (09/09/2024 2:10 PM CDT) Erythropoietin 7.0 2.6 - 18.5 mIUnits/mL [place] [facility] Comment: Test Performed by: [facility] [address] [place] [address] Pyrotechnics Press Tender: Alida Delatorre Ph.D.; CLIA# [id number] Testing performed by: [facility], [place], [address] Blood 09/09/2024 2:10 PM CDT 09/09/2024 2:28 PM CDT Rivera Ryder MD LAB BLOOD ORDERABLES Janey l Result [facility] ([place]) [address] [place] [address] [place] [address] [place] [facility] * Cancer antigen 15-3 (09/09/2024 2:10 PM CDT) [facility] CA 15-3 ag 16.0 1.0 - 30.0 units/mL Comment: Interpretive Data The Agusto CA 15-3 assay procedure was used. Results from different manufacturers or methods may not be comparable. Serial testing should be performed using the same method. Testing performed by: [facility], [address] [place] [address]., [address] Blood 09/09/2024 2:10 PM CDT 09/10/2024 9:25 AM CDT us Rivera Ryder MD LAB BLOOD ORDERABLES Janey l Result [facility] ([place]) [address] [place] [address] [place] [address] * (ABNORMAL) Ferritin (09/09/2024 2:10 PM CDT) [facility] Ferritin 190(H) 13 - 150 ng/mL Comment:Testing performed by : [facility], [facility], [place], [address] Blood 09/09/2024 2:10 PM CDT 09/09/2024 2:28 PM CDT us Rivera Ryder MD LAB BLOOD ORDERABLES Janey ziegler Result [facility] ([place]) 1 [facility] Department [place] [address] * (ABNORMAL) Comprehensive metabolic panel (09/09/2024 2:10 PM CDT) Sodium 142 135 - 145 mmol/L Comment:Testing performed by : [facility], [place], [address] Potassium, pl 5.1(H) 3.3 - 4.9 mmol/L [facility] ([place]) Comment:Testing performed by : [facility], [place], [address] Chloride 109 97 - 110 mmol/L [facility] ([place]) Comment:Testing performed by : [facility], [place], [address] CO2 22 22 - 32 mmol/L [facility] ([place]) Comment:Testing performed by : [facility], [place], [address] Anion gap 11 2 - 15 mmol/L [facility] ([place]) Comment:Testing performed by : [facility], [place], [address] BUN 32(H) 6 - 25 mg/dL [facility] ([place]) Comment:Testing performed by : [facility], [place], [address] Creatinine 1.72(H) 0.60 - 1.10 mg/dL [facility] ([place]) Comment:Testing performed by : [facility], [place], [address] Glucose 112 70 - 199 mg/dL [facility] [...] classification and Diagnosis of Diabetes Diabetes Care 202; 46: S19-S40. Current interpretive data was last revised 2022. Testing performed by: [facility], [place], [address] Calcium 8.9 8.5 - 10.3 mg/dL [facility] ([place]) Comment:Testing performed by : [facility], [place], [address] Bilirubin, total 0.2 0.1 - 1.2 mg/dL [facility] ([place]) Comment:Testing performed by : [facility], [place], [address] Protein, pl 6.2(L) 6.5 - 8.5 g/dL [facility] ([place]) Comment:Testing performed by : [facility], [place], [address] Albumin 3.5 3.5 - 5.0 g/dL [facility] ([place]) Comment:Testing performed by : [place], [address] Alk phos 106 40 - 130 Units/L [facility] ([place]) Comment:Testing performed by : [facility], [place], [address] ALT 6(L) 7 - 45 Units/L [facility] ([place]) Comment:Testing performed by : [facility], [place], [address] AST 14 10 - 45 Units/L [facility] ([place]) Comment:Testing performed by : [facility], [place], [address] Blood 09/09/2024 2:10 PM CDT 09/09/2024 2:52 PM CDT us Rivera Ryder MD LAB BLOOD ORDERABLES Janey ziegler Result [facility] ([place]) 1 [facility] Department [place] [address] from Last 3 Months Insurance [address] [place] [id number] Care Teams Mud Cleaner Operator Relationship Specialty Start Date End Date Georgette Alva MD PCP - General Family Medicine 09/03/24 Rivera Ryder MD [address] [place] [address] [place] [address] Medical Oncologist/Fabrication And Layout Craftsman Medical Oncology 10/11/24
--- NOTE | 2024-11-19 13:33 | WPDSIXMINUTE ---
Six Minute Walk Procedure Procedure Performed Pulmonary Stress Test (6 min walk) Six Minute Walk Six Minute Walk: This is a 6 minute walk test. The test was performed and interpreted in accordance with the 2014 ERS/ATS task force guidelines. Of note, patient used personal cane. Findings: The patient's resting room air oxygen saturation measured by pulse oximetry was 97%, the heart rate was 86 bpm, and the modified Nimisha dyspnea score was 0. Patient ambulated for 274 meters and oxygen saturation remained 96 to 97%. At the end of the study the heart rate was 89 bpm and the modified Nimihsa dyspnea score was 0. The patient did not qualify for supplemental oxygen at rest or with ambulation. There are no prior studies for comparison.
--- NOTE | 2024-11-19 13:35 | WPDPFTINT ---
PFT Procedure Performed PFT Procedure Performed Spirometry with Pre/Post Bronchodilator Plethysmography (Lung Vol) Flow Vol Loop PFT Interpretation This is a pulmonary function test with pre and post-bronchodilator spirometry, and plethysmography. The test was performed and results interpreted in accordance with the 2019 and 2005 ATS/ERS Task Force guidelines respectively using the Global Lung Function Initiative-2012 reference equations. Patient demonstrated good effort and cooperation. Reproducibility criteria were met. The quality of the pre bronchodilator spirometry maneuver was Grade B and post bronchodilator spirometry maneuver was Grade B. of note, patient had good effort but had difficulty with all testing. Unable to obtain DLCO despite 4 attempts. Findings: Spirometry: There is decreased maximal expiratory airflow at all lung volumes with concave expiratory flow tracing. The contour the inspiratory flow tracing is normal. The pre bronchodilator FVC is 2.09 L, 94% predicted. The pre bronchodilator FEV1 is 1.36 L, 81% predicted. The pre bronchodilator FEV1: FVC ratio is 65%. The post bronchodilator FVC is 2.31 L, representing an 11% increase. The post bronchodilator FEV1 is 1.53 L, representing 170 mL increase which corresponds to a 12% increase. The post bronchodilator FEV1: FVC ratio is 66%. Plethysmography: The total lung capacity is 6.64 L, 140% predicted. The functional residual capacity is 4.89 L, 179% predicted. The residual volume is 3.09 L, 130% predicted. The slow vital capacity is 3.55 L. Impression: The slow vital capacity is greater than forced vital capacity with a concave expiratory tracing and a low FEV1: FVC ratio with a normal FEV1. This is suggestive of small airways disease. There is no significant improvement after inhaling a single dose of albuterol as the absolute increase in the post bronchodilator FEV1 is less than 200 mL. The total lung capacity is increased with a normal residual volume:Total lung capacity ratio which is consistent with large lungs. There are no prior studies for comparison
== END 2024-11-19 07:59 | disposition home or self-care (01) ==
PROVIDERS: PCP Family Medicine; Visit Provider Internal Medicine Critical Care Medicine
DX: Z87.891 Personal history of nicotine dependence (principal)
CPT/HCPCS: 94060; 94618; 94726

== ENCOUNTER 2024-11-19 13:23 | Emergency (ER) | payer OTHER, SELFPAY ==
--- OUTSIDE RECORDS SUMMARY | 2005-02-06 19:00 | XMS_ITS | Continuity of Care Document ---
Author Organization [facility] [place] [id number] [place] [address] [place] [address] Phone Care Team Providers Care Sack Sewer Machine Name Role Phone [facility] Unavailable Unavail able Teresa Saunders Unavailable Unavailable Advance Directives Directive Yes / No Effective Date File Name No Information Encounters Encounter Description Practice Location Reason(s) For Visit Diagnoses Date Provider Providers Copied on Encounter [facility], [address], [place], [place], [id number], [place] tel:[phone] [facility] No Information 5 [facility] [address] [facility], [address], [place], [place], [address] , [place]. tel:[phone] Referring Provider: Merrill Chavez, [facility] , [place], [address]. tel:[phone] g Provider: Teresa Saunders, [address] [place] [address], [address]. tel:[phone] Family History Family Member Type Diagnosis Age At Onset No Information Payers Payer name Insurance type Covered libertarian ID Authoriza tion(s) [employer] Plan CI [id number] Social History Type Description Quantity Date Captured Comments Sex Female Smoking Status No Information Chief Complaint And Reason For Visit No Information Reason For Referral Reason For Referral No Information History Of Present Illness Encounter Date Complaint History Of Prese nt Illness No Information Functional Status Date Functional Assessmen t No Information Instructions Date Instruction Additional Infor mation No Information Assessments Type Assessment Date No Information Patient Care Teams Name Effective Dates (start - stop) Status Members No Information
--- OUTSIDE RECORDS SUMMARY | 2005-02-06 19:00 | XMS_ITS | Continuity of Care Document ---
Author Organization [facility] Address [id number] [place] [address] [place] [address] Phone Care Team Providers Care Furniture Rental Consultant Name Role Phone [facility] Unavailable Unavail able Teresa Saunders Unavailable Unavailable Advance Directives Directive Yes / No Effective Date File Name No Information Encounters Encounter Description Practice Location Reason(s) For Visit Diagnoses Date Provider Providers Copied on Encounter [facility], [address], [place], [place], [address], [place] tel:[phone] [facility] No Information 5 [facility] [address] [facility], [address], [place], [place], [address] , [place]. tel:[phone] Referring Provider: Merrill Chavez, [facility] , [place], [address]. tel:[phone] g Provider: Teresa Saunders, [address] [place] [address], [address]. tel:[phone] Family History Family Member Type Diagnosis Age At Onset No Information Payers Payer name Insurance type Covered green party ID Authoriza tion(s) [employer] Plan CI [id number] Social History Type Description Quantity Date Captured [...]
--- NOTE | ~2024-11-19 | US_ITS ---
EXAMINATION:US venous doppler LE RT INDICATION:Swelling, redness TECHNIQUE: Multiple grayscale, color flow and Doppler images of the right lower extremity deep venous systems were obtained and reviewed. COMPARISON:None FINDINGS: The common femoral, superficial femoral and popliteal veins demonstrate normal respiratory variation, augmentation and compressibility. Color flow is also seen within the posterior tibial, peroneal, greater saphenous and profunda veins. There is a 2.5 x 6.8 x 1.9 cm anechoic structure posterior to the right knee in the popliteal fossa. The finding may represent a Watson's cyst. Consider an MRI of the right knee for further assessment IMPRESSION: 1: No right lower extremity deep venous thrombosis. 2. There is a 2.5 x 6.8 x 1.9 cm anechoic structure posterior to the right knee in the popliteal fossa. The finding may represent a Watson's cyst. Consider an MRI of the right knee for further assessment Reviewed, dictated and finalized at location Q. IMPRESSION: 1: No right lower extremity deep venous thrombosis. 2. There is a 2.5 x 6.8 x 1.9 cm anechoic structure posterior to the right kne e in the popliteal fossa. The finding may represent a Watson's cyst. Consider an MRI of the right knee for further assessment
--- OUTSIDE RECORDS SUMMARY | 2024-11-19 13:26 | XMS_ITS | Encounter Summary ---
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
--- OUTSIDE RECORDS SUMMARY | 2024-11-19 13:26 | XMS_ITS | Encounter Summary ---
Author Organization [employer] [facility] Address [address] [place] [address] Phone Care Team Providers Care Laborer Marine Terminal Name Role Phone Georgette Alva MD Primary Care Provider [phone] Encounter Details Date Type Department Care Team (Late st Contact Info) Description 07/26/2021 Documentation Only [facility] [address] [address] Devi Kohli MD [address] [place] [address]. [place] [address] Social History Tobacco Use Types Packs/Day Years [...] specified documented in this encounter Care Teams Laborer Marine Terminal Relationship Specialty Start Date End Date Georgette Alva MD [address] [place] [address] PCP - General Family Medicine 07/03/21 documented as of this encounter
--- OUTSIDE RECORDS SUMMARY | 2024-11-19 13:26 | XMS_ITS | Clinical Summary ---
Author Organization [facility] Address [address] [place] [address] Care Team Providers Care Civil Transportation Engineer Name Role Phone Georgette Alva MD Primary Care Provider [phone] Rivera Ryder MD Unavailable [phone] Allergies Active Allergy Reactions Criticality Noted Date [...] Description 10/21/2024 10:50 AM CDT Office Visit [facility] [address] [place] [address] [address] [place] [address] Carlitos Dumont MD Malignant neoplasm of left breast in female, estrogen receptor positive, unspecified site of breast (HCC) 10/21/2024 Results Follow-Up [facility] Pulmonary at [address] [place] [address] Terence Catherine DO X-ray chest 2 views 10/13/2024 Telephone [facility] Pulmonary at [address] [place] [address] Archana Noguera LPN Sleep Study 10/13/2024 Telephone [facility] Oncology [address] [place] [address] Medical Office [address] [place] [address] Rivera Ryder MD 10/11/2024 11:56 AM CDT - 10/11/2024 11:59 PM CDT Hospital Encounter [facility] [address] [place] [address] Cough, unspecified type Discharge Disposition: Discharge to home or self care 10/11/2024 11:00 AM CDT Office Visit [facility] Medical [facility] Pulmonary at [address] [place] [address] Terence Catherine DO Cough, unspecified type (Primary Dx); Laryngopharyngeal reflux; AVANI (obstructive sleep apnea) 10/11/2024 9:30 AM CDT Office Visit [facility] [address] [place] [address] Medical Office [address] [place] [address] iRvera Ryder MD Malignant neoplasm of left breast in female, estrogen receptor positive, unspecified site of breast (HCC) (Primary Dx); Hemochromatosis, unspecified hemochromatosis type 10/11/2024 8:30 AM CDT Lab [address] [address] Malignant neoplasm of left breast in female, estrogen receptor positive, unspecified site of breast (HCC) 09/17/2024 8:30 AM CDT - 09/17/2024 11:59 PM CDT Hospital Encounter [address] [address] Malignant neoplasm of left breast in female, estrogen receptor positive, unspecified site of breast (HCC) Discharge Disposition: Discharge to home or self care 09/17/2024 7:40 AM CDT - 09/17/2024 11:59 PM CDT Hospital Encounter [address] [address] Malignant neoplasm of left breast in female, estrogen receptor positive, unspecified site of breast (HCC) Discharge Disposition: Discharge to home or self care 09/09/2024 2:00 PM CDT Lab [facility] Cancer [address] [place] [address] Hemochromatosis, unspecified hemochromatosis type; Malignant neoplasm of left breast in female, estrogen receptor positive, unspecified site of breast (HCC); History of hemochromatosis; Stage 3b chronic kidney disease (HCC) 09/09/2024 1:30 PM CDT Office Visit [facility] [address] [place] [address] [address] [place] [address] Rivera Ryder MD Hemochromatosis, unspecified hemochromatosis type (Primary Dx); History of hemochromatosis; Malignant neoplasm of left breast in female, estrogen receptor positive, unspecified site of breast (HCC); Stage 3b chronic kidney disease (HCC) 08/27/2024 Orders Only [facility] [address] [place] [address] Medical Office [address] [place] [address] Brit Plummer, CLT History of hemochromatosis (Primary [...] on file Legal Sex Female 2:57 AM BALANCE WHEEL FACER Gender Identity Not on file Sexual Orientation [...] Edmond Macario M.D. K[facility]: [place] Report ID: [id number] Reading Location: [id number] Procedure Note Edmond Macario MD - 10/17/2024 [...] Edmond Macario M.D. KH: [place] Report ID: [id number] Reading Location: [place] [address] Terence Catherine DO IMG XR PROCEDURES Final [...] BLOOD ORDERABLES Janey ziegler Result BEENA JJ (ARCADIA) [address] [facility] [place] [address] * (ABNORMAL) CBC with auto differential (10/11/2024 8:34 AM CDT) WBC 5.64 3.80 - 9.90 K/cumm Hgb 9.2(L) 11.9 - 15.5 g/dL BEENA JJ (RYELE) Hct 28.9(L) 35.6 - 45.5 % BEENA [...] Janey ziegler Result [facility] (RYLEE) [address] [facility] Department [place] [address] * US Breast Left Limited (09/17/2024 9:14 [...] was last reviewed 2021. Testing performed by: [facility], [facility], [place], [address] Blood 09/09/2024 2:10 PM CDT 09/09/2024 2:52 PM CDT us Rivera Ryder MD LAB BLOOD ORDERABLES Janey ziegler Result [facility] (ARC[place]) [address] [facility] Department [place] [address] * Differential, auto (09/09/2024 2:10 PM CDT) Neutrophil abs 3.65 1.50 - 6.50 K/cumm [facility] (ARC[place]IA) Comment:Testing performed by : [facility] [address], Medical Office [facility] [address], [place] [address] Imm gran abs 0.01 0.00 - 0.10 K/cumm [facility] (ARC[place]IA) Comment:Testing performed by : [facility] [address], Medical Office [facility] [address], [place] [address] Lymphocyte abs 1.14 0.80 - 3.30 K/cumm [facility] ([place]) Comment:Testing performed by : [facility] [address], Medical Office [facility] [address], [place] [address] Monocyte abs 0.60 0.20 - 0.80 K/cumm [facility] (ARC[place]IA) Comment:Testing performed by : [facility] [address], Medical Office [facility] [address], [place] [address] Eosinophil abs 0.24 0.00 - 0.50 K/cumm [facility] (ARC[place]) Comment:Testing performed by : [facility] [address], Medical Office [facility] [address], [place] [address] Basophil abs 0.06 0.00 - 0.10 K/cumm [facility] ([place]) Comment:Testing performed by : [facility] [address], Medical Office [facility] [address], [place] [address] Neutrophil pct 64.0 % [facility] (ARCADIA) Comment: Interpretive Data Percent cell count reference ranges are not reported, since discordance with absolute values may lead to misinterpretation of CBC data. Current Interpretive Data was last revised on 2022. Testing performed by: [facility] [address], Medical Office [facility] B [facility] [address], [place] [address] Imm gran pct 0.2 % [facility] (RYLEE) Comment: Interpretive Data Percent cell count reference ranges are not reported, since discordance with absolute values may lead to misinterpretation of CBC data. Current Interpretive Data was last revised on 2022. Testing performed by: [facility] [address], Medical Office [address], [place] [address] Lymphocyte pct 20.0 % [facility] (RY[place]E) Comment: Interpretive Data Percent cell count reference ranges are not reported, since discordance with absolute values may lead to misinterpretation of CBC data. Current Interpretive Data was last revised on 2022. Testing performed by: [facility] [address], Medical Office [address], [place] [address] Monocyte pct 10.5 % [facility] (RY[place]E) Comment: Interpretive Data Percent cell count reference ranges are not reported, since discordance with absolute values may lead to misinterpretation of CBC data. Current Interpretive Data was last revised on 2022. Testing performed by: [facility] [address], Medical Office [address], [place] [address] Eosinophil pct 4.2 % [facility] ([place]) Comment: Interpretive Data Percent cell count reference ranges are not reported, since discordance with absolute values may lead to misinterpretation of CBC data. Current Interpretive Data was last revised on 2022. Testing performed by: [facility] [address], Medical Office [address], [place] [address] Basophil pct 1.1 % [facility] (RY[place]E) Comment: Interpretive Data Percent cell count reference ranges are not reported, since discordance with absolute values may lead to misinterpretation of CBC data. Current Interpretive Data was last revised on 2022. Testing performed by: [facility] [address], Medical Office [address], [place] [address] Blood 09/09/2024 2:10 PM CDT 09/09/2024 2:12 PM CDT us Rivera Ryder MD LAB BLOOD ORDERABLES Janey ziegler Result BEENA JJ (RYLEE) [address] [facility] Department [place] [address] * (ABNORMAL) Iron profile w/ IBC (09/09/2024 2:10 PM CDT) Iron 148(H) 35 - 145 mcg/dL Comment:Testing performed by : [facility], [facility], [place], [address] TIBC 210(L) 250 - 400 mcg/dL [facility] ([place]E) Comment:Testing performed by : [facility], [facility], [place], [address] Transferrin saturation 70(H) 20 - 50 % [facility] ([place]E) Comment:Testing performed by : [facility], [place], [address] Blood 09/09/2024 2:10 PM CDT 09/09/2024 2:28 PM CDT Rivera Ryder MD LAB BLOOD ORDERABLES Janey l Result Performing Organization Address [facility]/ZIP Co de Phone Number BEENA JJ (RYLEE) [address] [facility] Department [place] [address] * (ABNORMAL) CBC with auto differential (09/09/2024 2:10 PM CDT) WBC 5.70 3.80 - 9.90 K/cumm [facility] (RYLEE) Comment:Testing performed by : [facility] [address], Medical Office [facility] B [address], [place] [address] Hgb 10.0(L) 11.9 - 15.5 g/dL [facility] (RYLEE) Comment:Testing performed by : [facility] [address], Medical Office [address], [place] [address] Hct 30.9(L) 35.6 - 45.5 % [facility] ([place]) Comment:Testing performed by : [facility] [address], Medical Office [address], [place] [address] Plt 189 150 - 400 K/cumm [facility] ([place]E) Comment:Testing performed by : [facility] [address], Medical Office [facility] B [facility] [address], [place] [address] MPV 10.3 9.1 - 12.3 fL [facility] ([place]E) Comment:Testing performed by : [facility] [address], Medical Office [facility] B [address], [place] [address] RBC 3.19(L) 3.90 - 5.20 M/cumm [facility] ([place]) Comment:Testing performed by : [facility] [address], Medical Office [facility] [address], [place] [address] MCV 96.9(H) 81.3 - 96.4 fL [facility] ([place]) Comment:Testing performed by : [facility] [address], Medical Office [facility] [address], [place] [address] MCH 31.3 27.1 - 33.3 pg [facility] ([place]) Comment:Testing performed by : [facility] [address], Medical Office [facility] B [address], [place] [address] MCHC 32.4 32.3 - 35.7 g/dL [facility] (RYLEE) Comment:Testing performed by : [facility] [address], Medical Office [facility] B [facility] [address], [place] [address] RDW CV 13.0 11.1 - 14.9 % [facility] ([place]) Comment:Testing performed by : [facility] [address], Medical Office [facility] B [facility] [address], [place] [address] RDW SD 45.9 35.7 - 48.1 fL [facility] ([place]) Comment:Testing performed by : [facility] [address], Medical Office [facility] B [facility] [address], [place] [address] Blood 09/09/2024 2:10 PM CDT 09/09/2024 2:12 PM CDT us Rivera Ryder MD LAB BLOOD ORDERABLES Janey ziegler Result [facility] ([place]) [address] [facility] [place] [address] * Erythropoietin (09/09/2024 2:10 PM CDT) Erythropoietin 7.0 2.6 - 18.5 mIUnits/mL [place] [facility] Comment: Test Performed by: [facility] [address] [place] [address] Life Educator: Alida Delatorre Ph.D.; CLIA# [id number] Testing performed by: [facility], [place], [address] Blood 09/09/2024 2:10 PM CDT 09/09/2024 2:28 PM CDT Rivera Ryder MD LAB BLOOD ORDERABLES Janey l Result [facility] (ARCADIA) [address] [place] [address] [place] [address] [place] [facility] * Cancer antigen 15-3 (09/09/2024 2:10 PM CDT) [facility] CA 15-3 ag 16.0 1.0 - 30.0 units/mL Comment: Interpretive Data The Agusto CA 15-3 assay procedure was used. Results from different manufacturers or methods may not be comparable. Serial testing should be performed using the same method. Testing performed by: [facility], [address] [place] [address]., [id number] Blood 09/09/2024 2:10 PM CDT 09/10/2024 9:25 AM CDT us Rivera Ryder MD LAB BLOOD ORDERABLES Janey l Result [facility] (ARC[place]IA) [address] [place] [address] [place] [address] * (ABNORMAL) Ferritin (09/09/2024 2:10 PM CDT) [facility] Ferritin 190(H) 13 - 150 ng/mL Comment:Testing performed by : [facility], [facility], [place], [address] Blood 09/09/2024 2:10 PM CDT 09/09/2024 2:28 PM CDT us Rivera Ryder MD LAB BLOOD ORDERABLES Janey ziegler Result [facility] ([place]) [address] [facility] Department [place] [address] * (ABNORMAL) Comprehensive metabolic panel (09/09/2024 2:10 PM CDT) Sodium 142 135 - 145 mmol/L Comment:Testing performed by : [facility], [place], [address] Potassium, pl 5.1(H) 3.3 - 4.9 mmol/L [facility] ([place]E) Comment:Testing performed by : [facility], [place], [address] Chloride 109 97 - 110 mmol/L [facility] ([place]) Comment:Testing performed by : [facility], [place], [address] CO2 22 22 - 32 mmol/L [facility] ([place]) Comment:Testing performed by : [facility], [place], [address] Anion gap 11 2 - 15 mmol/L [facility] ([place]) Comment:Testing performed by : [facility], [place], [address] BUN 32(H) 6 - 25 mg/dL [facility] ([place]) Comment:Testing performed by : [facility], [place], [address] Creatinine 1.72(H) 0.60 - 1.10 mg/dL [facility] ([place]) Comment:Testing performed by : [facility], [place], [address] Glucose 112 70 - 199 mg/dL CERNER [...] was last revised 2022. Testing performed by: [facility], [place], [address] Calcium 8.9 8.5 - 10.3 mg/dL [facility] ([place]) Comment:Testing performed by : [facility], [place], [address] Bilirubin, total 0.2 0.1 - 1.2 mg/dL [facility] ([place]) Comment:Testing performed by : [facility], [place], [address] Protein, pl 6.2(L) 6.5 - 8.5 g/dL [facility] ([place]) Comment:Testing performed by : [facility], [place], [address] Albumin 3.5 3.5 - 5.0 g/dL [facility] ([place]) Comment:Testing performed by : [place], [address] Alk phos 106 40 - 130 Units/L [facility] ([place]) Comment:Testing performed by : [facility], [place], [address] ALT 6(L) 7 - 45 Units/L [facility] ([place]) Comment:Testing performed by : [facility], [place], [address] AST 14 10 - 45 Units/L [facility] ([place]) Comment:Testing performed by : [facility], [place], [address] Blood 09/09/2024 2:10 PM CDT 09/09/2024 2:52 PM CDT us Rivera Ryder MD LAB BLOOD ORDERABLES Janey ziegler Result [facility] ([place]) [address] [facility] Department [place] [address] from Last 3 Months Insurance [address] [place] [id number] Care Teams Civil Transportation Engineer Relationship Specialty Start Date End Date Georgette Alva MD PCP - General Family Medicine 09/03/24 Rivera Ryder MD [address] [place] [address] [place] [address] Medical Oncologist/Slat Basket Top Maker Medical Oncology 10/11/24
--- OUTSIDE RECORDS SUMMARY | 2024-11-19 13:26 | XMS_ITS | Clinical Summary ---
Author Organization [facility] Facility Address [address] [address] Care Team Providers Care Junior Manufacturing Engineer Name Role Phone Georgette Alva MD Primary Care Provider [phone] Allergies Active Allergy Reactions Criticality Noted Date [...] this topic Insurance [employer] Commercial Care Teams Junior Manufacturing Engineer Relationship Specialty Start Date End Date Georgette Alva MD [address] [place] [address] PCP - General Family Medicine 07/03/21
--- OUTSIDE RECORDS SUMMARY | 2024-11-19 13:26 | XMS_ITS | Clinical Summary ---
Author Organization [facility] Address [address] [place] [address] Phone Care Team Providers Care Boy'S Adviser Name Role Phone Georgette Alva MD Primary Care Provider [phone] Allergies Active Allergy Reactions Criticality Noted Date [...] had adjuvant chemotherapy by Dr. Guzman in [place], Completed adjuvant radiation in November 2007 by [...] Comments Blood Pressure 134/70 02/27/2022 9:42 AM MICROSOFT DEVELOPER Pulse 65 11/26/2017 12:01 AM CDT Temperature 36.1 C (97 F) 02/27/2022 9:42 AM MICROSOFT DEVELOPER Respiratory Rate 18 02/27/2022 9:42 AM MICROSOFT DEVELOPER Oxygen Saturation - - Inhaled Oxygen Concentration - - Weight 64 kg (141 lb) 02/27/2022 9:42 AM MICROSOFT DEVELOPER Height 162.6 cm (5' 4) 02/27/2022 9:42 AM MICROSOFT DEVELOPER Body Mass Index 24.2 02/27/2022 9:42 AM MICROSOFT DEVELOPER Plan of Treatment Health Maintenance Due Date Last Done Comments Pneumococcal PPSV23/PCV13 65 + Years / Low and Medium Risk (1 of 2 - PCV) 07/13/1989 Influenza Vaccine (#1) 2024 Insurance [employer] Care Teams Boy'S Adviser Relationship Specialty Start Date End Date Georgette Alva MD [address] [place] [address] PCP - General Internal Medicine 02/22/22
--- OUTSIDE RECORDS SUMMARY | 2024-11-19 13:26 | XMS_ITS | Clinical Summary ---
Author Organization [facility] Address [address] [place] [address] Phone Care Team Providers Care Food Service Helper Name Role Phone Georgette Alva MD Primary Care Provider [phone] Allergies Active Allergy Reactions Criticality Noted Date [...] mg 12.5 mg daily. 8 Active FLUAD 2850-7230, 65 YR UP,,PF, 45 mcg (15 mcg [...] [place], Referring Provider: Tita Toth MD [address] [facility] [address] [place] [address] Other: Problem Noted Date Diagnosed Date Anemia [...] had adjuvant chemotherapy by Dr. Guzman in [place], Completed adjuvant radiation in November 2007 [...] on file Legal Sex Female 5:42 AM FINISHER DENTURE Gender Identity Not on file Sexual Orientation Not on file Occupation Industry Job Start Date Job End Date Not on file Not on file Not on file Not on file Last Filed Vital Signs Vital Sign Reading Time Taken Comments Blood Pressure 149/78 04/16/2024 8:51 AM FINISHER DENTURE Pulse 66 04/16/2024 8:48 AM FINISHER DENTURE Temperature 36.5 C (97.7 F) 04/16/2024 8:48 AM FINISHER DENTURE Respiratory Rate 15 04/16/2024 8:48 AM FINISHER DENTURE Oxygen Saturation 98% 04/16/2024 8:48 AM FINISHER DENTURE Inhaled Oxygen Concentration - - Weight 66.9 kg (147 lb 6.4 oz) 04/16/2024 8:48 A M FINISHER DENTURE Height 154.9 cm (5' 1) 12/19/2021 9:56 [...] years Discontinued Insurance [employer] CHOICE POS II RX [facility] [employer] Advance Directives For more information, please contact: [phone] Documents on File Type Date Recorded Patient Videotape Sales Representative Expl anation Advance Directive POA 07/24/2012 8:56 AM Ad cyr Directive POA Care Teams Food Service Helper Relationship Specialty Start Date End Date Georgette Alva MD [address] [place] [address] PCP - General Family Practice 11/01/19
[2024-11-19 13:49] VITALS: BP 140/32; BP 152/42; PULSE 67; RESP 20; TEMP 36.7; O2SAT 99
--- OUTSIDE RECORDS SUMMARY | 2024-11-19 15:02 | XMS_ITS | Clinical Summary ---
Author Organization [facility] Facility Address [address] [address] Care Team Providers Care Flying Shear Operator Name Role Phone Georgette Alva MD Primary Care Provider [phone] Allergies Active Allergy Reactions Criticality Noted Date [...] this topic Insurance [employer] Commercial Care Teams Flying Shear Operator Relationship Specialty Start Date End Date Georgette Alva MD [address] [place] [address] PCP - General Family Medicine 07/03/21
--- OUTSIDE RECORDS SUMMARY | 2024-11-19 15:02 | XMS_ITS | Clinical Summary ---
Author Organization [facility] Address [address] [place] [address] Phone Care Team Providers Care Tube Dispatcher Name Role Phone Georgette Alva MD Primary Care Provider [phone] Allergies Active Allergy Reactions Criticality Noted Date [...] had adjuvant chemotherapy by Dr. Guzman in [place], Completed adjuvant radiation in November 2007 by [...] Comments Blood Pressure 134/70 02/27/2022 9:42 AM TELEPHONE STATION REPAIRER Pulse 65 11/26/2017 12:01 AM CDT Temperature 36.1 C (97 F) 02/27/2022 9:42 AM TELEPHONE STATION REPAIRER Respiratory Rate 18 02/27/2022 9:42 AM TELEPHONE STATION REPAIRER Oxygen Saturation - - Inhaled Oxygen Concentration - - Weight 64 kg (141 lb) 02/27/2022 9:42 AM TELEPHONE STATION REPAIRER Height 162.6 cm (5' 4) 02/27/2022 9:42 AM TELEPHONE STATION REPAIRER Body Mass Index 24.2 02/27/2022 9:42 AM TELEPHONE STATION REPAIRER Plan of Treatment Health Maintenance Due Date Last Done Comments Pneumococcal PPSV23/PCV13 65 + Years / Low and Medium Risk (1 of 2 - PCV) 07/13/1989 Influenza Vaccine (#1) 2024 Insurance [employer] Care Teams Tube Dispatcher Relationship Specialty Start Date End Date Georgette Alva MD [address] [place] [address] PCP - General Internal Medicine 02/22/22
--- OUTSIDE RECORDS SUMMARY | 2024-11-19 15:02 | XMS_ITS | Clinical Summary ---
Author Organization [facility] Address [address] [place] [address] Phone Care Team Providers Care Lastex Thread Winder Name Role Phone Georgette Alva MD Primary Care Provider [phone] Allergies Active Allergy Reactions Criticality Noted Date [...] mg 12.5 mg daily. 8 Active FLUAD 7477-5000, 65 YR UP,,PF, 45 mcg (15 mcg [...] Giron, Referring Provider: Tita Toth MD [address] [facility] [address] [place] [address] Other: Problem Noted Date Diagnosed Date Anemia [...] had adjuvant chemotherapy by Dr. Guzman in [place], Completed adjuvant radiation in November 2007 by [...] on file Legal Sex Female 5:42 AM SPINNER OPERATOR Gender Identity Not on file Sexual Orientation Not on file Occupation Industry Job Start Date Job End Date Not on file Not on file Not on file Not on file Last Filed Vital Signs Vital Sign Reading Time Taken Comments Blood Pressure 149/78 04/16/2024 8:51 AM SPINNER OPERATOR Pulse 66 04/16/2024 8:48 AM SPINNER OPERATOR Temperature 36.5 C (97.7 F) 04/16/2024 8:48 AM SPINNER OPERATOR Respiratory Rate 15 04/16/2024 8:48 AM SPINNER OPERATOR Oxygen Saturation 98% 04/16/2024 8:48 AM SPINNER OPERATOR Inhaled Oxygen Concentration - - Weight 66.9 kg (147 lb 6.4 oz) 04/16/2024 8:48 A M SPINNER OPERATOR Height 154.9 cm (5' 1) 12/19/2021 [...] Advance Directives For more information, please contact: [phone] Documents on File Type Date Recorded Patient Social Studies Teacher Expl anation Advance Directive POA 07/24/2012 8:56 AM Ad cyr Directive POA Care Teams Lastex Thread Winder Relationship Specialty Start Date End Date Georgette Alva MD [address] [place] [address] PCP - General Family Practice 11/01/19
--- OUTSIDE RECORDS SUMMARY | 2024-11-19 15:02 | XMS_ITS | Clinical Summary ---
Author Organization [facility] Address [address] [place] [address] Care Team Providers Care Professor Of Environmental Science Name Role Phone Geoff Martinez MD Primary Care Provider Bry Martin MD Unavailable [phone] Allergies Active Allergy Reactions Criticality Noted Date [...] patient's age to complete this topic Insurance [facility] Advance Directives * Full Code (Latest Code Status on File) Date Activated Date Inactivated Comments 11/13/2017 1:11 PM 11/13/2017 3:44 PM Care Teams Professor Of Environmental Science Relationship Specialty Start Date End Date Geoff Martinez MD [address] [place] [address] PCP - General FAMILY PRACTICE 11/10/17 Bry Martin MD [address] [facility] [place] [address] Referring Physician NEPHROLOGY 11/10/17
--- OUTSIDE RECORDS SUMMARY | 2024-11-19 15:02 | XMS_ITS | Encounter Summary ---
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
--- OUTSIDE RECORDS SUMMARY | 2024-11-19 15:02 | XMS_ITS | Clinical Summary ---
Author Organization [facility] Address [address] [place] [address] Care Team Providers Care Brine Purifier Name Role Phone Georgette Alva MD Primary Care Provider [phone] Rivera Ryder MD Unavailable [phone] Allergies Active Allergy Reactions Criticality Noted Date [...] Description 10/21/2024 10:50 AM CDT Office Visit [facility] [address] [place] [address] [address] [place] [address] Carlitos Dumont MD Malignant neoplasm of left breast in female, estrogen receptor positive, unspecified site of breast (HCC) 10/21/2024 Results Follow-Up [facility] Pulmonary at [address] [place] [address] Terence Catherine DO X-ray chest 2 views 10/13/2024 Telephone [facility] Pulmonary at [address] [place] [address] Archana Noguera LPN Sleep Study 10/13/2024 Telephone [facility] [address] [place] [address] Medical Office [address] [place] [address] Rivera Ryder MD 10/11/2024 11:56 AM CDT - 10/11/2024 11:59 PM CDT Hospital Encounter [facility] [address] [place] [address] Cough, unspecified type Discharge Disposition: Discharge to home or self care 10/11/2024 11:00 AM CDT Office Visit [facility] Pulmonary at [address] [place] [address] Terence Catherine DO Cough, unspecified type (Primary Dx); Laryngopharyngeal reflux; AVANI (obstructive sleep apnea) 10/11/2024 9:30 AM CDT Office Visit [facility] [address] [place] [address] Medical Office [address] [place] [address] Rivera Ryder MD Malignant neoplasm of left breast in female, estrogen receptor positive, unspecified site of breast (HCC) (Primary Dx); Hemochromatosis, unspecified hemochromatosis type 10/11/2024 8:30 AM CDT Lab [address] [address] Malignant neoplasm of left breast in female, estrogen receptor positive, unspecified site of breast (HCC) 09/17/2024 8:30 AM CDT - 09/17/2024 11:59 PM CDT Hospital Encounter [address] [address] Malignant neoplasm of left breast in female, estrogen receptor positive, unspecified site of breast (HCC) Discharge Disposition: Discharge to home or self care 09/17/2024 7:40 AM CDT - 09/17/2024 11:59 PM CDT Hospital Encounter [address] [address] Malignant neoplasm of left breast in female, estrogen receptor positive, unspecified site of breast (HCC) Discharge Disposition: Discharge to home or self care 09/09/2024 2:00 PM CDT Lab [facility] [address] [place] [address] Hemochromatosis, unspecified hemochromatosis type; Malignant neoplasm of left breast in female, estrogen receptor positive, unspecified site of breast (HCC); History of hemochromatosis; Stage 3b chronic kidney disease (HCC) 09/09/2024 1:30 PM CDT Office Visit [facility] [address] [place] [address] [address] [place] [address] Rivera Ryder MD Hemochromatosis, unspecified hemochromatosis type (Primary Dx); History of hemochromatosis; Malignant neoplasm of left breast in female, estrogen receptor positive, unspecified site of breast (HCC); Stage 3b chronic kidney disease (HCC) 08/27/2024 Orders Only [facility] [address] [place] [address] Medical Office [address] [place] [address] Brit Plummer, CLT History of hemochromatosis (Primary [...] on file 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 [facility]: [place] Report ID: [id number] Reading Location: [id number] Procedure Note Edmond Macario MD - 10/17/2024 [...] Edmond Macario M.D. [facility]: [place] Report ID: [id number] Reading Location: [place] [address] Terence Catherine DO IMG XR PROCEDURES Final [...] BLOOD ORDERABLES Janey ziegler Result BEENA JJ ([place]) 1 [facility] [place] [address] * (ABNORMAL) CBC with auto differential (10/11/2024 [...] ziegler Result [facility] ([place]) 1 [facility] [place] [address] * US Breast Left Limited (09/17/2024 9:14 [...] was last reviewed 2021. Testing performed by: [facility], [facility], [place], [address] Blood 09/09/2024 2:10 PM CDT 09/09/2024 2:52 PM CDT us Rivera Ryder MD LAB BLOOD ORDERABLES Janey ziegler Result [facility] ([place]) 1 [facility] Department [place] [address] * Differential, auto (09/09/2024 2:10 PM CDT) Neutrophil abs 3.65 1.50 - 6.50 K/cumm [facility] ([place]) Comment:Testing performed by : [facility] [address], Medical Office [facility] [address], [place] [address] Imm gran abs 0.01 0.00 - 0.10 K/cumm [facility] ([place]) Comment:Testing performed by : [facility] [address], Medical Office [facility] [address], [place] [address] Lymphocyte abs 1.14 0.80 - 3.30 K/cumm [facility] ([place]) Comment:Testing performed by : [facility] [address], Medical Office [facility] [address], [place] [address] Monocyte abs 0.60 0.20 - 0.80 K/cumm [facility] ([place]) Comment:Testing performed by : [facility] [address], Medical Office [facility] [address], [place] [address] Eosinophil abs 0.24 0.00 - 0.50 K/cumm [facility] ([place]) Comment:Testing performed by : [facility] [address], Medical Office [facility] [address], [place] [address] Basophil abs 0.06 0.00 - 0.10 K/cumm [facility] ([place]) Comment:Testing performed by : [facility] [address], Medical Office [facility] [address], [place] [address] Neutrophil pct 64.0 % [facility] ([place]) Comment: Interpretive Data Percent cell count reference ranges are not reported, since discordance with absolute values may lead to misinterpretation of CBC data. Current Interpretive Data was last revised on 2022. Testing performed by: [facility] [address], Medical Office [facility] B [facility] [address], [place] [address] Imm gran pct 0.2 % [facility] ([place]) Comment: Interpretive Data Percent cell count reference ranges are not reported, since discordance with absolute values may lead to misinterpretation of CBC data. Current Interpretive Data was last revised on 2022. Testing performed by: [facility] [address], Medical Office [address], [place] [address] Lymphocyte pct 20.0 % [facility] ([place]) Comment: Interpretive Data Percent cell count reference ranges are not reported, since discordance with absolute values may lead to misinterpretation of CBC data. Current Interpretive Data was last revised on 2022. Testing performed by: [facility] [address], Medical Office [address]g [address], [place] [address] Monocyte pct 10.5 % [facility] ([place]) Comment: Interpretive Data Percent cell count reference ranges are not reported, since discordance with absolute values may lead to misinterpretation of CBC data. Current Interpretive Data was last revised on 2022. Testing performed by: [facility] [address], Medical Office [address], [place] [address] Eosinophil pct 4.2 % [facility] ([place]) Comment: Interpretive Data Percent cell count reference ranges are not reported, since discordance with absolute values may lead to misinterpretation of CBC data. Current Interpretive Data was last revised on 2022. Testing performed by: [facility] [address], Medical Office [address], [place] [address] Basophil pct 1.1 % [facility] ([place]) Comment: Interpretive Data Percent cell count reference ranges are not reported, since discordance with absolute values may lead to misinterpretation of CBC data. Current Interpretive Data was last revised on 2022. Testing performed by: [facility] [address], Medical Office [address], [place] [address] Blood 09/09/2024 2:10 PM CDT 09/09/2024 2:12 PM CDT us Rivera Ryder MD LAB BLOOD ORDERABLES Janey ziegler Result [facility]EENA JJ ([place]) 1 [facility] [place] [address] * (ABNORMAL) Iron profile w/ IBC (09/09/2024 2:10 PM CDT) Iron 148(H) 35 - 145 mcg/dL Comment:Testing performed by : [facility], [facility], [place], [address] TIBC 210(L) 250 - 400 mcg/dL [facility] ([place]) Comment:Testing performed by : [facility], [facility], [place], [address] Transferrin saturation 70(H) 20 - 50 % [facility] ([place]) Comment:Testing performed by : [facility], [place], [address] Blood 09/09/2024 2:10 PM CDT 09/09/2024 2:28 PM CDT Rivera Ryder MD LAB BLOOD ORDERABLES Janey l Result Performing Organization Address [facility]/ZIP Co de Phone Number [facility]EENA JJ ([place]) 1 [facility] [place] [address] * (ABNORMAL) CBC with auto differential (09/09/2024 2:10 PM CDT) WBC 5.70 3.80 - 9.90 K/cumm [facility] ([place]) Comment:Testing performed by : [facility] [address], Medical Office [facility] [address], [place] [address] Hgb 10.0(L) 11.9 - 15.5 g/dL [facility] ([place]) Comment:Testing performed by : [facility] [address], Medical Office [address], [place] [address] Hct 30.9(L) 35.6 - 45.5 % [facility] ([place]) Comment:Testing performed by : [facility] [address], Medical Office [address], [place] [address] Plt 189 150 - 400 K/cumm [facility] ([place]) Comment:Testing performed by : [facility] [address], Medical Office [facility] B [facility] [address], [place] [address] MPV 10.3 9.1 - 12.3 fL [facility] ([place]) Comment:Testing performed by : [facility] [address], Medical Office [facility] [address], [place] [address] RBC 3.19(L) 3.90 - 5.20 M/cumm [facility] ([place]) Comment:Testing performed by : [facility] [address], Medical Office [facility] [address], [place] [address] MCV 96.9(H) 81.3 - 96.4 fL [facility] ([place]) Comment:Testing performed by : [facility] [address], Medical Office [facility] [address], [place] [address] MCH 31.3 27.1 - 33.3 pg [facility] ([place]) Comment:Testing performed by : [facility] [address], Medical Office [facility] [address], [place] [address] MCHC 32.4 32.3 - 35.7 g/dL [facility] ([place]) Comment:Testing performed by : [facility] [address], Medical Office [facility] B [facility] [address], [place] [address] RDW CV 13.0 11.1 - 14.9 % [facility] ([place]) Comment:Testing performed by : [facility] [address], Medical Office [facility] B [facility] [address], [place] [address] RDW SD 45.9 35.7 - 48.1 fL [facility] ([place]) Comment:Testing performed by : [facility] [address], Medical Office [facility] B [facility] [address], [place] [address] Blood 09/09/2024 2:10 PM CDT 09/09/2024 2:12 PM CDT us Rivera Ryder MD LAB BLOOD ORDERABLES Janey ziegler Result [facility] ([place]) 1 [facility] [place] [address] * Erythropoietin (09/09/2024 2:10 PM CDT) Erythropoietin 7.0 2.6 - 18.5 mIUnits/mL [facility] ref Lab Comment: Test Performed by: [facility] [address] [place] [address] Instructional Systems Design Consultant: Alida Delatorre Ph.D.; CLIA# [id number] Testing performed by: [facility], [place], [address] Blood 09/09/2024 2:10 PM CDT 09/09/2024 2:28 PM CDT Rivera Ryder MD LAB BLOOD ORDERABLES Janey l Result [facility] ([place]) [address] [place] [address] [place] [address] [facility]anna ref Lab * Cancer antigen 15-3 (09/09/2024 2:10 PM CDT) [facility] CA 15-3 ag 16.0 1.0 - 30.0 units/mL Comment: Interpretive Data The Agusto CA 15-3 assay procedure was used. Results from different manufacturers or methods may not be comparable. Serial testing should be performed using the same method. Testing performed by: [facility], [address] [place] [address]., [address] Blood 09/09/2024 2:10 PM CDT 09/10/2024 9:25 AM CDT us Rivera Ryder MD LAB BLOOD ORDERABLES Janey l Result [facility] ([place]) [address] [place] [address] [place] [address] * (ABNORMAL) Ferritin (09/09/2024 2:10 PM CDT) [facility] Ferritin 190(H) 13 - 150 ng/mL Comment:Testing performed by : [facility], [facility], [place], [address] Blood 09/09/2024 2:10 PM CDT 09/09/2024 2:28 PM CDT us Rivera Ryder MD LAB BLOOD ORDERABLES Janey ziegler Result [facility] ([place]) 1 [facility] [place] [address] * (ABNORMAL) Comprehensive metabolic panel (09/09/2024 2:10 PM CDT) Sodium 142 135 - 145 mmol/L Comment:Testing performed by : [facility], [place], [address] Potassium, pl 5.1(H) 3.3 - 4.9 mmol/L [facility] ([place]) Comment:Testing performed by : [facility], [place], [address] Chloride 109 97 - 110 mmol/L [facility] ([place]) Comment:Testing performed by : [facility], [place], [address] CO2 22 22 - 32 mmol/L [facility] ([place]) Comment:Testing performed by : [facility], [place], [address] Anion gap 11 2 - 15 mmol/L [facility] ([place]) Comment:Testing performed by : [facility], [place], [address] BUN 32(H) 6 - 25 mg/dL [facility] ([place]) Comment:Testing performed by : [facility], [place], [address] Creatinine 1.72(H) 0.60 - 1.10 mg/dL [facility] ([place]) Comment:Testing performed by : [facility], [place], [address] Glucose 112 70 - 199 mg/dL CERNER [...] was last revised 2022. Testing performed by: [facility], [place], [address] Calcium 8.9 8.5 - 10.3 mg/dL [facility] ([place]) Comment:Testing performed by : [facility], [place], [address] Bilirubin, total 0.2 0.1 - 1.2 mg/dL [facility] ([place]) Comment:Testing performed by : [facility], [place], [address] Protein, pl 6.2(L) 6.5 - 8.5 g/dL [facility] ([place]) Comment:Testing performed by : [facility], [place], [address] Albumin 3.5 3.5 - 5.0 g/dL [facility] ([place]) Comment:Testing performed by : [place], [address] Alk phos 106 40 - 130 Units/L [facility] ([place]) Comment:Testing performed by : [facility], [place], [address] ALT 6(L) 7 - 45 Units/L [facility] ([place]) Comment:Testing performed by : [facility], [place], [address] AST 14 10 - 45 Units/L [facility] ([place]) Comment:Testing performed by : [facility], [place], [address] Blood 09/09/2024 2:10 PM CDT 09/09/2024 2:52 PM CDT us Rivera Ryder MD LAB BLOOD ORDERABLES Janey ziegler Result [facility] ([place]) 1 [facility] [place] [address] from Last 3 Months Insurance [address] [place] [id number] Care Teams Brine Purifier Relationship Specialty Start Date End Date Georgette Alva MD PCP - General Family Medicine 09/03/24 Rivera Ryder MD [address] [place] [address] [place] [address] Medical Oncologist/Tractor Driver Teamster Medical Oncology 10/11/24
--- OUTSIDE RECORDS SUMMARY | 2024-11-19 15:02 | XMS_ITS | Encounter Summary ---
Author Organization [facility] Address [address] [place] [address] Phone Care Team Providers Care Casting Machine Operator Helper Name Role Phone Georgette Alva MD Primary Care Provider [phone] Encounter Details Date Type Department Care Team (Late st Contact Info) Description 07/26/2021 Documentation Only [place] [facility] [address] [address] Devi Kohli MD [address] [place] [address]. [place] [address] Social History Tobacco Use Types Packs/Day Years [...] specified documented in this encounter Care Teams Casting Machine Operator Helper Relationship Specialty Start Date End Date Georgette Alva MD [address] [place] [address] PCP - General Family Medicine 07/03/21 documented as of this encounter
[2024-11-19 15:08] VITALS: BP 146/80; PULSE 82; RESP 16; TEMP 36.6; O2SAT 97
--- NOTE | 2024-11-19 15:15 | ED_ITS ---
HPI - Extremity Problem General Chief complaint: Extremity Problem,Nontraumatic Stated complaint: right leg swelling Time Seen by Provider: 11/19/24 14:47 Source: patient Mode of arrival: ambulatory Limitations: no limitations History of Present Illness HPI Narrative: Patient is an 84-year-old female who presents the ED with report of right leg redness/swelling. Patient reports she had a mechanical fall on Friday. She sustained small abrasions to her right anterior tenorio. Today was noted to have some swelling throughout her right lower leg as well as an area of erythema and warmth to right lateral lower leg and right medial proximal lower leg. Denies fevers. Denies history of DVT. Denies numbness. Related Data Home Medications ?Medication ?Instructions ?Recorded ?Confirmed ?Last Taken ?Type vitamins B1 2.5 mg-B2 2.5 1 tablet PO DAILY 08/30/20 0 11/04/24 Unknown History mg-niacin 5 mg-B12 100 mcg-protease tablet (B-Complex With B-12) cholecalciferol (vitamin D3) 25 2,000 unit PO DAILY 11/04/24 Unknown History mcg (1,000 unit) capsule calcium 600 mg (as carbonate)-vit 1 tablet PO DAILY 11/04/24 Unknown History D3 20 mcg (800 unit) chewable tablet (Caltrate plus D) Allergies Allergy/AdvReac Type Severity Reaction Status Date / Time povidone Allergy Mild Unknown Verified 11/04/24 13:17 alendronate sodium Allergy Unknown Heartburn Verified 11/04/24 13:17 epinephrine Allergy Unknown tachycardia Verified 11/04/24 13:17 iodine Allergy Unknown Unknown Verified 11/04/24 13:17 prednisone Allergy Unknown Unknown Verified 11/04/24 13:17 Review of Systems Review of Systems: All systems reviewed & are unremarkable except as noted in HPI. All systems reviewed & are unremarkable except as noted in HPI and below PMFSH Past Medical History Medical History Pulmonary hypertension GERD (gastroesophageal reflux disease) Hyperlipidemia Fall against object Lumbar disc disease CAD (coronary artery disease) Obstructive sleep apnea SVT (supraventricular tachycardia) Diastolic dysfunction PAT (paroxysmal atrial tachycardia) Elevated parathyroid hormone Being monitored by her mortgage analyst, Dr. Kohli. Cancer of left breast (~2007) Status post lumpectomy, chemotherapy, and radiation. Irritable bowel syndrome Chronic kidney disease, stage 3 Essential hypertension Hemochromatosis Diagnosed in 1991. She is a patient of Dr. Samson. No recent therapeutic phlebotomy due to presence of anemia. CHF (congestive heart failure) Stage 4 chronic kidney disease due to benign hypertension Temporal arteritis syndrome (~2000) Osteoporosis Anemia HTN (hypertension) (~1991) Vitamin D deficiency Hemochromatosis, unspecified (~1991) Surgical History Surgical History History of throat surgery august 11, 2022 History of liver biopsy History of lumpectomy of both breasts Including left breast lumpectomy for breast cancer in 2007. History of tonsillectomy Family History Family History Mother Family history of dementia Father Family history of congestive heart failure Other Adopted Social History Social History Social History: Surrogate decision maker: Hollie Costello, friend. Code status: Full code. Smoking packs per day: 1.5 Smoking cigarettes per day: 30.0 Years smoked: 30 Smoking pack-years: 45.00 Smoking status: Former smoker Tobacco type: cigarettes Smoking end date: 03/24/88 Alcohol intake: current Alcohol use details: rarely Substance use: never Substance use type: does not use Do You Feel Safe in your Home?: Yes Lack of Transportation: No Lack of Food: Never True Current Housing: Decline to Answer Concerned About Future Housing: Decline to Answer Difficulty Paying Gas/Electric Bills: Decline to Answer Difficulty Paying for Meds: Decline to Answer Currently Unemployed: Decline to Answer Education: Decline to Answer Difficulty w/ Childcare or Family Care: Decline to Answer Living arrangements: alone Additional living arrangements comments: Lives in [place] with her 2 toy poodles. She never and has no children. 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 Gender identity (if verbalized by the patient): Female Spiritual care concerns: No Exam Narrative: GENERAL: Well appearing, well-nourished, non-toxic, in no acute distress. HEAD: Normocephalic, atraumatic. RESPIRATORY: Airway patent, respirations nonlabored. CARDIOVASCULAR: Regular rate and rhythm. Pedal pulses are intact and easily palpable. MUSCULOSKELETAL: Moves all extremities. Trace pitting edema diffusely throughout right lower leg. Two small scabbed abrasions to right anterior tenorio proximally. Minimal surrounding erythema. Area of erythema and warmth to medial proximal lower leg, right lateral lower leg with slight focal tenderness to palpation. Sensation intact throughout extremity. SKIN: Warm, dry, normal color. NEURO: A&O X3. Speech clear. Steady gait. No ataxic movements. PSYCHIATRIC: Appropriate mood and affect. Normal interaction. Course Vital Signs Vital signs: Vital Signs Temperature 98.1 F 11/19/24 13:49 Pulse Rate 67 11/19/24 13:49 Respiratory Rate 20 11/19/24 13:49 Blood Pressure 140/32 L 11/19/24 13:49 Pulse Oximetry 99 11/19/24 13:49 Oxygen Delivery Room Air 11/19/24 13:49 Temperature 97.9 F 11/19/24 16:26 Pulse Rate 72 11/19/24 16:26 Respiratory Rate 16 11/19/24 16:26 Blood Pressure 142/86 H 11/19/24 16:26 Pulse Oximetry 95 11/19/24 16:26 Oxygen Delivery Room Air 11/19/24 15:08 MDM - Extremity (Nontraumatic) MDM Narrative Medical decision making narrative: Patient?s injury is consistent with musculoskeletal etiology. No signs of neurologic or vascular compromise on physical examination. Compartments are soft without signs of compartment syndrome. Venous Doppler ultrasound of right lower extremity was negative for DVT. Did show evidence of Watson's cyst. Patient without significant pain or fullness and popliteal region. Discussed imaging findings with patient. Given multiple areas of warmth and erythema, will start on Keflex for possible cellulitis. Differential would also include bruising/inflammation from the fall. Patient is felt to be stable for discharge home and further outpatient management and treatment. Advised follow- up with PCP for further evaluation. Given return precautions. Patient in agreement with plan. Discharged in stable condition. Medical Records Attestation: I reviewed the patient's medical records. Imaging Data Attestation: I personally reviewed and interpreted this imaging study as follows: Radiologist's impression: ITS Impressions Venous Doppler Study 11/19/24 15:51 IMPRESSION: 1: No right lower extremity deep venous thrombosis. 2. There is a 2.5 x 6.8 x 1.9 cm anechoic structure posterior to the right knee in the popliteal fossa. The finding may represent a Watson's cyst. Consider an MRI of the right knee for further assessment Discharge Plan Discharge Clinical Impression: Cellulitis of right lower leg Watson's cyst of knee Qualifiers: Laterality: right Qualified Code(s): M71.21 - Synovial cyst of popliteal space [Watson], right knee Patient Disposition: Home Condition: Stable Instructions: Antibiotic Form, Cellulitis (ED), Watson Cyst (ED) Additional Instructions: Take antibiotics as prescribed for potential cellulitis. Continue to monitor symptoms. You may elevate leg to help with swelling. Follow-up closely with your primary care doctor for further evaluation. Return to the ED if you experience worsening or severe pain/redness/swelling of right leg, chest pain, difficulty breathing, unable to ambulate, recurrent fall or injury, or any other symptoms of concern. Patient Language: Tamazight Prescriptions: New cephalexin 500 mg capsule 500 mg PO Q6H 7 Days Qty: 28 0RF No Action cholecalciferol (vitamin D3) 25 mcg (1,000 unit) capsule 2,000 unit PO DAILY hydralazine 25 mg tablet 25 mg PO TID Qty: 90 5RF nitroglycerin 0.4 mg tablet, sublingual 0.4 mg sublingual Q5M PRN (Reason: chest pain) Qty: 25 0RF Rx Instructions: do not exceed 3 doses per episode aspirin [Children's Aspirin] 81 mg Tablet,Chewable 81 mg PO DAILY@0800 Qty: 30 0RF Caltrate 600 plus D 600 mg-20 mcg (800 unit) Tablet,Chewable 1 tablet PO DAILY B-Complex With B-12 2.5 mg-2.5 mg- 5 mg-100 mcg Tablet 1 tablet PO DAILY pantoprazole 40 mg tablet,delayed release (DR/EC) See Rx Instructions .ROUTE .COMPLEX Qty: 90 2RF Dose Instruction: TAKE 1 TABLET BY MOUTH EVERY MORNING Rx Instructions: TAKE 1 TABLET BY MOUTH EVERY MORNING chlorthalidone 25 mg tablet 12.5 mg PO DAILY Qty: 45 2RF atorvastatin 20 mg tablet See Rx Instructions .ROUTE .COMPLEX Qty: 90 2RF Dose Instruction: TAKE 1 TABLET BY MOUTH EVERY DAY Rx Instructions: TAKE 1 TABLET BY MOUTH EVERY DAY sotalol 80 mg tablet See Rx Instructions .ROUTE .COMPLEX Qty: 45 2RF Dose Instruction: TAKE ONE-HALF TABLET BY MOUTH TWICE DAILY Rx Instructions: TAKE ONE-HALF TABLET BY MOUTH DAILY Follow-up/Referrals: Georgette Alva MD [Primary Care Provider, Family Practice] Danial Zarco MD [Physician, Orthopedics] Referral Note: ORTHOPEDICS Time of Disposition: 16:05
[2024-11-19 16:26] VITALS: BP 142/86; PULSE 72; RESP 16; TEMP 36.6; O2SAT 95
== END 2024-11-19 16:27 | disposition home or self-care (01) ==
PROVIDERS: Emergency Provider Physician Assistant; PCP Family Medicine
DX: L03.115 Cellulitis of right lower limb (principal); M71.21 Synovial cyst of popliteal space [Baker], right knee; I13.0 Hypertensive heart and chronic kidney disease with heart failure and stage 1 through stage 4 chronic kidney disease, or unspecified chronic kidney disease; N18.4 Chronic kidney disease, stage 4 (severe); I50.9 Heart failure, unspecified; E78.5 Hyperlipidemia, unspecified; I25.10 Atherosclerotic heart disease of native coronary artery without angina pectoris; I27.20 Pulmonary hypertension, unspecified; E55.9 Vitamin D deficiency, unspecified; M81.0 Age-related osteoporosis without current pathological fracture; G47.33 Obstructive sleep apnea (adult) (pediatric); K58.9 Irritable bowel syndrome, unspecified; K21.9 Gastro-esophageal reflux disease without esophagitis; Z85.3 Personal history of malignant neoplasm of breast; Z92.3 Personal history of irradiation; Z92.21 Personal history of antineoplastic chemotherapy; Z87.891 Personal history of nicotine dependence; Z79.82 Long term (current) use of aspirin; Z79.899 Other long term (current) drug therapy
CPT/HCPCS: 93971; 99284

== ENCOUNTER 2025-02-21 10:13 | Outpatient (CLI) | payer OTHER, SELFPAY ==
[2025-02-21 10:59] LABS: Albumin Level 3.6 g/dL (3.5-5.1); Anion Gap 3 mmol/L (4-12); Blood Urea Nitrogen 25 mg/dL (7-17); Calcium 9.1 mg/dL (8.4-10.2); Carbon Dioxide 26 mmol/L (22-30); Chloride 109 mmol/L (98-107); Estimated Glomerular Filt Rate 25; Glucose 87 mg/dL (65-110); Potassium 4.2 mmol/L (3.4-5.0); Sodium 138 mmol/L (137-145)
[2025-02-21 11:00] LABS: Total Protein Urine Random 148 mg/dL; Ur Ttl Prot Creatinine Ratio 1.76 mg/mg (0-0.20)
[2025-02-21 11:11] LABS: Parathyroid Intact 84.8 pg/mL (14.5-75.2)
--- OUTSIDE RECORDS SUMMARY | 2025-02-21 11:30 | XMS_ITS | Clinical Summary ---
Author Organization [facility] Address [address] [place] [address] Care Team Providers Care Dye Blender Name Role Phone Georgette Alva MD Primary Care Provider [phone] Rivera Ryder MD Unavailable [phone] Allergies Active Allergy Reactions Criticality Noted Date [...] by oral route every day 0 0 4 Active atorvastatin (LIPITOR) 20 mg tablet Take 1 tablet (20 mg total) by mouth daily Active azilsartan med-chlorthalid one 40-12.5 mg tablet Take by mouth Active hydrALAZINE (APRESOLINE) 10 mg tabletIndicatio ns:hypertension Take 1 tablet (10 mg total) by mouth 2 (two) times a day Active sotaloL (BETAPACE) 80 mg tablet Take 1.5 tablets (120 mg total) by mouth daily Active vitamin b complex tablet Take 1 tablet by mouth daily Active nitroglycerin (NITROSTAT) 0.4 mg SL tablet [...] (two) times a day 60 tablet 11 5 Active chlorthalidone 12.5 mg tablet Activ e amlodipine-olme sartan (ROBSON) 10-20 mg per tablet Take 1 tablet by mouth daily 02/08/20 25 Discontinu ed(Other) acetaminophen (TYLENOL) 500 mg tablet Take 1 tablet (500 mg total) by mouth as needed 02/08/20 25 Discontinu ed(Duplica te order) Active Problems Problem Noted Date Diagnosed Date AVANI on CPAP 02/14/2025 Assessment & Plan (02/14/2025 1:47 PM TURNING SANDER TENDER): As per pulmonary Mixed hyperlipidemia 02/14/2025 Assessment & Plan (02/14/2025 1:47 PM TURNING SANDER TENDER): Atorvastatin 20mg daily Malignant neoplasm of left b reast in [...] 10/11/2024 Stage 3b chronic kidney disease 09/09/2024 Assessment & Plan (02/14/2025 1:47 PM TURNING SANDER TENDER): As per renal Personal history of primary malignant neoplasm o f breast 04/27/2013 Overview (06/28/2016): History of breast cancer Hemochromatosis 04/27/2013 Overview (06/28/2016): Hemochromatosis Assessment & Plan (02/14/2025 1:47 PM TURNING SANDER TENDER): As per oncology Hypertension 04/27/2013 Overview (06/28/2016): Hypertension Assessment & Plan (02/14/2025 1:47 PM TURNING SANDER TENDER): Hydralazine 10mg bid Encounters Date Type Department Care Team Description 02/14/2025 9:30 AM TURNING SANDER TENDER Office Visit [facility] at [address] [place] [address] Georgette Alva MD Primary hypertension (Primary Dx); Stage 3b chronic kidney disease (HCC); Hereditary hemochromatosis; AVANI on CPAP; Mixed hyperlipidemia 02/14/2025 Telephone [facility] Primary Care at [address] [place] [phone] Cassandra Young 02/07/2025 10:45 AM TURNING SANDER TENDER Office Visit [facility] [address] [facility] Medical Office [address] [place] [id number] Jailene Nguyễn, MANAGER ENTERPRISE Malignant neoplasm of left breast in female, estrogen receptor positive, unspecified site of breast (HCC) (Primary Dx); History of hemochromatosis 02/07/2025 10:15 AM TURNING SANDER TENDER Lab [facility] [place] [facility] [address] [facility] [address] [place] [address] Malignant neoplasm of left breast in female, estrogen receptor positive, unspecified site of breast (HCC); Hemochromatosis, unspecified hemochromatosis type 02/04/2025 Telephone [facility] [address] [place] [address] Medical Office [address] [place] [address] Tonia Frazier CLT from Last 3 Months Immunizations Immunization Administration Dates Next Due COVID-19 MRNA (MODERNA) .5 M L (50 MCG) VACCINE (12 YEARS AND UP) 12/17/2024 Influenza, Quad, Adjuvantate d, Intramuscular 11/28/2020 Influenza, Quadrivalent, Hig h Dose, Preservative Free, Intrr 11/20/2019 Influenza, Quadrivalent, Spl it, Intramuscular 01/08/2017,01/22/2015 Influenza, Quadrivalent, Spl it, Preservative Free, Intramuscular 01/02/2014 Influenza, Trivalent, Adjuva nted, Intramuscular 12/20/2017 Influenza, Trivalent, High D ose, Split, Preservative Free, Intramuscular 01/02/2024,12/31/2021,11/26/2018 Influenza, Trivalent, IM (MDV) 12/23/2011 Influenza, Trivalent, Preser vative Free, Intramuscular 02/10/2016,01/03/2015 Influenza, Unspecified 01/24/2025 Pneumococcal Conjugate PCV 13 06/15/2016, 016 Pneumococcal Conjugate Pcv20 12/28/2024 Pneumococcal Polysaccharide PPV23 06/16/2016,03/2005 RSV, Bivalent, Protein Subun it Rsvpref, Diluent (Abrysvo) 04/16/2024 Rsv, Mrna Injectable, Pf - Mresvia 04/16/2024 ZOSTER LIVE 02/12/2019 ZOSTER Recombinant 12/27/2024,02/02/2020 Surgical History Surgery Date Site/Laterality Comments OTHER SURGICAL HISTORY 5 benignbreast biopsies OTHER SURGICAL HISTORY 2007 breast cancer/ lumpectomy LIVER BIOPSY 1990 liver biopsy OTHER SURGICAL HISTORY 2007 Cancer, breast: Lumpectomy, RTx, and chemo BREAST LUMPECTOMY Left 2008 CATARACT EXTRACTION 2022 Medical History Medical History Date Comments Malignant neoplasm of female breast (HCC) Cancer, breast Hx Other Medical temporal arteri tis Hx Other Medical Hemochromatosis Osteoporosis Osteoporosis History of multiple allergies Al lergies Hx Other Medical Peripheral neur opathy Osteoarthritis Osteoarthritis Hypertension Hypertension Kidney disorder Renal disease History of radiation therapy History of chemotherapy GERD (gastroesophageal reflux disease) Started s ilent in 2011 Heart disease a-fib 2021 Cataract 2022 Social History Tobacco Use Types Packs/Day Years [...] more drinks on one occasion? Never 10/11/2024 PHQ-2 Answer Date Recorded PHQ-2 Total Score (If total score is 3 or more points, staff should administer the PHQ-9) 0 02/14/2025 Comments No Sex and Gender Information Value Date Recorded Sex Assigned at Not on file Legal Sex Female 2:57 AM TURNING SANDER TENDER Gender Identity Not on file Sexual Orientation Not on file Obstetrics History Para Term AB IAB SAB Ectopic Multiple Livin g Live Births 0 0 0 0 0 0 0 0 0 0 0 Last Filed Vital Signs Vital Sign Reading Time Taken Comments Blood Pressure 174/56 02/14/2025 9:29 AM TURNING SANDER TENDER Pulse 53 02/14/2025 9:29 AM TURNING SANDER TENDER Temperature 36.3 C (97.3 F) 02/07/2025 10:54 AM TURNING SANDER TENDER Respiratory Rate 16 02/14/2025 9:29 AM TURNING SANDER TENDER Oxygen Saturation 98% 02/14/2025 9:29 AM TURNING SANDER TENDER Inhaled Oxygen Concentration - - Weight 63 kg (138 lb 12.8 oz) 02/14/2025 9:29 AM TURNING SANDER TENDER Height 158.2 cm (5' 2.28) 02/07/2025 10:[address] Body Mass Index 25.16 02/07/2025 10:54 AM TURNING SANDER TENDER Plan of Treatment Health Maintenance Due Date Last Done Comments Fall Risk Assessment 1940 Osteoporosis Screening-Bone Density Scan 1940 DTaP/Tdap/Td Vaccine (1 - Tdap) 07/13/1950 Hepatitis B Screening 07/13/1957 Well Visit 65+ 07/13/2004 Covid-19 Vaccine ( season) 2025 12/17/2024, 01/02/2024, 06/12/2023, Additional history exists Depression Screening 02/14/2026 02/14/2025 Zoster Vaccine Completed 12/27/2024, 01/22, 02/12/2019 Pneumococcal vaccine 65+ Completed 025, 06/16/2016, 06/15/2016, Additional history exists Influenza Vaccine Completed 01/24/2025, , 12/31/2021, Additional history exists Procedures Procedure Name Priority Date/Time Associated Diagnosis Comments DIFFERENTIAL AUTO Routine 02/07/2025 10: 40 AM TURNING SANDER TENDER Malignant neoplasm of left breast in female, estrogen receptor positive, unspecified site of breast (HCC) CBC WITH AUTO DIFFERENTIAL Routine 02/07/2025 10:40 AM TURNING SANDER TENDER Malignant neoplasm of left breast in female, estrogen receptor positive, unspecified site of breast (HCC) VITAMIN B12 Routine 02/07/2025 10:40 AM TURNING SANDER TENDER Malignant neoplasm of left breast in female, estrogen receptor positive, unspecified site of breast (HCC) Hemochromatosis, unspecified hemochromatosis type FOLATE Routine 02/07/2025 10:40 AM TURNING SANDER TENDER Malignant neoplasm of left breast in female, estrogen receptor positive, unspecified site of breast (HCC) Hemochromatosis, unspecified hemochromatosis type METHYLMALONIC ACID, SERUM Routine 02/07/2025 10:40 AM TURNING SANDER TENDER Malignant neoplasm of left breast in female, estrogen receptor positive, unspecified site of breast (HCC) Hemochromatosis, unspecified hemochromatosis type LACTATE DEHYDROGENASE Routine 02/07/2025 10:40 AM TURNING SANDER TENDER Malignant neoplasm of left breast in female, estrogen receptor positive, unspecified site of breast (HCC) Hemochromatosis, unspecified hemochromatosis type HAPTOGLOBIN Routine 02/07/2025 10:40 AM TURNING SANDER TENDER Malignant neoplasm of left breast in female, estrogen receptor positive, unspecified site of breast (HCC) Hemochromatosis, unspecified hemochromatosis type from Last 3 Months Results * Differential, auto (02/07/2025 10:40 AM TURNING SANDER TENDER) Neutrophil abs 3.67 1.50 - 6.50 K/cumm [facility] ([place]) Comment:Testing performed by : [facility] [address], Medical Office [facility] [address], [place] [address] Imm gran abs 0.00 0.00 - 0.10 K/cumm [facility] ([place]) Comment:Testing performed by : [facility] [address], Medical Office [facility] [address], [place] [address] Lymphocyte abs 0.97 0.80 - 3.30 K/cumm [facility] ([place]) Comment:Testing performed by : [facility] [address], Medical Office [facility] [address], [place] [address] Monocyte abs 0.46 0.20 - 0.80 K/cumm [facility] ([place]) Comment:Testing performed by : [facility] [address], Medical Office [facility] [address], [place] [address] Eosinophil abs 0.18 0.00 - 0.50 K/cumm [facility] ([place]) Comment:Testing performed by : [facility] [address], Medical Office [facility] [address], [place] [address] Basophil abs 0.04 0.00 - 0.10 K/cumm [facility] ([place]) Comment:Testing performed by : [facility] [address], Medical Office [address], [place] [address] Neutrophil pct 69.0 % [facility] ([place]) Comment: Interpretive Data Percent cell count reference ranges are not reported, since discordance with absolute values may lead to misinterpretation of CBC data. Current Interpretive Data was last revised on 2022. Testing performed by: [facility] [address], Medical Office [address], [place] [address] Imm gran pct 0.0 % [facility] ([place]) Comment: Interpretive Data Percent cell count reference ranges are not reported, since discordance with absolute values may lead to misinterpretation of CBC data. Current Interpretive Data was last revised on 2022. Testing performed by: [facility] [address], Medical Office [address], [place] [address] Lymphocyte pct 18.2 % [facility] ([place]) Comment: Interpretive Data Percent cell count reference ranges are not reported, since discordance with absolute values may lead to misinterpretation of CBC data. Current Interpretive Data was last revised on 2022. Testing performed by: [facility] [address], Medical Office [address], [place] [address] Monocyte pct 8.6 % [facility] ([place]) Comment: Interpretive Data Percent cell count reference ranges are not reported, since discordance with absolute values may lead to misinterpretation of CBC data. Current Interpretive Data was last revised on 2022. Testing performed by: [facility] [address], Medical Office [facility] [address], [place] [address] Eosinophil pct 3.4 % [facility] ([place]) Comment: Interpretive Data Percent cell count reference ranges are not reported, since discordance with absolute values may lead to misinterpretation of CBC data. Current Interpretive Data was last revised on 2022. Testing performed by: [facility] [address], Medical Office [address], [place] [address] Basophil pct 0.8 % [facility] ([place]) Comment: Interpretive Data Percent cell count reference ranges are not reported, since discordance with absolute values may lead to misinterpretation of CBC data. Current Interpretive Data was last revised on 2022. Testing performed by: [facility] [address], Medical Office [facility] [address], [place] [address] Blood 02/07/2025 10:4 0 AM TURNING SANDER TENDER 02/07/2025 10:43 AM TURNING SANDER TENDER us Rivera Ryder MD LAB BLOOD ORDERABLES Janey karlie Result [facility] ([place]) [address] [facility] Department [place] [address] * (ABNORMAL) CBC with auto differential (02/07/2025 10:40 AM TURNING SANDER TENDER) WBC 5.32 3.80 - 9.90 K/cumm [facility] ([place]) Comment:Testing performed by : [facility] [address], Medical Office [facility] [address], [place] [address] Hgb 10.0(L) 11.9 - 15.5 g/dL [facility] ([place]) Comment:Testing performed by : [facility] [address], Medical Office [facility] [address], [place] [address] Hct 30.5(L) 35.6 - 45.5 % [facility] ([place]) Comment:Testing performed by : [facility] [address], Medical Office [address], [place] [address] Plt 235 150 - 400 K/cumm [facility] ([place]) Comment:Testing performed by : [facility] [address], Medical Office [address], [place] [address] MPV 9.9 9.1 - 12.3 fL [facility] ([place]) Comment:Testing performed by : [facility] [address], Medical Office [address], [place] [address] RBC 3.25(L) 3.90 - 5.20 M/cumm [facility] ([place]) Comment:Testing performed by : [facility] [address], Medical Office [address], [place] [address] MCV 93.8 81.3 - 96.4 fL [facility] ([place]) Comment:Testing performed by : [facility] [address], Medical Office [facility] [address], [place] [address] MCH 30.8 27.1 - 33.3 pg [facility] ([place]) Comment:Testing performed by : [facility] [address], Medical Office [facility] [address], [place] [address] MCHC 32.8 32.3 - 35.7 g/dL [facility] ([place]) Comment:Testing performed by : [facility] [address], Medical Office [facility] [address], [place] [address] RDW CV 12.4 11.1 - 14.9 % [facility] ([place]) Comment:Testing performed by : [facility] [address], Medical Office [facility] [address], [place] [address] RDW SD 43.0 35.7 - 48.1 fL [facility] ([place]) Comment:Testing performed by : [facility] [address], Medical Office [facility] [address], [place] [address] Blood 02/07/2025 10:4 0 AM TURNING SANDER TENDER 02/07/2025 10:43 AM TURNING SANDER TENDER Rivera Ryder MD LAB BLOOD ORDERABLES Janey ziegler Result [facility] ([place]) 1 [facility] Department [place] [address] * Methylmalonic acid, serum (02/07/2025 10:40 AM TURNING SANDER TENDER) MMA 0.33 <=0.40 nmol/mL [facility] Comment: ADDITIONAL INFORMATION This test was developed and its performance characteristics determined by [facility] in a manner consistent with CLIA requirements. This test has not been cleared or approved by the U.S. Food and Drug Administration. Test Performed by: [address] [address] Culled Fruit Packer: Alida Delatorre Ph.D.; CLIA# [id number] Testing performed by: [facility], [place], [address] Blood 02/07/2025 10:4 0 AM TURNING SANDER TENDER 02/07/2025 10:59 AM TURNING SANDER TENDER us Rivera Ryder MD LAB BLOOD ORDERABLES Janey l Result Performing Organization Address City/[facility]/ZIP Co de Phone Number [facility] ([place]) [address] [place] [address] Department [place] [employer] [place] [address] [facility] * Lactate dehydrogenase (LD) (02/07/2025 10:40 AM TURNING SANDER TENDER) Lactate dehydrogenase (LDH) 161 100 - 250 Units/L Comment:Testing performed by : [facility], [place], [address] Blood 02/07/2025 10:4 0 AM TURNING SANDER TENDER 02/07/2025 10:59 AM TURNING SANDER TENDER Rivera Ryder MD LAB BLOOD ORDERABLES Janey l Result Performing Organization Address [facility] Co de Phone Number [facility] ([place]) [address] [place] [address] [place] [address] * (ABNORMAL) Haptoglobin (02/07/2025 10:40 AM TURNING SANDER TENDER) Haptoglobin 226(H) 30 - 200 mg/dL Comment: Hemolysis present. Results may be affected. Testing performed by: [facility], [address] [place] [address]., [address] Blood 02/07/2025 10:4 0 AM TURNING SANDER TENDER 02/07/2025 5:03 PM TURNING SANDER TENDER Rivera Ryder MD LAB BLOOD ORDERABLES Janey l Result Performing Organization Address City/[facility]/ZIP Co de Phone Number [facility] ([place]) [address] [facility] Department [place] [employer] [place] [address] * Folate (02/07/2025 10:40 AM TURNING SANDER TENDER) Folic acid 13.9 >=5.0 ng/mL Comment:Testing performed by : [place], [address] Blood 02/07/2025 10:4 0 AM TURNING SANDER TENDER 02/07/2025 10:59 AM TURNING SANDER TENDER us Rivera Ryder MD LAB BLOOD ORDERABLES Janey l Result [facility] ([place]) 1 [facility] Department [place] [address] * Vitamin B12 (02/07/2025 10:40 AM TURNING SANDER TENDER) Pathologist [facility] Vitamin B12 546 230 - 1,250 pg/mL Comment:Testing performed by : [facility], [place], [address] Blood 02/07/2025 10:4 0 AM TURNING SANDER TENDER 02/07/2025 10:59 AM TURNING SANDER TENDER us Rivera Ryder MD LAB BLOOD ORDERABLES Janey l Result [facility] ([place]) [address] [place] [address] of [employer] [place] [address] from Last 3 Months Insurance [facility] Address: [facility] [id number] [place] [phone] [facility] Care Teams Dye Blender Relationship Specialty Start Date End Date Georgette Alva MD PCP - General Family Medicine 09/03/24 Rivera Ryder MD [address] [place] [address] [address] [place] [address] Medical Oncologist/Hazmat Tanker Driver Medical Oncology 10/11/24
--- OUTSIDE RECORDS SUMMARY | 2025-02-21 11:30 | XMS_ITS | Clinical Summary ---
Author Organization [facility] Address [address] [place] [address] Care Team Providers Care Third Steel Pourer Name Role Phone Geoff Martinez MD Primary Care Provider Bry Martin MD Unavailable [phone] Allergies Active Allergy Reactions Criticality Noted Date [...] 75+ series) 07/13/2014 COVID-19 Vaccine ( - 2024-2 6 season) 2024 Influenza Adult (#1) 2024 Hepatitis A Vaccines Aged Out No long er eligible based on patient's age to complete this topic Meningococcal B Vaccine Aged Out No l onger eligible based on patient's age to complete this topic Meningococcal Vaccine Aged Out No joya yolanda eligible based on patient's age to complete this topic RSV Immunizations Under 20 Months Aged Out No longer eligible based on patient's age to complete this topic Insurance AETNA [facility] Advance Directives * Full Code (Latest Code Status on File) Date Activated Date Inactivated Comments 11/13/2017 1:11 PM 11/13/2017 3:44 PM Care Teams Third Steel Pourer Relationship Specialty Start Date End Date Geoff Martinez MD [address] [place] [address] PCP - General FAMILY PRACTICE 11/10/17 Bry Martin MD [address] [facility] [address] [place] [address] Referring Physician NEPHROLOGY 11/10/17
--- OUTSIDE RECORDS SUMMARY | 2025-02-21 11:30 | XMS_ITS | Clinical Summary ---
[facility] [place] Address [address] [place] [address] Phone Care Team Providers Care Transactional Attorney Name Role Phone Georgette Alva MD Primary Care Provider [phone] Allergies Active Allergy Reactions Criticality Noted Date [...] mg 12.5 mg daily. 8 Active FLUAD 5266-4954, 65 YR UP,,PF, 45 mcg (15 mcg [...] DO Referring Provider: Tita Toth MD [address] [facility] [address] [place] [address] Other: Problem Noted Date Diagnosed Date Anemia [...] had adjuvant chemotherapy by Dr. Guzman in [place], Completed adjuvant radiation in November [address] Peter Cordova. She is on Arimidex, Hemochromatosis Renal insufficiency Bronze diabetes Giant cell arteritis H/O colonoscopy Immunizations Immunization Administration Dates Next Due INFLUENZA [...] on file Legal Sex Female 5:42 AM LAMINA SEARCHER Gender Identity Not on file Sexual Orientation Not on file Occupation Industry Job Start Date Job End Date Not on file Not on file Not on file Not on file Last Filed Vital Signs Vital Sign Reading Time Taken Comments Blood Pressure 149/78 04/16/2024 8:51 AM LAMINA SEARCHER Pulse 66 04/16/2024 8:48 AM LAMINA SEARCHER Temperature 36.5 C (97.7 F) 04/16/2024 8:48 AM LAMINA SEARCHER Respiratory Rate 15 04/16/2024 8:48 AM LAMINA SEARCHER Oxygen Saturation 98% 04/16/2024 8:48 AM LAMINA SEARCHER Inhaled Oxygen Concentration - - Weight 66.9 kg (147 lb 6.4 oz) 04/16/2024 8:48 A M LAMINA SEARCHER Height 154.9 cm (5' 1) 12/19/2021 9:56 AM CDT Body Mass Index 27.85 12/19/2021 9:56 AM CDT Plan of Treatment Health Maintenance Due Date Last Done Comments DTAP/TDAP/TD VACCINES (1 - Tdap) 07/13/1958 ZOSTER VACCINE (1 of 2) 07/13/1989 OSTEOPOROSIS SCREENING 07/13/2004 RSV VACCINE (60+ or ) (1 - 1-dose 75+ series) 07/13/2014 INFLUENZA VACCINE (#1) 2024 , 12/31/2021, 12/31/2021, Additional history exists COLORECTAL SCREENING Discontinued 11/02/2012 Colorectal Cancer Screening Discontinued PNEUMOCOCCAL VACCINE 50+ YEARS Completed 04/27/2015 , 02/21/2006 FIT-DNA Q 3 years Discontinued FIT/FOBT Q 1 year Discontinued Flex Sig/CT Colonography Q 5 years Discontinued Insurance AETNA CHOICE POS II AETNA CHOICE POS II RX [facility] Advance Directives For more information, please contact: [phone] Documents on File Type Date Recorded Patient Principal Embedded Software Engineer Expl anation Advance Directive POA 07/24/2012 8:56 AM Ad cyr Directive POA Advance Directive Living Will 07/24/2012 8:56 AM Care Teams Transactional Attorney Relationship Specialty Start Date End Date Georgette Alva MD [address] [place] [id number] PCP - General Family Practice 11/01/19
== END 2025-02-21 10:14 | disposition home or self-care (01) ==
LOC: ANHLAB 10:14
PROVIDERS: PCP Family Medicine; Visit Provider Internal Medicine Nephrology
DX: I12.9 Hypertensive chronic kidney disease with stage 1 through stage 4 chronic kidney disease, or unspecified chronic kidney disease (principal); N18.4 Chronic kidney disease, stage 4 (severe); N25.81 Secondary hyperparathyroidism of renal origin; E55.9 Vitamin D deficiency, unspecified
CPT/HCPCS: 36415; 80069; 82306; 82570; 83970; 84156